=== PATIENT | female | born 1940 | race Caucasian/White ===

== ENCOUNTER → 2016-09-20 | Outpatient (CLI) | payer OTHER, BC ==
[~2016-09-20] MED LIST: ACET-1311 PO; APR/25 PO; ASPI81TA28 PO; ATOR10TA88 PO; B-COCAP21 PO; CALC667C PO; CHOL1CAP57 PO; FLUO20CA37 PO; HYDR-5688 PO; KETO2SHA TOP; LABE100T16 PO; LACTCAP3 PO; LBT/100 PO; LCTX PO; NUTR-7 PO; NUTR-773 PO; NYST1POW7 TOP; QUET1TAB30 PO; RCPAV1 IV; VNCS125 PO
== END | disposition home or self-care (01) ==
LOC: C.LABUPUNI 08:52
PROVIDERS: ATTEND Family Medicine
DX: S91.109A Unspecified open wound of unspecified toe(s) without damage to nail, initial encounter (principal); X58.XXXA Exposure to other specified factors, initial encounter

== ENCOUNTER → 2016-10-04 | Outpatient (CLI) | payer OTHER, BC ==
[~2016-10-04] MED LIST changes: -APR/25 PO; +APR25 PO; +ATOR10TA82 PO; -ATOR10TA88 PO; +CHOLPOW PO; +HYDR-4716 PO; +MISCCAP80 PO
[2016-10-04 09:52] LABS: BASO % 0.5 %; BASO ABS # 0.04 K/uL (0-0.2); COMPLETE YES; EOS % 2.2 %; HEMATOCRIT 31.3 % (37-47); IG% 0.1 %; LYMPH % 31.7 %; LYMPH ABS # 2.46 K/uL (1.2-3.4); MEAN CELL VOLUME 95.1 fL (80-100); MEAN CORPUSCULAR HEMOGLOBIN 31.3 pg (25-34); MEAN CORPUSCULAR HGB CONC 32.9 g/dl (32-36); MEAN PLATELET VOLUME 9.3 fL (7.4-10.4); MONO % 9.8 %; NEUT % 55.7 %; PLATELET COUNT 232 K/uL (130-400); RED BLOOD COUNT 3.29 M/uL (4.2-5.4); WHITE BLOOD COUNT 7.76 K/uL (4.8-10.8)
== END ==
LOC: C.LABUPUNI 09:16
PROVIDERS: ATTEND Family Medicine
DX: I10 Essential (primary) hypertension (principal)

== ENCOUNTER → 2016-10-18 | Outpatient (CLI) | payer OTHER, BC ==
[2016-10-18 09:39] LABS: HEMATOCRIT 27.4 % (37-47); MEAN CELL VOLUME 99.6 fL (80-100); MEAN CORPUSCULAR HEMOGLOBIN 31.6 pg (25-34); MEAN CORPUSCULAR HGB CONC 31.8 g/dl (32-36); PLATELET COUNT 179 K/uL (130-400); RED BLOOD COUNT 2.75 M/uL (4.2-5.4); WHITE BLOOD COUNT 7.11 K/uL (4.8-10.8)
== END ==
LOC: C.LABUPUNI 09:25
PROVIDERS: ATTEND Nurse Practitioner Family
DX: E11.40 Type 2 diabetes mellitus with diabetic neuropathy, unspecified (principal)

== ENCOUNTER → 2016-10-22 | Outpatient (CLI) | payer OTHER, BC ==
[2016-10-22 10:00] LABS: HEMATOCRIT 28.5 % (37-47)
--- NOTE | 2016-10-24 14:29 | CODING QUERY NO DIAGNOSIS ---
TREATMENT RENDERED WITHOUT A DIAGNOSIS To promote full compliance with coding requirements relating to patient care, physician participation is requested in all cases of french instructor uncertainty. Please assist us with providing a diagnosis/symptom for the test(s) below: A diagnosis/symptom was not documented on your Order. A valid diagnosis/symptom is required to bill all insurances. Please remember that we are unable to code a diagnosis of rule out, probable, possible, questionable, or suspected. Tests that require a diagnosis: * HEMOGLOBIN & HEMATOCRIT DIAGNOSIS: Provider Signature: Date: Thank you Teri Keyes [facility] Information Management Once completed, please kindly fax back to [phone] For questions please call [phone]
== END ==
LOC: C.LABUPUNI 09:24
PROVIDERS: ATTEND Nurse Practitioner Family
DX: D64.9 Anemia, unspecified (principal)

== ENCOUNTER → 2016-10-24 | Outpatient (CLI) | payer OTHER, BC ==
[2016-10-24 09:21] LABS: THYROID STIMULATING HORMONE 2.23 uIu/ml (0.300-4.500)
== END ==
LOC: C.LABUPUNI 08:06
PROVIDERS: ATTEND Nurse Practitioner Family
DX: M62.81 Muscle weakness (generalized) (principal)

== ENCOUNTER 2017-01-15 22:13 | Inpatient (IN) | payer OTHER, BC ==
[~2017-01-15] VITALS: Ht 157.5 cm; Wt 55.3 kg
[~2017-01-15 22:13] MED LIST changes: +APR/25 PO; -APR25 PO; -ATOR10TA82 PO; +ATOR10TA88 PO; -CHOLPOW PO; -HYDR-4716 PO; -HYDR-5688 PO; -KETO2SHA TOP; -LBT/100 PO; -LCTX PO; -MISCCAP80 PO; -NUTR-7 PO; -NYST1POW7 TOP; -RCPAV1 IV; -VNCS125 PO
[2017-01-15] MEDS ORDERED: SODIUM CHLORIDE 0.9% 1000ML 1,000 ML IV ONE (22:19)
--- NOTE | 2017-01-15 22:23 | EMERGENCY ROOM VISIT NOTE ---
History Report prepared by Adrianna: Deonna Anaya Under the Supervision of: Dr. Kostas Bowie D.O. First contact with patient: 22:14 Chief Complaint: LETHARGIC Stated Complaint: LETHARGIC, FEVER History of Present Illness The patient is a 76 year old female who presents to the Emergency Room with progressively worsening lethargy that began today. Per EMS, the patient arrives via ALS from [facility] as a full code. EMS reports that the staff at [facility] noticed that the patient was becoming increasingly lethargic throughout the room. EMS states that staff at the [facility] noticed that the patient did not eat dinner and then developed a fever this evening. EMS reports that the patient's fever was 102.9 degrees Fahrenheit and was given Tylenol thirty minutes ago. EMS notes that the patient is not typically altered as she is today. EMS denies any report of a cough or diarrhea. Per records the patient is on dialysis. The history is limited secondary to the patient's altered mental status. Source of History: EMS, other (records) History Limited By: AMS Onset: today Position: other (global) Quality: other (lethargy) Timing: worsening (progressively) Associated Symptoms: + fevers, No cough, No diarrhea Note: Associated Symptoms: altered Review of Systems The history and ROS are limited secondary to the patient's altered mental status. Past Medical & Surgical Medical Problems: (1) Amputated toe (2) Anemia Nos (3) Congestive Heart Failure Nos (4) Dementia (5) Diab Rebecca Wo Compl, Type Ii Or Unspec Type, Not Uncntrld (6) Diabetes (7) Hyperlipidemia Nec/Nos (8) Hypertension Nos (9) Renal disease Family History Cancer Diabetes mellitus Heart disease Hypertension Social History Smoking Status: Never Smoker Alcohol Use: none Drug Use: none Marital Status: Housing Status: detention Occupation Status: retired Current/Historical Medications Scheduled Aspirin (Aspirin Ec), 81 MG PO QAM Atorvastatin (Lipitor), 10 MG PO HS B-Complex W/ C & Folic Acid ([place] Caps), 1 CAP PO QPM Calcium Acetate (Phosphate Bin (Phoslo 667 Mg), 2 CAPSULES PO TIDM Cholecalciferol (Vitamin D3), 1,000 UNITS PO QAM Enteral Nutrition Formula (Nepro Carb Steady), 8 OZ PO TID Hydralazine HCl (Hydralazine HCl), 25 MG PO DAILY @ 1600 Hydrocodone/Acetaminophen 5MG/325MG ([place] 5MG/325MG), 1 TABLET PO BID Ketoconazole (Topical) (Ketoconazole), 1 APPLN TOP 2XWK Labetalol Hcl (Normodyne), 100 MG PO BID Nystatin (Topical) (Nystatin), 1 APPLN TOP BID Quetiapine Fumarate (Seroquel), 12.5 MG PO BID Scheduled PRN Acetaminophen (Tylenol), 650 MG PO Q6 PRN for Pain or Fever Allergies Coded Allergies: Dust (Verified Allergy, Unknown, SNEEZING,WHEEZING, 01/15/17) Physical Exam Vital Signs Date Time Temp Pulse Resp B/P (MAP) Pulse Ox O2 Delivery O2 Flow Rate FiO2 01/16/17 00:31 112/43 01/16/17 00:21 92 17 96 01/16/17 00:16 96/30 01/16/17 00:06 88 25 95 01/16/17 00:01 75/35 01/15/17 23:58 37.3 85 16 94 Room Air 01/15/17 23:51 87 15 94 01/15/17 23:46 79/38 01/15/17 23:43 95 16 94 01/15/17 23:31 101/41 01/15/17 23:28 94 17 96 01/15/17 23:16 99/42 01/15/17 23:14 89 99/42 98 Room Air 01/15/17 22:38 94 15 95 01/15/17 22:33 95 18 94 01/15/17 22:31 102/46 01/15/17 22:28 96 17 94 01/15/17 22:23 93 19 94 01/15/17 22:20 95 Room Air 01/15/17 22:20 39.5 94 16 84/33 95 Room Air 01/15/17 22:18 98 17 95 01/15/17 22:18 97 01/15/17 22:15 84/33 Physical Exam GENERAL: Patient is listless and lethargic. Does not follow commands, does not answer questions. Feels warm to touch. EYES: The conjunctivae are clear. The pupils are round and reactive. EARS, NOSE, MOUTH AND THROAT: The nose is without any evidence of any deformity. Mucous membranes are dry, tongue is midline NECK: The neck is nontender and supple. RESPIRATORY: Shallow respirations noted, diminished breath sounds throughout, tachypnea noted. CARDIOVASCULAR: Regular rate and rhythm noted to auscultation. Systolic murmur noted. GASTROINTESTINAL: The abdomen is mildly distended, but soft. Diffuse tenderness noted, but no guarding or rigidity. PELVIS: The Pelvis is stable. No tenderness to palpation is noted. BACK: No midline tenderness or or step-off noted range of motion in flexion extension as well as rotation no signs of muscle spasm noted MUSCULOSKELETAL/EXTREMITIES: There is no evidence of gross deformity full range of motion is noted in the hips and shoulders SKIN: Pedal edema noted bilaterally, no signs of cellulitis. Dialysis fistula in left arm with palpable thrill and bruit noted to auscultation. There is no obvious evidence of any rash. There are no petechiae, pallor or cyanosis noted. NEUROLOGIC: Patient does not follow commands, but according to daughter at baseline. Medical Decision & Procedures ER Provider Diagnostic Interpretation: Radiology results as stated below per my review and radiologist interpretation: HEAD WITHOUT CONTRAST (CT) CLINICAL HISTORY: 76 years-old Female presenting with fever, altered MS. TECHNIQUE: Multidetector CT imaging of the head was performed without the use of intravenous contrast. IV contrast: None. A dose lowering technique was used consistent with the principles of ALARA (as low as reasonably achievable). COMPARISON: 08/26/2015. CT DOSE (mGy.cm): The estimated cumulative dose is 1033.63 mGy.cm. FINDINGS: Casualty Claims Supervisor topogram: Unremarkable. The ventricles and sulci are proportional with mild parenchymal volume loss, likely age-related. Brain parenchyma normal in appearance with preserved weiss-white differentiation. No mass effect or midline shift. No hemorrhage or acute territorial infarct. No extra-axial fluid collection. Paranasal sinuses and mastoid air cells clear. Calvarium intact. IMPRESSION: 1. No acute intracranial pathology. Electronically signed by: Cali Manzano M.D. 01/15/2017 11:18 PM Dictated Date/Time: 01/15/2017 11:14 PM CHEST ONE VIEW PORTABLE CLINICAL HISTORY: 76 years-old Female presenting with Sepsis. TECHNIQUE: Portable upright AP view of the chest was obtained. COMPARISON: 08/26/2015. FINDINGS: Atherosclerosis of aortic arch. Cardiac silhouette stable. Persistent mild elevation of the left hemidiaphragm. Left basilar opacity. No large effusion or pneumothorax. Chronic right humeral deformity with medial displacement of the distal fracture fragment and foreshortening. Upper abdomen normal. IMPRESSION: 1. Left basilar opacity, possibly atelectasis although aspiration or infection cannot be excluded. 2. Chronic right humeral deformity from prior fracture. Electronically signed by: Cali Manzano M.D. 01/15/2017 10:44 PM Dictated Date/Time: 01/15/2017 10:41 PM ABD/PELVIS NO IV OR ORAL CONT CLINICAL HISTORY: 76 years-old Female presenting with fever, diffuse pain. TECHNIQUE: Multidetector CT of the abdomen and pelvis was performed without the use of intravenous contrast. IV contrast: None. A dose lowering technique was used consistent with the principles of ALARA (as low as reasonably achievable). COMPARISON: 08/31/2015. CT DOSE (mGy.cm): The estimated cumulative dose is 1033.63 inclusive of the head CT. FINDINGS: Casualty Claims Supervisor topogram: Unremarkable. Lung bases: Bandlike and groundglass opacities at the lung bases, possibly atelectasis. Multichamber enlargement of the heart. Coronary artery, mitral annular, and aortic valve calcification. No pericardial or pleural effusion. Liver: Normal morphology. Normal density. 11 mm hypodense lesion again noted in the right hepatic lobe with additional smaller hypodense lesions also unchanged from prior. Biliary: No gross evidence of biliary ductal dilatation allowing for noncontrast technique. Gallbladder contains gallstones. Pancreas: Mild parenchymal atrophy. Spleen: Normal. Adrenal glands: Nodular thickening of the left adrenal gland, nonspecific. Kidneys and ureters: No nephrolithiasis. No hydronephrosis. Gastrointestinal tract: Large stool burden in the rectum. Minimal rectal wall thickening without significant perirectal inflammatory change. Diverticulosis with chronic diverticular disease of the proximal sigmoid colon. No bowel obstruction. Peritoneal cavity: No free fluid or intraperitoneal gas. Bladder: Normal. Pelvic organs: Uterus likely surgically absent. No adnexal masses. Vasculature: Atherosclerosis of the normal caliber abdominal aorta. Lymph nodes: Multiple prominent upper abdominal lymph nodes, poorly characterize due to noncontrast technique. Abdominal wall: Diastases of the abdominis rectus with small wide neck midline ventral hernia containing sigmoid colon. Musculoskeletal: Compression deformity of L1 with a vertebral plana appearance. Mild retropulsion of osseous fragments into the spinal canal. This is new from prior exam. Less severe anterior vertebral body height loss of L3, essentially unchanged from prior. IMPRESSION: 1. Interval development of severe L5 compression deformity with mild retropulsion of osseous fragments into the spinal canal. The acuity of this is not known. Correlate with point tenderness. 2. Evidence of chronic diverticular disease. No diverticulitis. 3. Large stool burden in the rectum without convincing evidence of stercoral colitis. 4. Bibasilar atelectasis. 5. Prominent upper abdominal lymph nodes, poorly characterized on noncontrast technique and possibly reactive. Electronically signed by: Cali Manzano M.D. 01/15/2017 11:33 PM Dictated Date/Time: 01/15/2017 11:19 PM Laboratory Results 01/15/17 22:01 Red Blood Count 3.43, Mean Corpuscular Volume 96.8, Mean Corpuscular Hemoglobin 31.8, Mean Corpuscular Hemoglobin Concent 32.8, Mean Platelet Volume 9.6, Neutrophils (%) (Auto) 88.6, Lymphocytes (%) (Auto) 5.7, Monocytes (%) (Auto) 5.5, Eosinophils (%) (Auto) 0.0, Basophils (%) (Auto) 0.1, Neutrophils # (Auto) 9.83, Lymphocytes # (Auto) 0.63, Monocytes # (Auto) 0.61, Eosinophils # (Auto) 0.00, Basophils # (Auto) 0.01 01/15/17 22:01 Test 01/15/17 22:01 01/15/17 22:41 01/15/17 23:03 01/16/17 00:20 White Blood Count 11.09 K/uL (4.8-10.8) Red Blood Count 3.43 M/uL (4.2-5.4) Hemoglobin 10.9 g/dL (12.0-16.0) Hematocrit 33.2 % (37-47) Mean Corpuscular Volume 96.8 fL (80-100) Mean Corpuscular Hemoglobin 31.8 pg (25-34) Mean Corpuscular Hemoglobin Concent 32.8 g/dl (32-36) Platelet Count 245 K/uL (130-400) Mean Platelet Volume 9.6 fL (7.4-10.4) Neutrophils (%) (Auto) 88.6 % Lymphocytes (%) (Auto) 5.7 % Monocytes (%) (Auto) 5.5 % Eosinophils (%) (Auto) 0.0 % Basophils (%) (Auto) 0.1 % Neutrophils # (Auto) 9.83 K/uL (1.4-6.5) Lymphocytes # (Auto) 0.63 K/uL (1.2-3.4) Monocytes # (Auto) 0.61 K/uL (0.11-0.59) Eosinophils # (Auto) 0.00 K/uL (0-0.5) Basophils # (Auto) 0.01 K/uL (0-0.2) RDW Standard Deviation 45.2 fL (36.4-46.3) RDW Coefficient of Variation 13.0 % (11.5-14.5) Immature Granulocyte % (Auto) 0.1 % Immature Granulocyte # (Auto) 0.01 K/uL (0.00-0.02) Red Blood Cell Morphology Unremarkable Erythrocyte Sedimentation Rate 72 mm/hr (0-21) Prothrombin Time 11.6 SECONDS (9.0-12.0) Prothromb Time International Ratio 1.1 (0.9-1.1) Activated Partial Thromboplast Time 25.4 SECONDS (21.0-31.0) Partial Thromboplastin Ratio 1.0 Anion Gap 13.0 mmol/L (3-11) Est Creatinine Clear Calc Drug Dose 7.2 ml/min Estimated GFR () 7.8 Estimated GFR (Non- 6.7 BUN/Creatinine Ratio 14.0 (10-20) Calcium Level 8.9 mg/dl (8.5-10.1) Phosphorus Level 3.9 mg/dl (2.5-4.9) Magnesium Level 2.3 mg/dl (1.8-2.4) Total Bilirubin 1.5 mg/dl (0.2-1) Aspartate Amino Transf (AST/SGOT) 2684 U/L (15-37) Alanine Aminotransferase (ALT/SGPT) 1634 U/L (12-78) Alkaline Phosphatase 489 U/L (45-117) Total Creatine Kinase 91 U/L (26-192) Creatine Kinase MB 2.3 ng/ml (0.5-3.6) Creatine Kinase MB Ratio 2.5 (0-3.0) Troponin I < 0.015 ng/ml (0-0.045) C-Reactive Protein 4.78 mg/dl (0-0.29) Pro-B-Type Natriuretic Peptide 6495 pg/ml (0-1800) Total Protein 7.8 gm/dl (6.4-8.2) Albumin 3.0 gm/dl (3.4-5.0) Globulin 4.8 gm/dl (2.5-4.0) Albumin/Globulin Ratio 0.6 (0.9-2) Lipase 1296 U/L (73-393) Bedside Lactic Acid Venous 0.81 mmol/L (0.90-1.70) Venous Blood pH 7.47 (7.36-7.41) Venous Blood Partial Pressure CO2 34 mmHg (38.0-50.0) Venous Blood Partial Pressure O2 49 mmHg Venous Blood HCO3 24 mmol/L Venous Blood Oxygen Saturation 84.8 % Venous Blood Base Excess 0.6 mmol/L Urine Color YELLOW Urine Appearance CLEAR (CLEAR) Urine pH 8.0 (4.5-7.5) Urine Specific [place] 1.011 (1.000-1.030) Urine Protein 2+ (NEG) Urine Glucose (UA) NEG (NEG) Urine Ketones NEG (NEG) Urine Occult Blood NEG (NEG) Urine Nitrite NEG (NEG) Urine Bilirubin NEG (NEG) Urine Urobilinogen NEG (NEG) Urine Leukocyte Esterase NEG (NEG) Urine WBC (Auto) 1-5 /hpf (0-5) Urine RBC (Auto) 0-4 /hpf (0-4) Urine Hyaline Casts (Auto) 1-5 /lpf (0-5) Urine Epithelial Cells (Auto) 5-10 /lpf (0-5) Urine Bacteria (Auto) NEG (NEG) Laboratory results per my review. Medications Administered Medications (Trade) Dose Ordered Sig/Neyda Route Start Time Stop Time Status Last Admin Dose Admin Sodium Chloride 1,000 ml @ 999 mls/hr Q1H1M ONCE IV 01/15/17 22:19 01/15/17 23:19 DC 01/15/17 22:37 999 MLS/HR Piperacillin Sod/ Tazobactam Sod (Zosyn Iv) 4.5 gm NOW STAT IV 01/15/17 23:26 01/15/17 23:27 DC 01/15/17 23:34 4.5 GM Sodium Chloride 500 ml @ 999 mls/hr Q31M STAT IV 01/16/17 00:02 01/16/17 00:32 DC 01/16/17 00:36 999 MLS/HR Vancomycin HCl (Vancomycin 1gm/ 270ml Nss) 1 gm STK-MED ONCE .ROUTE 01/16/17 00:37 01/16/17 00:38 DC 01/16/17 00:48 1 GM ECG Indication: altered mental status Rate (beats per minute): 93 Rhythm: normal sinus Findings: no ectopy, other (no acute ST segment abnormalities) Comparison ECG Date: no prior available ED Course 5: The patient was evaluated in room B2. A complete history and physical examination were performed. 9: Ordered Sodium Chloride 1000 ml @ 999 mls/hr IV. 2326: Ordered Zosyn IV 4.5 gm IV. 2329: I reevaluated the patient and she is resting. I discussed the exam findings with the patients daughter and I discussed the treatment plan. She verbalized complete understanding and agreement. She will be evaluated for further treatment. 2358: I discussed the patients case with Nick Vanessa. He is going to evaluate the patient for further treatment. 0002: Ordered Sodium Chloride 500 ml @ 999 mls/hr IV. Medical Decision Differential diagnosis: Etiologies such as viral syndrome, otitis, pharyngitis, pneumonia, influenza, meningitis, urinary tract infection, sepsis, bacteremia, as well as others were entertained. Nursing notes reviewed. Additional history is obtained from the prehospital personnel. Additional history is obtained from the patient's family member. The patient is a 76-year-old female who presented to the emergency Department from a detention for fever and altered mental status. On physical exam the patient appeared to have significant abdominal tenderness. The patient was found have an elevated white blood cell count as well as an elevated liver function studies and lipase. On CT the patient does have gallstones and some edema throughout the abdomen. I'm unsure if this represents a cholecystitis but based on the patient's laboratory studies she was started on fluids and IV antibiotics. I discussed the patient's laboratory and radiographic studies with her as well as her family member. Due to the patient's condition I also discussed his case with the on-call [facility] hospitalist group. They have agreed to evaluate the patient in emergency apartment for further management and disposition. Consults Time Called: [phone] Consulting Physician: Nick Vanessa Returned Call: [phone] I discussed the patients case with Nick Vanessa. He is going to evaluate the patient for further treatment. Impression Primary Impression: Sepsis Additional Impressions: Gallstone pancreatitis Renal failure Scribe Attestation The scribe's documentation has been prepared under my direction and personally reviewed by me in its entirety. I confirm that the note above accurately reflects all work, treatment, procedures, and medical decision making performed by me. Departure Information Dispostion Being Evaluated By Hospitalist Referrals [facility] (PCP) Problem Qualifiers Primary Impression: Sepsis Sepsis type: sepsis due to unspecified organism Qualified Codes: A41.9 - Sepsis, unspecified organism Additional Impressions: Renal failure Renal failure chronicity: acute on chronic Acute renal failure type: unspecified Chronic kidney disease stage: unspecified stage Qualified Codes: N17.9 - Acute kidney failure, unspecified; N18.9 - Chronic kidney disease, unspecified
[2017-01-15 22:29] LABS: HEMATOCRIT 33.2 % (37-47); MEAN CELL VOLUME 96.8 fL (80-100); MEAN CORPUSCULAR HEMOGLOBIN 31.8 pg (25-34); MEAN CORPUSCULAR HGB CONC 32.8 g/dl (32-36); MEAN PLATELET VOLUME 9.6 fL (7.4-10.4); PLATELET COUNT 245 K/uL (130-400); RED BLOOD COUNT 3.43 M/uL (4.2-5.4); WHITE BLOOD COUNT 11.09 K/uL (4.8-10.8)
[2017-01-15 22:39] LABS: INR 1.1 (0.9-1.1); PROTHROMBIN TIME (PATIENT) 11.6 SECONDS (9.0-12.0)
--- NOTE | 2017-01-15 22:45 | DIAGNOSTIC IMAGING REPORT ---
CHEST ONE VIEW PORTABLE CLINICAL HISTORY: 76 years-old Female presenting with Sepsis. TECHNIQUE: Portable upright AP view of the chest was obtained. COMPARISON: 08/26/2015. FINDINGS: Atherosclerosis of aortic arch. Cardiac silhouette stable. Persistent mild elevation of the left hemidiaphragm. Left basilar opacity. No large effusion or pneumothorax. Chronic right humeral deformity with medial displacement of the distal fracture fragment and foreshortening. Upper abdomen normal. IMPRESSION: 1. Left basilar opacity, possibly atelectasis although aspiration or infection cannot be excluded. 2. Chronic right humeral deformity from prior fracture. Electronically signed by: Cali Manzano M.D. 01/15/2017 10:44 PM Dictated Date/Time: 01/15/2017 10:41 PM
[2017-01-15] MEDS ORDERED: NYST1POW7 TOP (22:54)
[2017-01-15] MEDS ORDERED: KETO2SHA TOP (22:54)
[2017-01-15] MEDS ORDERED: LBT/100 PO (22:54)
[2017-01-15] MEDS ORDERED: HYDR-5688 PO (22:54)
[2017-01-15 22:58] LABS: BASO % 0.1 %; BASO ABS # 0.01 K/uL (0-0.2); COMPLETE YES; IG% 0.1 %; LYMPH % 5.7 %; LYMPH ABS # 0.63 K/uL (1.2-3.4); MONO % 5.5 %; NEUT % 88.6 %
[2017-01-15 23:12] LABS: ALB/GLOB RATIO 0.6 (0.9-2); ALKALINE PHOSPHATASE 489 U/L (45-117); ALT/SGPT 1634 U/L (12-78); BLOOD UREA NITROGEN 79 mg/dl (7-18); C-REACTIVE PROTEIN 4.78 mg/dl (0-0.29); CALCIUM 8.9 mg/dl (8.5-10.1); CARBON DIOXIDE 25 mmol/L (21-32); CHLORIDE 97 mmol/L (98-107); CKMB/CK RATIO 2.5 (0-3.0); GLUCOSE 153 mg/dl (70-99); MAGNESIUM 2.3 mg/dl (1.8-2.4); PHOSPHORUS 3.9 mg/dl (2.5-4.9); POTASSIUM 3.5 mmol/L (3.5-5.1); SODIUM 135 mmol/L (136-145)
--- NOTE | 2017-01-15 23:20 | DIAGNOSTIC IMAGING REPORT ---
HEAD WITHOUT CONTRAST (CT) CLINICAL HISTORY: 76 years-old Female presenting with fever, altered MS. TECHNIQUE: Multidetector CT imaging of the head was performed without the use of intravenous contrast. IV contrast: None. A dose lowering technique was used consistent with the principles of ALARA (as low as reasonably achievable). COMPARISON: 08/26/2015. CT DOSE (mGy.cm): The estimated cumulative dose is 1033.63 mGy.cm. FINDINGS: Beveling And Edging Machine Operator topogram: Unremarkable. The ventricles and sulci are proportional with mild parenchymal volume loss, likely age-related. Brain parenchyma normal in appearance with preserved weiss-white differentiation. No mass effect or midline shift. No hemorrhage or acute territorial infarct. No extra-axial fluid collection. Paranasal sinuses and mastoid air cells clear. Calvarium intact. IMPRESSION: 1. No acute intracranial pathology. Electronically signed by: Cali Manzano M.D. 01/15/2017 11:18 PM Dictated Date/Time: 01/15/2017 11:14 PM
[2017-01-15 23:22] LABS: AST/SGOT 2684 U/L (15-37)
[2017-01-15 23:24] LABS: VEN BLD GAS O2 SATURATION 84.8 %; VEN BLOOD GAS BASE EXCESS 0.6 mmol/L
[2017-01-15] MEDS ORDERED: PIPERACILLIN/TAZOBACTAM 4.5 GM/100ML D5W IV STA (23:26)
--- NOTE | 2017-01-15 23:35 | DIAGNOSTIC IMAGING REPORT ---
ABD/PELVIS NO IV OR ORAL CONT CLINICAL HISTORY: 76 years-old Female presenting with fever, diffuse pain. TECHNIQUE: Multidetector CT of the abdomen and pelvis was performed without the use of intravenous contrast. IV contrast: None. A dose lowering technique was used consistent with the principles of ALARA (as low as reasonably achievable). COMPARISON: 08/31/2015. CT DOSE (mGy.cm): The estimated cumulative dose is 1033.63 inclusive of the head CT. FINDINGS: Heel Nail Rasper topogram: Unremarkable. Lung bases: Bandlike and groundglass opacities at the lung bases, possibly atelectasis. Multichamber enlargement of the heart. Coronary artery, mitral annular, and aortic valve calcification. No pericardial or pleural effusion. Liver: Normal morphology. Normal density. 11 mm hypodense lesion again noted in the right hepatic lobe with additional smaller hypodense lesions also unchanged from prior. Biliary: No gross evidence of biliary ductal dilatation allowing for noncontrast technique. Gallbladder contains gallstones. Pancreas: Mild parenchymal atrophy. Spleen: Normal. Adrenal glands: Nodular thickening of the left adrenal gland, nonspecific. Kidneys and ureters: No nephrolithiasis. No hydronephrosis. Gastrointestinal tract: Large stool burden in the rectum. Minimal rectal wall thickening without significant perirectal inflammatory change. Diverticulosis with chronic diverticular disease of the proximal sigmoid colon. No bowel obstruction. Peritoneal cavity: No free fluid or intraperitoneal gas. Bladder: Normal. Pelvic organs: Uterus likely surgically absent. No adnexal masses. Vasculature: Atherosclerosis of the normal caliber abdominal aorta. Lymph nodes: Multiple prominent upper abdominal lymph nodes, poorly characterize due to noncontrast technique. Abdominal wall: Diastases of the abdominis rectus with small wide neck midline ventral hernia containing sigmoid colon. Musculoskeletal: Compression deformity of L1 with a vertebral plana appearance. Mild retropulsion of osseous fragments into the spinal canal. This is new from prior exam. Less severe anterior vertebral body height loss of L3, essentially unchanged from prior. IMPRESSION: 1. Interval development of severe L5 compression deformity with mild retropulsion of osseous fragments into the spinal canal. The acuity of this is not known. Correlate with point tenderness. 2. Evidence of chronic diverticular disease. No diverticulitis. 3. Large stool burden in the rectum without convincing evidence of stercoral colitis. 4. Bibasilar atelectasis. 5. Prominent upper abdominal lymph nodes, poorly characterized on noncontrast technique and possibly reactive. Electronically signed by: Cali Manzano M.D. 01/15/2017 11:33 PM Dictated Date/Time: 01/15/2017 11:19 PM
[2017-01-16] MEDS ORDERED: SODIUM CHLORIDE 0.9% 500ML 500 ML IV STA ×2 (00:02→00:58)
[2017-01-16 00:36] LABS: URINE APPEARANCE CLEAR (CLEAR); URINE BILIRUBIN NEG (NEG); URINE COLOR YELLOW; URINE NITRITE NEG (NEG); URINE SPECIFIC GRAVITY 1.011 (1.000-1.030); UROBILINOGEN NEG (NEG); ZZURINE CULT IF INDIC CATH NO
[2017-01-16] MEDS ORDERED: VANCOMYCIN 1GM/270ML NSS ONE (00:37)
[2017-01-16 00:39] LABS: MANUAL MICROSCOPIC REQUIRED? NO; REVIEW REQ? NO; SULFASALICYLIC ACID POS (NEG)
[2017-01-16] MEDS ORDERED: VANCOMYCIN 1GM/270ML NSS IV STA (00:58)
--- NOTE | 2017-01-16 01:13 | History and Physical ---
History & Physical Date & Time of Service: Jan 16, 2017 at 01:13 . Chief Complaint: lethargy, fever . Primary Care Physician: [facility] [place] . History of Present Illness Source: family, hospital records 76-year-old female who resides at [facility]. History of Lewy body dementia, chronic kidney disease stage V on hemodialysis, hypertension, and other problems as noted below. She is essentially wheelchair bound. Her dementia is advanced and is associated with hallucinations. Tonight at the longterm she was noted to be lethargic, febrile, and hypotensive. EMS summoned and she was brought to the ED. Patient unable to provide any information because of her dementia and lethargy. Daughter was present in the ED and provided background information, but not aware of any new symptoms or problems prior to noted changes this evening. Blood pressure in the ED as low as 75/35. Received fluid resuscitation with improvement. Blood cultures obtained in ED and patient was started on broad-spectrum antibiotic therapy. . Past Medical/Surgical History Chronic and Resolved Medical Problems: (1) Anemia in CKD (chronic kidney disease) Status: Chronic (2) Chronic kidney disease requiring chronic dialysis Status: Chronic (3) Chronic pain Status: Chronic (4) CKD (chronic kidney disease) stage 5, GFR less than 15 ml/min Status: Chronic (5) Diabetes mellitus with stage 5 chronic kidney disease GFR <15 Status: Chronic (6) Diabetic neuropathy Status: Chronic (7) Diabetic retinopathy associated with type 2 diabetes mellitus Status: Chronic (8) Dyslipidemia Status: Chronic (9) Fracture of neck of right humerus Status: Chronic (10) History of MRSA infection Permanent Comment: osteomyelitis left second toe Status: Chronic (11) History of osteomyelitis Permanent Comment: left second toe, MRSA Status: Chronic (12) Hypertension Status: Chronic (13) Lewy body dementia Status: Chronic Surgical Problems: (1) Status post amputation of toe of left foot Permanent Comment: left second toe Status: Chronic (2) Status post hysterectomy Status: Chronic . Family History Cancer Diabetes mellitus Heart disease Hypertension Social History Smoking Status: Former Smoker Alcohol Use: none Drug Use: none Marital Status: Housing status: longterm Occupational Status: retired Immunizations History of Influenza Vaccine: Yes History of Pneumococcal: Yes Multi-Drug Resistant Organisms History of MDRO: Yes Type of MDRO: MRSA Allergies Coded Allergies: Dust (Verified Allergy, Unknown, SNEEZING,WHEEZING, 01/15/17) Home Medications Scheduled Aspirin (Aspirin Ec), 81 MG PO QAM Atorvastatin (Lipitor), 10 MG PO HS B-Complex W/ C & Folic Acid ([place] Caps), 1 CAP PO QPM Calcium Acetate (Phosphate Bin (Phoslo 667 Mg), 2 CAPSULES PO TIDM Cholecalciferol (Vitamin D3), 1,000 UNITS PO QAM Enteral Nutrition Formula (Nepro Carb Steady), 8 OZ PO TID Hydralazine HCl (Hydralazine HCl), 25 MG PO DAILY @ 1600 Hydrocodone/Acetaminophen 5MG/325MG ([place] 5MG/325MG), 1 TABLET PO BID Ketoconazole (Topical) (Ketoconazole), 1 APPLN TOP 2XWK Labetalol Hcl (Normodyne), 100 MG PO BID Nystatin (Topical) (Nystatin), 1 APPLN TOP BID Quetiapine Fumarate (Seroquel), 12.5 MG PO BID Scheduled PRN Acetaminophen (Tylenol), 650 MG PO Q6 PRN for Pain or Fever Review of Systems Unable to obtain due to dementia / lethargy. . Physical Exam Vital Signs Date Time Temp Pulse Resp B/P (MAP) Pulse Ox O2 Delivery O2 Flow Rate FiO2 01/16/17 01:01 103/42 97 Room Air 01/16/17 00:51 88 20 97 01/16/17 00:46 94/42 01/16/17 00:36 85 16 95 01/16/17 00:31 112/43 01/16/17 00:21 92 17 96 01/16/17 00:16 96/30 01/16/17 00:06 88 25 95 01/16/17 00:01 75/35 01/15/17 23:58 37.3 85 16 94 Room Air 01/15/17 23:51 87 15 94 01/15/17 23:46 79/38 01/15/17 23:43 95 16 94 01/15/17 23:31 101/41 01/15/17 23:28 94 17 96 01/15/17 23:16 99/42 01/15/17 23:14 89 99/42 98 Room Air 01/15/17 22:38 94 15 95 01/15/17 22:33 95 18 94 01/15/17 22:31 102/46 01/15/17 22:28 96 17 94 01/15/17 22:23 93 19 94 01/15/17 22:20 95 Room Air 01/15/17 22:20 39.5 94 16 84/33 95 Room Air 01/15/17 22:18 98 17 95 01/15/17 22:18 97 01/15/17 22:15 84/33 General Appearance: + moderate distress, + cachetic Head: normocephalic, atraumatic Eyes: PERRL, EOMI, sclerae normal, + pertinent finding (exam limited due to patient's inability to cooperate) ENT: + pertinent finding (exam limited due to patient's inability to cooperate) Neck: supple, no adenopathy, thyroid normal, trachea midline Respiratory/Chest: no respiratory distress, no accessory muscle use, + pertinent finding (few bibasilar rales) Cardiovascular: regular rate, rhythm, no edema, + systolic murmur (III/ systolic murmur at base), + abnormal peripheral pulses (diminished pedal pulses) , + pertinent finding (+ JVD) Abdomen/GI: + pertinent finding (quiet bowel sounds, diffusely tender (more so in RUQ), slighty distended, soft, no palpable masses or organomegaly) Extremities/Musculoskelatal: no calf tenderness, normal capillary refill, no pedal edema, + pertinent finding (decreased ROM right shoulder, s/p amputation left second toe; AV fistula LUE) Neurologic/Psych: + pertinent finding (lethargic; exam very limited; does not follow commands; plantar reflexes equivocal bilat) Skin: normal color, no rash Lymphatic: no adenopathy (cervical) Diagnostics Laboratory Results Results Past 24 Hours Test 01/15/17 22:01 01/15/17 22:41 01/15/17 23:03 01/16/17 00:20 Range/Units White Blood Count 11.09 4.8-10.8 K/uL Red Blood Count 3.43 4.2-5.4 M/uL Hemoglobin 10.9 12.0-16.0 g/dL Hematocrit 33.2 37-47 % Mean Corpuscular Volume 96.8 80-100 fL Mean Corpuscular Hemoglobin 31.8 25-34 pg Mean Corpuscular Hemoglobin Concent 32.8 32-36 g/dl Platelet Count 245 130-400 K/uL Mean Platelet Volume 9.6 7.4-10.4 fL Neutrophils (%) (Auto) 88.6 % Lymphocytes (%) (Auto) 5.7 % Monocytes (%) (Auto) 5.5 % Eosinophils (%) (Auto) 0.0 % Basophils (%) (Auto) 0.1 % Neutrophils # (Auto) 9.83 1.4-6.5 K/uL Lymphocytes # (Auto) 0.63 1.2-3.4 K/uL Monocytes # (Auto) 0.61 0.11-0.59 K/uL Eosinophils # (Auto) 0.00 0-0.5 K/uL Basophils # (Auto) 0.01 0-0.2 K/uL RDW Standard Deviation 45.2 36.4-46.3 fL RDW Coefficient of Variation 13.0 11.5-14.5 % Immature Granulocyte % (Auto) 0.1 % Immature Granulocyte # (Auto) 0.01 0.00-0.02 K/uL Red Blood Cell Morphology Unremarkable Erythrocyte Sedimentation Rate 72 0-21 mm/hr Prothrombin Time 11.6 9.0-12.0 SECONDS Prothromb Time International Ratio 1.1 0.9-1.1 Activated Partial Thromboplast Time 25.4 21.0-31.0 SECONDS Partial Thromboplastin Ratio 1.0 Sodium Level 135 136-145 mmol/L Potassium Level 3.5 3.5-5.1 mmol/L Chloride Level 97 98-107 mmol/L Carbon Dioxide Level 25 21-32 mmol/L Anion Gap 13.0 3-11 mmol/L Blood Urea Nitrogen 79 7-18 mg/dl Creatinine 5.60 0.60-1.20 mg/dl Est Creatinine Clear Calc Drug Dose 7.2 ml/min Estimated GFR () 7.8 Estimated GFR (Non- 6.7 BUN/Creatinine Ratio 14.0 10-20 Random Glucose 153 70-99 mg/dl Calcium Level 8.9 8.5-10.1 mg/dl Phosphorus Level 3.9 2.5-4.9 mg/dl Magnesium Level 2.3 1.8-2.4 mg/dl Total Bilirubin 1.5 0.2-1 mg/dl Aspartate Amino Transf (AST/SGOT) 2684 15-37 U/L Alanine Aminotransferase (ALT/SGPT) 1634 12-78 U/L Alkaline Phosphatase 489 45-117 U/L Total Creatine Kinase 91 26-192 U/L Creatine Kinase MB 2.3 0.5-3.6 ng/ml Creatine Kinase MB Ratio 2.5 0-3.0 Troponin I < 0.015 0-0.045 ng/ml C-Reactive Protein 4.78 0-0.29 mg/dl Pro-B-Type Natriuretic Peptide 6495 0-1800 pg/ml Total Protein 7.8 6.4-8.2 gm/dl Albumin 3.0 3.4-5.0 gm/dl Globulin 4.8 2.5-4.0 gm/dl Albumin/Globulin Ratio 0.6 0.9-2 Lipase 1296 73-393 U/L Bedside Lactic Acid Venous 0.81 0.90-1.70 mmol/L Venous Blood pH 7.47 7.36-7.41 Venous Blood Partial Pressure CO2 34 38.0-50.0 mmHg Venous Blood Partial Pressure O2 49 mmHg Venous Blood HCO3 24 mmol/L Venous Blood Oxygen Saturation 84.8 % Venous Blood Base Excess 0.6 mmol/L Urine Color YELLOW Urine Appearance CLEAR CLEAR Urine pH 8.0 4.5-7.5 Urine Specific [place] 1.011 1.000-1.030 Urine Protein 2+ NEG Urine Glucose (UA) NEG NEG Urine Ketones NEG NEG Urine Occult Blood NEG NEG Urine Nitrite NEG NEG Urine Bilirubin NEG NEG Urine Urobilinogen NEG NEG Urine Leukocyte Esterase NEG NEG Urine WBC (Auto) 1-5 0-5 /hpf Urine RBC (Auto) 0-4 0-4 /hpf Urine Hyaline Casts (Auto) 1-5 0-5 /lpf Urine Epithelial Cells (Auto) 5-10 0-5 /lpf Urine Bacteria (Auto) NEG NEG Microbiology Results 01/15/17 Blood Culture, Received Pending 01/15/17 Blood Culture, Received Pending Diagnostic Radiology PORT CXR (interpreted by Radiology) 1. Left basilar opacity, possibly atelectasis although aspiration or infection cannot be excluded. 2. Chronic right humeral deformity from prior fracture. Electronically signed by: Cali Manzano M.D. 01/15/2017 10:[address] HEAD (interpreted by Radiology) IMPRESSION: 1. No acute intracranial pathology. Electronically signed by: Cali Manzano M.D. 01/15/2017 11:[address] ABDOMEN + PELVIS (interpreted by Radiology) IMPRESSION: 1. Interval development of severe L5 compression deformity with mild retropulsion of osseous fragments into the spinal canal. The acuity of this is not known. Correlate with point tenderness. 2. Evidence of chronic diverticular disease. No diverticulitis. 3. Large stool burden in the rectum without convincing evidence of stercoral colitis. 4. Bibasilar atelectasis. 5. Prominent upper abdominal lymph nodes, poorly characterized on noncontrast technique and possibly reactive. Electronically signed by: Cali Manzano M.D. 01/15/2017 11:33 PM . Impression Assessment and Plan PROBABLE SEPSIS Patient presented to ED with fever of 39.5 and blood pressures as low as 75 systolic. WBC 11,090. Serum lactate 0.81. C reactive protein 4.78. Received fluid resuscitation for hypotension with improvement. Will not add pressors due to plan for conservative management without invasive procedures (including central lines). Blood cultures obtained. Received broad-spectrum IV antibiotic therapy with piperacillin/tazobactam. Add vancomycin for broader coverage. Source of infection not certain, but suspect biliary tract as discussed below. Chest x-ray suggested possible left lower lobe infiltrate, but appearance of lung bases on CT appeared to be most consistent with atelectasis. History of Clostridium difficile colitis. Stools in ED were reportedly loose. Check stool for C. difficile. History of diverticulitis, but no CT-evidence at this time. ALTERED MENTAL STATUS Head CT negative for acute findings. Most likely has encephalopathy / delirium secondary to sepsis. ELEVATED LFT'S / LIPASE Labs notable for total bilirubin 1.5, AST 2684, ALT 1634, alk phosphatase 489, lipase 1296. Cholelithiasis noted on CT without apparent cholecystitis or choledocholithiasis. Consider cholecystitis, cholangitis, gallstone pancreatitis. Check ultrasound for further information. Antibiotics for possible biliary tract infection as noted above. Given current plan of very conservative management, will not pursue GI or Surgery consultations. HYPERTENSION Hypotensive at time of presentation. Hold labetalol and hydralazine until hemodynamics improved. 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 Currently diet-controlled. Random blood sugar in ED 153. Tight glycemic management not indicated. Will not check hemoglobin A1c since it will not alter therapy. Add insulin coverage if blood sugars > 180. CKD V Consult Nephrology for management of hemodialysis and other related issues. LEWY BODY DEMENTIA Diagnosed several years ago with progressive disease, now advanced. Superimposed delirium secondary to suspected sepsis. Chronically on low-dose quetiapine- resume when able to take oral meds safely. Avoid higher doses of antipsychotics due to Lewy body disease. COMPRESSION FRACTURE L1 Severe compression fracture at L1 of uncertain chronicity noted on CT of abdomen and pelvis. Unable to assess further at this time. CHRONIC PAIN Patient takes hydrocodone for chronic pain, apparently primarily due to right shoulder pain. Unable to take oral analgesics at this time. IV hydromorphone PRN. Resume oral therapy with hydrocodone if / when able. HISTORY MRSA Contact precautions. VTE PROPHYLAXIS Moderately high risk for VTE. SQ heparin. RESUSCITATION STATUS Discussed with patient's daughter who is POA. She has a living will. Daughter feels that patient would not wish to have invasive procedures or cardiopulmonary resuscitation attempted in light of her advanced dementia and previously expressed wishes. Code status, therefore, is "Level 5" (DNR). DISPOSITION Patient is critically ill. Will not admit to ICU due to DNR status and plan not to consider invasive procedures including central lines. Expected return to [facility] if her condition improves. . VTE Prophylaxis Risk Level: Moderate Given or contraindicated: Unfractionated heparin SQ
[2017-01-16 01:55] VITALS: BP 124/60; PULSE 84; TEMP 37.8; O2SAT 96; Ht 157.5 cm; Wt 55.3 kg
[2017-01-16] MEDS ORDERED: VANCOMYCIN INJ 0 MG in SODIUM CHLORIDE 0.9% 500ML 500 ML IV SCH (02:00)
[2017-01-16] MEDS ORDERED: HYDROmorphone INJ 0.5 MG/0.5 ML SYR IV PRN (02:00)
[2017-01-16] MEDS ORDERED: VANCOMYCIN CONSULT ACTIVE PRN (02:30)
[2017-01-16] MEDS ORDERED: PIPERACILL/TAZOBAC CONSULT ACTIVE PRN (02:30)
--- NOTE | 2017-01-16 03:33 | Progress Note ---
Progress Note Post Crystalloid Evaluation Date: Jan 16, 2017 Time: 03:20 Subjective Hemodynamics improved. A bit more alert. No respiratory distress. . Physical Exam Vital Signs: Vital Signs Date Time Temp Pulse Resp B/P (MAP) Pulse Ox O2 Delivery O2 Flow Rate FiO2 01/16/17 01:55 37.8 84 18 124/60 96 Room Air Lungs: lungs clear, no respiratory distress, no accessory muscle use Heart: regular rate, rhythm, no edema, + JVD, + systolic murmur Peripheral Pulse: Weak Capillary Refill: Normal (less than 2 seconds) Skin: Unremarkable (no mottling, no cyanosis,m no flushing) Assessment & Plan Presence of: Severe Sepsis Severe sepsis. Hemodynamically stable after fluid resuscitation. Continue broad-spectrum IV antibiotic therapy. .
[2017-01-16 04:34] VITALS: BP 151/67; PULSE 81; TEMP 37.3; O2SAT 96
--- NOTE | 2017-01-16 06:56 | DIAGNOSTIC IMAGING REPORT ---
BILIARY ABDOMEN LIMITED HISTORY: 76 years-old Female elevated LFT's + lipase COMPARISON: CT abdomen and pelvis 01/15/2017 and 08/26/2015, chest CT 11/09/2014 TECHNIQUE: Multiple real-time sonographic images of the abdominal right upper quadrant were obtained assessing grayscale appearance and color flow. FINDINGS: Exam and limited secondary to reported patient combativeness and lack of cooperation. The patient is medicated for pain and therefore sonographic Doe sign was unable to be obtained. There is severe atrophy of the pancreatic parenchyma without focal mass identified. Distal body and tail are obscured by bowel gas. There is a trace amount of perihepatic ascites noted. Liver measures up to 21 cm. There is nonspecific 0.8 cm lesion of the subserosal posterior right hepatic lobe, 0.8 x 1.2 x 1.2 cm which appears unchanged from 11/09/2014. This is nonspecific, however suggests hepatic cyst. No internal vascularity. There is a prominent amount of layering sludge and shadowing gallstones within the gallbladder lumen with gallstones also seen within the gallbladder neck. There is mild gallbladder distention measuring up to 10.8 cm in length. The gallbladder wall is mildly thickened measuring up to 4 mm. Trace pericholecystic fluid is noted. Common bile duct measures up to 8.8 mm without obstructing stone or mass identified. The right kidney appears echogenic without hydronephrosis or focal mass. IMPRESSION: 1. Cholelithiasis and gallbladder sludge noted in association with mild gallbladder wall thickening. Sonographic Doe sign was unable to be assessed secondary to patient's medicated status. Findings may reflect acute cholecystitis within the appropriate clinical setting. Follow-up exam with hepatobiliary study may be beneficial. 2. Prominence of the common bile duct measuring up to 8.8 mm may be normal considering patient's age. No obstructing stone or mass identified. 3. 1.2 cm hypoechoic lesion of the subserosal posterior right hepatic lobe is nonspecific, however is unchanged dating back to 11/09/2014 suggesting cyst. 4. Mild perihepatic ascites. The above report was generated using voice recognition software. It may contain grammatical, syntax or spelling errors. Electronically signed by: Cash Moeller M.D. 01/16/2017 6:54 AM Dictated Date/Time: 01/16/2017 6:45 AM
[2017-01-16 07:04] LABS: HEMATOCRIT 30.5 % (37-47); MEAN CELL VOLUME 97.1 fL (80-100); MEAN CORPUSCULAR HEMOGLOBIN 32.2 pg (25-34); MEAN CORPUSCULAR HGB CONC 33.1 g/dl (32-36); PLATELET COUNT 181 K/uL (130-400); RED BLOOD COUNT 3.14 M/uL (4.2-5.4); WHITE BLOOD COUNT 15.04 K/uL (4.8-10.8)
[2017-01-16 07:57] LABS: ALB/GLOB RATIO 0.6 (0.9-2); BUN/CREATININE RATIO 14.4 (10-20); CALCIUM 8.5 mg/dl (8.5-10.1); CREATININE 5.8 mg/dl (0.60-1.20); POTASSIUM 3.5 mmol/L (3.5-5.1)
[2017-01-16 08:08] VITALS: BP 148/73; PULSE 76; TEMP 36.9; O2SAT 95
--- NOTE | 2017-01-16 08:59 | Progress Note ---
Medicine Progress Note Date & Time of Visit: Jan 16, 2017 at 08:48. Subjective patient seen resting in bed, appears comfortable but lethargic does not respond to verbal stimuli grimaces with painful stimuli to thumb not in respiratory distress Objective Last 8 Hrs Date Time Temp Pulse Resp B/P (MAP) Pulse Ox O2 Delivery O2 Flow Rate FiO2 01/16/17 08:08 36.9 76 18 148/73 (98) 95 01/16/17 04:34 37.3 81 18 151/67 (95) 96 Room Air 01/16/17 04:00 Room Air 01/16/17 01:55 37.8 84 18 124/60 96 Room Air 01/16/17 01:42 37.3 83 15 105/39 96 01/16/17 01:21 83 15 96 01/16/17 01:16 105/39 01/16/17 01:06 87 18 95 01/16/17 01:01 103/42 97 Room Air 01/16/17 00:51 88 20 97 Physical Exam: General- lethargic, not in respiratory distress Head- atraumatic Eyes- EOMI, anicteric ENT- (+) dry oral mucosa Neck- supple, no JVD, no adenopathy Lungs- clear breath sounds bilaterally Heart- regular rhythm; no murmur, normal rate Abdomen- normal bowel sounds,non distended, soft, mild grimace to RUQ palpation Extremities- no pretibial edema, no calf tenderness Neuro- lethargic , full exam cannot be performed Skin- warm & dry Laboratory Results: Last 24 Hours Test 01/15/17 22:01 01/15/17 22:41 01/15/17 23:03 01/16/17 00:20 White Blood Count 11.09 K/uL Red Blood Count 3.43 M/uL Hemoglobin 10.9 g/dL Hematocrit 33.2 % Mean Corpuscular Volume 96.8 fL Mean Corpuscular Hemoglobin 31.8 pg Mean Corpuscular Hemoglobin Concent 32.8 g/dl Platelet Count 245 K/uL Mean Platelet Volume 9.6 fL Neutrophils (%) (Auto) 88.6 % Lymphocytes (%) (Auto) 5.7 % Monocytes (%) (Auto) 5.5 % Eosinophils (%) (Auto) 0.0 % Basophils (%) (Auto) 0.1 % Neutrophils # (Auto) 9.83 K/uL Lymphocytes # (Auto) 0.63 K/uL Monocytes # (Auto) 0.61 K/uL Eosinophils # (Auto) 0.00 K/uL Basophils # (Auto) 0.01 K/uL RDW Standard Deviation 45.2 fL RDW Coefficient of Variation 13.0 % Immature Granulocyte % (Auto) 0.1 % Immature Granulocyte # (Auto) 0.01 K/uL Red Blood Cell Morphology Unremarkable Erythrocyte Sedimentation Rate 72 mm/hr Prothrombin Time 11.6 SECONDS Prothromb Time International Ratio 1.1 Activated Partial Thromboplast Time 25.4 SECONDS Partial Thromboplastin Ratio 1.0 Sodium Level 135 mmol/L Potassium Level 3.5 mmol/L Chloride Level 97 mmol/L Carbon Dioxide Level 25 mmol/L Anion Gap 13.0 mmol/L Blood Urea Nitrogen 79 mg/dl Creatinine 5.60 mg/dl Est Creatinine Clear Calc Drug Dose 7.2 ml/min Estimated GFR () 7.8 Estimated GFR (Non- 6.7 BUN/Creatinine Ratio 14.0 Random Glucose 153 mg/dl Calcium Level 8.9 mg/dl Phosphorus Level 3.9 mg/dl Magnesium Level 2.3 mg/dl Total Bilirubin 1.5 mg/dl Aspartate Amino Transf (AST/SGOT) 2684 U/L Alanine Aminotransferase (ALT/SGPT) 1634 U/L Alkaline Phosphatase 489 U/L Total Creatine Kinase 91 U/L Creatine Kinase MB 2.3 ng/ml Creatine Kinase MB Ratio 2.5 Troponin I < 0.015 ng/ml C-Reactive Protein 4.78 mg/dl Pro-B-Type Natriuretic Peptide 6495 pg/ml Total Protein 7.8 gm/dl Albumin 3.0 gm/dl Globulin 4.8 gm/dl Albumin/Globulin Ratio 0.6 Lipase 1296 U/L Bedside Lactic Acid Venous 0.81 mmol/L Venous Blood pH 7.47 Venous Blood Partial Pressure CO2 34 mmHg Venous Blood Partial Pressure O2 49 mmHg Venous Blood HCO3 24 mmol/L Venous Blood Oxygen Saturation 84.8 % Venous Blood Base Excess 0.6 mmol/L Urine Color YELLOW Urine Appearance CLEAR Urine pH 8.0 Urine Specific [place] 1.011 Urine Protein 2+ Urine Glucose (UA) NEG Urine Ketones NEG Urine Occult Blood NEG Urine Nitrite NEG Urine Bilirubin NEG Urine Urobilinogen NEG Urine Leukocyte Esterase NEG Urine WBC (Auto) 1-5 /hpf Urine RBC (Auto) 0-4 /hpf Urine Hyaline Casts (Auto) 1-5 /lpf Urine Epithelial Cells (Auto) 5-10 /lpf Urine Bacteria (Auto) NEG Test 01/16/17 06:52 White Blood Count 15.04 K/uL Red Blood Count 3.14 M/uL Hemoglobin 10.1 g/dL Hematocrit 30.5 % Mean Corpuscular Volume 97.1 fL Mean Corpuscular Hemoglobin 32.2 pg Mean Corpuscular Hemoglobin Concent 33.1 g/dl RDW Standard Deviation 46.0 fL RDW Coefficient of Variation 13.1 % Platelet Count 181 K/uL Mean Platelet Volume 9.0 fL Sodium Level 140 mmol/L Potassium Level 3.5 mmol/L Chloride Level 102 mmol/L Carbon Dioxide Level 25 mmol/L Anion Gap 13.0 mmol/L Blood Urea Nitrogen 82 mg/dl Creatinine 5.80 mg/dl Est Creatinine Clear Calc Drug Dose 6.3 ml/min Estimated GFR () 7.5 Estimated GFR (Non- 6.4 BUN/Creatinine Ratio 14.4 Random Glucose 90 mg/dl Calcium Level 8.5 mg/dl Total Bilirubin 1.2 mg/dl Aspartate Amino Transf (AST/SGOT) 1300 U/L Alanine Aminotransferase (ALT/SGPT) 1156 U/L Alkaline Phosphatase 387 U/L Total Protein 6.8 gm/dl Albumin 2.6 gm/dl Globulin 4.2 gm/dl Albumin/Globulin Ratio 0.6 Lipase 2063 U/L Date/Time Source Procedure Growth Status 01/15/17 23:03 Blood Blood Culture Pending Received 01/15/17 22:35 Blood Blood Culture Pending Received 01/16/17 04:55 Stool C.difficile Toxin B Gene (PCR) - Final No C. difficile toxin B gene detected Complete Assessment & Plan PROBABLE SEPSIS, SECONDARY TO ACUTE CHOLECYSTITIS WITH POSSIBLE PANCREATITIS - BP improved after 2 liters of IV NSS overnight fever curve seems to be improving WBC increased AST/ALT improved, Lipase increased - Liver US: possible cholecystitis Blood cultures: pending - as per Dr. Scott' discussion with daughter Maxine, no invasive measures at this time thus, no ERCP/Surgical Intervention - will continue medical management: Vanco and Zosyn Day 2 gentle IV fluids - monitor closely POSSIBLE ACUTE PANCREATITIS LIKELY GALLSTONE RELATED - discussed fluid management with Nephro- Dr. Flores - will start IV NSS at 80cc/hr and monitor volume status closely ALTERED MENTAL STATUS Head CT negative for acute findings. Most likely has encephalopathy / delirium secondary to sepsis. -- monitor HYPERTENSION Hypotensive at time of presentation. 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 - ISS for now CKD V - Nephrology consulted - plan for HD tomorrow LEWY BODY DEMENTIA - Quetiapine on hold until mental status improves to safely take po meds COMPRESSION FRACTURE L1 Severe compression fracture at L1 of uncertain chronicity noted on CT of abdomen and pelvis. -- will assess further when patient is more alert CHRONIC PAIN Patient takes hydrocodone for chronic pain, apparently primarily due to right shoulder pain. Unable to take oral analgesics at this time. IV hydromorphone PRN. HISTORY MRSA Contact precautions. VTE PROPHYLAXIS Moderately high risk for VTE. SQ heparin. RESUSCITATION STATUS Discussed with patient's daughter who is POA. She has a living will. Daughter feels that patient would not wish to have invasive procedures or cardiopulmonary resuscitation attempted in light of her advanced dementia and previously expressed wishes. Code status, therefore, is "Level 5" (DNR). DISPOSITION Patient is critically ill. Will not admit to ICU due to DNR status and plan not to consider invasive procedures including central lines. Expected return to [facility] if her condition improves. . Current Inpatient Medications: Current Inpatient Medications Medications (Trade) Dose Ordered Sig/Neyda Route Start Time Stop Time Status Last Admin Dose Admin Piperacillin Sod/ Tazobactam Sod 3.375 gm/Dextrose 115 ml @ 28.75 mls/ hr Q12@0800,1999 IV 01/16/17 08:00 01/26/17 07:59 Hydromorphone HCl (Dilaudid Inj) 0.25 mg Q1H PRN IV 01/16/17 02:00 01/30/17 01:59 Vancomycin HCl (Consult) 1 ea UD PRN N/A 01/16/17 02:30 02/15/17 02:29 Piperacillin Sod/ Tazobactam Sod (Consult) 1 ea UD PRN N/A 01/16/17 02:30 02/15/17 02:29 Heparin Sodium (Porcine) (Heparin Sq 5000 Unit/0.5ml) 5,000 unit Q12 SQ 01/16/17 09:00 02/15/17 08:59
[2017-01-16] MEDS: SODIUM CHLORIDE 0.9% 1000ML 1,000 ML IV SCH (09:57)
[2017-01-16] MEDS: PIPERACILL/TAZOBAC IV 3.375 GM in DEXTROSE 5% 100ML 100 ML IV SCH ×2 (09:59→22:07)
[2017-01-16] MEDS: HEPARIN SOD 5000 UNIT/0.5 ML CARP SQ SCH ×2 (10:05→22:08)
--- NOTE | 2017-01-16 10:37 | Pharmacy Progress Note ---
Pharmacy Antibiotic Consult Date of Service: Jan 16, 2017. Pharmacy Dosing Scope Pharmacy is consulted to initiate vancomycin/zosyn IV dosing therapy, order appropriate labs and adjust drug dose/frequency. Subjective The patient is a 76 year old female admitted on Jan 16, 2017 at 01:17. Objective Height (Feet): 5 Height (Inches): 2.00 Weight (Kilograms): 57.000 Lab Results (24hrs): Test 01/15/17 22:01 01/15/17 22:41 01/15/17 23:03 01/16/17 00:20 White Blood Count 11.09 K/uL (4.8-10.8) Red Blood Count 3.43 M/uL (4.2-5.4) Hemoglobin 10.9 g/dL (12.0-16.0) Hematocrit 33.2 % (37-47) Mean Corpuscular Volume 96.8 fL (80-100) Mean Corpuscular Hemoglobin 31.8 pg (25-34) Mean Corpuscular Hemoglobin Concent 32.8 g/dl (32-36) Platelet Count 245 K/uL (130-400) Mean Platelet Volume 9.6 fL (7.4-10.4) Neutrophils (%) (Auto) 88.6 % Lymphocytes (%) (Auto) 5.7 % Monocytes (%) (Auto) 5.5 % Eosinophils (%) (Auto) 0.0 % Basophils (%) (Auto) 0.1 % Neutrophils # (Auto) 9.83 K/uL (1.4-6.5) Lymphocytes # (Auto) 0.63 K/uL (1.2-3.4) Monocytes # (Auto) 0.61 K/uL (0.11-0.59) Eosinophils # (Auto) 0.00 K/uL (0-0.5) Basophils # (Auto) 0.01 K/uL (0-0.2) RDW Standard Deviation 45.2 fL (36.4-46.3) RDW Coefficient of Variation 13.0 % (11.5-14.5) Immature Granulocyte % (Auto) 0.1 % Immature Granulocyte # (Auto) 0.01 K/uL (0.00-0.02) Red Blood Cell Morphology Unremarkable Erythrocyte Sedimentation Rate 72 mm/hr (0-21) Prothrombin Time 11.6 SECONDS (9.0-12.0) Prothromb Time International Ratio 1.1 (0.9-1.1) Activated Partial Thromboplast Time 25.4 SECONDS (21.0-31.0) Partial Thromboplastin Ratio 1.0 Sodium Level 135 mmol/L (136-145) Potassium Level 3.5 mmol/L (3.5-5.1) Chloride Level 97 mmol/L (98-107) Carbon Dioxide Level 25 mmol/L (21-32) Anion Gap 13.0 mmol/L (3-11) Blood Urea Nitrogen 79 mg/dl (7-18) Creatinine 5.60 mg/dl (0.60-1.20) Est Creatinine Clear Calc Drug Dose 7.2 ml/min Estimated GFR () 7.8 Estimated GFR (Non- 6.7 BUN/Creatinine Ratio 14.0 (10-20) Random Glucose 153 mg/dl (70-99) Calcium Level 8.9 mg/dl (8.5-10.1) Phosphorus Level 3.9 mg/dl (2.5-4.9) Magnesium Level 2.3 mg/dl (1.8-2.4) Total Bilirubin 1.5 mg/dl (0.2-1) Aspartate Amino Transf (AST/SGOT) 2684 U/L (15-37) Alanine Aminotransferase (ALT/SGPT) 1634 U/L (12-78) Alkaline Phosphatase 489 U/L (45-117) Total Creatine Kinase 91 U/L (26-192) Creatine Kinase MB 2.3 ng/ml (0.5-3.6) Creatine Kinase MB Ratio 2.5 (0-3.0) Troponin I < 0.015 ng/ml (0-0.045) C-Reactive Protein 4.78 mg/dl (0-0.29) Pro-B-Type Natriuretic Peptide 6495 pg/ml (0-1800) Total Protein 7.8 gm/dl (6.4-8.2) Albumin 3.0 gm/dl (3.4-5.0) Globulin 4.8 gm/dl (2.5-4.0) Albumin/Globulin Ratio 0.6 (0.9-2) Lipase 1296 U/L (73-393) Bedside Lactic Acid Venous 0.81 mmol/L (0.90-1.70) Venous Blood pH 7.47 (7.36-7.41) Venous Blood Partial Pressure CO2 34 mmHg (38.0-50.0) Venous Blood Partial Pressure O2 49 mmHg Venous Blood HCO3 24 mmol/L Venous Blood Oxygen Saturation 84.8 % Venous Blood Base Excess 0.6 mmol/L Urine Color YELLOW Urine Appearance CLEAR (CLEAR) Urine pH 8.0 (4.5-7.5) Urine Specific [place] 1.011 (1.000-1.030) Urine Protein 2+ (NEG) Urine Glucose (UA) NEG (NEG) Urine Ketones NEG (NEG) Urine Occult Blood NEG (NEG) Urine Nitrite NEG (NEG) Urine Bilirubin NEG (NEG) Urine Urobilinogen NEG (NEG) Urine Leukocyte Esterase NEG (NEG) Urine WBC (Auto) 1-5 /hpf (0-5) Urine RBC (Auto) 0-4 /hpf (0-4) Urine Hyaline Casts (Auto) 1-5 /lpf (0-5) Urine Epithelial Cells (Auto) 5-10 /lpf (0-5) Urine Bacteria (Auto) NEG (NEG) Test 01/16/17 06:52 White Blood Count 15.04 K/uL (4.8-10.8) Red Blood Count 3.14 M/uL (4.2-5.4) Hemoglobin 10.1 g/dL (12.0-16.0) Hematocrit 30.5 % (37-47) Mean Corpuscular Volume 97.1 fL (80-100) Mean Corpuscular Hemoglobin 32.2 pg (25-34) Mean Corpuscular Hemoglobin Concent 33.1 g/dl (32-36) RDW Standard Deviation 46.0 fL (36.4-46.3) RDW Coefficient of Variation 13.1 % (11.5-14.5) Platelet Count 181 K/uL (130-400) Mean Platelet Volume 9.0 fL (7.4-10.4) Sodium Level 140 mmol/L (136-145) Potassium Level 3.5 mmol/L (3.5-5.1) Chloride Level 102 mmol/L (98-107) Carbon Dioxide Level 25 mmol/L (21-32) Anion Gap 13.0 mmol/L (3-11) Blood Urea Nitrogen 82 mg/dl (7-18) Creatinine 5.80 mg/dl (0.60-1.20) Est Creatinine Clear Calc Drug Dose 6.3 ml/min Estimated GFR () 7.5 Estimated GFR (Non- 6.4 BUN/Creatinine Ratio 14.4 (10-20) Random Glucose 90 mg/dl (70-99) Calcium Level 8.5 mg/dl (8.5-10.1) Total Bilirubin 1.2 mg/dl (0.2-1) Aspartate Amino Transf (AST/SGOT) 1300 U/L (15-37) Alanine Aminotransferase (ALT/SGPT) 1156 U/L (12-78) Alkaline Phosphatase 387 U/L (45-117) Total Protein 6.8 gm/dl (6.4-8.2) Albumin 2.6 gm/dl (3.4-5.0) Globulin 4.2 gm/dl (2.5-4.0) Albumin/Globulin Ratio 0.6 (0.9-2) Lipase 2063 U/L (73-393) Micro Results: Item Value Date Time C.difficile Toxin B Gene (PCR) - Final Complete 01/16/17 0455 Stool No C. difficile toxin B gene detected Blood Culture Received 01/15/17 2303 Blood Pending Blood Culture - Preliminary Resulted 01/15/17 2235 Blood Gram Negative Bacilli Assessment & Plan Patient started on vancomycin and zosyn for possible sepsis secondary to cholecystitis/pancreatitis. Stool negative for C. diff. 1 out of 2 blood cultures came back positive for Gm negative bacilli. Pt with hx of CKD stage 5 on HD. Vancomycin: * Pt received a LD of vancomycin 1000 mg (~18 mg/kg) x 1 this am * Per MD note, patient to receive dialysis tomorrow 01/17; will order a random level prior to dialysis to assist with further dosing. * Random level tomorrow am still >15 mcg/ml (goal 15-20 mcg/ml for sepsis/ bacteremia) Zosyn: * 3.375 gm iv q 12 hr; appropriate for pt on HD, no change Pharmacy will continue to follow and will adjust dose/frequency as necessary. Thank you
[2017-01-16 11:55] VITALS: BP 138/64; PULSE 72; TEMP 36.8; O2SAT 99
[2017-01-16] MEDS: METOPROLOL TARTRATE 1 MG/ML VIAL IV. SCH ×2 (12:41→19:13)
--- NOTE | 2017-01-16 13:24 | Nephrology Consultation ---
Nephrology Consultation Date of Consultation: Jan 16, 2017. Attending Physician: Dr Bocanegra Requesting Physician: Dr Scott Reason for Consultation: ESRD on HD a/w sepsis History of Present Illness 76 year old female w/ PMH dementia, ESRD on HD, HTN, ambulatory dysfunction a/w sepsis after presenting w/ fever, hypotension, lethargy, transaminitis, lipase 1296; her presenting BP in ED high 70s systolic w/ oral temp 39.5. Cultures and imaging were obtained; lactate noted to be normal -- biliary tract sepsis source suspected at admission. Pt is DNR, so pressors deferred; her BP have rebounded w/ abtx, NS. Her blood cultures are + for GNR w/in 12 hrs of being drawn. Her fever has for now resolved; she is on zosyn and NS at 80 ml/hr. Remains quite lethargic and obtunded on RA. Past Medical/Surgical History Medical Problems: (1) Altered mental status Status: Acute (2) Altered mental status Status: Acute (3) C. difficile diarrhea Status: Acute (4) C. difficile diarrhea Status: Acute (5) Dehydration Status: Acute (6) Diabetic foot ulcers Status: Acute (7) Diabetic foot ulcers Status: Acute (8) Gallstone pancreatitis Status: Acute (9) Hypotension Status: Acute (10) Hypotension Status: Acute (11) Sepsis Status: Acute -esrd on HD MWF via AVF at [facility] under care of Dr Davis -DM currently diet controlled -HTN -chronic pain -Lewey body dementia -ambulatory dysfunction/ w-c bound -hx of R humeral fracture -hx of L 2nd toe osteomyelitis s/p amputation Family History Cancer Diabetes mellitus Heart disease Hypertension Social History Smoking Status: Former Smoker Alcohol Use: none Drug Use: none Marital Status: Housing Status: correction Occupation Status: retired Allergies Coded Allergies: Dust (Verified Allergy, Unknown, SNEEZING,WHEEZING, 01/15/17) Medications Current Inpatient Medications Medications (Trade) Dose Ordered Sig/Neyda Route Start Time Stop Time Status Last Admin Dose Admin Piperacillin Sod/ Tazobactam Sod 3.375 gm/Dextrose 115 ml @ 28.75 mls/ hr Q12@0800,1999 IV 01/16/17 08:00 01/26/17 07:59 Hydromorphone HCl (Dilaudid Inj) 0.25 mg Q1H PRN IV 01/16/17 02:00 01/30/17 01:59 Vancomycin HCl (Consult) 1 ea UD PRN N/A 01/16/17 02:30 02/15/17 02:29 Piperacillin Sod/ Tazobactam Sod (Consult) 1 ea UD PRN N/A 01/16/17 02:30 02/15/17 02:29 Heparin Sodium (Porcine) (Heparin Sq 5000 Unit/0.5ml) 5,000 unit Q12 SQ 01/16/17 09:00 02/15/17 08:59 Home Meds and Scripts Medications Dose Route/Sig Max Daily Dose Days Date Category Dose Instructions Nystatin (Nystatin (Topical)) 1 Pow Pow 1 Appln TOP BID 01/15/17 Reported APPLY TO ABD FOLDS, BUTTOCKS AND UNDER BREASTS. Ketoconazole (Ketoconazole (Topical)) 2 % Sha 1 Appln TOP 2XWK 30 01/15/17 Reported USES ON MON & TH. Cement 5MG/325MG (Acetaminophen/Hydrocodone Bitart) Tab 1 Tablet PO BID 01/15/17 Reported Normodyne (Labetalol Hcl) 100 Mg Tab 100 Mg PO BID 01/15/17 Reported HOLD IF SYSTOLIC B/P < 120, OR APICAL HEART RATE < 50. Nepro Carb Steady (Enteral Nutritional Formula) 1 Can Liqd 8 Oz PO TID 03/10/16 Reported Seroquel (Quetiapine Fumarate) 25 Mg Tab 12.5 Mg PO BID 08/02/15 Reported Hydralazine HCl 25 Mg Tab 25 Mg PO DAILY @ 1600 03/03/15 Reported Phoslo 667 Mg (Calcium Acetate (Phosphate Bin) 667 Mg Cap 2 Capsules PO TIDM 03/03/15 Reported Zeke Caps (B-Complex W/ C & Folic Acid) 1 Cap Cap 1 Cap PO QPM 03/03/15 Reported Vitamin D3 (Cholecalciferol) 1,000 Unit Cap 1,000 Units PO QAM 11/03/14 Reported Lipitor (Atorvastatin Calcium) 10 Mg Tab 10 Mg PO HS 11/03/14 Reported Aspirin Ec (Aspirin) 81 Mg Tab 81 Mg PO QAM 11/03/14 Reported Tylenol (Acetaminophen) 325 Mg Tab 650 Mg PO Q6 PRN 11/03/14 Reported MILD PAIN OR FEVER > 101 F. NOT TO EXCEED 3 GRAMS PER 24 HOURS. Review of Systems unable to obtain ROS d/t MS Physical Exam Date Time Temp Pulse Resp B/P (MAP) Pulse Ox O2 Delivery O2 Flow Rate FiO2 01/16/17 04:34 37.3 81 18 151/67 (95) 96 Room Air 01/16/17 04:00 Room Air 01/16/17 01:55 37.8 84 18 124/60 96 Room Air 01/16/17 01:42 37.3 83 15 105/39 96 01/16/17 01:21 83 15 96 01/16/17 01:16 105/39 01/16/17 01:06 87 18 95 01/16/17 01:01 103/42 97 Room Air 01/16/17 00:51 88 20 97 01/16/17 00:46 94/42 01/16/17 00:36 85 16 95 01/16/17 00:31 112/43 01/16/17 00:21 92 17 96 01/16/17 00:16 96/30 01/16/17 00:06 88 25 95 01/16/17 00:01 75/35 01/15/17 23:58 37.3 85 16 94 Room Air 01/15/17 23:51 87 15 94 01/15/17 23:46 79/38 01/15/17 23:43 95 16 94 01/15/17 23:31 101/41 01/15/17 23:28 94 17 96 01/15/17 23:16 99/42 01/15/17 23:14 89 99/42 98 Room Air 01/15/17 22:38 94 15 95 01/15/17 22:33 95 18 94 01/15/17 22:31 102/46 01/15/17 22:28 96 17 94 01/15/17 22:23 93 19 94 01/15/17 22:20 95 Room Air 01/15/17 22:20 39.5 94 16 84/33 95 Room Air 01/15/17 22:18 98 17 95 01/15/17 22:18 97 01/15/17 22:15 84/33 General Appearance: no apparent distress (lethargic > opens eyes briefly but does not interact), + cachetic Eyes: EOMI ENT: hearing grossly normal Neck: supple Respiratory/Chest: no respiratory distress (lying flat on RA), + decreased breath sounds Cardiovascular: regular rate, rhythm, no edema Abdomen: normal bowel sounds, soft, + guarding, + tenderness Extremities: no pedal edema, + pertinent finding (withdraws to pain; LUE avf + t/b) Neurologic/Psych: + pertinent finding (lethargic/obtunded) Skin: no jaundice, warm/dry, no rash Diagnostics Last 24 Hours Test 01/15/17 22:01 01/15/17 22:41 01/15/17 23:03 01/16/17 00:20 White Blood Count 11.09 K/uL Red Blood Count 3.43 M/uL Hemoglobin 10.9 g/dL Hematocrit 33.2 % Mean Corpuscular Volume 96.8 fL Mean Corpuscular Hemoglobin 31.8 pg Mean Corpuscular Hemoglobin Concent 32.8 g/dl Platelet Count 245 K/uL Mean Platelet Volume 9.6 fL Neutrophils (%) (Auto) 88.6 % Lymphocytes (%) (Auto) 5.7 % Monocytes (%) (Auto) 5.5 % Eosinophils (%) (Auto) 0.0 % Basophils (%) (Auto) 0.1 % Neutrophils # (Auto) 9.83 K/uL Lymphocytes # (Auto) 0.63 K/uL Monocytes # (Auto) 0.61 K/uL Eosinophils # (Auto) 0.00 K/uL Basophils # (Auto) 0.01 K/uL RDW Standard Deviation 45.2 fL RDW Coefficient of Variation 13.0 % Immature Granulocyte % (Auto) 0.1 % Immature Granulocyte # (Auto) 0.01 K/uL Red Blood Cell Morphology Unremarkable Erythrocyte Sedimentation Rate 72 mm/hr Prothrombin Time 11.6 SECONDS Prothromb Time International Ratio 1.1 Activated Partial Thromboplast Time 25.4 SECONDS Partial Thromboplastin Ratio 1.0 Sodium Level 135 mmol/L Potassium Level 3.5 mmol/L Chloride Level 97 mmol/L Carbon Dioxide Level 25 mmol/L Anion Gap 13.0 mmol/L Blood Urea Nitrogen 79 mg/dl Creatinine 5.60 mg/dl Est Creatinine Clear Calc Drug Dose 7.2 ml/min Estimated GFR () 7.8 Estimated GFR (Non- 6.7 BUN/Creatinine Ratio 14.0 Random Glucose 153 mg/dl Calcium Level 8.9 mg/dl Phosphorus Level 3.9 mg/dl Magnesium Level 2.3 mg/dl Total Bilirubin 1.5 mg/dl Aspartate Amino Transf (AST/SGOT) 2684 U/L Alanine Aminotransferase (ALT/SGPT) 1634 U/L Alkaline Phosphatase 489 U/L Total Creatine Kinase 91 U/L Creatine Kinase MB 2.3 ng/ml Creatine Kinase MB Ratio 2.5 Troponin I < 0.015 ng/ml C-Reactive Protein 4.78 mg/dl Pro-B-Type Natriuretic Peptide 6495 pg/ml Total Protein 7.8 gm/dl Albumin 3.0 gm/dl Globulin 4.8 gm/dl Albumin/Globulin Ratio 0.6 Lipase 1296 U/L Bedside Lactic Acid Venous 0.81 mmol/L Venous Blood pH 7.47 Venous Blood Partial Pressure CO2 34 mmHg Venous Blood Partial Pressure O2 49 mmHg Venous Blood HCO3 24 mmol/L Venous Blood Oxygen Saturation 84.8 % Venous Blood Base Excess 0.6 mmol/L Urine Color YELLOW Urine Appearance CLEAR Urine pH 8.0 Urine Specific [place] 1.011 Urine Protein 2+ Urine Glucose (UA) NEG Urine Ketones NEG Urine Occult Blood NEG Urine Nitrite NEG Urine Bilirubin NEG Urine Urobilinogen NEG Urine Leukocyte Esterase NEG Urine WBC (Auto) 1-5 /hpf Urine RBC (Auto) 0-4 /hpf Urine Hyaline Casts (Auto) 1-5 /lpf Urine Epithelial Cells (Auto) 5-10 /lpf Urine Bacteria (Auto) NEG Test 01/16/17 06:52 White Blood Count 15.04 K/uL Red Blood Count 3.14 M/uL Hemoglobin 10.1 g/dL Hematocrit 30.5 % Mean Corpuscular Volume 97.1 fL Mean Corpuscular Hemoglobin 32.2 pg Mean Corpuscular Hemoglobin Concent 33.1 g/dl RDW Standard Deviation 46.0 fL RDW Coefficient of Variation 13.1 % Platelet Count 181 K/uL Mean Platelet Volume 9.0 fL Sodium Level 140 mmol/L Potassium Level 3.5 mmol/L Chloride Level 102 mmol/L Carbon Dioxide Level 25 mmol/L Anion Gap 13.0 mmol/L Blood Urea Nitrogen 82 mg/dl Creatinine 5.80 mg/dl Est Creatinine Clear Calc Drug Dose 6.3 ml/min Estimated GFR () 7.5 Estimated GFR (Non- 6.4 BUN/Creatinine Ratio 14.4 Random Glucose 90 mg/dl Calcium Level 8.5 mg/dl Total Bilirubin 1.2 mg/dl Aspartate Amino Transf (AST/SGOT) 1300 U/L Alanine Aminotransferase (ALT/SGPT) 1156 U/L Alkaline Phosphatase 387 U/L Total Protein 6.8 gm/dl Albumin 2.6 gm/dl Globulin 4.2 gm/dl Albumin/Globulin Ratio 0.6 Lipase 2063 U/L Diagnostic Radiology: CT abd/pelvis non cont severe L5 compression deformity ?acuity; large stool burden CXR L basilar opacity abd u/s >> possible acute cholecystitis depending on clinical correlation head CT > no acute i-c process Assessment & Plan 76 y/o F w/ dementia, HTN, ESRD on HD admitted 01/16 w/ sepsis suspected from biliary source/pancreatitis to be managed w/o invasive interventions/ intensification of care level. ESRD -appears hypovolemic in setting of sepsis; electrolytes acceptable; no HD today ; reassess for need in AM and likely to do her then at least for clearance of toxins/ optimization of chemistries Sepsis unclear source, biliary tract/pancreas suspected >> 2/2 blood cxs + GNR -on zosyn and has had 2L of NS boluses to improve bp; had dose of vanco in ER -per primary service -f/u pending cxs -lactated Ringer's solution often recommended in resuscitation for pancreatitis ; would however in this dialysis patient avoid potassium load that comes with this solution >LR is also calcium rich >> need to take care w/ repleting calcium in ESRD patient but recommend following ionized calcium and giving calcium gluconate prn if calcium to be repleted at all >> for resuscitation in this patient recommend NS at 75-100 mL hourly or bolus if hypotensive in 250-500 mL boluses and reassess this evening Anemia -procrit w/ HD as indicated w/ aggressive dosing given epo resistance d/t sepsis Appreciate consult; will follow with you. Care coordinated w/ Dr. Bocanegra.
[2017-01-16 15:28] VITALS: BP 137/60; PULSE 67; TEMP 36.7; O2SAT 97
[2017-01-16 19:27] VITALS: BP 153/61; PULSE 65; TEMP 36.5; O2SAT 98
[2017-01-17] VITALS (22 sets, daily range): BP systolic 115–188; BP diastolic 53–80; PULSE 60–76; TEMP 36.4–37.3; O2SAT 94–99
[2017-01-17] MEDS: METOPROLOL TARTRATE 1 MG/ML VIAL IV. SCH ×4 (00:42→18:23)
[2017-01-17] MEDS: SODIUM CHLORIDE 0.9% 1000ML 1,000 ML IV SCH ×3 (00:42→22:15)
[2017-01-17 07:32] LABS: CREATININE 6.8 mg/dl (0.60-1.20)
[2017-01-17] MEDS ORDERED: EPOETIN ALFA 10,000 UNITS/ML VIAL IV. ONE (08:15)
[2017-01-17] MEDS ORDERED: HEPARIN SOD (PORCINE) 1000 UNIT/ML 10 ML VIAL IV SCH (08:30)
[2017-01-17] MEDS: PIPERACILL/TAZOBAC IV 3.375 GM in DEXTROSE 5% 100ML 100 ML IV SCH ×2 (08:43→20:32)
[2017-01-17] MEDS ORDERED: EPOETIN ALFA INJ 12,000 UNITS in SYRINGE 0 ML IV. SCH (09:00)
[2017-01-17] MEDS: HEPARIN SOD 5000 UNIT/0.5 ML CARP SQ SCH ×2 (09:00→21:04)
[2017-01-17] MEDS: HEPARIN SOD (PORCINE) 1000 UNIT/ML 10 ML VIAL IV SCH ×3 (09:15→10:15)
--- NOTE | 2017-01-17 09:23 | Progress Note ---
Medicine Progress Note Date & Time of Visit: Jan 17, 2017 at 09:17. Subjective seen resting in bed alert, pleasantly confused, conversant denies abdominal pain, "just bothersome" on the RUQ when palpated denies nausea, says she is hungry no chest pain, dyspnea, palpitations, dizziness no other symptoms Objective Last 8 Hrs Date Time Temp Pulse Resp B/P (MAP) Pulse Ox O2 Delivery O2 Flow Rate FiO2 01/17/17 08:04 37.3 70 20 151/68 (95) 94 Room Air 01/17/17 05:23 78 144/53 01/17/17 04:22 36.6 71 18 144/53 (83) 96 Room Air 01/17/17 04:00 Room Air Physical Exam: General- alert, pleasantly confused, not in respiratory distress Eyes- anicteric ENT- (+) dry oral mucosa Neck- no JVD Lungs- clear breath sounds bilaterally, no rales/wheezes Heart- regular rhythm; no murmur, normal rate Abdomen- normal bowel sounds,non distended, soft,no RUQ tenderness Extremities- no pretibial edema, no calf tenderness Neuro-alert, confused, but no other gross focal neuro deficits Skin- warm & dry Laboratory Results: Last 24 Hours Test 01/17/17 06:20 01/17/17 08:38 Potassium Level 3.6 mmol/L Creatinine 6.80 mg/dl Est Creatinine Clear Calc Drug Dose 5.4 ml/min Estimated GFR () 6.2 Estimated GFR (Non- 5.3 Random Vancomycin Level 11.2 mcg/ml Date/Time Source Procedure Growth Status 01/17/17 08:50 Nasal MRSA DNA Surveillance Screen Pending Received Assessment & Plan PROBABLE SEPSIS, SECONDARY TO ACUTE CHOLECYSTITIS WITH POSSIBLE PANCREATITIS - BP remained stable since admission afebrile since last night - labs: pending - Liver US: possible cholecystitis Blood cultures: gram negative bacilli x 2 - as per Dr. Scott' discussion with daughter Maxine, no invasive measures at this time thus, no ERCP/Surgical Intervention -- improving overall - will continue medical management: Vanco and Zosyn Day 3 gentle IV fluids ff up labs - monitor closely POSSIBLE ACUTE PANCREATITIS LIKELY GALLSTONE RELATED - discussed fluid management with Nephro- Dr. Flores - on NSS at 80cc/hr and monitor volume status closely - will d/c fluids if lipase is improving ALTERED MENTAL STATUS Head CT negative for acute findings. Most likely has encephalopathy / delirium secondary to sepsis. -- improving HYPERTENSION Hypotensive at time of presentation. 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 - ISS for now CKD V - Nephrology consulted - plan for HD today LEWY BODY DEMENTIA - resume Quetiapine COMPRESSION FRACTURE L1 Severe compression fracture at L1 of uncertain chronicity noted on CT of abdomen and pelvis. -- will assess further when patient is more alert CHRONIC PAIN Patient takes hydrocodone for chronic pain, apparently primarily due to right shoulder pain. -- PO analgesics PRN HISTORY MRSA Contact precautions. VTE PROPHYLAXIS Moderately high risk for VTE. SQ heparin. RESUSCITATION STATUS Discussed with patient's daughter who is POA. She has a living will. Daughter feels that patient would not wish to have invasive procedures or cardiopulmonary resuscitation attempted in light of her advanced dementia and previously expressed wishes. Code status, therefore, is "Level 5" (DNR). DISPOSITION Patient is critically ill. Will not admit to ICU due to DNR status and plan not to consider invasive procedures including central lines. Expected return to [facility] if her condition improves. . Current Inpatient Medications: Current Inpatient Medications Medications (Trade) Dose Ordered Sig/Neyda Route Start Time Stop Time Status Last Admin Dose Admin Piperacillin Sod/ Tazobactam Sod 3.375 gm/Dextrose 115 ml @ 28.75 mls/ hr Q12@0800,2000 IV 01/16/17 08:00 01/26/17 07:59 01/17/17 08:43 28.75 MLS/HR Hydromorphone HCl (Dilaudid Inj) 0.25 mg Q1H PRN IV 01/16/17 02:00 01/30/17 01:59 Vancomycin HCl (Consult) 1 ea UD PRN N/A 01/16/17 02:30 02/15/17 02:29 Piperacillin Sod/ Tazobactam Sod (Consult) 1 ea UD PRN N/A 01/16/17 02:30 02/15/17 02:29 Heparin Sodium (Porcine) (Heparin Sq 5000 Unit/0.5ml) 5,000 unit Q12 SQ 01/16/17 09:00 02/15/17 08:59 01/16/17 22:08 5,000 UNIT Sodium Chloride 1,000 ml @ 80 mls/hr [id number] IV 01/16/17 08:45 02/15/17 08:44 01/17/17 00:42 80 MLS/HR Metoprolol Tartrate (Lopressor Iv) 2.5 mg Q6 IV. 01/16/17 12:00 02/15/17 11:59 01/17/17 05:23 2.5 MG Heparin Sodium (Porcine) (Heparin Iv Bolus) 1,000 unit TODAY@0830 IV 01/17/17 08:30 01/17/17 16:00 Heparin Sodium (Porcine) (Heparin Iv Bolus) 400 unit Q1H IV 01/17/17 08:15 01/17/17 10:16 Epoetin Odin 70472 units/ Syringe 0.6 ml @ 1 mls/min TODAY@0900 IV. 01/17/17 09:00 01/17/17 18:00
[2017-01-17] MEDS ORDERED: HYDROCODONE/ACETAMOPHEN 5/325MG TAB PO PRN (09:30)
[2017-01-17 09:54] LABS: BASO % 0.5 %; BASO ABS # 0.05 K/uL (0-0.2); COMPLETE YES; EOS % 2.4 %; HEMATOCRIT 30.5 % (37-47); IG% 0.2 %; LYMPH % 7.9 %; LYMPH ABS # 0.87 K/uL (1.2-3.4); MEAN CELL VOLUME 95.9 fL (80-100); MEAN CORPUSCULAR HEMOGLOBIN 31.4 pg (25-34); MEAN CORPUSCULAR HGB CONC 32.8 g/dl (32-36); MEAN PLATELET VOLUME 9.6 fL (7.4-10.4); MONO % 8.1 %; NEUT % 80.9 %; PLATELET COUNT 197 K/uL (130-400); RED BLOOD COUNT 3.18 M/uL (4.2-5.4); WHITE BLOOD COUNT 11.03 K/uL (4.8-10.8)
--- NOTE | 2017-01-17 10:11 | Dialysis Progress Note ---
Nephrology Dialysis Note Date of Service: Jan 17, 2017. Subjective more alert today; c/o mild L temporal ALVARADO; no dyspnea or epigastric pain or N; remains on NS at 80 Objective Date Time Temp Pulse Resp B/P (MAP) Pulse Ox O2 Delivery O2 Flow Rate FiO2 01/17/17 08:04 37.3 70 20 151/68 (95) 94 Room Air 01/17/17 08:00 Room Air 01/17/17 05:23 78 144/53 01/17/17 04:22 36.6 71 18 144/53 (83) 96 Room Air 01/17/17 04:00 Room Air 01/17/17 00:42 68 134/59 01/17/17 00:00 Room Air 01/17/17 00:00 36.7 66 18 134/59 (84) 97 Nasal Cannula 01/16/17 20:00 Room Air 01/16/17 19:27 36.5 65 22 153/61 (91) 98 Room Air 01/16/17 19:13 78 137/60 01/16/17 16:00 Room Air 01/16/17 15:28 36.7 67 18 137/60 (85) 97 Room Air 01/16/17 12:41 72 138/64 01/16/17 12:07 Room Air 01/16/17 11:55 36.8 72 18 138/64 (88) 99 Physical Exam: General Appearance: no apparent distress, alert/interactive but perseverant speech, + cachetic Eyes: EOMI ENT: hearing grossly normal Neck: supple Respiratory/Chest: no respiratory distress (sitting up on RA), + decreased breath sounds Cardiovascular: regular rate, rhythm, no edema Abdomen: normal bowel sounds, soft, + guarding, + tenderness Extremities: no pedal edema, + pertinent finding (LUE avf + t/b) Neurologic/Psych: fluent but inappropriate/irrelevant speech, chairez Skin: no jaundice, warm/dry, no rash Current Inpatient Medications Medications (Trade) Dose Ordered Sig/Neyda Route Start Time Stop Time Status Last Admin Dose Admin Piperacillin Sod/ Tazobactam Sod 3.375 gm/Dextrose 115 ml @ 28.75 mls/ hr Q12@0800,1999 IV 01/16/17 08:00 01/26/17 07:59 01/17/17 08:43 28.75 MLS/HR Hydromorphone HCl (Dilaudid Inj) 0.25 mg Q1H PRN IV 01/16/17 02:00 01/30/17 01:59 Vancomycin HCl (Consult) 1 ea UD PRN N/A 01/16/17 02:30 02/15/17 02:29 Piperacillin Sod/ Tazobactam Sod (Consult) 1 ea UD PRN N/A 01/16/17 02:30 02/15/17 02:29 Heparin Sodium (Porcine) (Heparin Sq 5000 Unit/0.5ml) 5,000 unit Q12 SQ 01/16/17 09:00 02/15/17 08:59 01/16/17 22:08 5,000 UNIT Sodium Chloride 1,000 ml @ 80 mls/hr [id number] IV 01/16/17 08:45 02/15/17 08:44 01/17/17 00:42 80 MLS/HR Metoprolol Tartrate (Lopressor Iv) 2.5 mg Q6 IV. 01/16/17 12:00 02/15/17 11:59 01/17/17 05:23 2.5 MG Heparin Sodium (Porcine) (Heparin Iv Bolus) 1,000 unit TODAY@0830 IV 01/17/17 08:30 01/17/17 16:00 Heparin Sodium (Porcine) (Heparin Iv Bolus) 400 unit Q1H IV 01/17/17 08:15 01/17/17 10:16 Epoetin Odin 53008 units/ Syringe 0.6 ml @ 1 mls/min TODAY@0900 IV. 01/17/17 09:00 01/17/17 18:00 Vitamin B Complex/ Vit C/Folic Acid (Nephrocaps) 1 cap QPM PO 01/17/17 21:00 02/16/17 20:59 UNV Calcium Acetate (Phoslo Cap) 1,334 mg TIDM PO 01/17/17 11:30 02/16/17 11:29 UNV Enteral Nutritional Formula (Novasource Renal) 0.2667 ml TID PO 01/17/17 14:00 02/16/17 13:59 UNV Acetaminophen/ Hydrocodone Bitart ([place] 5/325 Tab) 1 tab BID PRN PO 01/17/17 09:30 01/31/17 09:29 UNV Quetiapine Fumarate (seroQUEL TAB) 12.5 mg BID PO 01/17/17 21:00 02/16/17 20:59 UNV Non-Formulary Medication (Nystatin (Topical) (Nystatin)) 1 appln BID TOP 01/17/17 21:00 02/16/17 20:59 UNV Last 24 Hours Test 01/17/17 06:20 White Blood Count 11.03 K/uL Red Blood Count 3.18 M/uL Hemoglobin 10.0 g/dL Hematocrit 30.5 % Mean Corpuscular Volume 95.9 fL Mean Corpuscular Hemoglobin 31.4 pg Mean Corpuscular Hemoglobin Concent 32.8 g/dl Platelet Count 197 K/uL Mean Platelet Volume 9.6 fL Neutrophils (%) (Auto) 80.9 % Lymphocytes (%) (Auto) 7.9 % Monocytes (%) (Auto) 8.1 % Eosinophils (%) (Auto) 2.4 % Basophils (%) (Auto) 0.5 % Neutrophils # (Auto) 8.93 K/uL Lymphocytes # (Auto) 0.87 K/uL Monocytes # (Auto) 0.89 K/uL Eosinophils # (Auto) 0.27 K/uL Basophils # (Auto) 0.05 K/uL RDW Standard Deviation 45.1 fL RDW Coefficient of Variation 12.9 % Immature Granulocyte % (Auto) 0.2 % Immature Granulocyte # (Auto) 0.02 K/uL Potassium Level 3.6 mmol/L Creatinine 6.80 mg/dl Est Creatinine Clear Calc Drug Dose 5.4 ml/min Estimated GFR () 6.2 Estimated GFR (Non- 5.3 Random Vancomycin Level 11.2 mcg/ml Date/Time Source Procedure Growth Status 01/17/17 08:50 Nasal MRSA DNA Surveillance Screen Pending Received Assessment & Plan 76 y/o F w/ dementia, HTN, ESRD on HD admitted 01/16 w/ sepsis from gram negative bacteremia and biliary source/pancreatitis to be managed w/o invasive interventions/intensification of care level. ESRD -improved but still likely hypovolemic in setting of sepsis/pancreatitis; electrolytes acceptable; for gentle HD today w/ no fluid removal for clearance of toxins/ optimization of chemistries Sepsis unclear source, biliary tract/pancreas suspected >> 2/2 blood cxs + GNR -on zosyn and has had 2L of NS boluses to improve bp; had dose of vanco in ER -per primary service -f/u pending cxs -lactated Ringer's solution often recommended in resuscitation for pancreatitis ; would however in this dialysis patient avoid potassium load that comes with this solution >LR is also calcium rich >> need to take care w/ repleting calcium in ESRD patient but recommend following ionized calcium and giving calcium gluconate prn if calcium to be repleted at all >> for resuscitation in this patient continue NS at 80 mL hourly; remaisn on RA / vol status acceptable; bolus IVF if sbp dropping Anemia -procrit w/ HD as indicated w/ aggressive dosing given epo resistance d/t sepsis Appreciate consult; will follow with you.
[2017-01-17 10:37] LABS: BUN/CREATININE RATIO 14.1 (10-20); CALCIUM 8.3 mg/dl (8.5-10.1); CREATININE 6.7 mg/dl (0.60-1.20); POTASSIUM 3.6 mmol/L (3.5-5.1)
[2017-01-17] MEDS: CALCIUM ACETATE 667MG GELCAP PO SCH ×2 (12:00→17:00)
[2017-01-17] MEDS ORDERED: BOOST BREEZE NUTRITION DRINK 1 BOX PO SCH (14:00)
[2017-01-17 16:51] LABS: HEPATITIS B AB POS
[2017-01-17] MEDS ORDERED: CLONIDINE HCL 0.1 MG TAB PO PRN (19:30)
[2017-01-17] MEDS ORDERED: NURSING VERBAL MED ORDER ONE (20:15)
[2017-01-17] MEDS: NEPHROCAPS PO SCH (21:00)
[2017-01-17] MEDS: QUETIAPINE FUMARATE 25 MG TAB PO SCH (21:00)
[2017-01-17] MEDS: BOOST BREEZE NUTRITION DRINK 1 BOX PO SCH (21:00)
[2017-01-17] MEDS: NYSTATIN POWDER 15GM BTL EXT SCH (21:10)
[2017-01-17] MEDS: LABETALOL HCL 100 MG TAB PO SCH (21:54)
[2017-01-18] VITALS (7 sets, daily range): BP systolic 101–157; BP diastolic 57–73; PULSE 63–72; TEMP 36.3–37.1; O2SAT 97–98
[2017-01-18 05:57] LABS: HEMATOCRIT 32.8 % (37-47); MEAN CELL VOLUME 97.3 fL (80-100); MEAN CORPUSCULAR HEMOGLOBIN 31.5 pg (25-34); MEAN CORPUSCULAR HGB CONC 32.3 g/dl (32-36); MEAN PLATELET VOLUME 9.1 fL (7.4-10.4); PLATELET COUNT 182 K/uL (130-400); RED BLOOD COUNT 3.37 M/uL (4.2-5.4); WHITE BLOOD COUNT 8.73 K/uL (4.8-10.8)
[2017-01-18 06:25] LABS: BASO % 0.2 %; BASO ABS # 0.02 K/uL (0-0.2); COMPLETE YES; EOS % 2.2 %; IG% 0.1 %; LYMPH ABS # 1.05 K/uL (1.2-3.4); MONO % 10.5 %
[2017-01-18 06:28] LABS: BUN/CREATININE RATIO 9.8 (10-20); CALCIUM 8.3 mg/dl (8.5-10.1); CREATININE 4.4 mg/dl (0.60-1.20); POTASSIUM 3.3 mmol/L (3.5-5.1)
[2017-01-18] MEDS: NYSTATIN POWDER 15GM BTL EXT SCH ×2 (08:31→20:27)
[2017-01-18] MEDS: CALCIUM ACETATE 667MG GELCAP PO SCH ×3 (08:31→16:45)
[2017-01-18] MEDS: LABETALOL HCL 100 MG TAB PO SCH ×2 (08:31→20:28)
[2017-01-18] MEDS: QUETIAPINE FUMARATE 25 MG TAB PO SCH ×2 (08:32→20:27)
[2017-01-18] MEDS: HEPARIN SOD 5000 UNIT/0.5 ML CARP SQ SCH ×2 (08:42→20:29)
[2017-01-18] MEDS: PIPERACILL/TAZOBAC IV 3.375 GM in DEXTROSE 5% 100ML 100 ML IV SCH (09:01)
[2017-01-18] MEDS: BOOST BREEZE NUTRITION DRINK 1 BOX PO SCH ×2 (09:02→20:27)
[2017-01-18] MEDS ORDERED: ROCEPHIN-CONSULT PHARMACY PRN (09:42)
--- NOTE | 2017-01-18 09:55 | Nephrology Progress Note ---
Nephrology Progress Note Date of Service: Jan 18, 2017. Subjective again alert today; no c/o; struggling to feed self and stops trying; no dyspnea or epigastric pain or N; remains on NS at 80 Objective Date Time Temp Pulse Resp B/P (MAP) Pulse Ox O2 Delivery O2 Flow Rate FiO2 01/18/17 04:00 Room Air 01/18/17 03:56 37.1 71 18 117/57 (77) 97 Room Air 01/18/17 00:01 97 Room Air 01/17/17 23:41 36.5 76 18 125/58 (80) 97 Room Air 01/17/17 20:00 36.9 74 18 151/58 (89) 97 Room Air 01/17/17 20:00 Room Air 01/17/17 18:23 188/72 (110) 01/17/17 18:23 73 01/17/17 16:00 Room Air 01/17/17 15:00 36.9 69 18 188/72 (110) 97 Room Air 01/17/17 12:59 36.7 65 150/55 (86) 01/17/17 12:45 64 128/75 01/17/17 12:30 71 126/80 01/17/17 12:15 63 165/57 01/17/17 12:02 Room Air 01/17/17 12:00 63 165/57 01/17/17 11:45 62 155/72 01/17/17 11:30 62 166/70 01/17/17 11:15 62 156/61 01/17/17 11:00 60 159/60 01/17/17 11:00 36.4 60 20 159/63 (95) 99 Room Air 01/17/17 10:45 61 144/67 01/17/17 10:30 60 151/64 01/17/17 10:15 61 115/62 01/17/17 10:10 37.1 65 136/56 (82) 01/17/17 10:00 63 136/53 01/17/17 09:54 62 128/62 01/17/17 08:04 37.3 70 20 151/68 (95) 94 Room Air 01/17/17 08:00 Room Air Physical Exam: General Appearance: no apparent distress, alert/interactive but minimally today , + cachetic Eyes: EOMI ENT: hearing grossly normal Neck: supple Respiratory/Chest: no respiratory distress (sitting up on RA), + decreased breath sounds Cardiovascular: regular rate, rhythm, no edema Abdomen: normal bowel sounds, soft, + guarding, + tenderness Extremities: no pedal edema, + pertinent finding (LUE avf + t/b) Neurologic/Psych: fluent but inappropriate/irrelevant speech, chairez Skin: no jaundice, warm/dry, no rash Current Inpatient Medications Medications (Trade) Dose Ordered Sig/Neyda Route Start Time Stop Time Status Last Admin Dose Admin Piperacillin Sod/ Tazobactam Sod 3.375 gm/Dextrose 115 ml @ 28.75 mls/ hr Q12@0800,2000 IV 01/16/17 08:00 01/26/17 07:59 01/17/17 20:32 28.75 MLS/HR Hydromorphone HCl (Dilaudid Inj) 0.25 mg Q1H PRN IV 01/16/17 02:00 01/30/17 01:59 Piperacillin Sod/ Tazobactam Sod (Consult) 1 ea UD PRN N/A 01/16/17 02:30 02/15/17 02:29 Heparin Sodium (Porcine) (Heparin Sq 5000 Unit/0.5ml) 5,000 unit Q12 SQ 01/16/17 09:00 02/15/17 08:59 01/17/17 21:04 5,000 UNIT Sodium Chloride 1,000 ml @ 80 mls/hr [id number] IV 01/16/17 08:45 02/15/17 08:44 01/17/17 00:42 80 MLS/HR Vitamin B Complex/ Vit C/Folic Acid (Nephrocaps) 1 cap QPM PO 01/17/17 21:00 02/16/17 20:59 Calcium Acetate (Phoslo Cap) 1,334 mg TIDM PO 01/17/17 12:00 02/16/17 11:59 01/17/17 17:00 1,334 MG Acetaminophen/ Hydrocodone Bitart ([place] 5/325 Tab) 1 tab BID PRN PO 01/17/17 09:30 01/31/17 09:29 Quetiapine Fumarate (seroQUEL TAB) 12.5 mg BID PO 01/17/17 21:00 02/16/17 20:59 01/17/17 21:00 12.5 MG Nystatin (Mycostatin Powder) 1 appln BID EXT 01/17/17 21:00 02/16/17 20:59 01/17/17 21:10 1 APPLN Enteral Nutritional Formula (Boost Breeze Nutritional Drink) 1 box BID PO 01/17/17 21:00 02/16/17 20:59 Labetalol HCl (Normodyne Tab) 100 mg BID PO 01/17/17 21:00 02/16/17 20:59 01/17/17 21:54 100 MG Clonidine HCl (Catapres Tab) 0.1 mg Q6H PRN PO 01/17/17 19:30 02/16/17 19:29 Last 24 Hours Test 01/17/17 15:45 01/18/17 05:41 Hepatitis B Surface Antigen NEG Hepatitis B Surface Antibody POS White Blood Count 8.73 K/uL Red Blood Count 3.37 M/uL Hemoglobin 10.6 g/dL Hematocrit 32.8 % Mean Corpuscular Volume 97.3 fL Mean Corpuscular Hemoglobin 31.5 pg Mean Corpuscular Hemoglobin Concent 32.3 g/dl Platelet Count 182 K/uL Mean Platelet Volume 9.1 fL Neutrophils (%) (Auto) 75.0 % Lymphocytes (%) (Auto) 12.0 % Monocytes (%) (Auto) 10.5 % Eosinophils (%) (Auto) 2.2 % Basophils (%) (Auto) 0.2 % Neutrophils # (Auto) 6.54 K/uL Lymphocytes # (Auto) 1.05 K/uL Monocytes # (Auto) 0.92 K/uL Eosinophils # (Auto) 0.19 K/uL Basophils # (Auto) 0.02 K/uL RDW Standard Deviation 45.9 fL RDW Coefficient of Variation 12.9 % Immature Granulocyte % (Auto) 0.1 % Immature Granulocyte # (Auto) 0.01 K/uL Sodium Level 140 mmol/L Potassium Level 3.3 mmol/L Chloride Level 103 mmol/L Carbon Dioxide Level 26 mmol/L Anion Gap 11.0 mmol/L Blood Urea Nitrogen 43 mg/dl Creatinine 4.40 mg/dl Est Creatinine Clear Calc Drug Dose 8.3 ml/min Estimated GFR () 10.4 Estimated GFR (Non- 9.0 BUN/Creatinine Ratio 9.8 Random Glucose 81 mg/dl Calcium Level 8.3 mg/dl Total Bilirubin 0.9 mg/dl Direct Bilirubin 0.3 mg/dl Aspartate Amino Transf (AST/SGOT) 156 U/L Alanine Aminotransferase (ALT/SGPT) 408 U/L Alkaline Phosphatase 226 U/L Total Protein 6.6 gm/dl Albumin 2.3 gm/dl Lipase 608 U/L Date/Time Source Procedure Growth Status 01/17/17 08:50 Nasal MRSA DNA Surveillance Screen - Final Specimen Negative for MRSA by DNA Probe Complete Assessment & Plan 76 y/o F w/ dementia, HTN, ESRD on HD admitted 01/16 w/ sepsis from gram negative bacteremia and biliary source/pancreatitis to be managed w/o invasive interventions/intensification of care level. ESRD -improved but still likely hypovolemic in setting of sepsis/pancreatitis; electrolytes acceptable; had HD yesterday for clearance/ no ultrafiltration -next HD for tomorrow Sepsis unclear source, biliary tract/pancreas suspected >> 2/2 blood cxs + GNR -on zosyn and has had 2L of NS boluses to improve bp; had dose of vanco in ER -per primary service -f/u pending cxs -will recheck blood cxs tomorrow on hd if not already done since admission ?need for TTE >>agree w/ stopping NS >> no fluids at this point Anemia -procrit w/ HD as indicated w/ aggressive dosing given epo resistance d/t sepsis Appreciate consult; will follow with you.
--- NOTE | 2017-01-18 10:36 | Progress Note ---
Medicine Progress Note Date & Time of Visit: Jan 18, 2017 at 10:29. Subjective patient seen sleeping, lethargic grimaces to painful stimuli not in distress Objective Last 8 Hrs Date Time Temp Pulse Resp B/P (MAP) Pulse Ox O2 Delivery O2 Flow Rate FiO2 01/18/17 08:00 Room Air 01/18/17 07:37 36.8 72 20 131/64 (86) 98 Room Air 01/18/17 04:00 Room Air 01/18/17 03:56 37.1 71 18 117/57 (77) 97 Room Air Physical Exam: General- lethargic Eyes- anicteric Neck- no JVD Lungs- clear breath sounds bilaterally, no rales/wheezes Heart- regular rhythm; no murmur, normal rate Abdomen- normal bowel sounds,non distended, soft,no RUQ tenderness Extremities- no pretibial edema, no calf tenderness Neuro-alert, confused, but no other gross focal neuro deficits Skin- warm & dry Laboratory Results: Last 24 Hours Test 01/17/17 15:45 01/18/17 05:41 Hepatitis B Surface Antigen NEG Hepatitis B Surface Antibody POS White Blood Count 8.73 K/uL Red Blood Count 3.37 M/uL Hemoglobin 10.6 g/dL Hematocrit 32.8 % Mean Corpuscular Volume 97.3 fL Mean Corpuscular Hemoglobin 31.5 pg Mean Corpuscular Hemoglobin Concent 32.3 g/dl Platelet Count 182 K/uL Mean Platelet Volume 9.1 fL Neutrophils (%) (Auto) 75.0 % Lymphocytes (%) (Auto) 12.0 % Monocytes (%) (Auto) 10.5 % Eosinophils (%) (Auto) 2.2 % Basophils (%) (Auto) 0.2 % Neutrophils # (Auto) 6.54 K/uL Lymphocytes # (Auto) 1.05 K/uL Monocytes # (Auto) 0.92 K/uL Eosinophils # (Auto) 0.19 K/uL Basophils # (Auto) 0.02 K/uL RDW Standard Deviation 45.9 fL RDW Coefficient of Variation 12.9 % Immature Granulocyte % (Auto) 0.1 % Immature Granulocyte # (Auto) 0.01 K/uL Sodium Level 140 mmol/L Potassium Level 3.3 mmol/L Chloride Level 103 mmol/L Carbon Dioxide Level 26 mmol/L Anion Gap 11.0 mmol/L Blood Urea Nitrogen 43 mg/dl Creatinine 4.40 mg/dl Est Creatinine Clear Calc Drug Dose 8.3 ml/min Estimated GFR () 10.4 Estimated GFR (Non- 9.0 BUN/Creatinine Ratio 9.8 Random Glucose 81 mg/dl Calcium Level 8.3 mg/dl Total Bilirubin 0.9 mg/dl Direct Bilirubin 0.3 mg/dl Aspartate Amino Transf (AST/SGOT) 156 U/L Alanine Aminotransferase (ALT/SGPT) 408 U/L Alkaline Phosphatase 226 U/L Total Protein 6.6 gm/dl Albumin 2.3 gm/dl Lipase 608 U/L Assessment & Plan PROBABLE SEPSIS, SECONDARY TO ACUTE CHOLECYSTITIS WITH POSSIBLE PANCREATITIS - BP remained stable since admission afebrile since admission - labs: improving LFTs Lipase down to 600s - Liver US: possible cholecystitis Blood cultures: E coli x 2 - as per Dr. Scott' discussion with daughter Maxine, no invasive measures at this time thus, no ERCP/Surgical Intervention -- lethargic this morning will confirm with daughter if patient has this episodes at baseline otherwise, sepsis resolving - will continue medical management: was on vanco and zosyn change to ceftriaxone IV will consult ID D/C fluids for now, monitor lipase - monitor closely POSSIBLE ACUTE PANCREATITIS LIKELY GALLSTONE RELATED - discussed fluid management with Nephro- Dr. Flores - lipase down to 600 - given NSS at 80cc/hr, d/c for now ff up lipase ALTERED MENTAL STATUS Head CT negative for acute findings. Most likely has encephalopathy / delirium secondary to sepsis. -- improving HYPERTENSION Hypotensive at time of presentation. 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 - ISS for now CKD V - Nephrology consulted LEWY BODY DEMENTIA - resumed Quetiapine COMPRESSION FRACTURE L1 Severe compression fracture at L1 of uncertain chronicity noted on CT of abdomen and pelvis. -- will assess further when patient is more alert CHRONIC PAIN Patient takes hydrocodone for chronic pain, apparently primarily due to right shoulder pain. -- PO analgesics PRN HISTORY MRSA Contact precautions. VTE PROPHYLAXIS Moderately high risk for VTE. SQ heparin. RESUSCITATION STATUS Discussed with patient's daughter who is POA. She has a living will. Daughter feels that patient would not wish to have invasive procedures or cardiopulmonary resuscitation attempted in light of her advanced dementia and previously expressed wishes. Code status, therefore, is "Level 5" (DNR). DISPOSITION Patient is critically ill. Will not admit to ICU due to DNR status and plan not to consider invasive procedures including central lines. Expected return to [facility] if her condition improves. . Current Inpatient Medications: Current Inpatient Medications Medications (Trade) Dose Ordered Sig/Neyda Route Start Time Stop Time Status Last Admin Dose Admin Hydromorphone HCl (Dilaudid Inj) 0.25 mg Q1H PRN IV 01/16/17 02:00 01/30/17 01:59 Heparin Sodium (Porcine) (Heparin Sq 5000 Unit/0.5ml) 5,000 unit Q12 SQ 01/16/17 09:00 02/15/17 08:59 01/18/17 08:42 5,000 UNIT Sodium Chloride 1,000 ml @ 80 mls/hr [id number] IV 01/16/17 08:45 02/15/17 08:44 01/17/17 00:42 80 MLS/HR Vitamin B Complex/ Vit C/Folic Acid (Nephrocaps) 1 cap QPM PO 01/17/17 21:00 02/16/17 20:59 Calcium Acetate (Phoslo Cap) 1,334 mg TIDM PO 01/17/17 12:00 02/16/17 11:59 01/18/17 08:31 1,334 MG Acetaminophen/ Hydrocodone Bitart ([place] 5/325 Tab) 1 tab BID PRN PO 01/17/17 09:30 01/31/17 09:29 Quetiapine Fumarate (seroQUEL TAB) 12.5 mg BID PO 01/17/17 21:00 02/16/17 20:59 01/18/17 08:32 12.5 MG Nystatin (Mycostatin Powder) 1 appln BID EXT 01/17/17 21:00 02/16/17 20:59 01/18/17 08:31 1 APPLN Enteral Nutritional Formula (Boost Breeze Nutritional Drink) 1 box BID PO 01/17/17 21:00 02/16/17 20:59 01/18/17 09:02 1 BOX Labetalol HCl (Normodyne Tab) 100 mg BID PO 01/17/17 21:00 02/16/17 20:59 01/18/17 08:31 100 MG Clonidine HCl (Catapres Tab) 0.1 mg Q6H PRN PO 01/17/17 19:30 02/16/17 19:29 Miscellaneous Information (Pharmacy Consult) 1 ea UD PRN N/A 01/18/17 09:42 02/17/17 09:41 Ceftriaxone Sodium 2000 mg/ Dextrose 70 ml @ 140 mls/hr Q24H IV 01/18/17 10:00 02/01/17 09:59
--- NOTE | 2017-01-18 11:02 | Medical Consult ---
Consultation Date of Consultation: Jan 18, 2017. Attending Physician: Jose L Bocanegra MD Reason for Consultation: E. Coli Bacteremia History of Present Illness Patient is completely obtunded during exam, so history was strictly taken from previous records. The patient is a 76-year-old female who presented to the emergency department with worsening lethargy starting the day of admission. She was residing at [facility], and she developed fever of 102.9 F. on admission, the patient had blood cultures drawn which are growing E coli resistant to quinolones only. C diff toxin is negative. MRSA swab was negative. Prep with cell count was 11.09. ESR was 72. LFTs were notably elevated. AST [id number], ALT of 1634, and Alk phos of 489 along with total bili elevated to 1.5. The patient did also have a lipase level completed which was 1296 upon admission, but did increase to 2063 at its peak. The patient did also have an abdominal/pelvic CT scan completed which showed large stool burden, upper abdominal lymph nodes, and severe L5 compression deformity. Abdominal ultrasound was also completed which showed cholelithiasis and gallbladder sludge, with the possibility of acute cholecystitis. The patient was placed on IV ceftriaxone 2 grams daily. She continues to be lethargic and obtunded. No review of systems was able to be obtained. Past Medical/Surgical History Medical Problems: (1) Altered mental status Status: Acute (2) Altered mental status Status: Acute (3) C. difficile diarrhea Status: Acute (4) C. difficile diarrhea Status: Acute (5) Dehydration Status: Acute (6) Diabetic foot ulcers Status: Acute (7) Diabetic foot ulcers Status: Acute (8) Gallstone pancreatitis Status: Acute (9) Hypotension Status: Acute (10) Hypotension Status: Acute (11) Sepsis Status: Acute Medical Problems: (1) Anemia in CKD (chronic kidney disease) (2) Chronic kidney disease requiring chronic dialysis (3) Chronic pain (4) CKD (chronic kidney disease) stage 5, GFR less than 15 ml/min (5) Diabetes mellitus with stage 5 chronic kidney disease GFR <15 (6) Diabetic neuropathy (7) Diabetic retinopathy associated with type 2 diabetes mellitus (8) Dyslipidemia (9) Fracture of neck of right humerus (10) History of MRSA infection (11) History of osteomyelitis (12) Hypertension (13) Lewy body dementia Surgical Problems: (1) Status post amputation of toe of left foot (2) Status post hysterectomy Family History Cancer Diabetes mellitus Heart disease Hypertension Noncontributory Social History Smoking Status: Former Smoker Alcohol Use: none Drug Use: none Marital Status: Housing Status: longterm Occupation Status: retired Allergies Coded Allergies: Dust (Verified Allergy, Unknown, SNEEZING,WHEEZING, 01/15/17) Home Medications Reported Home Medications Medications Dose Route/Sig Max Daily Dose Days Date Category Dose Instructions Nystatin (Nystatin (Topical)) 1 Pow Pow 1 Appln TOP BID 01/15/17 Reported APPLY TO ABD FOLDS, BUTTOCKS AND UNDER BREASTS. Ketoconazole (Ketoconazole (Topical)) 2 % Sha 1 Appln TOP 2XWK 30 01/15/17 Reported USES ON MON & THURS. [place] 5MG/325MG (Acetaminophen/Hydrocodone Bitart) Tab 1 Tablet PO BID 01/15/17 Reported Normodyne (Labetalol Hcl) 100 Mg Tab 100 Mg PO BID 01/15/17 Reported HOLD IF SYSTOLIC B/P < 120, OR APICAL HEART RATE < 50. Nepro Carb Steady (Enteral Nutritional Formula) 1 Can Liqd 8 Oz PO TID 03/10/16 Reported Seroquel (Quetiapine Fumarate) 25 Mg Tab 12.5 Mg PO BID 08/02/15 Reported Hydralazine HCl 25 Mg Tab 25 Mg PO DAILY @ 1600 03/03/15 Reported Phoslo 667 Mg (Calcium Acetate (Phosphate Bin) 667 Mg Cap 2 Capsules PO TIDM 03/03/15 [address] [place] Caps (B-Complex W/ C & Folic Acid) 1 Cap Cap 1 Cap PO QPM 03/03/15 Reported Vitamin D3 (Cholecalciferol) 1,000 Unit Cap 1,000 Units PO QAM 11/03/14 Reported Lipitor (Atorvastatin Calcium) 10 Mg Tab 10 Mg PO HS 11/03/14 Reported Aspirin Ec (Aspirin) 81 Mg Tab 81 Mg PO QAM 11/03/14 Reported Tylenol (Acetaminophen) 325 Mg Tab 650 Mg PO Q6 PRN 11/03/14 Reported MILD PAIN OR FEVER > 101 F. NOT TO EXCEED 3 GRAMS PER 24 HOURS. Current Inpatient Medications Current Inpatient Medications Medications (Trade) Dose Ordered Sig/Neyda Route Start Time Stop Time Status Last Admin Dose Admin Hydromorphone HCl (Dilaudid Inj) 0.25 mg Q1H PRN IV 01/16/17 02:00 01/30/17 01:59 Heparin Sodium (Porcine) (Heparin Sq 5000 Unit/0.5ml) 5,000 unit Q12 SQ 01/16/17 09:00 02/15/17 08:59 01/18/17 08:42 5,000 UNIT Vitamin B Complex/ Vit C/Folic Acid (Nephrocaps) 1 cap QPM PO 01/17/17 21:00 02/16/17 20:59 Calcium Acetate (Phoslo Cap) 1,334 mg TIDM PO 01/17/17 12:00 02/16/17 11:59 01/18/17 08:31 1,334 MG Acetaminophen/ Hydrocodone Bitart ([place] 5/325 Tab) 1 tab BID PRN PO 01/17/17 09:30 01/31/17 09:29 Quetiapine Fumarate (seroQUEL TAB) 12.5 mg BID PO 01/17/17 21:00 02/16/17 20:59 01/18/17 08:32 12.5 MG Nystatin (Mycostatin Powder) 1 appln BID EXT 01/17/17 21:00 02/16/17 20:59 01/18/17 08:31 1 APPLN Enteral Nutritional Formula (Boost Breeze Nutritional Drink) 1 box BID PO 01/17/17 21:00 02/16/17 20:59 01/18/17 09:02 1 BOX Labetalol HCl (Normodyne Tab) 100 mg BID PO 01/17/17 21:00 02/16/17 20:59 01/18/17 08:31 100 MG Clonidine HCl (Catapres Tab) 0.1 mg Q6H PRN PO 01/17/17 19:30 02/16/17 19:29 Miscellaneous Information (Pharmacy Consult) 1 ea UD PRN N/A 01/18/17 09:42 02/17/17 09:41 Ceftriaxone Sodium 2000 mg/ Dextrose 70 ml @ 140 mls/hr Q24H IV 01/18/17 10:00 02/01/17 09:59 Review of Systems Unable to assess due to patient state Physical Exam Date Time Temp Pulse Resp B/P (MAP) Pulse Ox O2 Delivery O2 Flow Rate FiO2 01/18/17 08:00 Room Air 01/18/17 07:37 36.8 72 20 131/64 (86) 98 Room Air 01/18/17 04:00 Room Air 01/18/17 03:56 37.1 71 18 117/57 (77) 97 Room Air 01/18/17 00:01 97 Room Air 01/17/17 23:41 36.5 76 18 125/58 (80) 97 Room Air 01/17/17 20:00 36.9 74 18 151/58 (89) 97 Room Air 01/17/17 20:00 Room Air 01/17/17 18:23 188/72 (110) 01/17/17 18:23 73 01/17/17 16:00 Room Air 01/17/17 15:00 36.9 69 18 188/72 (110) 97 Room Air 01/17/17 12:59 36.7 65 150/55 (86) 01/17/17 12:45 64 128/75 01/17/17 12:30 71 126/80 01/17/17 12:15 63 165/57 01/17/17 12:02 Room Air 01/17/17 12:00 63 165/57 01/17/17 11:45 62 155/72 01/17/17 11:30 62 166/70 01/17/17 11:15 62 156/61 01/17/17 11:00 60 159/60 01/17/17 11:00 36.4 60 20 159/63 (95) 99 Room Air General Appearance: + pertinent finding (sleeping, unable to wake for examination, no acute distress) Head: normocephalic, atraumatic Eyes: + pertinent finding (closed, does not open during exam) Neck: supple Respiratory/Chest: normal breath sounds, no respiratory distress, no accessory muscle use Cardiovascular: regular rate, rhythm, + systolic murmur Abdomen/GI: normal bowel sounds, soft, no organomegaly Extremities/Musculoskelatal: normal inspection, no pedal edema Neurologic/Psych: alert, normal mood/affect Skin: normal color, warm/dry, no rash Laboratory Results BILIARY ABDOMEN LIMITED HISTORY: 76 years-old Female elevated LFT's + lipase COMPARISON: CT abdomen and pelvis 01/15/2017 and 08/26/2015, chest CT 11/09/2014 TECHNIQUE: Multiple real-time sonographic images of the abdominal right upper quadrant were obtained assessing grayscale appearance and color flow. FINDINGS: Exam and limited secondary to reported patient combativeness and lack of cooperation. The patient is medicated for pain and therefore sonographic Doe sign was unable to be obtained. There is severe atrophy of the pancreatic parenchyma without focal mass identified. Distal body and tail are obscured by bowel gas. There is a trace amount of perihepatic ascites noted. Liver measures up to 21 cm. There is nonspecific 0.8 cm lesion of the subserosal posterior right hepatic lobe, 0.8 x 1.2 x 1.2 cm which appears unchanged from 11/09/2014. This is nonspecific, however suggests hepatic cyst. No internal vascularity. There is a prominent amount of layering sludge and shadowing gallstones within the gallbladder lumen with gallstones also seen within the gallbladder neck. There is mild gallbladder distention measuring up to 10.8 cm in length. The gallbladder wall is mildly thickened measuring up to 4 mm. Trace pericholecystic fluid is noted. Common bile duct measures up to 8.8 mm without obstructing stone or mass identified. The right kidney appears echogenic without hydronephrosis or focal mass. IMPRESSION: 1. Cholelithiasis and gallbladder sludge noted in association with mild gallbladder wall thickening. Sonographic Doe sign was unable to be assessed secondary to patient's medicated status. Findings may reflect acute cholecystitis within the appropriate clinical setting. Follow-up exam with hepatobiliary study may be beneficial. 2. Prominence of the common bile duct measuring up to 8.8 mm may be normal considering patient's age. No obstructing stone or mass identified. 3. 1.2 cm hypoechoic lesion of the subserosal posterior right hepatic lobe is nonspecific, however is unchanged dating back to 11/09/2014 suggesting cyst. 4. Mild perihepatic ascites. RUN DATE: 01/18/17 [facility] PAGE 1 RUN TIME: 800 Specimen Inquiry PATIENT: LEV ORTEGA LOC: Sylvia U # : [id number] AGE/SX: 76/F ROOM: [facility] REG : 01/16/[address]: Jose L Bocanegra MD : 1940 BED: 1 DIS : STATUS: ADM IN TLOC: SPEC #: [id number] BELEM: 01/15/17 STATUS: COMP REQ #: [id number] RECD: 01/15/[address]: Kostas Bowie DO SOURCE: BLOOD ENTR: 01/15/[address] SPDESC: ORDERED: BLOOD CULTURE Procedure Result Verified Site BLD CULT Final 01/18/17-0801 Organism 1 ESCHERICHIA COLI SENS SENSITIVITY TO FOLLOW Phoned Positive Blood Culture Gram Stain Report to LUPIS IBARRA on 01/16/17 At 0929 By ABDOUL. Results were verbalized back to ABDOUL. Phoned results to LUPIS IBARRA on 01/16/17 at 0927 by Aubrey Rose. Results were verbalized back to ABDOUL. 1. ESCHERICHIA COLI Target Route Dose RX AB Cost M.I.C. IQ ------ ----- ------ -- ------ -------- - ------ TRIMET/SULFA S <=2/38 AMPICILLIN S <=8 AMPICILLIN/SUL S <=8/4 CEFAZOLIN S <=8 CEFOTAXIME S <=2 CEFTRIAXONE S <=1 CEFEPIME S <=4 CEFUROXIME S <=4 IMIPENEM S <=1 GENTAMICIN S <=4 TOBRAMYCIN S <=4 AMIKACIN S <=16 CIPROFLOXACIN R >2 LEVOFLOXACIN R >4 ERTAPENEM S <=1 PIP/TAZO S <=16 S = SENSITIVE I = INTERMEDIATE R = RESISTANT Item Value Date Time MRSA DNA Surveillance Screen - Final Complete 01/17/17 0850 Nasal Specimen Negative for MRSA by DNA Probe C.difficile Toxin B Gene (PCR) - Final Complete 01/16/17 0455 Stool No C. difficile toxin B gene detected Blood Culture - Final Complete 01/15/17 2303 Blood Escherichia Coli Blood Culture - Final Complete 01/15/17 2235 Blood Escherichia Coli Last 24 Hours Test 01/17/17 15:45 01/18/17 05:41 Hepatitis B Surface Antigen NEG Hepatitis B Surface Antibody POS White Blood Count 8.73 K/uL Red Blood Count 3.37 M/uL Hemoglobin 10.6 g/dL Hematocrit 32.8 % Mean Corpuscular Volume 97.3 fL Mean Corpuscular Hemoglobin 31.5 pg Mean Corpuscular Hemoglobin Concent 32.3 g/dl Platelet Count 182 K/uL Mean Platelet Volume 9.1 fL Neutrophils (%) (Auto) 75.0 % Lymphocytes (%) (Auto) 12.0 % Monocytes (%) (Auto) 10.5 % Eosinophils (%) (Auto) 2.2 % Basophils (%) (Auto) 0.2 % Neutrophils # (Auto) 6.54 K/uL Lymphocytes # (Auto) 1.05 K/uL Monocytes # (Auto) 0.92 K/uL Eosinophils # (Auto) 0.19 K/uL Basophils # (Auto) 0.02 K/uL RDW Standard Deviation 45.9 fL RDW Coefficient of Variation 12.9 % Immature Granulocyte % (Auto) 0.1 % Immature Granulocyte # (Auto) 0.01 K/uL Sodium Level 140 mmol/L Potassium Level 3.3 mmol/L Chloride Level 103 mmol/L Carbon Dioxide Level 26 mmol/L Anion Gap 11.0 mmol/L Blood Urea Nitrogen 43 mg/dl Creatinine 4.40 mg/dl Est Creatinine Clear Calc Drug Dose 8.3 ml/min Estimated GFR () 10.4 Estimated GFR (Non- 9.0 BUN/Creatinine Ratio 9.8 Random Glucose 81 mg/dl Calcium Level 8.3 mg/dl Total Bilirubin 0.9 mg/dl Direct Bilirubin 0.3 mg/dl Aspartate Amino Transf (AST/SGOT) 156 U/L Alanine Aminotransferase (ALT/SGPT) 408 U/L Alkaline Phosphatase 226 U/L Total Protein 6.6 gm/dl Albumin 2.3 gm/dl Lipase 608 U/L Assessment & Plan Patient with E. Coli bacteremia likely of biliary source. Currently the patient is not planned to have any surgical interventions, and will be treated medically. She is on IV Ceftriaxone and her labs overall are improving. She may benefit from addition of Flagyl with gallbladder as source, but with labs improving, will hold for now. Will repeat blood cultures. We will follow. PROVIDER ADDENDUM: Patient examined and reviewed with PA, agree with above assessment.
[2017-01-18] MEDS: CEFTRIAXONE SOD INJ 2000 MG in DEXTROSE 5% 50ML IV SCH (12:13)
[2017-01-18] MEDS: NEPHROCAPS PO SCH (20:27)
[2017-01-19] VITALS (19 sets, daily range): BP systolic 128–179; BP diastolic 61–80; PULSE 59–73; TEMP 36.4–37.4; O2SAT 96–100
[2017-01-19 06:28] LABS: BASO % 0.3 %; BASO ABS # 0.02 K/uL (0-0.2); COMPLETE YES; EOS % 4.4 %; HEMATOCRIT 30.9 % (37-47); IG% 0.3 %; LYMPH ABS # 1.64 K/uL (1.2-3.4); MEAN CELL VOLUME 97.5 fL (80-100); MEAN CORPUSCULAR HEMOGLOBIN 30.9 pg (25-34); MEAN CORPUSCULAR HGB CONC 31.7 g/dl (32-36); MEAN PLATELET VOLUME 9.6 fL (7.4-10.4); MONO % 11.3 %; NEUT % 61.7 %; PLATELET COUNT 176 K/uL (130-400); RED BLOOD COUNT 3.17 M/uL (4.2-5.4); WHITE BLOOD COUNT 7.44 K/uL (4.8-10.8)
[2017-01-19 07:25] LABS: BUN/CREATININE RATIO 9.7 (10-20); CALCIUM 8.2 mg/dl (8.5-10.1); CREATININE 5.6 mg/dl (0.60-1.20); POTASSIUM 3.3 mmol/L (3.5-5.1)
[2017-01-19] MEDS: CALCIUM ACETATE 667MG GELCAP PO SCH ×3 (08:39→17:20)
[2017-01-19] MEDS: NYSTATIN POWDER 15GM BTL EXT SCH ×2 (08:39→20:31)
[2017-01-19] MEDS: BOOST BREEZE NUTRITION DRINK 1 BOX PO SCH ×2 (08:40→20:36)
[2017-01-19] MEDS: QUETIAPINE FUMARATE 25 MG TAB PO SCH ×2 (08:40→20:38)
[2017-01-19] MEDS: CEFTRIAXONE SOD INJ 2000 MG in DEXTROSE 5% 50ML IV SCH (08:41)
[2017-01-19] MEDS: HEPARIN SOD 5000 UNIT/0.5 ML CARP SQ SCH ×2 (08:41→20:32)
[2017-01-19] MEDS: LABETALOL HCL 100 MG TAB PO SCH ×2 (15:21→20:36)
--- NOTE | 2017-01-19 16:59 | Progress Note ---
Medicine Progress Note Date & Time of Visit: Jan 19, 2017 at 16:55. Subjective seen sitting up in bed, awake, alert, pleasantly confused, comfortable denies abdominal pain nausea tolerating diet denies dyspnea , chest no other symptoms Objective Last 8 Hrs Date Time Temp Pulse Resp B/P (MAP) Pulse Ox O2 Delivery O2 Flow Rate FiO2 01/19/17 14:59 36.7 66 20 155/80 (105) 100 Room Air 01/19/17 13:55 36.4 65 176/77 (110) 01/19/17 13:45 65 157/69 01/19/17 13:30 62 141/65 01/19/17 13:15 61 155/71 01/19/17 13:00 61 171/74 01/19/17 12:45 61 169/75 01/19/17 12:30 65 168/74 01/19/17 12:15 61 175/76 01/19/17 12:00 59 144/67 01/19/17 12:00 Room Air 01/19/17 11:45 63 168/72 01/19/17 11:30 64 148/79 01/19/17 11:15 60 128/65 01/19/17 11:00 37.4 62 16 164/77 (106) 99 Room Air 01/19/17 11:00 62 164/70 01/19/17 10:55 62 161/70 01/19/17 10:38 37.4 65 146/65 (92) Physical Exam: General- alert, confused, not in distress Eyes- anicteric Neck- no JVD Lungs- clear breath soundsno rales/wheezes bilaterally Heart- regular rhythm; no murmur, normal rate Abdomen- normal bowel sounds,non distended, soft,no tenderness Extremities- no pretibial edema, no calf tenderness Neuro-alert, confused, but no other gross focal neuro deficits Skin- warm & dry Laboratory Results: Last 24 Hours Test 01/19/17 05:40 White Blood Count 7.44 K/uL Red Blood Count 3.17 M/uL Hemoglobin 9.8 g/dL Hematocrit 30.9 % Mean Corpuscular Volume 97.5 fL Mean Corpuscular Hemoglobin 30.9 pg Mean Corpuscular Hemoglobin Concent 31.7 g/dl Platelet Count 176 K/uL Mean Platelet Volume 9.6 fL Neutrophils (%) (Auto) 61.7 % Lymphocytes (%) (Auto) 22.0 % Monocytes (%) (Auto) 11.3 % Eosinophils (%) (Auto) 4.4 % Basophils (%) (Auto) 0.3 % Neutrophils # (Auto) 4.59 K/uL Lymphocytes # (Auto) 1.64 K/uL Monocytes # (Auto) 0.84 K/uL Eosinophils # (Auto) 0.33 K/uL Basophils # (Auto) 0.02 K/uL RDW Standard Deviation 45.8 fL RDW Coefficient of Variation 12.9 % Immature Granulocyte % (Auto) 0.3 % Immature Granulocyte # (Auto) 0.02 K/uL Sodium Level 142 mmol/L Potassium Level 3.3 mmol/L Chloride Level 105 mmol/L Carbon Dioxide Level 25 mmol/L Anion Gap 12.0 mmol/L Blood Urea Nitrogen 54 mg/dl Creatinine 5.60 mg/dl Est Creatinine Clear Calc Drug Dose 6.5 ml/min Estimated GFR () 7.8 Estimated GFR (Non- 6.7 BUN/Creatinine Ratio 9.7 Random Glucose 74 mg/dl Calcium Level 8.2 mg/dl Total Bilirubin 0.6 mg/dl Direct Bilirubin 0.2 mg/dl Aspartate Amino Transf (AST/SGOT) 74 U/L Alanine Aminotransferase (ALT/SGPT) 285 U/L Alkaline Phosphatase 211 U/L Total Protein 6.1 gm/dl Albumin 2.2 gm/dl Lipase 439 U/L Assessment & Plan SEPSIS, SECONDARY TO E COLI BACTEREMIA, ACUTE CHOLECYSTITIS WITH POSSIBLE PANCREATITIS - BP remained stable since admission afebrile since admission - labs: improving LFTs DAILY Lipase down to 400s - Liver US: possible cholecystitis Blood cultures: E coli x 2 - as per Dr. Scott' discussion with daughter Maxine, no invasive measures at this time thus, no ERCP/Surgical Intervention -- improving overall - will continue medical management: was on vanco and zosyn changed to ceftriaxone IV ID consulted, appreciate the input D/C'd fluids - monitor closely POSSIBLE ACUTE PANCREATITIS LIKELY GALLSTONE RELATED - discussed fluid management with Nephro- Dr. Flores - lipase down to 400 - given NSS at 80cc/hr, d/c for now ALTERED MENTAL STATUS Head CT negative for acute findings. Most likely has encephalopathy / delirium secondary to sepsis. -- improving HYPERTENSION Hypotensive at time of presentation. 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 - ISS for now CKD V - Nephrology consulted LEWY BODY DEMENTIA - Quetiapine COMPRESSION FRACTURE L1 Severe compression fracture at L1 of uncertain chronicity noted on CT of abdomen and pelvis. -- denies back pain CHRONIC PAIN Patient takes hydrocodone for chronic pain, apparently primarily due to right shoulder pain. -- PO analgesics PRN HISTORY MRSA Contact precautions. VTE PROPHYLAXIS Moderately high risk for VTE. SQ heparin. RESUSCITATION STATUS Code status, therefore, is "Level 5" (DNR). DISPOSITION pending PT/OT evals Current Inpatient Medications: Current Inpatient Medications Medications (Trade) Dose Ordered Sig/Neyda Route Start Time Stop Time Status Last Admin Dose Admin Hydromorphone HCl (Dilaudid Inj) 0.25 mg Q1H PRN IV 01/16/17 02:00 01/30/17 01:59 Heparin Sodium (Porcine) (Heparin Sq 5000 Unit/0.5ml) 5,000 unit Q12 SQ 01/16/17 09:00 02/15/17 08:59 01/19/17 08:41 5,000 UNIT Vitamin B Complex/ Vit C/Folic Acid (Nephrocaps) 1 cap QPM PO 01/17/17 21:00 02/16/17 20:59 01/18/17 20:27 1 CAP Calcium Acetate (Phoslo Cap) 1,334 mg TIDM PO 01/17/17 12:00 02/16/17 11:59 01/19/17 08:39 1,334 MG Acetaminophen/ Hydrocodone Bitart ([place] 5/325 Tab) 1 tab BID PRN PO 01/17/17 09:30 01/31/17 09:29 Quetiapine Fumarate (seroQUEL TAB) 12.5 mg BID PO 01/17/17 21:00 02/16/17 20:59 01/19/17 08:40 12.5 MG Nystatin (Mycostatin Powder) 1 appln BID EXT 01/17/17 21:00 02/16/17 20:59 01/19/17 08:39 1 APPLN Enteral Nutritional Formula (Boost Breeze Nutritional Drink) 1 box BID PO 01/17/17 21:00 02/16/17 20:59 01/19/17 08:40 1 BOX Labetalol HCl (Normodyne Tab) 100 mg BID PO 01/17/17 21:00 02/16/17 20:59 01/19/17 15:21 100 MG Clonidine HCl (Catapres Tab) 0.1 mg Q6H PRN PO 01/17/17 19:30 02/16/17 19:29 Miscellaneous Information (Pharmacy Consult) 1 ea UD PRN N/A 01/18/17 09:42 02/17/17 09:41 Ceftriaxone Sodium 2000 mg/ Dextrose 70 ml @ 140 mls/hr Q24H IV 01/18/17 10:00 02/01/17 09:59 01/19/17 08:41 140 MLS/HR Aspirin (Ecotrin Tab) 81 mg QAM PO 01/20/17 09:00 02/19/17 08:59 Atorvastatin Calcium (Lipitor Tab) 10 mg HS PO 01/19/17 21:00 02/18/17 20:59 Hydralazine HCl (Apresoline Tab) 25 mg DAILY PO 01/20/17 09:00 02/19/17 08:59
[2017-01-19] MEDS: NEPHROCAPS PO SCH (20:32)
[2017-01-19] MEDS ORDERED: BOOST PLUS VANILLA ONE ×2 (20:35)
[2017-01-19] MEDS: ATORVASTATIN 10 MG TAB PO SCH (21:21)
[2017-01-20] VITALS (8 sets, daily range): BP systolic 102–168; BP diastolic 38–74; PULSE 67–71; TEMP 36.5–36.9; O2SAT 97–100
[2017-01-20 06:53] LABS: BASO % 0.3 %; BASO ABS # 0.02 K/uL (0-0.2); COMPLETE YES; EOS % 4.4 %; HEMATOCRIT 30.3 % (37-47); IG% 0.1 %; LYMPH % 21.2 %; LYMPH ABS # 1.69 K/uL (1.2-3.4); MEAN CELL VOLUME 96.8 fL (80-100); MEAN CORPUSCULAR HEMOGLOBIN 31.3 pg (25-34); MEAN CORPUSCULAR HGB CONC 32.3 g/dl (32-36); MEAN PLATELET VOLUME 9.3 fL (7.4-10.4); MONO % 9.9 %; NEUT % 64.1 %; PLATELET COUNT 169 K/uL (130-400); RED BLOOD COUNT 3.13 M/uL (4.2-5.4); WHITE BLOOD COUNT 7.97 K/uL (4.8-10.8)
[2017-01-20 07:34] LABS: BUN/CREATININE RATIO 6.9 (10-20); CALCIUM 8.8 mg/dl (8.5-10.1); CREATININE 4.1 mg/dl (0.60-1.20); POTASSIUM 3.4 mmol/L (3.5-5.1)
[2017-01-20] MEDS: QUETIAPINE FUMARATE 25 MG TAB PO SCH ×2 (08:04→21:50)
[2017-01-20] MEDS: LABETALOL HCL 100 MG TAB PO SCH ×2 (08:05→21:50)
[2017-01-20] MEDS: NYSTATIN POWDER 15GM BTL EXT SCH ×2 (08:05→21:05)
[2017-01-20] MEDS: CALCIUM ACETATE 667MG GELCAP PO SCH ×4 (08:05→17:21)
[2017-01-20] MEDS: ASPIRIN 81 MG ECTAB PO SCH (08:07)
[2017-01-20] MEDS: BOOST BREEZE NUTRITION DRINK 1 BOX PO SCH ×2 (08:08→21:05)
[2017-01-20] MEDS: CEFTRIAXONE SOD INJ 2000 MG in DEXTROSE 5% 50ML IV SCH (08:12)
[2017-01-20] MEDS: HEPARIN SOD 5000 UNIT/0.5 ML CARP SQ SCH ×2 (08:12→21:08)
--- NOTE | 2017-01-20 10:08 | Progress Note ---
Medicine Progress Note Date & Time of Visit: Jan 20, 2017 at 10:07. Subjective seen sitting up in bed, alert, comfortable, pleasantly confused denies abdominal pain , nausea tolerating diet well no chest pain,dyspnea denies other symptoms Objective Last 8 Hrs Date Time Temp Pulse Resp B/P (MAP) Pulse Ox O2 Delivery O2 Flow Rate FiO2 01/20/17 08:13 36.8 69 20 144/74 (97) 100 Room Air 01/20/17 08:00 Room Air 01/20/17 04:47 36.9 70 18 161/72 (101) 99 01/20/17 04:00 Room Air Physical Exam: General- alert, confused, not in distress Eyes- anicteric Neck- no JVD Lungs- clear breath sounds bilaterally Heart- regular rhythm; no murmur, normal rate Abdomen- normal bowel sounds,non distended, soft,no tenderness Extremities- no pretibial edema, no calf tenderness Neuro-alert, confused, but no other gross focal neuro deficits Skin- warm & dry Laboratory Results: Last 24 Hours Test 01/20/17 06:23 White Blood Count 7.97 K/uL Red Blood Count 3.13 M/uL Hemoglobin 9.8 g/dL Hematocrit 30.3 % Mean Corpuscular Volume 96.8 fL Mean Corpuscular Hemoglobin 31.3 pg Mean Corpuscular Hemoglobin Concent 32.3 g/dl Platelet Count 169 K/uL Mean Platelet Volume 9.3 fL Neutrophils (%) (Auto) 64.1 % Lymphocytes (%) (Auto) 21.2 % Monocytes (%) (Auto) 9.9 % Eosinophils (%) (Auto) 4.4 % Basophils (%) (Auto) 0.3 % Neutrophils # (Auto) 5.11 K/uL Lymphocytes # (Auto) 1.69 K/uL Monocytes # (Auto) 0.79 K/uL Eosinophils # (Auto) 0.35 K/uL Basophils # (Auto) 0.02 K/uL RDW Standard Deviation 44.7 fL RDW Coefficient of Variation 12.8 % Immature Granulocyte % (Auto) 0.1 % Immature Granulocyte # (Auto) 0.01 K/uL Sodium Level 140 mmol/L Potassium Level 3.4 mmol/L Chloride Level 103 mmol/L Carbon Dioxide Level 26 mmol/L Anion Gap 11.0 mmol/L Blood Urea Nitrogen 28 mg/dl Creatinine 4.10 mg/dl Est Creatinine Clear Calc Drug Dose 8.9 ml/min Estimated GFR () 11.3 Estimated GFR (Non- 9.8 BUN/Creatinine Ratio 6.9 Random Glucose 84 mg/dl Calcium Level 8.8 mg/dl Total Bilirubin 0.6 mg/dl Direct Bilirubin 0.1 mg/dl Aspartate Amino Transf (AST/SGOT) 50 U/L Alanine Aminotransferase (ALT/SGPT) 236 U/L Alkaline Phosphatase 209 U/L Total Protein 6.6 gm/dl Albumin 2.3 gm/dl Lipase 522 U/L Assessment & Plan SEPSIS, SECONDARY TO E COLI BACTEREMIA, ACUTE CHOLECYSTITIS WITH POSSIBLE PANCREATITIS - BP remained stable since admission afebrile since admission - labs: improving LFTs DAILY Lipase down to 400s--> 500s - Liver US: possible cholecystitis Blood cultures: E coli x 2 - as per Dr. Scott' discussion with daughter Maxine, no invasive measures at this time thus, no ERCP/Surgical Intervention -- improving overall daily - will continue medical management: was on vanco and zosyn changed to ceftriaxone IV ID consulted, appreciate the input, awaiting further recommendations for possible PO antibiotics D/C'd fluids - monitor closely POSSIBLE ACUTE PANCREATITIS LIKELY GALLSTONE RELATED - discussed fluid management with Nephro- Dr. Flores - lipase down to 500 - given NSS at 80cc/hr, d/c for now ALTERED MENTAL STATUS Head CT negative for acute findings. Most likely has encephalopathy / delirium secondary to sepsis. -- improving HYPERTENSION Hypotensive at time of presentation. 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 - ISS for now CKD V - Nephrology consulted LEWY BODY DEMENTIA - Quetiapine COMPRESSION FRACTURE L1 Severe compression fracture at L1 of uncertain chronicity noted on CT of abdomen and pelvis. -- denies back pain CHRONIC PAIN Patient takes hydrocodone for chronic pain, apparently primarily due to right shoulder pain. -- PO analgesics PRN HISTORY MRSA Contact precautions. VTE PROPHYLAXIS Moderately high risk for VTE. SQ heparin. RESUSCITATION STATUS Code status, therefore, is "Level 5" (DNR). DISPOSITION pending PT/OT evals Current Inpatient Medications: Current Inpatient Medications Medications (Trade) Dose Ordered Sig/Neyda Route Start Time Stop Time Status Last Admin Dose Admin Hydromorphone HCl (Dilaudid Inj) 0.25 mg Q1H PRN IV 01/16/17 02:00 01/30/17 01:59 Heparin Sodium (Porcine) (Heparin Sq 5000 Unit/0.5ml) 5,000 unit Q12 SQ 01/16/17 09:00 02/15/17 08:59 01/20/17 08:12 5,000 UNIT Vitamin B Complex/ Vit C/Folic Acid (Nephrocaps) 1 cap QPM PO 01/17/17 21:00 02/16/17 20:59 01/19/17 20:32 1 CAP Calcium Acetate (Phoslo Cap) 1,334 mg TIDM PO 01/17/17 12:00 02/16/17 11:59 01/20/17 08:05 1,334 MG Acetaminophen/ Hydrocodone Bitart ([place] 5/325 Tab) 1 tab BID PRN PO 01/17/17 09:30 01/31/17 09:29 Quetiapine Fumarate (seroQUEL TAB) 12.5 mg BID PO 01/17/17 21:00 02/16/17 20:59 01/20/17 08:04 12.5 MG Nystatin (Mycostatin Powder) 1 appln BID EXT 01/17/17 21:00 02/16/17 20:59 01/20/17 08:05 1 APPLN Enteral Nutritional Formula (Boost Breeze Nutritional Drink) 1 box BID PO 01/17/17 21:00 02/16/17 20:59 01/20/17 08:08 1 BOX Labetalol HCl (Normodyne Tab) 100 mg BID PO 01/17/17 21:00 02/16/17 20:59 01/20/17 08:05 100 MG Clonidine HCl (Catapres Tab) 0.1 mg Q6H PRN PO 01/17/17 19:30 02/16/17 19:29 Miscellaneous Information (Pharmacy Consult) 1 ea UD PRN N/A 01/18/17 09:42 02/17/17 09:41 Ceftriaxone Sodium 2000 mg/ Dextrose 70 ml @ 140 mls/hr Q24H IV 01/18/17 10:00 02/01/17 09:59 01/20/17 08:12 140 MLS/HR Aspirin (Ecotrin Tab) 81 mg QAM PO 01/20/17 09:00 8/29/17 08:59 01/20/17 08:07 81 MG Atorvastatin Calcium (Lipitor Tab) 10 mg HS PO 01/19/17 21:00 02/18/17 20:59 01/19/17 21:21 10 MG Hydralazine HCl (Apresoline Tab) 25 mg DAILY PO 01/20/17 09:00 02/19/17 08:59 01/20/17 08:07 25 MG
[2017-01-20] MEDS: ATORVASTATIN 10 MG TAB PO SCH (21:04)
[2017-01-20] MEDS: NEPHROCAPS PO SCH (21:04)
[2017-01-21] VITALS (18 sets, daily range): BP systolic 106–158; BP diastolic 50–82; PULSE 66–74; TEMP 36.7–37; O2SAT 96–98
[2017-01-21 07:55] LABS: BASO % 0.4 %; BASO ABS # 0.03 K/uL (0-0.2); COMPLETE YES; EOS % 4.2 %; HEMATOCRIT 30.9 % (37-47); IG% 0.2 %; LYMPH % 23.8 %; LYMPH ABS # 2.01 K/uL (1.2-3.4); MEAN CELL VOLUME 97.2 fL (80-100); MEAN CORPUSCULAR HEMOGLOBIN 31.8 pg (25-34); MEAN CORPUSCULAR HGB CONC 32.7 g/dl (32-36); MEAN PLATELET VOLUME 9.3 fL (7.4-10.4); MONO % 7.9 %; NEUT % 63.5 %; PLATELET COUNT 162 K/uL (130-400); RED BLOOD COUNT 3.18 M/uL (4.2-5.4); WHITE BLOOD COUNT 8.43 K/uL (4.8-10.8)
[2017-01-21] MEDS: CALCIUM ACETATE 667MG GELCAP PO SCH ×3 (08:00→16:49)
[2017-01-21 08:44] LABS: BUN/CREATININE RATIO 6.5 (10-20); CALCIUM 8.9 mg/dl (8.5-10.1); CREATININE 6.1 mg/dl (0.60-1.20); POTASSIUM 3.7 mmol/L (3.5-5.1)
[2017-01-21] MEDS: HEPARIN SOD 5000 UNIT/0.5 ML CARP SQ SCH ×2 (09:00→21:14)
[2017-01-21] MEDS: NYSTATIN POWDER 15GM BTL EXT SCH ×2 (09:55→21:18)
[2017-01-21] MEDS: QUETIAPINE FUMARATE 25 MG TAB PO SCH ×2 (09:56→21:00)
[2017-01-21] MEDS: LABETALOL HCL 100 MG TAB PO SCH ×2 (09:56→21:00)
[2017-01-21] MEDS: ASPIRIN 81 MG ECTAB PO SCH (09:57)
[2017-01-21] MEDS: CEFTRIAXONE SOD INJ 2000 MG in DEXTROSE 5% 50ML IV SCH (09:59)
[2017-01-21] MEDS: BOOST BREEZE NUTRITION DRINK 1 BOX PO SCH ×2 (10:45→21:00)
--- NOTE | 2017-01-21 10:50 | Infectious Disease Progress Nt ---
Progress Note Date of Service Jan 21, 2017. Subjective Pt evaluation today including: conversation w/ patient, physical exam, chart review, lab review, review of studies, review of inpatient medication list Patient appears much improved today, but she is speaking nonsense. Upon discussion, the patient answers questions quickly but her responses do not make sense. When asked how her breathing is this morning, she answered "6, only 6". He WBC count has returned to normal and was 8.43 this morning. LFTs have trended down, but ALT and Alk Phos continue to be mildly elevated. Repeat blood cultures showing NGTD. All Other Systems: Reviewed and Negative Medications Current Inpatient Medications Medications (Trade) Dose Ordered Sig/Neyda Route Start Time Stop Time Status Last Admin Dose Admin Hydromorphone HCl (Dilaudid Inj) 0.25 mg Q1H PRN IV 01/16/17 02:00 01/30/17 01:59 Heparin Sodium (Porcine) (Heparin Sq 5000 Unit/0.5ml) 5,000 unit Q12 SQ 01/16/17 09:00 02/15/17 08:59 01/20/17 21:08 5,000 UNIT Vitamin B Complex/ Vit C/Folic Acid (Nephrocaps) 1 cap QPM PO 01/17/17 21:00 02/16/17 20:59 01/20/17 21:04 1 CAP Calcium Acetate (Phoslo Cap) 1,334 mg TIDM PO 01/17/17 12:00 02/16/17 11:59 01/20/17 17:21 1,334 MG Acetaminophen/ Hydrocodone Bitart ([place] 5/325 Tab) 1 tab BID PRN PO 01/17/17 09:30 01/31/17 09:29 Quetiapine Fumarate (seroQUEL TAB) 12.5 mg BID PO 01/17/17 21:00 02/16/17 20:59 01/21/17 09:56 12.5 MG Nystatin (Mycostatin Powder) 1 appln BID EXT 01/17/17 21:00 02/16/17 20:59 01/21/17 09:55 1 APPLN Enteral Nutritional Formula (Boost Breeze Nutritional Drink) 1 box BID PO 01/17/17 21:00 02/16/17 20:59 01/20/17 21:05 1 BOX Labetalol HCl (Normodyne Tab) 100 mg BID PO 01/17/17 21:00 02/16/17 20:59 01/21/17 09:56 100 MG Clonidine HCl (Catapres Tab) 0.1 mg Q6H PRN PO 01/17/17 19:30 02/16/17 19:29 Miscellaneous Information (Pharmacy Consult) 1 ea UD PRN N/A 01/18/17 09:42 02/17/17 09:41 Ceftriaxone Sodium 2000 mg/ Dextrose 70 ml @ 140 mls/hr Q24H IV 01/18/17 10:00 02/01/17 09:59 01/21/17 09:59 140 MLS/HR Aspirin (Ecotrin Tab) 81 mg QAM PO 01/20/17 09:00 02/19/17 08:59 01/21/17 09:57 81 MG Atorvastatin Calcium (Lipitor Tab) 10 mg HS PO 01/19/17 21:00 02/18/17 20:59 01/20/17 21:04 10 MG Hydralazine HCl (Apresoline Tab) 25 mg DAILY PO 01/20/17 09:00 02/19/17 08:59 01/21/17 09:58 25 MG Objective Vital Signs Date Time Temp Pulse Resp B/P (MAP) Pulse Ox O2 Delivery O2 Flow Rate FiO2 01/21/17 07:28 36.9 71 18 152/76 (101) 96 01/21/17 00:06 37.0 74 16 158/71 (100) 98 Room Air 01/20/17 23:51 97 Room Air 01/20/17 19:45 97 Room Air 01/20/17 15:21 36.8 67 20 108/68 (81) 97 Room Air 01/20/17 11:25 36.5 68 18 102/38 (59) 98 Room Air 01/20/17 11:25 98 Room Air 01/20/17 11:17 36.8 69 20 100 Physical Exam General Appearance: WD/WN, no apparent distress Eyes: normal inspection, sclerae normal ENT: hearing grossly normal Neck: supple, trachea midline Respiratory/Chest: chest non-tender, normal breath sounds, no respiratory distress, no accessory muscle use Cardiovascular: regular rate, rhythm, + systolic murmur Abdomen: normal bowel sounds, non tender, soft Extremities: normal range of motion Neurologic/Psychiatric: alert, + disoriented Skin: normal color, warm/dry, no rash Laboratory Results Item Value Date Time Blood Culture - Preliminary Resulted 01/18/17 1115 Blood NO GROWTH TO DATE. Blood Culture Received 01/18/17 1110 Blood Pending MRSA DNA Surveillance Screen - Final Complete 01/17/17 0850 Nasal Specimen Negative for MRSA by DNA Probe C.difficile Toxin B Gene (PCR) - Final Complete 01/16/17 0455 Stool No C. difficile toxin B gene detected Blood Culture - Final Complete 01/15/17 2303 Blood Escherichia Coli Blood Culture - Final Complete 01/15/17 2235 Blood Escherichia Coli Last 24 Hours Test 01/21/17 07:40 White Blood Count 8.43 K/uL Red Blood Count 3.18 M/uL Hemoglobin 10.1 g/dL Hematocrit 30.9 % Mean Corpuscular Volume 97.2 fL Mean Corpuscular Hemoglobin 31.8 pg Mean Corpuscular Hemoglobin Concent 32.7 g/dl Platelet Count 162 K/uL Mean Platelet Volume 9.3 fL Neutrophils (%) (Auto) 63.5 % Lymphocytes (%) (Auto) 23.8 % Monocytes (%) (Auto) 7.9 % Eosinophils (%) (Auto) 4.2 % Basophils (%) (Auto) 0.4 % Neutrophils # (Auto) 5.35 K/uL Lymphocytes # (Auto) 2.01 K/uL Monocytes # (Auto) 0.67 K/uL Eosinophils # (Auto) 0.35 K/uL Basophils # (Auto) 0.03 K/uL RDW Standard Deviation 45.3 fL RDW Coefficient of Variation 12.7 % Immature Granulocyte % (Auto) 0.2 % Immature Granulocyte # (Auto) 0.02 K/uL Sodium Level 139 mmol/L Potassium Level 3.7 mmol/L Chloride Level 104 mmol/L Carbon Dioxide Level 25 mmol/L Anion Gap 10.0 mmol/L Blood Urea Nitrogen 40 mg/dl Creatinine 6.10 mg/dl Est Creatinine Clear Calc Drug Dose 6.0 ml/min Estimated GFR () 7.0 Estimated GFR (Non- 6.1 BUN/Creatinine Ratio 6.5 Random Glucose 85 mg/dl Calcium Level 8.9 mg/dl Total Bilirubin 0.5 mg/dl Direct Bilirubin 0.2 mg/dl Aspartate Amino Transf (AST/SGOT) 34 U/L Alanine Aminotransferase (ALT/SGPT) 185 U/L Alkaline Phosphatase 188 U/L Total Protein 6.8 gm/dl Albumin 2.5 gm/dl Lipase 481 U/L Assessment and Plan Patient with E. Coli bacteremia likely of biliary source. Currently the patient is not planned to have any surgical interventions, and will be treated medically. She is on IV Ceftriaxone and her labs overall are improving. Recommend completing at least 10 days of current IV therapy, but may need extension pending further improvement. PROVIDER ADDENDUM: Pt. reviewed with [facility]. Agree with above assessment.
--- NOTE | 2017-01-21 14:41 | Nephrology Progress Note ---
Nephrology Progress Note Date of Service: Jan 21, 2017. Subjective Looks weak. Advanced dementia. Objective Date Time Temp Pulse Resp B/P (MAP) Pulse Ox O2 Delivery O2 Flow Rate FiO2 01/21/17 08:00 Room Air 01/21/17 07:28 36.9 71 18 152/76 (101) 96 01/21/17 00:06 37.0 74 16 158/71 (100) 98 Room Air 01/20/17 23:51 97 Room Air 01/20/17 19:45 97 Room Air 01/20/17 15:21 36.8 67 20 108/68 (81) 97 Room Air Physical Exam: General-[Dementia ++] Neck-[Supple. NO JVD] Lungs-[Poor quality exam.] Heart-[RRR] Abdomen-[Soft Non tender] Extremities-[trace edema] Current Inpatient Medications Medications (Trade) Dose Ordered Sig/Neyda Route Start Time Stop Time Status Last Admin Dose Admin Hydromorphone HCl (Dilaudid Inj) 0.25 mg Q1H PRN IV 01/16/17 02:00 01/30/17 01:59 Heparin Sodium (Porcine) (Heparin Sq 5000 Unit/0.5ml) 5,000 unit Q12 SQ 01/16/17 09:00 02/15/17 08:59 01/20/17 21:08 5,000 UNIT Vitamin B Complex/ Vit C/Folic Acid (Nephrocaps) 1 cap QPM PO 01/17/17 21:00 02/16/17 20:59 01/20/17 21:04 1 CAP Calcium Acetate (Phoslo Cap) 1,334 mg TIDM PO 01/17/17 12:00 02/16/17 11:59 01/21/17 12:13 1,334 MG Acetaminophen/ Hydrocodone Bitart ([employer] [place] 5/325 Tab) 1 tab BID PRN PO 01/17/17 09:30 01/31/17 09:29 Quetiapine Fumarate (seroQUEL TAB) 12.5 mg BID PO 01/17/17 21:00 02/16/17 20:59 01/21/17 09:56 12.5 MG Nystatin (Mycostatin Powder) 1 appln BID EXT 01/17/17 21:00 02/16/17 20:59 01/21/17 09:55 1 APPLN Enteral Nutritional Formula (Boost Breeze Nutritional Drink) 1 box BID PO 01/17/17 21:00 02/16/17 20:59 01/21/17 10:45 1 BOX Labetalol HCl (Normodyne Tab) 100 mg BID PO 01/17/17 21:00 02/16/17 20:59 01/21/17 09:56 100 MG Clonidine HCl (Catapres Tab) 0.1 mg Q6H PRN PO 01/17/17 19:30 02/16/17 19:29 Miscellaneous Information (Pharmacy Consult) 1 ea UD PRN N/A 01/18/17 09:42 02/17/17 09:41 Ceftriaxone Sodium 2000 mg/ Dextrose 70 ml @ 140 mls/hr Q24H IV 01/18/17 10:00 02/01/17 09:59 01/21/17 09:59 140 MLS/HR Aspirin (Ecotrin Tab) 81 mg QAM PO 01/20/17 09:00 02/19/17 08:59 01/21/17 09:57 81 MG Atorvastatin Calcium (Lipitor Tab) 10 mg HS PO 01/19/17 21:00 02/18/17 20:59 01/20/17 21:04 10 MG Hydralazine HCl (Apresoline Tab) 25 mg DAILY PO 01/20/17 09:00 02/19/17 08:59 01/21/17 09:58 25 MG Last 24 Hours Test 01/21/17 07:40 White Blood Count 8.43 K/uL Red Blood Count 3.18 M/uL Hemoglobin 10.1 g/dL Hematocrit 30.9 % Mean Corpuscular Volume 97.2 fL Mean Corpuscular Hemoglobin 31.8 pg Mean Corpuscular Hemoglobin Concent 32.7 g/dl Platelet Count 162 K/uL Mean Platelet Volume 9.3 fL Neutrophils (%) (Auto) 63.5 % Lymphocytes (%) (Auto) 23.8 % Monocytes (%) (Auto) 7.9 % Eosinophils (%) (Auto) 4.2 % Basophils (%) (Auto) 0.4 % Neutrophils # (Auto) 5.35 K/uL Lymphocytes # (Auto) 2.01 K/uL Monocytes # (Auto) 0.67 K/uL Eosinophils # (Auto) 0.35 K/uL Basophils # (Auto) 0.03 K/uL RDW Standard Deviation 45.3 fL RDW Coefficient of Variation 12.7 % Immature Granulocyte % (Auto) 0.2 % Immature Granulocyte # (Auto) 0.02 K/uL Sodium Level 139 mmol/L Potassium Level 3.7 mmol/L Chloride Level 104 mmol/L Carbon Dioxide Level 25 mmol/L Anion Gap 10.0 mmol/L Blood Urea Nitrogen 40 mg/dl Creatinine 6.10 mg/dl Est Creatinine Clear Calc Drug Dose 6.0 ml/min Estimated GFR () 7.0 Estimated GFR (Non- 6.1 BUN/Creatinine Ratio 6.5 Random Glucose 85 mg/dl Calcium Level 8.9 mg/dl Total Bilirubin 0.5 mg/dl Direct Bilirubin 0.2 mg/dl Aspartate Amino Transf (AST/SGOT) 34 U/L Alanine Aminotransferase (ALT/SGPT) 185 U/L Alkaline Phosphatase 188 U/L Total Protein 6.8 gm/dl Albumin 2.5 gm/dl Lipase 481 U/L Assessment & Plan 76 y/o F w/ dementia, HTN, ESRD on HD admitted 01/16 w/ sepsis from gram negative bacteremia and biliary source/pancreatitis to be managed w/o invasive interventions/intensification of care level. ESRD -improved. to is her nomal day. will start soon. 3hrs 1-1.5 kilo on 3 k bath. Sepsis unclear source, biliary tract/pancreas suspected >> 2/2 blood cxs + GNR Anemia -procrit w/ HD as indicated w/ aggressive dosing given epo resistance d/t sepsis
--- NOTE | 2017-01-21 17:35 | Progress Note ---
Medicine Progress Note Date & Time of Visit: Jan 21, 2017 at 17:30. Subjective patient seen about to start HD comfortable, smiling denies abdominal pain, chest pain, dyspnea, palpitations no other symptoms Objective Last 8 Hrs Date Time Temp Pulse Resp B/P (MAP) Pulse Ox O2 Delivery O2 Flow Rate FiO2 01/21/17 17:00 70 106/62 01/21/17 16:53 36.7 71 123/58 (79) 01/21/17 16:45 70 133/65 01/21/17 16:30 70 134/53 01/21/17 16:15 68 125/57 01/21/17 16:00 66 135/58 01/21/17 16:00 Room Air 01/21/17 15:45 68 135/55 01/21/17 15:31 66 150/59 Physical Exam: General- alert, confused, not in distress Neck- no JVD Lungs- clear breath sounds bilaterally, no rales/wheezing Heart- regular rhythm; no murmur, normal rate Abdomen- normal bowel sounds,non distended, soft,no tenderness Extremities- no pretibial edema, no calf tenderness Neuro-alert, confused, but no other gross focal neuro deficits Skin- warm & dry Laboratory Results: Last 24 Hours Test 01/21/17 07:40 White Blood Count 8.43 K/uL Red Blood Count 3.18 M/uL Hemoglobin 10.1 g/dL Hematocrit 30.9 % Mean Corpuscular Volume 97.2 fL Mean Corpuscular Hemoglobin 31.8 pg Mean Corpuscular Hemoglobin Concent 32.7 g/dl Platelet Count 162 K/uL Mean Platelet Volume 9.3 fL Neutrophils (%) (Auto) 63.5 % Lymphocytes (%) (Auto) 23.8 % Monocytes (%) (Auto) 7.9 % Eosinophils (%) (Auto) 4.2 % Basophils (%) (Auto) 0.4 % Neutrophils # (Auto) 5.35 K/uL Lymphocytes # (Auto) 2.01 K/uL Monocytes # (Auto) 0.67 K/uL Eosinophils # (Auto) 0.35 K/uL Basophils # (Auto) 0.03 K/uL RDW Standard Deviation 45.3 fL RDW Coefficient of Variation 12.7 % Immature Granulocyte % (Auto) 0.2 % Immature Granulocyte # (Auto) 0.02 K/uL Sodium Level 139 mmol/L Potassium Level 3.7 mmol/L Chloride Level 104 mmol/L Carbon Dioxide Level 25 mmol/L Anion Gap 10.0 mmol/L Blood Urea Nitrogen 40 mg/dl Creatinine 6.10 mg/dl Est Creatinine Clear Calc Drug Dose 6.0 ml/min Estimated GFR () 7.0 Estimated GFR (Non- 6.1 BUN/Creatinine Ratio 6.5 Random Glucose 85 mg/dl Calcium Level 8.9 mg/dl Total Bilirubin 0.5 mg/dl Direct Bilirubin 0.2 mg/dl Aspartate Amino Transf (AST/SGOT) 34 U/L Alanine Aminotransferase (ALT/SGPT) 185 U/L Alkaline Phosphatase 188 U/L Total Protein 6.8 gm/dl Albumin 2.5 gm/dl Lipase 481 U/L Assessment & Plan SEPSIS, SECONDARY TO E COLI BACTEREMIA, ACUTE CHOLECYSTITIS WITH POSSIBLE PANCREATITIS - BP remained stable since admission afebrile since admission - labs: improving LFTs DAILY Lipase down to 400s - Liver US: possible cholecystitis Blood cultures: E coli x 2 repeat Blood culture: negative - as per Dr. Scott' discussion with daughter Maxine, no invasive measures at this time thus, no ERCP/Surgical Intervention -- improving overall daily - will continue medical management: was on vanco and zosyn changed to ceftriaxone IV- antibiotic day #6 ID consulted, will need 10 days total antibiotics discussed with Case management, patient can finish IV Ceftriaxone x [address] [facility] D/C'd fluids - monitor closely POSSIBLE ACUTE PANCREATITIS LIKELY GALLSTONE RELATED - discussed fluid management with Nephro- Dr. Flores - lipase down to 400 - given NSS at 80cc/hr, d/c for now ALTERED MENTAL STATUS Head CT negative for acute findings. Most likely has encephalopathy / delirium secondary to sepsis. -- improving HYPERTENSION Hypotensive at time of presentation. 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 - ISS for now CKD V - Nephrology consulted LEWY BODY DEMENTIA - Quetiapine COMPRESSION FRACTURE L1 Severe compression fracture at L1 of uncertain chronicity noted on CT of abdomen and pelvis. -- denies back pain CHRONIC PAIN Patient takes hydrocodone for chronic pain, apparently primarily due to right shoulder pain. -- PO analgesics PRN HISTORY MRSA Contact precautions. VTE PROPHYLAXIS Moderately high risk for VTE. SQ heparin. RESUSCITATION STATUS Code status, therefore, is "Level 5" (DNR). [facility] will need 3 more days of Ceftri IV if discharged tomorrow to [facility] Current Inpatient Medications: Current Inpatient Medications Medications (Trade) Dose Ordered Sig/Neyda Route Start Time Stop Time Status Last Admin Dose Admin Hydromorphone HCl (Dilaudid Inj) 0.25 mg Q1H PRN IV 01/16/17 02:00 01/30/17 01:59 Heparin Sodium (Porcine) (Heparin Sq 5000 Unit/0.5ml) 5,000 unit Q12 SQ 01/16/17 09:00 02/15/17 08:59 01/20/17 21:08 5,000 UNIT Vitamin B Complex/ Vit C/Folic Acid (Nephrocaps) 1 cap QPM PO 01/17/17 21:00 02/16/17 20:59 01/20/17 21:04 1 CAP Calcium Acetate (Phoslo Cap) 1,334 mg TIDM PO 01/17/17 12:00 02/16/17 11:59 01/21/17 12:13 1,334 MG Acetaminophen/ Hydrocodone Bitart ([place] 5/325 Tab) 1 tab BID PRN PO 01/17/17 09:30 01/31/17 09:29 Quetiapine Fumarate (seroQUEL TAB) 12.5 mg BID PO 01/17/17 21:00 02/16/17 20:59 01/21/17 09:56 12.5 MG Nystatin (Mycostatin Powder) 1 appln BID EXT 01/17/17 21:00 02/16/17 20:59 01/21/17 09:55 1 APPLN Enteral Nutritional Formula (Boost Breeze Nutritional Drink) 1 box BID PO 01/17/17 21:00 02/16/17 20:59 01/21/17 10:45 1 BOX Labetalol HCl (Normodyne Tab) 100 mg BID PO 01/17/17 21:00 02/16/17 20:59 01/21/17 09:56 100 MG Clonidine HCl (Catapres Tab) 0.1 mg Q6H PRN PO 01/17/17 19:30 02/16/17 19:29 Miscellaneous Information (Pharmacy Consult) 1 ea UD PRN N/A 01/18/17 09:42 02/17/17 09:41 Ceftriaxone Sodium 2000 mg/ Dextrose 70 ml @ 140 mls/hr Q24H IV 01/18/17 10:00 02/01/17 09:59 01/21/17 09:59 140 MLS/HR Aspirin (Ecotrin Tab) 81 mg QAM PO 01/20/17 09:00 02/19/17 08:59 01/21/17 09:57 81 MG Atorvastatin Calcium (Lipitor Tab) 10 mg HS PO 01/19/17 21:00 02/18/17 20:59 01/20/17 21:04 10 MG Hydralazine HCl (Apresoline Tab) 25 mg DAILY PO 01/20/17 09:00 02/19/17 08:59 01/21/17 09:58 25 MG
[2017-01-21] MEDS: NEPHROCAPS PO SCH (21:00)
[2017-01-21] MEDS: ATORVASTATIN 10 MG TAB PO SCH (21:00)
[2017-01-22 00:46] VITALS: O2SAT 97
[2017-01-22 07:25] VITALS: BP 155/68; PULSE 73; TEMP 36.8; O2SAT 96
[2017-01-22] MEDS: QUETIAPINE FUMARATE 25 MG TAB PO SCH ×2 (08:03→20:47)
[2017-01-22] MEDS: LABETALOL HCL 100 MG TAB PO SCH ×2 (08:04→20:46)
[2017-01-22] MEDS: CALCIUM ACETATE 667MG GELCAP PO SCH ×3 (08:04→17:38)
[2017-01-22] MEDS: BOOST BREEZE NUTRITION DRINK 1 BOX PO SCH ×2 (08:05→20:44)
[2017-01-22] MEDS: ASPIRIN 81 MG ECTAB PO SCH (08:05)
[2017-01-22] MEDS: NYSTATIN POWDER 15GM BTL EXT SCH ×2 (08:05→20:45)
[2017-01-22] MEDS: HEPARIN SOD 5000 UNIT/0.5 ML CARP SQ SCH ×2 (08:07→20:44)
[2017-01-22 08:17] LABS: BUN/CREATININE RATIO 5.2 (10-20); CALCIUM 8.8 mg/dl (8.5-10.1); CREATININE 4.2 mg/dl (0.60-1.20); POTASSIUM 3.4 mmol/L (3.5-5.1)
--- NOTE | 2017-01-22 10:23 | Infectious Disease Progress Nt ---
Progress Note Date of Service Jan 22, 2017. Subjective Pt evaluation today including: conversation w/ patient, physical exam, chart review, lab review, review of studies, conversation w/ recruiting and selection consultant, review of inpatient medication list Patient appears comfortable, offers no new specific complaints. Remains afebrile. Anticipating transfer to senior living facility later today. Appears to be tolerating ceftriaxone well. All Other Systems: Reviewed and Negative Medications Current Inpatient Medications Medications (Trade) Dose Ordered Sig/Neyda Route Start Time Stop Time Status Last Admin Dose Admin Hydromorphone HCl (Dilaudid Inj) 0.25 mg Q1H PRN IV 01/16/17 02:00 01/30/17 01:59 Heparin Sodium (Porcine) (Heparin Sq 5000 Unit/0.5ml) 5,000 unit Q12 SQ 01/16/17 09:00 02/15/17 08:59 01/22/17 08:07 5,000 UNIT Vitamin B Complex/ Vit C/Folic Acid (Nephrocaps) 1 cap QPM PO 01/17/17 21:00 02/16/17 20:59 01/20/17 21:04 1 CAP Calcium Acetate (Phoslo Cap) 1,334 mg TIDM PO 01/17/17 12:00 02/16/17 11:59 01/22/17 08:04 1,334 MG Acetaminophen/ Hydrocodone Bitart ([place] 5/325 Tab) 1 tab BID PRN PO 01/17/17 09:30 01/31/17 09:29 Quetiapine Fumarate (seroQUEL TAB) 12.5 mg BID PO 01/17/17 21:00 02/16/17 20:59 01/22/17 08:03 12.5 MG Nystatin (Mycostatin Powder) 1 appln BID EXT 01/17/17 21:00 02/16/17 20:59 01/22/17 08:05 1 APPLN Enteral Nutritional Formula (Boost Breeze Nutritional Drink) 1 box BID PO 01/17/17 21:00 02/16/17 20:59 01/22/17 08:05 1 BOX Labetalol HCl (Normodyne Tab) 100 mg BID PO 01/17/17 21:00 02/16/17 20:59 01/22/17 08:04 100 MG Clonidine HCl (Catapres Tab) 0.1 mg Q6H PRN PO 01/17/17 19:30 02/16/17 19:29 Miscellaneous Information (Pharmacy Consult) 1 ea UD PRN N/A 01/18/17 09:42 02/17/17 09:41 Ceftriaxone Sodium 2000 mg/ Dextrose 70 ml @ 140 mls/hr Q24H IV 01/18/17 10:00 02/01/17 09:59 01/21/17 09:59 140 MLS/HR Aspirin (Ecotrin Tab) 81 mg QAM PO 01/20/17 09:00 02/19/17 08:59 01/21/17 09:57 81 MG Atorvastatin Calcium (Lipitor Tab) 10 mg HS PO 01/19/17 21:00 02/18/17 20:59 01/20/17 21:04 10 MG Hydralazine HCl (Apresoline Tab) 25 mg DAILY PO 01/20/17 09:00 02/19/17 08:59 01/22/17 08:05 25 MG Objective Vital Signs Date Time Temp Pulse Resp B/P (MAP) Pulse Ox O2 Delivery O2 Flow Rate FiO2 01/22/17 08:00 Room Air 01/22/17 07:25 36.8 73 16 155/68 (97) 96 Room Air 01/22/17 00:46 97 Room Air 01/21/17 23:15 36.8 73 20 158/72 (100) 97 Room Air 01/21/17 22:22 97 Room Air 01/21/17 19:34 36.7 73 157/82 (107) 01/21/17 18:15 69 127/50 01/21/17 18:00 70 122/54 01/21/17 17:45 69 120/54 01/21/17 17:30 69 124/53 01/21/17 17:15 68 123/52 01/21/17 17:00 70 106/62 01/21/17 16:53 36.7 71 123/58 (79) 01/21/17 16:45 70 133/65 01/21/17 16:30 70 134/53 01/21/17 16:15 68 125/57 01/21/17 16:00 66 135/58 01/21/17 16:00 Room Air 01/21/17 15:45 68 135/55 01/21/17 15:31 66 150/59 Physical Exam General Appearance: WD/WN, no apparent distress Eyes: normal inspection, sclerae normal ENT: normal ENT inspection, pharynx normal Neck: supple, trachea midline Respiratory/Chest: lungs clear, normal breath sounds, no respiratory distress Cardiovascular: regular rate, rhythm, no gallop, no murmur Abdomen: normal bowel sounds, non tender, soft, no organomegaly Extremities: non-tender, no calf tenderness Neurologic/Psychiatric: alert, + disoriented Skin: normal color, warm/dry, no rash Lymphatic: no adenopathy Laboratory Results Last 24 Hours Test 01/22/17 07:24 Sodium Level 138 mmol/L Potassium Level 3.4 mmol/L Chloride Level 101 mmol/L Carbon Dioxide Level 29 mmol/L Anion Gap 8.0 mmol/L Blood Urea Nitrogen 22 mg/dl Creatinine 4.20 mg/dl Est Creatinine Clear Calc Drug Dose 8.7 ml/min Estimated GFR () 11.0 Estimated GFR (Non- 9.5 BUN/Creatinine Ratio 5.2 Random Glucose 82 mg/dl Calcium Level 8.8 mg/dl Total Bilirubin 0.6 mg/dl Direct Bilirubin 0.2 mg/dl Aspartate Amino Transf (AST/SGOT) 29 U/L Alanine Aminotransferase (ALT/SGPT) 148 U/L Alkaline Phosphatase 175 U/L Total Protein 6.8 gm/dl Albumin 2.5 gm/dl Lipase 349 U/L Assessment and Plan Patient with E. Coli bacteremia likely of biliary source. Currently the patient is not planned to have any surgical interventions, and will be treated medically. She is on IV Ceftriaxone and her labs overall are improving. Recommend completing 10 days of current IV therapy.
[2017-01-22] MEDS: CEFTRIAXONE SOD INJ 2000 MG in DEXTROSE 5% 50ML IV SCH (10:28)
[2017-01-22 14:51] VITALS: BP 139/68; PULSE 73; TEMP 36.4; O2SAT 99
--- NOTE | 2017-01-22 17:21 | Progress Note ---
Medicine Progress Note Date & Time of Visit: Jan 22, 2017 at 17:15. Subjective patient seen resting in bed, comfortable pleasantly confused no abdominal pain ,nausea no other complaints no other symptoms per medical staff specialist Objective Last 8 Hrs Date Time Temp Pulse Resp B/P (MAP) Pulse Ox O2 Delivery O2 Flow Rate FiO2 01/22/17 14:51 36.4 73 18 139/68 (91) 99 Room Air Physical Exam: General- alert, confused, not in distress Neck- no JVD Lungs- clear BS b/l , no rales/wheezing Heart- regular rhythm; no murmur, normal rate Abdomen- normal bowel sounds,non distended, soft,no tenderness Extremities- no pretibial edema, no calf tenderness Neuro-alert, confused, but no other gross focal neuro deficits Skin- warm & dry Laboratory Results: Last 24 Hours Test 01/22/17 07:24 01/22/17 16:24 Sodium Level 138 mmol/L Potassium Level 3.4 mmol/L Chloride Level 101 mmol/L Carbon Dioxide Level 29 mmol/L Anion Gap 8.0 mmol/L Blood Urea Nitrogen 22 mg/dl Creatinine 4.20 mg/dl Est Creatinine Clear Calc Drug Dose 8.7 ml/min Estimated GFR () 11.0 Estimated GFR (Non- 9.5 BUN/Creatinine Ratio 5.2 Random Glucose 82 mg/dl Calcium Level 8.8 mg/dl Total Bilirubin 0.6 mg/dl Direct Bilirubin 0.2 mg/dl Aspartate Amino Transf (AST/SGOT) 29 U/L Alanine Aminotransferase (ALT/SGPT) 148 U/L Alkaline Phosphatase 175 U/L Total Protein 6.8 gm/dl Albumin 2.5 gm/dl Lipase 349 U/L Bedside Glucose 85 mg/dl Assessment & Plan SEPSIS, SECONDARY TO E COLI BACTEREMIA, ACUTE CHOLECYSTITIS WITH POSSIBLE PANCREATITIS - BP remained stable since admission afebrile since admission - labs: improving LFTs DAILY Lipase improved from to normal - Liver US: possible cholecystitis Blood cultures: E coli x 2 repeat Blood culture: negative - as per Dr. Scott' discussion with daughter Maxine, no invasive measures at this time thus, no ERCP/Surgical Intervention -- markedly improved -- continue medical management: was on vanco and zosyn, IV fluids changed to ceftriaxone IV- antibiotic day # 12/31 ID consulted, will need 10 days total antibiotics discussed with Case management, patient can finish IV Ceftriaxone at [facility] with peripheral line - monitor closely POSSIBLE ACUTE PANCREATITIS LIKELY GALLSTONE RELATED - discussed fluid management with Nephro- Dr. Flores - lipase down to 400 - given NSS at 80cc/hr, IV fluids discontinued ALTERED MENTAL STATUS Head CT negative for acute findings. Most likely has encephalopathy / delirium secondary to sepsis. -- improved HYPERTENSION Hypotensive at time of presentation. 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 - ISS for now CKD V - Nephrology consulted - HD performed while admitted LEWY BODY DEMENTIA - Quetiapine COMPRESSION FRACTURE L1 Severe compression fracture at L1 of uncertain chronicity noted on CT of abdomen and pelvis. -- denies back pain CHRONIC PAIN Patient takes hydrocodone for chronic pain, apparently primarily due to right shoulder pain. -- PO analgesics PRN HISTORY MRSA Contact precautions. VTE PROPHYLAXIS Moderately high risk for VTE. SQ heparin. RESUSCITATION STATUS Code status, therefore, is "Level 5" (DNR). DISPOSITION d/c tomorrow to [facility] if discharged 01/23/17, will need 2 more days of Ceftri IV at the [facility] ff up with PCP at the [facility] HD per nephrology Current Inpatient Medications: Current Inpatient Medications Medications (Trade) Dose Ordered Sig/Neyda Route Start Time Stop Time Status Last Admin Dose Admin Hydromorphone HCl (Dilaudid Inj) 0.25 mg Q1H PRN IV 01/16/17 02:00 01/30/17 01:59 Heparin Sodium (Porcine) (Heparin Sq 5000 Unit/0.5ml) 5,000 unit Q12 SQ 01/16/17 09:00 02/15/17 08:59 01/22/17 08:07 5,000 UNIT Vitamin B Complex/ Vit C/Folic Acid (Nephrocaps) 1 cap QPM PO 01/17/17 21:00 02/16/17 20:59 01/20/17 21:04 1 CAP Calcium Acetate (Phoslo Cap) 1,334 mg TIDM PO 01/17/17 12:00 02/16/17 11:59 01/22/17 12:44 1,334 MG Acetaminophen/ Hydrocodone Bitart (Angie 5/325 Tab) 1 tab BID PRN PO 01/17/17 09:30 8/10/17 09:29 Quetiapine Fumarate (seroQUEL TAB) 12.5 mg BID PO 01/17/17 21:00 02/16/17 20:59 01/22/17 08:03 12.5 MG Nystatin (Mycostatin Powder) 1 appln BID EXT 01/17/17 21:00 02/16/17 20:59 01/22/17 08:05 1 APPLN Enteral Nutritional Formula (Boost Breeze Nutritional Drink) 1 box BID PO 01/17/17 21:00 02/16/17 20:59 01/22/17 08:05 1 BOX Labetalol HCl (Normodyne Tab) 100 mg BID PO 01/17/17 21:00 02/16/17 20:59 01/22/17 08:04 100 MG Clonidine HCl (Catapres Tab) 0.1 mg Q6H PRN PO 01/17/17 19:30 02/16/17 19:29 Miscellaneous Information (Pharmacy Consult) 1 ea UD PRN N/A 01/18/17 09:42 02/17/17 09:41 Ceftriaxone Sodium 2000 mg/ Dextrose 70 ml @ 140 mls/hr Q24H IV 01/18/17 10:00 02/01/17 09:59 01/22/17 10:28 140 MLS/HR Aspirin (Ecotrin Tab) 81 mg QAM PO 01/20/17 09:00 02/19/17 08:59 01/21/17 09:57 81 MG Atorvastatin Calcium (Lipitor Tab) 10 mg HS PO 01/19/17 21:00 02/18/17 20:59 01/20/17 21:04 10 MG Hydralazine HCl (Apresoline Tab) 25 mg DAILY PO 01/20/17 09:00 02/19/17 08:59 01/22/17 08:05 25 MG
[2017-01-22] MEDS: ATORVASTATIN 10 MG TAB PO SCH (20:45)
[2017-01-22] MEDS: NEPHROCAPS PO SCH (20:47)
[2017-01-22 23:39] VITALS: BP 91/49; PULSE 75; TEMP 37.1; O2SAT 98
[2017-01-23] VITALS (18 sets, daily range): BP systolic 79–148; BP diastolic 38–74; PULSE 64–73; TEMP 36.8–36.9; O2SAT 98
[2017-01-23] MEDS: CALCIUM ACETATE 667MG GELCAP PO SCH ×2 (08:00→13:18)
[2017-01-23] MEDS: QUETIAPINE FUMARATE 25 MG TAB PO SCH (08:30)
[2017-01-23] MEDS: ASPIRIN 81 MG ECTAB PO SCH (08:30)
[2017-01-23] MEDS ORDERED: EPOETIN ALFA 10,000 UNITS/ML VIAL IV. SCH (08:30)
[2017-01-23] MEDS: LABETALOL HCL 100 MG TAB PO SCH (08:30)
[2017-01-23] MEDS: BOOST BREEZE NUTRITION DRINK 1 BOX PO SCH (08:31)
[2017-01-23] MEDS: NYSTATIN POWDER 15GM BTL EXT SCH (08:31)
[2017-01-23] MEDS: HEPARIN SOD 5000 UNIT/0.5 ML CARP SQ SCH (08:37)
--- NOTE | 2017-01-23 09:45 | Dialysis Progress Note ---
Nephrology Dialysis Note Date of Service: Jan 23, 2017. Subjective 76 yo female with esrd who is tentatively planned for discharge today after dialysis. pt seen on dialysis. comfortably demented Objective Date Time Temp Pulse Resp B/P (MAP) Pulse Ox O2 Delivery O2 Flow Rate FiO2 01/23/17 07:49 Room Air 01/23/17 07:36 36.9 65 18 148/61 (90) 98 Room Air 01/23/17 00:30 Room Air 01/22/17 23:39 37.1 75 20 91/49 (63) 98 Room Air 01/22/17 16:00 Room Air 01/22/17 14:51 36.4 73 18 139/68 (91) 99 Room Air Physical Exam: General-aaox1 Eyes-no scleral icterus ENT-mmm Neck-supple Lungs-cta Heart-rrr Abdomen-bs+ s/nt/nd Extremities-no c/c/e Neuro-pleasantly demented Current Inpatient Medications Medications (Trade) Dose Ordered Sig/Neyda Route Start Time Stop Time Status Last Admin Dose Admin Hydromorphone HCl (Dilaudid Inj) 0.25 mg Q1H PRN IV 01/16/17 02:00 01/30/17 01:59 Heparin Sodium (Porcine) (Heparin Sq 5000 Unit/0.5ml) 5,000 unit Q12 SQ 01/16/17 09:00 02/15/17 08:59 01/23/17 08:37 5,000 UNIT Vitamin B Complex/ Vit C/Folic Acid (Nephrocaps) 1 cap QPM PO 01/17/17 21:00 02/16/17 20:59 01/22/17 20:47 1 CAP Calcium Acetate (Phoslo Cap) 1,334 mg TIDM PO 01/17/17 12:00 02/16/17 11:59 01/22/17 17:38 1,334 MG Acetaminophen/ Hydrocodone Bitart (Ray 5/325 Tab) 1 tab BID PRN PO 01/17/17 09:30 01/31/17 09:29 Quetiapine Fumarate (seroQUEL TAB) 12.5 mg BID PO 01/17/17 21:00 02/16/17 20:59 01/22/17 20:47 12.5 MG Nystatin (Mycostatin Powder) 1 appln BID EXT 01/17/17 21:00 02/16/17 20:59 01/23/17 08:31 1 APPLN Enteral Nutritional Formula (Boost Breeze Nutritional Drink) 1 box BID PO 01/17/17 21:00 02/16/17 20:59 01/23/17 08:31 1 BOX Labetalol HCl (Normodyne Tab) 100 mg BID PO 01/17/17 21:00 02/16/17 20:59 01/22/17 20:46 100 MG Clonidine HCl (Catapres Tab) 0.1 mg Q6H PRN PO 01/17/17 19:30 02/16/17 19:29 Miscellaneous Information (Pharmacy Consult) 1 ea UD PRN N/A 01/18/17 09:42 02/17/17 09:41 Ceftriaxone Sodium 2000 mg/ Dextrose 70 ml @ 140 mls/hr Q24H IV 01/18/17 10:00 02/01/17 09:59 01/22/17 10:28 140 MLS/HR Aspirin (Ecotrin Tab) 81 mg QAM PO 01/20/17 09:00 02/19/17 08:59 01/21/17 09:57 81 MG Atorvastatin Calcium (Lipitor Tab) 10 mg HS PO 01/19/17 21:00 02/18/17 20:59 01/22/17 20:45 10 MG Hydralazine HCl (Apresoline Tab) 25 mg DAILY PO 01/20/17 09:00 02/19/17 08:59 01/22/17 08:05 25 MG Epoetin Odin (Procrit Inj) 10,000 units TODAY@0830 IV. 01/23/17 08:30 01/23/17 18:00 Last 24 Hours Test 01/22/17 16:24 Bedside Glucose 85 mg/dl Assessment & Plan ESRD-seen on dialysis. 3k bath. f-180. uf 1 liter as bp tolerates. volume status appears appropriate. access working well. no complaints. Anemia of renal failure-hg levels are stable. on procrit with goal hg of 10 to 11.
--- NOTE | 2017-01-23 10:34 | Progress Note ---
Medicine Progress Note Date & Time of Visit: Jan 23, 2017 at 10:29. Subjective patient seen resting in bed, comfortable having HD not in distress denies abdominal pain no chest pain, dyspnea no other symptoms Objective Last 8 Hrs Date Time Temp Pulse Resp B/P (MAP) Pulse Ox O2 Delivery O2 Flow Rate FiO2 01/23/17 10:15 71 79/44 01/23/17 10:00 71 97/44 01/23/17 09:45 70 104/45 01/23/17 09:38 64 115/48 01/23/17 09:30 36.8 66 115/47 (69) 01/23/17 07:49 Room Air 01/23/17 07:36 36.9 65 18 148/61 (90) 98 Room Air Physical Exam: General- alert, confused, not in distress Neck- no JVD Lungs- clear breath sounds bilaterally, no rales/wheezes Heart- regular rhythm; no murmur, normal rate Abdomen- normal bowel sounds,non distended, soft,no tenderness Extremities- no pretibial edema, no calf tenderness Neuro-alert, confused, but no other gross focal neuro deficits Skin- warm & dry Laboratory Results: Last 24 Hours Test 01/22/17 16:24 Bedside Glucose 85 mg/dl Assessment & Plan SEPSIS, SECONDARY TO E COLI BACTEREMIA, ACUTE CHOLECYSTITIS WITH POSSIBLE PANCREATITIS - BP remained stable since admission afebrile since admission - labs: improved LFTs Lipase normalized - Liver US: possible cholecystitis Blood cultures: E coli x 2 repeat Blood culture: negative - as per Dr. Scott' discussion with daughter Maxine, no invasive measures at this time thus, no ERCP/Surgical Intervention -- markedly improved -- continue medical management: was on vanco and zosyn, IV fluids changed to ceftriaxone IV- antibiotic day # 01/31 ID consulted- Dr. Cardoso, will need 10 days total antibiotics discussed with Case management, patient can finish IV Ceftriaxone 2 g daily on January 24 and January 25, 2017 ACUTE PANCREATITIS LIKELY GALLSTONE RELATED - discussed fluid management with Nephro- Dr. Flores - lipase down to 400 - given NSS at 80cc/hr, IV fluids discontinued ALTERED MENTAL STATUS Head CT negative for acute findings. Most likely has encephalopathy / delirium secondary to sepsis. -- improved HYPERTENSION Hypotensive at time of presentation. 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 - ISS given CKD V - Nephrology consulted - HD performed while admitted - continue HD as outpatient per Forms Analyst Dr. Davis LEWY BODY DEMENTIA - continue Quetiapine COMPRESSION FRACTURE L1 -- Severe compression fracture at L1 of uncertain chronicity noted on CT of abdomen and pelvis. -- denies back pain -- monitor CHRONIC PAIN Patient takes hydrocodone for chronic pain, apparently primarily due to right shoulder pain. -- PO analgesics PRN HISTORY MRSA Contact precautions ordered VTE PROPHYLAXIS Moderately high risk for VTE. SQ heparin. RESUSCITATION STATUS Code status, therefore, is "Level 5" (DNR). DISPOSITION d/c to [facility] up with PCP at the [facility] HD per nephrology Current Inpatient Medications: Current Inpatient Medications Medications (Trade) Dose Ordered Sig/Neyda Route Start Time Stop Time Status Last Admin Dose Admin Hydromorphone HCl (Dilaudid Inj) 0.25 mg Q1H PRN IV 01/16/17 02:00 01/30/17 01:59 Heparin Sodium (Porcine) (Heparin Sq 5000 Unit/0.5ml) 5,000 unit Q12 SQ 01/16/17 09:00 02/15/17 08:59 01/23/17 08:37 5,000 UNIT Vitamin B Complex/ Vit C/Folic Acid (Nephrocaps) 1 cap QPM PO 01/17/17 21:00 02/16/17 20:59 01/22/17 20:47 1 CAP Calcium Acetate (Phoslo Cap) 1,334 mg TIDM PO 01/17/17 12:00 02/16/17 11:59 01/22/17 17:38 1,334 MG Acetaminophen/ Hydrocodone Bitart ([place] 5/325 Tab) 1 tab BID PRN PO 01/17/17 09:30 01/31/17 09:29 Quetiapine Fumarate (seroQUEL TAB) 12.5 mg BID PO 01/17/17 21:00 02/16/17 20:59 01/22/17 20:47 12.5 MG Nystatin (Mycostatin Powder) 1 appln BID EXT 01/17/17 21:00 02/16/17 20:59 01/23/17 08:31 1 APPLN Enteral Nutritional Formula (Boost Breeze Nutritional Drink) 1 box BID PO 01/17/17 21:00 02/16/17 20:59 01/23/17 08:31 1 BOX Labetalol HCl (Normodyne Tab) 100 mg BID PO 01/17/17 21:00 02/16/17 20:59 01/22/17 20:46 100 MG Clonidine HCl (Catapres Tab) 0.1 mg Q6H PRN PO 01/17/17 19:30 02/16/17 19:29 Miscellaneous Information (Pharmacy Consult) 1 ea UD PRN N/A 01/18/17 09:42 02/17/17 09:41 Ceftriaxone Sodium 2000 mg/ Dextrose 70 ml @ 140 mls/hr Q24H IV 01/18/17 10:00 02/01/17 09:59 01/22/17 10:28 140 MLS/HR Aspirin (Ecotrin Tab) 81 mg QAM PO 01/20/17 09:00 02/19/17 08:59 01/21/17 09:57 81 MG Atorvastatin Calcium (Lipitor Tab) 10 mg HS PO 01/19/17 21:00 02/18/17 20:59 01/22/17 20:45 10 MG Hydralazine HCl (Apresoline Tab) 25 mg DAILY PO 01/20/17 09:00 02/19/17 08:59 01/22/17 08:05 25 MG Epoetin Odin (Procrit Inj) 10,000 units TODAY@0830 IV. 01/23/17 08:30 01/23/17 18:00
[2017-01-23] MEDS ORDERED: HYDR-5688 PO (10:38)
[2017-01-23] MEDS ORDERED: RCPAV1 IV (10:38)
--- NOTE | 2017-01-23 10:43 | Discharge Instructions ---
Discharge Instructions Date of Service Jan 23, 2017. Admission Reason for Admission: Sepsis Discharge Discharge Diagnosis / Problem: SEPSIS SECONDARY TO E COLI BACTEREMIA, ACUTE CHOLECYSTITIS; PANCREATITIS Discharge Goals Goal(s): Diagnostic testing, Therapeutic intervention Activity Recommendations Activity Level: Assistance Required . Additional Information Patient informed of condition: Yes Advance Directives: No (UNKNOWN) DNR: Yes Level of Care: Skilled Communicable Disease: No Prognosis: Improving Instructions / Follow-Up Instructions / Follow-Up PATIENT NEEDS 2 MORE DAYS OF CEFTRIAXONE 2 GRAMS IV DAILY ON JANUARY 242016. PLEASE REFER TO ACCOMPANYING HOSPITAL DISCHARGE SUMMARY FOR FURTHER DETAILS. Current Hospital Diet Patient's current hospital diet: Diabetes Type 2 Diet, Renal Diet Discharge Diet Recommended Diet: Diabetes Type 2 Diet, Renal Diet Procedures Procedures Performed: CT ABDOMEN/PELVIS, GALLBLADDER US Pending Studies Studies pending at discharge: no Physician Orders On Transfer Special Precautions: PATIENT NEEDS 2 MORE DAYS OF CEFTRIAXONE 2 GRAMS IV DAILY ON JANUARY 242016. PLEASE REFER TO ACCOMPANYING HOSPITAL DISCHARGE SUMMARY FOR FURTHER DETAILS. Medical Emergencies . Who to Call and When: Medical Emergencies: If at any time you feel your situation is an emergency, please call 911 immediately. . Non-Emergent Contact Non-Emergency issues call your: Primary Care Provider Call Non-Emergent contact if: you have a fever, your pain is not controlled, your pain is worsening, you have any medication questions . Past History Medical & Surgical History: (1) Diabetes mellitus with stage 5 chronic kidney disease GFR <15 (2) Hypertension (3) Lewy body dementia (4) Chronic pain (5) Altered mental status (6) Fracture of neck of right humerus (7) CKD (chronic kidney disease) stage 5, GFR less than 15 ml/min (8) History of osteomyelitis (9) History of MRSA infection (10) Anemia in CKD (chronic kidney disease) (11) Dyslipidemia (12) Diabetic retinopathy associated with type 2 diabetes mellitus (13) Diabetic neuropathy (14) Chronic kidney disease requiring chronic dialysis (15) Status post hysterectomy (16) Status post amputation of toe of left foot . "Provider Documentation" section prepared by Jose L Bocanegra. . Core Measure Problem Core Measures: None
--- NOTE | 2017-01-23 10:53 | Discharge Summary ---
Discharge Summary Date of Service Jan 23, 2017. Discharge Summary Admission Date: Jan 16, 2017 at 01:17 Discharge Date: Jan 23, 2017 Discharge Disposition: care home facility Principal Diagnosis: SEPSIS, SECONDARY TO E COLI BACTEREMIA, ACUTE CHOLECYSTITIS WITH POSSIBLE PANCREATITIS Secondary Diagnoses/Problems: PLEASE REFER TO HOSPITAL COURSE BELOW. Procedures: ABD/PELVIS NO IV OR ORAL CONT CLINICAL HISTORY: 76 years-old Female presenting with fever, diffuse pain. TECHNIQUE: Multidetector CT of the abdomen and pelvis was performed without the use of intravenous contrast. IV contrast: None. A dose lowering technique was used consistent with the principles of ALARA (as low as reasonably achievable). COMPARISON: 08/31/2015. CT DOSE (mGy.cm): The estimated cumulative dose is 1033.63 inclusive of the head CT. FINDINGS: Window [employer]ing [employer] topogram: Unremarkable. Lung bases: Bandlike and groundglass opacities at the lung bases, possibly atelectasis. Multichamber enlargement of the heart. Coronary artery, mitral annular, and aortic valve calcification. No pericardial or pleural effusion. Liver: Normal morphology. Normal density. 11 mm hypodense lesion again noted in the right hepatic lobe with additional smaller hypodense lesions also unchanged from prior. Biliary: No gross evidence of biliary ductal dilatation allowing for noncontrast technique. Gallbladder contains gallstones. Pancreas: Mild parenchymal atrophy. Spleen: Normal. Adrenal glands: Nodular thickening of the left adrenal gland, nonspecific. Kidneys and ureters: No nephrolithiasis. No hydronephrosis. Gastrointestinal tract: Large stool burden in the rectum. Minimal rectal wall thickening without significant perirectal inflammatory change. Diverticulosis with chronic diverticular disease of the proximal sigmoid colon. No bowel obstruction. Peritoneal cavity: No free fluid or intraperitoneal gas. Bladder: Normal. Pelvic organs: Uterus likely surgically absent. No adnexal masses. Vasculature: Atherosclerosis of the normal caliber abdominal aorta. Lymph nodes: Multiple prominent upper abdominal lymph nodes, poorly characterize due to noncontrast technique. Abdominal wall: Diastases of the abdominis rectus with small wide neck midline ventral hernia containing sigmoid colon. Musculoskeletal: Compression deformity of L1 with a vertebral plana appearance. Mild retropulsion of osseous fragments into the spinal canal. This is new from prior exam. Less severe anterior vertebral body height loss of L3, essentially unchanged from prior. IMPRESSION: 1. Interval development of severe L5 compression deformity with mild retropulsion of osseous fragments into the spinal canal. The acuity of this is not known. Correlate with point tenderness. 2. Evidence of chronic diverticular disease. No diverticulitis. 3. Large stool burden in the rectum without convincing evidence of stercoral colitis. 4. Bibasilar atelectasis. 5. Prominent upper abdominal lymph nodes, poorly characterized on noncontrast technique and possibly reactive. CHEST ONE VIEW PORTABLE CLINICAL HISTORY: 76 years-old Female presenting with Sepsis. TECHNIQUE: Portable upright AP view of the chest was obtained. COMPARISON: 08/26/2015. FINDINGS: Atherosclerosis of aortic arch. Cardiac silhouette stable. Persistent mild elevation of the left hemidiaphragm. Left basilar opacity. No large effusion or pneumothorax. Chronic right humeral deformity with medial displacement of the distal fracture fragment and foreshortening. Upper abdomen normal. IMPRESSION: 1. Left basilar opacity, possibly atelectasis although aspiration or infection cannot be excluded. 2. Chronic right humeral deformity from prior fracture. BILIARY ABDOMEN LIMITED HISTORY: 76 years-old Female elevated LFT's + lipase COMPARISON: CT abdomen and pelvis 01/15/2017 and 08/26/2015, chest CT 11/09/2014 TECHNIQUE: Multiple real-time sonographic images of the abdominal right upper quadrant were obtained assessing grayscale appearance and color flow. FINDINGS: Exam and limited secondary to reported patient combativeness and lack of cooperation. The patient is medicated for pain and therefore sonographic Doe sign was unable to be obtained. There is severe atrophy of the pancreatic parenchyma without focal mass identified. Distal body and tail are obscured by bowel gas. There is a trace amount of perihepatic ascites noted. Liver measures up to 21 cm. There is nonspecific 0.8 cm lesion of the subserosal posterior right hepatic lobe, 0.8 x 1.2 x 1.2 cm which appears unchanged from 11/09/2014. This is nonspecific, however suggests hepatic cyst. No internal vascularity. There is a prominent amount of layering sludge and shadowing gallstones within the gallbladder lumen with gallstones also seen within the gallbladder neck. There is mild gallbladder distention measuring up to 10.8 cm in length. The gallbladder wall is mildly thickened measuring up to 4 mm. Trace pericholecystic fluid is noted. Common bile duct measures up to 8.8 mm without obstructing stone or mass identified. The right kidney appears echogenic without hydronephrosis or focal mass. IMPRESSION: 1. Cholelithiasis and gallbladder sludge noted in association with mild gallbladder wall thickening. Sonographic Doe sign was unable to be assessed secondary to patient's medicated status. Findings may reflect acute cholecystitis within the appropriate clinical setting. Follow-up exam with hepatobiliary study may be beneficial. 2. Prominence of the common bile duct measuring up to 8.8 mm may be normal considering patient's age. No obstructing stone or mass identified. 3. 1.2 cm hypoechoic lesion of the subserosal posterior right hepatic lobe is nonspecific, however is unchanged dating back to 11/09/2014 suggesting cyst. 4. Mild perihepatic ascites. Consultations: ID DR. CARDOSO Pending Studies/Follow-Up: PLEASE REFER TO HOSPITAL COURSE BELOW. Medication Reconciliation New Medications: Ceftriaxone Sod (Rocephin) 1 Gm Inj 2 GM IV DAILY for 2 Days, VIAL to be given January 24-2016 Changed Medications: Hydrocodone/Acetaminophen 5MG/325MG ([place] 5MG/325MG) Tab 1 TABLET PO BID PRN for Pain for 7 Days, TAB (Medication details modified) Continued Medications: Acetaminophen (Tylenol) 325 Mg Tab 650 MG PO Q6 PRN for Pain or Fever, TAB MILD PAIN OR FEVER > 101 F. NOT TO EXCEED 3 GRAMS PER 24 HOURS. Aspirin (Aspirin Ec) 81 Mg Tab 81 MG PO QAM Atorvastatin (Lipitor) 10 Mg Tab 10 MG PO HS, TAB B-Complex W/ C & Folic Acid ([place] Caps) 1 Cap Cap 1 CAP PO QPM Calcium Acetate (Phosphate Bin (Phoslo 667 Mg) 667 Mg Cap 2 CAPSULES PO TIDM, CAP Cholecalciferol (Vitamin D3) 1,000 Unit Cap 1000 UNITS PO QAM Enteral Nutrition Formula (Nepro Carb Steady) 1 Can Liqd 8 OZ PO TID Hydralazine HCl (Hydralazine HCl) 25 Mg Tab 25 MG PO DAILY @ 1600 Ketoconazole (Topical) (Ketoconazole) 2 % Sha 1 APPLN TOP 2XWK for 30 Days, #120 ML 3 Refills USES ON MON & THURS. Labetalol Hcl (Normodyne) 100 Mg Tab 100 MG PO BID HOLD IF SYSTOLIC B/P < 120, OR APICAL HEART RATE < 50. Nystatin (Topical) (Nystatin) 1 Pow Pow 1 APPLN TOP BID APPLY TO ABD FOLDS, BUTTOCKS AND UNDER BREASTS. Quetiapine Fumarate (Seroquel) 25 Mg Tab 12.5 MG PO BID, TAB Admission Information HPI (per Admitting provider): 76-year-old female who resides at [facility]. History of Lewy body dementia, chronic kidney disease stage V on hemodialysis, hypertension, and other problems as noted below. She is essentially wheelchair bound. Her dementia is advanced and is associated with hallucinations. Tonight at the longterm she was noted to be lethargic, febrile, and hypotensive. EMS summoned and she was brought to the ED. Patient unable to provide any information because of her dementia and lethargy. Daughter was present in the ED and provided background information, but not aware of any new symptoms or problems prior to noted changes this evening. Blood pressure in the ED as low as 75/35. Received fluid resuscitation with improvement. Blood cultures obtained in ED and patient was started on broad-spectrum antibiotic therapy. . Physical Exam (per Admitting): General Appearance: + moderate distress, + cachetic Head: normocephalic, atraumatic Eyes: PERRL, EOMI, sclerae normal, + pertinent finding (exam limited due to patient's inability to cooperate) ENT: + pertinent finding (exam limited due to patient's inability to cooperate) Neck: supple, no adenopathy, thyroid normal, trachea midline Respiratory/Chest: no respiratory distress, no accessory muscle use, + pertinent finding (few bibasilar rales) Cardiovascular: regular rate, rhythm, no edema, + systolic murmur (III/ systolic murmur at base), + abnormal peripheral pulses (diminished pedal pulses) , + pertinent finding (+ JVD) Abdomen/GI: + pertinent finding (quiet bowel sounds, diffusely tender (more so in RUQ), slighty distended, soft, no palpable masses or organomegaly) Extremities/Musculoskelatal: no calf tenderness, normal capillary refill, no pedal edema, + pertinent finding (decreased ROM right shoulder, s/p amputation left second toe; AV fistula LUE) Neurologic/Psych: + pertinent finding (lethargic; exam very limited; does not follow commands; plantar reflexes equivocal bilat) Skin: normal color, no rash Lymphatic: no adenopathy (cervical) Hospital Course SEPSIS, SECONDARY TO E COLI BACTEREMIA, ACUTE CHOLECYSTITIS WITH POSSIBLE PANCREATITIS - Liver US: (+) gallstones and sludge, possible cholecystitis Blood cultures: E coli x 2 repeat Blood culture: negative - labs: LFTs elevated on admission, improved Lipase also elevated at 2000s, normalized - as per admitting physician Dr. Scott' discussion with daughter Maxine, no invasive measures at this time thus, no ERCP/Surgical Intervention - given IV Vanco, Zosyn then transitioned to Ceftriaxone also given gentle IV fluids - BP remained stable since admission afebrile since admission -- markedly improved -- ID consulted- Dr. Cardoso, will need 10 days total antibiotics discussed with Case management, patient can finish IV Ceftriaxone 2 g daily on January 24 and January 25, 2017 ACUTE PANCREATITIS LIKELY GALLSTONE RELATED - discussed fluid management with Nephro- Dr. Flores - lipase down to 300 - given NSS at 80cc/hr, IV fluids discontinued ALTERED MENTAL STATUS Head CT negative for acute findings. Most likely has encephalopathy / delirium secondary to sepsis. -- improved HYPERTENSION Hypotensive at time of presentation. 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 - Insulin Sliding Scale ordered CKD V - Nephrology consulted - HD performed while admitted - continue HD as outpatient per Shipping Clerk P[employer] Dr. Davis LEWY BODY DEMENTIA -- continue Quetiapine COMPRESSION FRACTURE L1 -- Severe compression fracture at L1 of uncertain chronicity noted on CT of abdomen and pelvis. -- denies back pain, leg weakness/numbness -- monitor CHRONIC PAIN Patient takes hydrocodone for chronic pain, apparently primarily due to right shoulder pain. -- PO analgesics PRN HISTORY MRSA Contact precautions ordered VTE PROPHYLAXIS Moderately high risk for VTE. SQ heparin given RESUSCITATION STATUS "Level 5" (DNR). DISPOSITION d/c to [facility] ff up with PCP at the [facility] within 1 week HD per nephrology Total time spent on discharge = 30 minutes This includes examination of the patient, discharge planning, medication reconciliation, and communication with other providers. Discharge Instructions Discharge Instructions Date of Service Jan 23, 2017. Admission Reason for Admission: Sepsis Discharge Discharge Diagnosis / Problem: SEPSIS, SECONDARY TO E COLI BACTEREMIA, ACUTE CHOLECYSTITIS WITH POSSIBLE PANCREATITIS Discharge Goals Goal(s): Diagnostic testing, Therapeutic intervention Activity Recommendations Activity Level: Assistance Required . Additional Information Patient informed of condition: Yes Advance Directives: No (UNKNOWN) DNR: Yes Level of Care: Skilled Communicable Disease: No Prognosis: Improving Instructions / Follow-Up Instructions / Follow-Up PATIENT NEEDS 2 MORE DAYS OF CEFTRIAXONE 2 GRAMS IV DAILY ON JANUARY 242016. PLEASE REFER TO ACCOMPANYING HOSPITAL DISCHARGE SUMMARY FOR FURTHER DETAILS. Current Hospital Diet Patient's current hospital diet: Diabetes Type 2 Diet, Renal Diet Discharge Diet Recommended Diet: Diabetes Type 2 Diet, Renal Diet Procedures Procedures Performed: CT ABDOMEN/PELVIS, GALLBLADDER US Pending Studies Studies pending at discharge: no Physician Orders On Transfer Special Precautions: PATIENT NEEDS 2 MORE DAYS OF CEFTRIAXONE 2 GRAMS IV DAILY ON JANUARY 242016. PLEASE REFER TO ACCOMPANYING HOSPITAL DISCHARGE SUMMARY FOR FURTHER DETAILS. Medical Emergencies . Who to Call and When: Medical Emergencies: If at any time you feel your situation is an emergency, please call 911 immediately. . Non-Emergent Contact Non-Emergency issues call your: Primary Care Provider Call Non-Emergent contact if: you have a fever, your pain is not controlled, your pain is worsening, you have any medication questions . Past History Medical & Surgical History: (1) Diabetes mellitus with stage 5 chronic kidney disease GFR <15 (2) Hypertension (3) Lewy body dementia (4) Chronic pain (5) Altered mental status (6) Fracture of neck of right humerus (7) CKD (chronic kidney disease) stage 5, GFR less than 15 ml/min (8) History of osteomyelitis (9) History of MRSA infection (10) Anemia in CKD (chronic kidney disease) (11) Dyslipidemia (12) Diabetic retinopathy associated with type 2 diabetes mellitus (13) Diabetic neuropathy (14) Chronic kidney disease requiring chronic dialysis (15) Status post hysterectomy (16) Status post amputation of toe of left foot . "Provider Documentation" section prepared by Jose L Bocanegra. . Core Measure Problem Core Measures: None
--- NOTE | 2017-01-23 10:55 | Progress Note ---
Progress Note Date of Service Jan 23, 2017. Progress Note called patient's daughter Maxine, no answer at this time, left voicemail requesting call back re: discharge Jose L Bocanegra Md
[2017-01-23] MEDS: CEFTRIAXONE SOD INJ 2000 MG in DEXTROSE 5% 50ML IV SCH (13:18)
--- NOTE | 2017-01-23 14:43 | Infectious Disease Progress Nt ---
Progress Note Date of Service Jan 23, 2017. Subjective Pt evaluation today including: conversation w/ patient, physical exam, chart review, lab review, review of studies, conversation w/ mental health consultant, review of inpatient medication list Offers no new complaints today. Remains afebrile. Continues to tolerate ceftriaxone. Anticipating discharge. All Other Systems: Reviewed and Negative Medications Current Inpatient Medications Medications (Trade) Dose Ordered Sig/Neyda Route Start Time Stop Time Status Last Admin Dose Admin Hydromorphone HCl (Dilaudid Inj) 0.25 mg Q1H PRN IV 01/16/17 02:00 01/30/17 01:59 Heparin Sodium (Porcine) (Heparin Sq 5000 Unit/0.5ml) 5,000 unit Q12 SQ 01/16/17 09:00 02/15/17 08:59 01/23/17 08:37 5,000 UNIT Vitamin B Complex/ Vit C/Folic Acid (Nephrocaps) 1 cap QPM PO 01/17/17 21:00 02/16/17 20:59 01/22/17 20:47 1 CAP Calcium Acetate (Phoslo Cap) 1,334 mg TIDM PO 01/17/17 12:00 02/16/17 11:59 01/23/17 13:18 1,334 MG Acetaminophen/ Hydrocodone Bitart ([place] 5/325 Tab) 1 tab BID PRN PO 01/17/17 09:30 01/31/17 09:29 Quetiapine Fumarate (seroQUEL TAB) 12.5 mg BID PO 01/17/17 21:00 02/16/17 20:59 01/22/17 20:47 12.5 MG Nystatin (Mycostatin Powder) 1 appln BID EXT 01/17/17 21:00 02/16/17 20:59 01/23/17 08:31 1 APPLN Enteral Nutritional Formula (Boost Breeze Nutritional Drink) 1 box BID PO 01/17/17 21:00 02/16/17 20:59 01/23/17 08:31 1 BOX Labetalol HCl (Normodyne Tab) 100 mg BID PO 01/17/17 21:00 02/16/17 20:59 01/22/17 20:46 100 MG Clonidine HCl (Catapres Tab) 0.1 mg Q6H PRN PO 01/17/17 19:30 02/16/17 19:29 Miscellaneous Information (Pharmacy Consult) 1 ea UD PRN N/A 01/18/17 09:42 02/17/17 09:41 Ceftriaxone Sodium 2000 mg/ Dextrose 70 ml @ 140 mls/hr Q24H IV 01/18/17 10:00 02/01/17 09:59 01/23/17 13:18 140 MLS/HR Aspirin (Ecotrin Tab) 81 mg QAM PO 01/20/17 09:00 02/19/17 08:59 01/21/17 09:57 81 MG Atorvastatin Calcium (Lipitor Tab) 10 mg HS PO 01/19/17 21:00 02/18/17 20:59 01/22/17 20:45 10 MG Hydralazine HCl (Apresoline Tab) 25 mg DAILY PO 01/20/17 09:00 02/19/17 08:59 01/22/17 08:05 25 MG Epoetin Odin (Procrit Inj) 10,000 units TODAY@0830 IV. 01/23/17 08:30 01/23/17 18:00 Objective Vital Signs Date Time Temp Pulse Resp B/P (MAP) Pulse Ox O2 Delivery O2 Flow Rate FiO2 01/23/17 12:45 36.9 73 121/51 (74) 01/23/17 12:30 70 101/52 01/23/17 12:15 70 109/74 01/23/17 12:00 69 110/52 01/23/17 11:45 69 109/50 01/23/17 11:30 68 128/51 01/23/17 11:15 70 102/63 01/23/17 11:00 69 113/42 01/23/17 10:58 36.8 70 18 98 Room Air 01/23/17 10:45 70 104/38 01/23/17 10:30 70 102/48 01/23/17 10:25 70 87/47 01/23/17 10:15 71 79/44 01/23/17 10:00 71 97/44 01/23/17 09:45 70 104/45 01/23/17 09:38 64 115/48 01/23/17 09:30 36.8 66 115/47 (69) 01/23/17 07:49 Room Air 01/23/17 07:36 36.9 65 18 148/61 (90) 98 Room Air 01/23/17 00:30 Room Air 01/22/17 23:39 37.1 75 20 91/49 (63) 98 Room Air 01/22/17 16:00 Room Air 01/22/17 14:51 36.4 73 18 139/68 (91) 99 Room Air Physical Exam General Appearance: WD/WN, no apparent distress Eyes: normal inspection, sclerae normal ENT: normal ENT inspection, pharynx normal Neck: supple, no adenopathy, trachea midline Respiratory/Chest: lungs clear, normal breath sounds, no respiratory distress Cardiovascular: regular rate, rhythm, no gallop, no murmur Abdomen: normal bowel sounds, non tender, soft, no organomegaly Extremities: non-tender, no calf tenderness Neurologic/Psychiatric: alert, oriented x 3 Skin: normal color, warm/dry, no rash Lymphatic: no adenopathy Laboratory Results Last 24 Hours Test 01/22/17 16:24 Bedside Glucose 85 mg/dl Assessment and Plan Patient with E. Coli bacteremia likely of biliary source. Currently the patient is not planned to have any surgical interventions, and will be treated medically. She is on IV Ceftriaxone and her labs overall are improving. Recommend completing 10 days of current IV therapy.
[2017-02-01] MEDS ORDERED: INSULIN ASPART 100 UNITS/ML 3 ML PEN SC SCH (06:30)
[2017-02-01] MEDS ORDERED: VANCOMYCIN HCL 125 MG/2.5ML SOLN PO SCH (09:00)
[2017-02-07] MEDS ORDERED: VNCS125 PO (14:12)
[2017-02-07] MEDS ORDERED: NUTR-7 PO (14:12)
[2017-02-07] MEDS ORDERED: HYDR-5688 PO (14:12)
[2017-02-07] MEDS ORDERED: LCTX PO (14:12)
== END 2017-01-23 16:52 | DRG 871 ==
LOC: EDBD 22:13 → C.EDB 22:14 → UNDOADMIN 01-16 01:17 → C.2T 01-16 01:17 → ENRESERV 01-16 01:27 → C.MS2W 01-20 11:34
PROVIDERS: ADMIT Hospitalist; ATTEND Internal Medicine
DX: A41.51 Sepsis due to Escherichia coli [E. coli] (principal); K85.10 Biliary acute pancreatitis without necrosis or infection; N18.6 End stage renal disease; G93.40 Encephalopathy, unspecified; K80.00 Calculus of gallbladder with acute cholecystitis without obstruction; M48.56XA Collapsed vertebra, not elsewhere classified, lumbar region, initial encounter for fracture; I12.0 Hypertensive chronic kidney disease with stage 5 chronic kidney disease or end stage renal disease; I10 Essential (primary) hypertension; E11.22 Type 2 diabetes mellitus with diabetic chronic kidney disease; E11.40 Type 2 diabetes mellitus with diabetic neuropathy, unspecified; E11.319 Type 2 diabetes mellitus with unspecified diabetic retinopathy without macular edema; G89.29 Other chronic pain; M25.511 Pain in right shoulder; G31.83 Neurocognitive disorder with Lewy bodies; F02.80 Dementia in other diseases classified elsewhere, unspecified severity, without behavioral disturbance, psychotic disturbance, mood disturbance, and anxiety; E78.5 Hyperlipidemia, unspecified; D63.1 Anemia in chronic kidney disease; Z51.81 Encounter for therapeutic drug level monitoring; Z79.899 Other long term (current) drug therapy; Z79.82 Long term (current) use of aspirin; Z79.891 Long term (current) use of opiate analgesic; Z99.2 Dependence on renal dialysis; Z66 Do not resuscitate; Z86.14 Personal history of Methicillin resistant Staphylococcus aureus infection; Z89.422 Acquired absence of other left toe(s); Z87.891 Personal history of nicotine dependence; Z83.3 Family history of diabetes mellitus; Z82.49 Family history of ischemic heart disease and other diseases of the circulatory system

== ENCOUNTER 2017-01-31 21:32 | Inpatient (IN) | payer OTHER, BC ==
[~2017-01-31] VITALS: Ht 154.9 cm; Wt 55.8 kg
[~2017-01-31 21:32] MED LIST changes: -FLUO20CA37 PO; +HYDR-5688 PO; +KETO2SHA TOP; -LABE100T16 PO; -LACTCAP3 PO; +LBT/100 PO; +NYST1POW7 TOP
[2017-01-31] MEDS ORDERED: SODIUM CHLORIDE 0.9% 1000ML 1,000 ML IV STA ×3 (22:08→23:24)
[2017-01-31 22:37] LABS: HEMATOCRIT 31.8 % (37-47); MEAN CELL VOLUME 99.4 fL (80-100); MEAN CORPUSCULAR HEMOGLOBIN 31.9 pg (25-34); MEAN CORPUSCULAR HGB CONC 32.1 g/dl (32-36); PLATELET COUNT 232 K/uL (130-400); WHITE BLOOD COUNT 19.31 K/uL (4.8-10.8)
[2017-01-31 22:47] LABS: INR 1.1 (0.9-1.1); PARTIAL THROMBOPLASTIN RATIO 1.1; PROTHROMBIN TIME (PATIENT) 11.4 SECONDS (9.0-12.0)
[2017-01-31] MEDS ORDERED: ACETAMINOPHEN 500 MG TAB PO STA (22:49)
[2017-01-31 23:07] LABS: BASO % 0.4 %; BASO ABS # 0.07 K/uL (0-0.2); COMPLETE YES; EOS % 0.4 %; IG% 0.4 %; LYMPH % 10.4 %; MONO % 5.3 %; NEUT % 83.1 %
[2017-01-31 23:19] LABS: ALKALINE PHOSPHATASE 113 U/L (45-117); ALT/SGPT 31 U/L (12-78); AST/SGOT 13 U/L (15-37); BLOOD UREA NITROGEN 40 mg/dl (7-18); BUN/CREATININE RATIO 7.6 (10-20); CALCIUM 9.1 mg/dl (8.5-10.1); CARBON DIOXIDE 26 mmol/L (21-32); CHLORIDE 102 mmol/L (98-107); GLUCOSE 86 mg/dl (70-99); MAGNESIUM 2.4 mg/dl (1.8-2.4); POTASSIUM 3.3 mmol/L (3.5-5.1); SODIUM 139 mmol/L (136-145)
[2017-01-31 23:23] LABS: URINE APPEARANCE CLEAR (CLEAR); URINE BILIRUBIN NEG (NEG); URINE COLOR YELLOW; URINE EPITHELIAL CELL AUTO >30 /lpf (0-5); URINE NITRITE NEG (NEG); URINE SPECIFIC GRAVITY 1.015 (1.000-1.030); UROBILINOGEN NEG (NEG)
[2017-01-31] MEDS ORDERED: METRONIDAZOLE 500MG / 100ML NSS IV STA (23:24)
[2017-01-31] MEDS ORDERED: DAPTOmycin IV 500 MG in SODIUM CHLORIDE 0.9% 50ML 50 ML IV STA (23:24)
[2017-01-31] MEDS ORDERED: ACETAMINOPHEN IV 100 ML IV STA (23:24)
[2017-01-31] MEDS ORDERED: PIPERACILLIN/TAZOBACTAM 4.5 GM/100ML D5W IV STA (23:24)
[2017-01-31 23:35] LABS: MANUAL MICROSCOPIC REQUIRED? NO; REVIEW REQ? YES
[2017-02-01] VITALS (19 sets, daily range): BP systolic 109–148; BP diastolic 48–91; PULSE 70–95; TEMP 36.9–37.8; O2SAT 95–99; Ht 154.9 cm; Wt 55.8 kg
[2017-02-01] MEDS ORDERED: ONDANSETRON INJ 2 MG/ML 2 ML VIAL IV PRN (01:15)
[2017-02-01] MEDS ORDERED: ACETAMINOPHEN 325 MG TAB PO PRN (01:15)
[2017-02-01] MEDS ORDERED: HYDROCODONE/ACETAMOPHEN 5/325MG TAB PO PRN (01:15)
--- NOTE | 2017-02-01 02:11 | EMERGENCY ROOM VISIT NOTE ---
History Report prepared by Adrianna: Ester Silva Under the Supervision of: Dr. Vikas Becerra M.D. First contact with patient: 22:08 Chief Complaint: FEVER Stated Complaint: ALTERED MENTAL STATUS History of Present Illness The patient is a 77 year old female who presents to the Emergency Room with complaints of an episode of a fever starting this evening. The patient's family reported that she was in the hospital for sepsis and finished her IV antibiotics at [facility]. The patient developed diarrhea, confusion and abdominal pain. The HPI is limited secondary to mental status. Source of History: patient History Limited By: AMS Onset: this evening Position: other (global) Quality: other (global) Timing: other (episode) Associated Symptoms: + abdominal pain, + diarrhea Note: The patient complains of confusion. Review of Systems ROS limited secondary to mental status. Past Medical & Surgical Medical Problems: (1) Anemia in CKD (chronic kidney disease) (2) C. difficile colitis (3) Chronic kidney disease requiring chronic dialysis (4) Chronic pain (5) CKD (chronic kidney disease) stage 5, GFR less than 15 ml/min (6) Diabetes mellitus with stage 5 chronic kidney disease GFR <15 (7) Diabetic neuropathy (8) Diabetic retinopathy associated with type 2 diabetes mellitus (9) Dyslipidemia (10) Fracture of neck of right humerus (11) History of MRSA infection (12) History of osteomyelitis (13) Hypertension (14) Lewy body dementia Surgical Problems: (1) Status post amputation of toe of left foot (2) Status post hysterectomy Family History Cancer Diabetes mellitus Heart disease Hypertension Social History Smoking Status: Unknown if Ever Smoked Alcohol Use: none Drug Use: none Marital Status: Housing Status: long-term Occupation Status: retired Current/Historical Medications Scheduled Aspirin (Aspirin Ec), 81 MG PO QAM Atorvastatin (Lipitor), 10 MG PO HS B-Complex W/ C & Folic Acid ([place] Caps), 1 CAP PO QPM Calcium Acetate (Phosphate Bin (Phoslo 667 Mg), 2 CAPSULES PO TIDM Cholecalciferol (Vitamin D3), 1,000 UNITS PO QAM Enteral Nutrition Formula (Nepro Carb Steady), 8 OZ PO TID Hydralazine HCl (Hydralazine HCl), 25 MG PO DAILY @ 1600 Ketoconazole (Topical) (Ketoconazole), 1 APPLN TOP 2XWK Labetalol Hcl (Normodyne), 100 MG PO BID Quetiapine Fumarate (Seroquel), 12.5 MG PO BID Scheduled PRN Acetaminophen (Tylenol), 650 MG PO Q6 PRN for Pain or Fever Hydrocodone/Acetaminophen 5MG/325MG ([place] 5MG/325MG), 1 TABLET PO BID PRN for Pain Allergies Coded Allergies: Dust (Verified Allergy, Unknown, SNEEZING,WHEEZING, 01/31/17) Physical Exam Vital Signs Date Time Temp Pulse Resp B/P (MAP) Pulse Ox O2 Delivery O2 Flow Rate FiO2 02/01/17 01:36 37.6 69 17 119/49 95 Room Air 02/01/17 00:41 70 15 101/45 97 Room Air 02/01/17 00:07 74 18 94 02/01/17 00:01 95/40 01/31/17 23:37 80 20 133/52 94 01/31/17 23:07 83 14 94 01/31/17 23:02 83 14 94 01/31/17 23:01 122/44 01/31/17 22:32 81 12 97 01/31/17 22:31 134/74 01/31/17 22:14 Room Air 01/31/17 22:02 75 16 96 01/31/17 22:01 129/50 01/31/17 21:40 80 01/31/17 21:37 101/45 01/31/17 21:32 38.1 75 18 129/50 96 Room Air Physical Exam GENERAL: Lethargic but able to rise. No acute distress. HENT: Normocephalic, atraumatic. Oropharynx unremarkable. EYES: Normal conjunctiva. Sclera non-icteric. NECK: Supple. No nuchal rigidity. FROM. No JVD. RESPIRATORY: Clear to auscultation. CARDIAC: Borderline tachycardic rate, normal rhythm. Extremities warm and well perfused. Pulses equal. ABDOMEN: Soft, non-distended. Diffuse abdominal tenderness to palpation. No rebound or guarding. No masses. RECTAL: Deferred. MUSCULOSKELETAL: Chest examination reveals no tenderness. The back is symmetrical on inspection without obvious abnormality. There is no CVA tenderness to palpation. No joint edema. LOWER EXTREMITIES: Calves are equal size bilaterally and non-tender. No edema. No discoloration. NEURO: Demented sensorium. No sensory or motor deficits noted. SKIN: No rash or jaundice noted.v Medical Decision & Procedures ER Provider Diagnostic Interpretation: Chest x-ray. Findings: A chest x-ray was performed and revealed no pneumothorax , effusion, infiltrate, pulmonary edema, free air under the diaphragm, or wide mediastinum. CT HEAD: Comparison CR head 01/15/17 No acute intracranial abnormality. No ICH, mass effect or edema. Cortical atrophy and white matter changes most consistent with chronic small vessel disease. Paranasal sinus disease. CT ABDOMEN & PELVIS: Comparison: CT abdomen pelvis 01/15/17. Colonic wall thickening of the distal transverse through sigmoid colon with adjacent fat stranding. Findings are compatible with colitis. Colonic diverticulosis without evidence of diverticulitis. Moderate amount of retained stool in the colon. No evidence of bowel obstruction. No free air. Small amount of free fluid in the left paracolic gutter. Gallbladder is distended with multiple small stones. Hazy pericholecystic fat stranding, although there is also hazy stranding throughout the mesentery. Correlate with symptoms for acute cholecystitis and consider ultrasound if indicated. Radiologist: Horace Hester MD Study ready at 23:27 and initial results transmitted at 00:04. Laboratory Results 01/31/17 22:27 Red Blood Count 3.20, Mean Corpuscular Volume 99.4, Mean Corpuscular Hemoglobin 31.9, Mean Corpuscular Hemoglobin Concent 32.1, Mean Platelet Volume 9.0, Neutrophils (%) (Auto) 83.1, Lymphocytes (%) (Auto) 10.4, Monocytes (%) (Auto) 5.3, Eosinophils (%) (Auto) 0.4, Basophils (%) (Auto) 0.4, Neutrophils # (Auto) 16.07, Lymphocytes # (Auto) 2.00, Monocytes # (Auto) 1.03, Eosinophils # (Auto) 0.07, Basophils # (Auto) 0.07 01/31/17 22:27 Test 01/31/17 22:27 01/31/17 22:30 01/31/17 22:45 White Blood Count 19.31 K/uL (4.8-10.8) Red Blood Count 3.20 M/uL (4.2-5.4) Hemoglobin 10.2 g/dL (12.0-16.0) Hematocrit 31.8 % (37-47) Mean Corpuscular Volume 99.4 fL (80-100) Mean Corpuscular Hemoglobin 31.9 pg (25-34) Mean Corpuscular Hemoglobin Concent 32.1 g/dl (32-36) Platelet Count 232 K/uL (130-400) Mean Platelet Volume 9.0 fL (7.4-10.4) Neutrophils (%) (Auto) 83.1 % Lymphocytes (%) (Auto) 10.4 % Monocytes (%) (Auto) 5.3 % Eosinophils (%) (Auto) 0.4 % Basophils (%) (Auto) 0.4 % Neutrophils # (Auto) 16.07 K/uL (1.4-6.5) Lymphocytes # (Auto) 2.00 K/uL (1.2-3.4) Monocytes # (Auto) 1.03 K/uL (0.11-0.59) Eosinophils # (Auto) 0.07 K/uL (0-0.5) Basophils # (Auto) 0.07 K/uL (0-0.2) RDW Standard Deviation 49.3 fL (36.4-46.3) RDW Coefficient of Variation 13.9 % (11.5-14.5) Immature Granulocyte % (Auto) 0.4 % Immature Granulocyte # (Auto) 0.07 K/uL (0.00-0.02) Prothrombin Time 11.4 SECONDS (9.0-12.0) Prothromb Time International Ratio 1.1 (0.9-1.1) Activated Partial Thromboplast Time 29.5 SECONDS (21.0-31.0) Partial Thromboplastin Ratio 1.1 Anion Gap 11.0 mmol/L (3-11) Est Creatinine Clear Calc Drug Dose 7.7 ml/min Estimated GFR () 8.3 Estimated GFR (Non- 7.1 BUN/Creatinine Ratio 7.6 (10-20) Calcium Level 9.1 mg/dl (8.5-10.1) Magnesium Level 2.4 mg/dl (1.8-2.4) Total Bilirubin 0.8 mg/dl (0.2-1) Direct Bilirubin 0.2 mg/dl (0-0.2) Aspartate Amino Transf (AST/SGOT) 13 U/L (15-37) Alanine Aminotransferase (ALT/SGPT) 31 U/L (12-78) Alkaline Phosphatase 113 U/L (45-117) Total Creatine Kinase 66 U/L (26-192) Creatine Kinase MB < 0.5 ng/ml (0.5-3.6) Creatine Kinase MB Ratio (0-3.0) Troponin I < 0.015 ng/ml (0-0.045) Total Protein 7.3 gm/dl (6.4-8.2) Albumin 2.6 gm/dl (3.4-5.0) Lipase 205 U/L (73-393) Thyroid Stimulating Hormone (TSH) 1.460 uIu/ml (0.300-4.500) Bedside Lactic Acid Venous 0.72 mmol/L (0.90-1.70) Urine Color YELLOW Urine Appearance CLEAR (CLEAR) Urine pH 7.0 (4.5-7.5) Urine Specific [place] 1.015 (1.000-1.030) Urine Protein 3+ (NEG) Urine Glucose (UA) NEG (NEG) Urine Ketones NEG (NEG) Urine Occult Blood TRACE (NEG) Urine Nitrite NEG (NEG) Urine Bilirubin NEG (NEG) Urine Urobilinogen NEG (NEG) Urine Leukocyte Esterase TRACE (NEG) Urine WBC (Auto) 5-10 /hpf (0-5) Urine RBC (Auto) 5-10 /hpf (0-4) Urine Hyaline Casts (Auto) 1-5 /lpf (0-5) Urine Epithelial Cells (Auto) >30 /lpf (0-5) Urine Bacteria (Auto) NEG (NEG) Urine Renal Epithelial Cells /lpf (0-5) Date/Time Source Procedure Growth Status 01/31/17 21:50 Stool C.difficile Toxin B Gene (PCR) - Final Positive for C. difficile toxin B gene Complete Laboratory results reviewed by me Medications Administered Medications (Trade) Dose Ordered Sig/Neyda Route Start Time Stop Time Status Last Admin Dose Admin Sodium Chloride 1,000 ml @ 999 mls/hr Q1H1M STAT IV 01/31/17 22:08 01/31/17 23:08 DC 01/31/17 23:02 999 MLS/HR Sodium Chloride 1,000 ml @ 125 mls/hr Q8H STAT IV 01/31/17 22:08 02/01/17 06:07 01/31/17 23:46 125 MLS/HR Piperacillin Sod/ Tazobactam Sod (Zosyn Iv) 4.5 gm NOW STAT IV 01/31/17 23:24 01/31/17 23:27 DC 01/31/17 23:46 4.5 GM Daptomycin 500 mg/ Sodium Chloride 60 ml @ 100 mls/hr NOW STAT IV 01/31/17 23:24 01/31/17 23:59 DC 02/01/17 00:08 100 MLS/HR Metronidazole (Flagyl / Nss) 500 mg NOW STAT IV 01/31/17 23:24 01/31/17 23:27 DC 02/01/17 00:25 500 MG Acetaminophen 100 ml @ 400 mls/hr NOW STAT IV 01/31/17 23:24 01/31/17 23:38 DC 01/31/17 23:42 400 MLS/HR ECG Indication: altered mental status Rate (beats per minute): 93 Rhythm: sinus rhythm Findings: no acute ischemic change, no ectopy ED Course 2208: Ordered NSS 1000 ml @ 125 mls/hr IV, NSS 1000 ml @ 999 mls/hr IV. 2232: The patient was evaluated in room B3B. A complete history and physical exam was performed. 2249: Ordered Tylenol Tab 1000 mg PO. 2324: Ordered Acetaminophen 100 ml @ 400 mls/hr Protocol IV, Metronidazole 500 mg IV, Daptomycin 500 mg/ NSS 60 ml @ 100 mls/hr IV, Zosyn Iv 4.5 gm IV, NSS 1000 ml @ 999 mls/hr IV. 2334: I updated the family on the patient's test results and treatment plan. 2358: Discussed the patient's case wit Dr. Nielsen. The patient will be evaluated for further treatment and disposition. 0015: I reevaluated the patient and updated the family. Medical Decision Prior records/ancillary studies reviewed and summarized above. Nursing notes reviewed and agree them. Additional history obtained from family. The patient's history was concerning for altered mental status. Differential diagnosis: Etiologies such as infection, hypoglycemia, electrolyte abnormalities, cardiac sources, intracerebral event, toxicologic, neurologic, as well as others were entertained. Physical examination: As above. ER treatment provided: IV Lock Normal saline hydration IV metronidazole IV Zosyn IV daptomycin On reassessment the patient felt better. Diagnostics interpretation by me: ECG: No ischemia The labs revealed significant leukocytosis of 19,000. Renal insufficiency noted on chemistry panel. Potassium slightly below normal. Stool studies obtained. C. difficile testing revealed acute infection with C. difficile. Imaging studies: CT scans and x-ray as above. The patient has a colitis. She also has a distended gallbladder. Daughter notes that she is not a surgical candidate. The patient was covered with antibiotics. She was hydrated but not overly so. Her lactate is normal. Consultation: A consultation was placed with the [facility] hospitalist. The case was discussed and diagnostics were reviewed. The patient was evaluated in the ER for further treatment. Medication Reconcilliation Current Medication List: was personally reviewed by me Blood Pressure Screening Patient's blood pressure: Low blood pressure Her blood pressure will be further monitored by the hospitalist. Consults Time Called: [id number] Consulting Physician: Dr. Nielsen Returned Call: [phone] Discussed the patient's case wit Dr. Nielsen. The patient will be evaluated for further treatment and disposition. Impression Primary Impression: Sepsis Additional Impressions: C. difficile colitis Fever Scribe Attestation The scribe's documentation has been prepared under my direction and personally reviewed by me in its entirety. I confirm that the note above accurately reflects all work, treatment, procedures, and medical decision making performed by me. Departure Information Dispostion Being Evaluated By Hospitalist Referrals [facility] (PCP) Patient Instructions My [facility] Problem Qualifiers
[2017-02-01] MEDS ORDERED: DEXTROSE 50% 50 ML SYR IV PRN (03:00)
[2017-02-01] MEDS ORDERED: GLUCAGON FOR INJ 1 MG VIAL SQ PRN (03:00)
[2017-02-01] MEDS ORDERED: GLUCOSE 10 TABS/TUBE PO PRN (03:00)
[2017-02-01] MEDS ORDERED: GLUCOSE 40% GEL 15 GM TUBE PO PRN (03:00)
--- NOTE | 2017-02-01 04:08 | HISTORY & PHYSICAL EXAMINATION ---
DATE OF ADMISSION: 02/01/2017 PRIMARY CARE PHYSICIAN: Pricila Camacho MD CHIEF COMPLAINT: Fever with abdominal pain and diarrhea since this morning. HISTORY OF PRESENT COMPLAINT: She is a 77-year-old female with significant past medical history including advanced dementia, diabetes with neuropathy, CKD on dialysis, chronic anemia, hypertension; apparently was discharged from the hospital on 01/23/2017 following an attack of sepsis secondary to E. coli bacteremia due to biliary tract source. She finished antibiotic and since this morning, she has been complaining of pain in the lower abdomen associated with fever and diarrhea. From that point, she was taken to the Emergency Room. There is no history of any shortness of breath, any cough or phlegm. No history of chest pain, palpitation. No increasing weakness or increasing numbness or tingling in the extremities. In the ER, she was noted to have a white count of 19,000, and CAT scan of the abdomen and pelvis did show colonic wall thickening of the distal transverse through sigmoid colon, finding compatible with colitis and she was noted to have CD toxin positive. From that point, she was admitted to medical floor. PAST MEDICAL HISTORY: Significant for type 2 diabetes, diabetic neuropathy, chronic kidney disease on hemodialysis, Lewy body dementia, major depression, chronic anemia, hypertension, history of MRSA, and also history of osteomyelitis. PAST SURGICAL HISTORY: Removal of ovarian cyst, vaginal hysterectomy, surgery on the lower leg tendons. FAMILY HISTORY: Mother had unknown cancer. Father had CAD. SOCIAL HISTORY: She is . She quit smoking 5 years ago. She does not use any alcohol. She has severe dementia and she needs help with activities of daily living. REVIEW OF SYSTEMS: Not obtainable from patient. ALLERGIES: DUST. MEDICATIONS: As an outpatient she has been on Tylenol 650 mg q. 6 hourly p.r.n., [place] 5/325 one tablet b.i.d. p.r.n., cholecalciferol 1000 units daily, topical ketoconazole 2% shampoo as directed, aspirin 81 mg daily, atorvastatin 10 mg daily, B complex 1 capsule daily, calcium acetate 667 two capsules 3 times daily, Enteral nutritional formal as directed, hydralazine 25 mg at 4:00, labetalol 100 mg twice daily, and Seroquel 25 mg tablet 12.5 b.i.d. PHYSICAL EXAMINATION: GENERAL: On examination in the Emergency Room, she was not having any acute distress. VITAL SIGNS: Temperature 36.8, pulse of 70, blood pressure 102/63, saturation 98% on room air. HEENT: Unremarkable. NECK: Supple. No JVD, no bruit. CHEST: Decreased breath sound at bases with some crackles. HEART: S1, S2 regular with 2/6 systolic murmur over precordium and also aortic area. ABDOMEN: Soft, benign, tender in the lower quadrant, mostly on the left side. Bowel sounds present. EXTREMITIES: Negative for any edema. MUSCULOSKELETAL: No acute arthritis. CENTRAL NERVOUS SYSTEM: She was alert, awake, but she is very demented. Generally weak, but no focal neuro deficit. LABORATORY DATA: Noted today white count was 19.31, H&H 10.2/31.8, platelet was 232. Sodium 139, potassium 3.3, chloride 102, carbon dioxide 26, BUN 40, creatinine 5.30, lactic acidosis 0.72. LFTs unremarkable. TSH 1.46, lipase 205. PT/INR unremarkable. Blood gas pH of 7.47, CO2 49, pCO2 34. Random vancomycin 11.2. UA examination unremarkable, hepatitis B surface antigen but surface antibody is positive. CT scan of abdomen and pelvis did show colonic wall thickening, the distal transverse through sigmoid colon with adjacent fat stranding; findings compatible with colitis. Gallbladder was noted to be distended with multiple small stones and hazy pericholecystic fat stranding, although there is also hazy stranding throughout the mesentery, correlate with symptoms of acute cholecystitis. Chest x-ray, no acute infiltration. CT of the head, no acute intracranial findings. EKG was in sinus rhythm, rate of 80 per minute, normal axis and minor nonspecific ST-T wave changes. IMPRESSION AND PLAN: 1. Acute Clostridium difficile colitis. The patient will be admitted to medical floor. She finished a recent course of IV ceftriaxone for Escherichia coli bacteremia. She will be started on the oral vancomycin. 2. No evidence of sepsis at this time. 3. Diabetes type 2 with retinopathy. We will continue with her current medications and put her on sliding scale coverage while in the hospital. 4. Chronic kidney disease stage V, on hemodialysis. Consult nephrology for continued care. 5. Lewy body dementia. She needs help in activities of daily living. [facility] in [facility] [place]. She does not have any problem with swallowing. 6. Hypertension. Continue with her current medications to control blood pressure. 7. Gastrointestinal prophylaxis with Protonix. 8. Deep venous thrombosis prophylaxis with subcutaneous heparin. 9. Code status discussed with the daughter. She will be a do not resuscitate. In my clinical judgment, the beneficiary meets criteria as per CMS for 2 midnight stay in the hospital. MAYITO
[2017-02-01] MEDS ORDERED: HEPARIN SOD 5000 UNIT/0.5 ML CARP SQ SCH (06:00)
--- NOTE | 2017-02-01 06:29 | DIAGNOSTIC IMAGING REPORT ---
CT HEAD WITHOUT CONTRAST (CT) CLINICAL HISTORY: No onset weakness COMPARISON STUDY: 01/15/2017 TECHNIQUE: Axial CT of the brain is performed from the vertex to the skull base. IV contrast was not administered for this examination. A dose lowering technique was utilized adhering to the principles of ALARA. CT DOSE: 907.46 mGy.cm FINDINGS: No intra or extra-axial mass lesions are visualized. There is no CT evidence of acute cortical infarction. There is no evidence of midline shift. There is no acute hemorrhage. No calvarial fractures are visualized. There are minor white matter hypodensities likely on a small vessel basis. There is no evidence of pathologic ventricular dilatation. There is polypoid mucosal thickening within the right maxillary sinus. IMPRESSION: No acute intracranial findings Electronically signed by: Adan Han M.D. 02/01/2017 6:27 AM Dictated Date/Time: 02/01/2017 6:26 AM
--- NOTE | 2017-02-01 06:52 | DIAGNOSTIC IMAGING REPORT ---
ABD/PELVIS NO IV OR ORAL CONT CT DOSE: HISTORY: Pain sepsis, abd pain TECHNIQUE: Multiaxial CT images of the abdomen and pelvis were performed without contrast. A dose lowering technique was utilized adhering to the principles of ALARA. COMPARISON STUDY: 01/15/2017 FINDINGS: Mild bibasilar interstitial change. Gallstones within the gallbladder lumen. Gallbladder lumen is somewhat distended. Liver spleen and pancreas are unremarkable. Kidneys negative for hydronephrosis. 4 mm calcification posterior to the gallbladder lumen transaxial image 32. This appears to be adjacent to the right ureter although was not identified on the prior study. Mild colonic wall thickening consistent with a mild nonspecific colitis. Mild rectal distention. No evidence for abscess collection or obstructive change. Trace free fluid within the paracolic gutter regions. IMPRESSION: 1. Mild nonspecific colitis. 2. Mild nonspecific rectal distention. 3. Gallstones within the gallbladder lumen. Small calcification medially posterior to the gallbladder of uncertain etiology although it is adjacent to the proximal right ureter. 4. Interstitial change at both lung bases. 5. Compression deformity L1 and L3 unchanged from the prior study. The above report was generated using voice recognition software. It may contain grammatical, syntax or spelling errors. Electronically signed by: Alex Mooney M.D. 02/01/2017 6:51 AM Dictated Date/Time: 02/01/2017 6:45 AM
--- NOTE | 2017-02-01 06:53 | DIAGNOSTIC IMAGING REPORT ---
CHEST ONE VIEW PORTABLE CLINICAL HISTORY: Weakness COMPARISON STUDY: 01/15/2017 FINDINGS: The heart is at the upper limits of normal in size. There is subtle interstitial thickening within the periphery of both upper lung zones. This finding is likely chronic. There is no lobar consolidation. There are no pleural effusions. There is an old proximal right humeral deformity.[ IMPRESSION: Mild upper lung zone interstitial thickening with a peripheral distribution. No evidence of acute lobar consolidation. Electronically signed by: Adan Han M.D. 02/01/2017 6:52 AM Dictated Date/Time: 02/01/2017 6:50 AM
--- NOTE | 2017-02-01 07:54 | NEPHROLOGY CONSULTATION ---
DATE OF CONSULTATION: 02/01/2017 DATE OF CONSULTATION: 02/01/2017 ATTENDING OF RECORD: Dr. Nielsen. REASON FOR CONSULTATION: End-stage renal disease. HISTORY OF PRESENT ILLNESS: This is a 77-year-old female with underlying Lewy body dementia, so difficult to obtain a history from her. The patient resting comfortably in bed. The patient was recently in the hospital and discharged 01/23/2017 with E. coli bacteremia secondary to biliary tract source. The patient finished up her antibiotics; however, was complaining of pain in the lower abdomen with fever and diarrhea. The patient had an elevated white count. CT scan showed colonic wall thickening suggestive of colitis. The patient was noted to be C. diff toxin positive. The patient currently being treated for acute C. diff colitis and is on oral vancomycin at this time. REVIEW OF SYSTEMS: Difficult to obtain from the patient secondary to the Lewy body dementia. Unreliable at this time. PAST MEDICAL HISTORY: Type 2 diabetes, end-stage renal disease, Lewy body dementia, major depression, anemia of chronic kidney disease, hypertension. PAST SURGICAL HISTORY: Dialysis access, hysterectomy, removal of ovarian cyst. FAMILY HISTORY: Heart disease. SOCIAL HISTORY: Quit smoking over 5 years ago. No alcohol, no drugs. Significant Lewy body dementia. CURRENT MEDICATIONS: Lipitor 10 mg at night, Nephrocaps daily, aspirin 81 mg daily, hydralazine 25 mg daily, labetalol 100 mg p.o. b.i.d., Seroquel 12.5 mg p.o. b.i.d., vitamin D 1000 units daily, oral vancomycin 125 p.o. q.i.d., raspberry 5 mL p.o. q.i.d., PhosLo 1334 p.o. t.i.d., heparin 5000 units subQ q. 8. PHYSICAL EXAMINATION: VITAL SIGNS: Temperature 37.1, pulse 70, respiratory rate 16, blood pressure 114/48, satting 95% on room air. GENERAL: Awake, alert, oriented x1. EYES: No scleral icterus. EARS, NOSE, THROAT: Moist mucous membranes. NECK: Supple. PULMONARY: Clear to auscultation. CARDIAC: Regular rate and rhythm. ABDOMEN: Bowel sounds positive, soft. Mild tenderness in the lower quadrants. EXTREMITIES: No clubbing, cyanosis or edema. NEUROLOGICAL: At baseline neurologic status with underlying significant dementia. LABORATORIES: Sodium was 139, potassium 3.3, chloride is 102, bicarb is 26, BUN is 40, creatinine is 5.3, lactic acid was 0.72, calcium is 9.1, mag is 2.4. TSH 1.4, albumin is 2.6. White count 19, H&H 10 and 31, platelet count is 232. INR is 1.1. UA is showing a pH of 7, 3+ protein, trace blood, trace leukocyte esterase, 5-10 WBCs. Blood cultures, urine cultures pending. C. diff toxin was positive. IMPRESSION AND PLAN: End-stage renal disease. The patient normally dialyzes Mondays, Wednesdays, Fridays. Today is her regular scheduled dialysis treatment; however, the patient's blood pressures are good . Volume status appears appropriate. Given the diarrhea and the fever with the low potassium of 3.3 and feel more judicious to wait until tomorrow for dialysis. Will follow the labs and electrolytes while she is here. Agree with the current treatment for her C. diff colitis. Appreciate consultation. MAYITO
[2017-02-01] MEDS: CALCIUM ACETATE 667MG GELCAP PO SCH ×3 (08:00→20:36)
[2017-02-01] MEDS: INSULIN ASPART 100 UNITS/ML 3 ML PEN SC SCH ×4 (08:27→20:19)
[2017-02-01] MEDS: RASPBERRY SYRUP 5 ML UDP PO SCH ×4 (08:54→20:19)
[2017-02-01] MEDS: ASPIRIN 81 MG ECTAB PO SCH (08:54)
[2017-02-01] MEDS: LABETALOL HCL 100 MG TAB PO SCH ×2 (08:54→20:26)
[2017-02-01] MEDS: VANCOMYCIN HCL 125 MG/2.5ML SOLN PO SCH ×4 (08:54→20:27)
[2017-02-01] MEDS: CHOLECALCIFEROL 1000 INTER.UNIT TAB PO SCH (08:55)
[2017-02-01] MEDS: QUETIAPINE FUMARATE 25 MG TAB PO SCH ×2 (08:55→20:19)
--- NOTE | 2017-02-01 09:11 | Progress Note ---
Medicine Progress Note Date & Time of Visit: Feb 01, 2017 at 09:04. Subjective patient seen resting in bed, drowsy not able to answer questions i have taken care of her last week and daughter confirmed that patient can be this way in the morning not in distress per RN, still having loose BMs no other symptoms Objective Last 8 Hrs Date Time Temp Pulse Resp B/P (MAP) Pulse Ox O2 Delivery O2 Flow Rate FiO2 02/01/17 07:23 37.7 76 18 123/56 (78) 97 Room Air 02/01/17 02:44 37.1 70 16 114/48 95 Room Air 112/54 109/55 02/01/17 01:36 37.6 69 17 119/49 95 Room Air Physical Exam: General- drowsy, not in distress Head- atraumatic Eyes- anicteric Neck- supple, no JVD Lungs- clear breath sounds bilaterally Heart- regular rhythm; no murmur, normal rate Abdomen- normal bowel sounds, soft, nontender, non distended Extremities- no pretibial edema, no calf tenderness; peripheral pulses intact Neuro- alert, oriented x 3; no gross focal deficits Skin- warm & dry Laboratory Results: Last 24 Hours Test 01/31/17 22:27 01/31/17 22:30 01/31/17 22:45 02/01/17 07:18 White Blood Count 19.31 K/uL Red Blood Count 3.20 M/uL Hemoglobin 10.2 g/dL Hematocrit 31.8 % Mean Corpuscular Volume 99.4 fL Mean Corpuscular Hemoglobin 31.9 pg Mean Corpuscular Hemoglobin Concent 32.1 g/dl Platelet Count 232 K/uL Mean Platelet Volume 9.0 fL Neutrophils (%) (Auto) 83.1 % Lymphocytes (%) (Auto) 10.4 % Monocytes (%) (Auto) 5.3 % Eosinophils (%) (Auto) 0.4 % Basophils (%) (Auto) 0.4 % Neutrophils # (Auto) 16.07 K/uL Lymphocytes # (Auto) 2.00 K/uL Monocytes # (Auto) 1.03 K/uL Eosinophils # (Auto) 0.07 K/uL Basophils # (Auto) 0.07 K/uL RDW Standard Deviation 49.3 fL RDW Coefficient of Variation 13.9 % Immature Granulocyte % (Auto) 0.4 % Immature Granulocyte # (Auto) 0.07 K/uL Prothrombin Time 11.4 SECONDS Prothromb Time International Ratio 1.1 Activated Partial Thromboplast Time 29.5 SECONDS Partial Thromboplastin Ratio 1.1 Sodium Level 139 mmol/L Potassium Level 3.3 mmol/L Chloride Level 102 mmol/L Carbon Dioxide Level 26 mmol/L Anion Gap 11.0 mmol/L Blood Urea Nitrogen 40 mg/dl Creatinine 5.30 mg/dl Est Creatinine Clear Calc Drug Dose 7.7 ml/min Estimated GFR () 8.3 Estimated GFR (Non- 7.1 BUN/Creatinine Ratio 7.6 Random Glucose 86 mg/dl Calcium Level 9.1 mg/dl Magnesium Level 2.4 mg/dl Total Bilirubin 0.8 mg/dl Direct Bilirubin 0.2 mg/dl Aspartate Amino Transf (AST/SGOT) 13 U/L Alanine Aminotransferase (ALT/SGPT) 31 U/L Alkaline Phosphatase 113 U/L Total Creatine Kinase 66 U/L Creatine Kinase MB < 0.5 ng/ml Creatine Kinase MB Ratio Troponin I < 0.015 ng/ml Total Protein 7.3 gm/dl Albumin 2.6 gm/dl Lipase 205 U/L Thyroid Stimulating Hormone (TSH) 1.460 uIu/ml Bedside Lactic Acid Venous 0.72 mmol/L Urine Color YELLOW Urine Appearance CLEAR Urine pH 7.0 Urine Specific [place] 1.015 Urine Protein 3+ Urine Glucose (UA) NEG Urine Ketones NEG Urine Occult Blood TRACE Urine Nitrite NEG Urine Bilirubin NEG Urine Urobilinogen NEG Urine Leukocyte Esterase TRACE Urine WBC (Auto) 5-10 /hpf Urine RBC (Auto) 5-10 /hpf Urine Hyaline Casts (Auto) 1-5 /lpf Urine Epithelial Cells (Auto) >30 /lpf Urine Bacteria (Auto) NEG Urine Renal Epithelial Cells /lpf Test 02/01/17 07:34 Bedside Glucose 94 mg/dl Date/Time Source Procedure Growth Status 01/31/17 22:19 Blood Blood Culture Pending Received 01/31/17 21:55 Blood Blood Culture Pending Received 01/31/17 21:50 Stool C.difficile Toxin B Gene (PCR) - Final Positive for C. difficile toxin B gene Complete 01/31/17 21:50 Stool Shiga Toxin Test Pending Received 01/31/17 21:50 Stool Stool Culture Pending Received 01/31/17 22:55 Urine,Catheterized Urine Culture Pending Received Assessment & Plan 77 /F with history of Lewybody Dementia, ESRD on HD, DM, HTN presenting with abdominal pain and diarrhea. 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 - Insulin Sliding Scale ordered CKD V - Nephrology consulted LEWY BODY DEMENTIA -- continue Quetiapine COMPRESSION FRACTURE L1 -- Severe compression fracture at L1 of uncertain chronicity noted on CT of abdomen and pelvis. CHRONIC PAIN Patient takes hydrocodone for chronic pain, apparently primarily due to right shoulder pain. -- PO analgesics PRN HISTORY MRSA Contact precautions ordered VTE PROPHYLAXIS Moderately high risk for VTE. SQ heparin given RESUSCITATION STATUS "Level 5" (DNR). DISPOSITION d/c to [facility] when medically stable ff up with PCP at the [facility] within 1 week HD per nephrology Current Inpatient Medications: Current Inpatient Medications Medications (Trade) Dose Ordered Sig/Neyda Route Start Time Stop Time Status Last Admin Dose Admin Acetaminophen (Tylenol Tab) 650 mg Q4H PRN PO 02/01/17 01:15 03/03/17 01:14 Ondansetron HCl (Zofran Inj) 4 mg Q6H PRN IV 02/01/17 01:15 03/03/17 01:14 Aspirin (Ecotrin Tab) 81 mg QAM PO 02/01/17 09:00 03/03/17 08:59 Atorvastatin Calcium (Lipitor Tab) 10 mg HS PO 02/01/17 21:00 03/03/17 20:59 Vitamin B Complex/ Vit C/Folic Acid (Nephrocaps) 1 cap QPM PO 02/01/17 21:00 03/03/17 20:59 Calcium Acetate (Phoslo Cap) 1,334 mg TIDM PO 02/01/17 08:00 03/03/17 07:59 Miscellaneous Information (Order Awaiting Action) 1 ea QS N/A 02/01/17 08:00 03/03/17 07:59 Hydralazine HCl (Apresoline Tab) 25 mg DAILY PO 02/01/17 09:00 03/03/17 08:59 Acetaminophen/ Hydrocodone Bitart ([place] 5/325 Tab) 1 tab BID PRN PO 02/01/17 01:15 02/15/17 01:14 Labetalol HCl (Normodyne Tab) 100 mg BID PO 02/01/17 09:00 03/03/17 08:59 Quetiapine Fumarate (seroQUEL TAB) 12.5 mg BID PO 02/01/17 09:00 03/03/17 08:59 Cholecalciferol (Vitamin D Tab) 1,000 inter.unit QAM PO 02/01/17 09:00 03/03/17 08:59 Miscellaneous Information (Order Awaiting Action) 1 ea QS N/A 02/01/17 08:00 03/03/17 07:59 Insulin Aspart (novoLOG ASPART) SLIDING SCALE G... ACHS SC 02/01/17 06:30 03/03/17 06:29 Vancomycin HCl (Vancomycin Oral Soln) 125 mg QID PO 02/01/17 09:00 02/11/17 08:59 Glucose (Glucose 40% Gel) 15-30 GRAMS 15 GRAMS... UD PRN PO 02/01/17 03:00 03/03/17 02:59 Glucose (Glucose Chew Tab) 4-8 Tablets 4 Tabl... UD PRN PO 02/01/17 03:00 03/03/17 02:59 Dextrose (Dextrose 50% 50ML Syringe) 25-50ML OF 50% DW IV FOR... UD PRN IV 02/01/17 03:00 03/03/17 02:59 Glucagon (Glucagon Inj) 1 mg UD PRN SQ 02/01/17 03:00 03/03/17 02:59 Raspberry (Raspberry Syrup 5ml Cup) 5 ml QID PO 02/01/17 09:00 02/15/17 08:59 Heparin Sodium (Porcine) (Heparin Sq 5000 Unit/0.5ml) 5,000 unit Q12H SQ 02/01/17 18:00 03/03/17 05:59 UNV
[2017-02-01 10:00] LABS: HEMATOCRIT 29.6 % (37-47); MEAN CORPUSCULAR HEMOGLOBIN 31.8 pg (25-34); MEAN CORPUSCULAR HGB CONC 32.4 g/dl (32-36); MEAN PLATELET VOLUME 8.7 fL (7.4-10.4); PLATELET COUNT 197 K/uL (130-400); RED BLOOD COUNT 3.02 M/uL (4.2-5.4); WHITE BLOOD COUNT 18.06 K/uL (4.8-10.8)
[2017-02-01 10:27] LABS: BASO % 0.2 %; BASO ABS # 0.04 K/uL (0-0.2); COMPLETE YES; EOS % 0.5 %; IG% 0.3 %; LYMPH % 5.9 %; LYMPH ABS # 1.07 K/uL (1.2-3.4); MONO % 6.3 %; NEUT % 86.8 %
[2017-02-01 11:13] LABS: BUN/CREATININE RATIO 7.4 (10-20); CALCIUM 8.5 mg/dl (8.5-10.1); POTASSIUM 3.3 mmol/L (3.5-5.1)
[2017-02-01] MEDS: BOOST GLUCOSE CONTROL PO SCH ×2 (12:40→20:25)
[2017-02-01] MEDS ORDERED: EPOETIN ALFA 10,000 UNITS/ML VIAL IV. ONE (14:45)
[2017-02-01] MEDS ORDERED: EPOETIN ALFA INJ 6,000 UNITS in SYRINGE 0 ML IV. SCH (15:00)
[2017-02-01] MEDS ORDERED: POTASSIUM CHLORIDE PWD 20 MEQ PACK PO ONE (17:45)
[2017-02-01] MEDS: ACETAMINOPHEN 325 MG TAB PO PRN (18:21)
[2017-02-01] MEDS: HEPARIN SOD 5000 UNIT/0.5 ML CARP SQ SCH (20:28)
[2017-02-01] MEDS: NEPHROCAPS PO SCH (20:37)
[2017-02-01] MEDS ORDERED: ATORVASTATIN 10 MG TAB PO SCH (21:00)
[2017-02-02] VITALS: O2SAT 99
[2017-02-02 00:08] VITALS: BP 111/65; PULSE 86; TEMP 38; O2SAT 95
[2017-02-02] MEDS: HEPARIN SOD 5000 UNIT/0.5 ML CARP SQ SCH ×2 (06:15→17:44)
[2017-02-02 07:44] LABS: HEMATOCRIT 29.8 % (37-47); MEAN CELL VOLUME 98.7 fL (80-100); MEAN CORPUSCULAR HEMOGLOBIN 30.8 pg (25-34); MEAN CORPUSCULAR HGB CONC 31.2 g/dl (32-36); MEAN PLATELET VOLUME 9.1 fL (7.4-10.4); PLATELET COUNT 202 K/uL (130-400); RED BLOOD COUNT 3.02 M/uL (4.2-5.4); WHITE BLOOD COUNT 15.02 K/uL (4.8-10.8)
[2017-02-02 08:10] VITALS: BP 114/57; PULSE 79; TEMP 37.3; O2SAT 98
[2017-02-02 08:11] LABS: BASO % 0.3 %; BASO ABS # 0.05 K/uL (0-0.2); COMPLETE YES; EOS % 1.6 %; IG% 0.2 %; LYMPH % 8.9 %; LYMPH ABS # 1.34 K/uL (1.2-3.4); MONO % 7.6 %; NEUT % 81.4 %
[2017-02-02] MEDS: CHOLECALCIFEROL 1000 INTER.UNIT TAB PO SCH (08:22)
[2017-02-02] MEDS: RASPBERRY SYRUP 5 ML UDP PO SCH ×4 (08:22→20:39)
[2017-02-02] MEDS: LABETALOL HCL 100 MG TAB PO SCH ×2 (08:22→20:41)
[2017-02-02] MEDS: ASPIRIN 81 MG ECTAB PO SCH (08:22)
[2017-02-02] MEDS: CALCIUM ACETATE 667MG GELCAP PO SCH ×3 (08:22→17:30)
[2017-02-02] MEDS: BOOST GLUCOSE CONTROL PO SCH ×3 (08:22→17:38)
[2017-02-02] MEDS: VANCOMYCIN HCL 125 MG/2.5ML SOLN PO SCH ×4 (08:23→20:39)
[2017-02-02] MEDS: INSULIN ASPART 100 UNITS/ML 3 ML PEN SC SCH ×4 (08:23→20:43)
[2017-02-02 08:24] LABS: BUN/CREATININE RATIO 6.2 (10-20); CALCIUM 8.5 mg/dl (8.5-10.1); CREATININE 3.7 mg/dl (0.60-1.20); POTASSIUM 3.2 mmol/L (3.5-5.1)
[2017-02-02] MEDS: QUETIAPINE FUMARATE 25 MG TAB PO SCH ×2 (08:34→20:41)
[2017-02-02] MEDS: ACETAMINOPHEN 325 MG TAB PO PRN (15:17)
[2017-02-02 15:57] VITALS: BP 167/69; PULSE 79; TEMP 36.9; O2SAT 98
[2017-02-02 16:00] VITALS: O2SAT 98
[2017-02-02] MEDS ORDERED: POTASSIUM CHLORIDE 10 MEQ TABCR PO ONE (17:30)
--- NOTE | 2017-02-02 17:30 | Progress Note ---
Medicine Progress Note Date & Time of Visit: Feb 02, 2017 at 17:27. Subjective patient seen sitting up in bed, alert pleasantly confused when asked if her stomach hurts, she said everything hurts does not answer simple questions appropriately no signs of pain though still has yellow loose stools Objective Last 8 Hrs Date Time Temp Pulse Resp B/P (MAP) Pulse Ox O2 Delivery O2 Flow Rate FiO2 02/02/17 15:57 36.9 79 16 167/69 (101) 98 Room Air Physical Exam: General- alert, not in distress, speaks in sentences Head- atraumatic Eyes- anicteric Neck- no JVD Lungs- clear breath sounds bilaterally, no rales/wheezes Heart- regular rhythm; no murmur, normal rate Abdomen- hyperactive bowel sounds, soft, nontender, non distended Extremities- no pretibial edema, no calf tenderness; peripheral pulses intact Neuro- alert, oriented x 3; no gross focal deficits Skin- warm & dry Laboratory Results: Last 24 Hours Test 02/01/17 20:03 02/02/17 07:16 02/02/17 07:29 02/02/17 11:37 Bedside Glucose 85 mg/dl 92 mg/dl 135 mg/dl White Blood Count 15.02 K/uL Red Blood Count 3.02 M/uL Hemoglobin 9.3 g/dL Hematocrit 29.8 % Mean Corpuscular Volume 98.7 fL Mean Corpuscular Hemoglobin 30.8 pg Mean Corpuscular Hemoglobin Concent 31.2 g/dl Platelet Count 202 K/uL Mean Platelet Volume 9.1 fL Neutrophils (%) (Auto) 81.4 % Lymphocytes (%) (Auto) 8.9 % Monocytes (%) (Auto) 7.6 % Eosinophils (%) (Auto) 1.6 % Basophils (%) (Auto) 0.3 % Neutrophils # (Auto) 12.22 K/uL Lymphocytes # (Auto) 1.34 K/uL Monocytes # (Auto) 1.14 K/uL Eosinophils # (Auto) 0.24 K/uL Basophils # (Auto) 0.05 K/uL RDW Standard Deviation 48.7 fL RDW Coefficient of Variation 13.9 % Immature Granulocyte % (Auto) 0.2 % Immature Granulocyte # (Auto) 0.03 K/uL Sodium Level 139 mmol/L Potassium Level 3.2 mmol/L Chloride Level 104 mmol/L Carbon Dioxide Level 28 mmol/L Anion Gap 7.0 mmol/L Blood Urea Nitrogen 23 mg/dl Creatinine 3.70 mg/dl Est Creatinine Clear Calc Drug Dose 9.3 ml/min Estimated GFR () 12.8 Estimated GFR (Non- 11.0 BUN/Creatinine Ratio 6.2 Random Glucose 86 mg/dl Calcium Level 8.5 mg/dl Test 02/02/17 16:27 Bedside Glucose 147 mg/dl Assessment & Plan 77 /F with history of Lewybody Dementia, ESRD on HD, DM, HTN presenting with abdominal pain and diarrhea. 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 - Insulin Sliding Scale ordered CKD V - Nephrology consulted LEWY BODY DEMENTIA -- continue Quetiapine COMPRESSION FRACTURE L1 -- Severe compression fracture at L1 of uncertain chronicity noted on CT of abdomen and pelvis. CHRONIC PAIN Patient takes hydrocodone for chronic pain, apparently primarily due to right shoulder pain. -- PO analgesics PRN HISTORY MRSA Contact precautions ordered VTE PROPHYLAXIS Moderately high risk for VTE. SQ heparin given RESUSCITATION STATUS "Level 5" (DNR). DISPOSITION d/c to [facility] when medically stable ff up with PCP at the [facility] within 1 week HD per nephrology Current Inpatient Medications: Current Inpatient Medications Medications (Trade) Dose Ordered Sig/Neyda Route Start Time Stop Time Status Last Admin Dose Admin Acetaminophen (Tylenol Tab) 650 mg Q4H PRN PO 02/01/17 01:15 03/03/17 01:14 02/02/17 15:17 650 MG Ondansetron HCl (Zofran Inj) 4 mg Q6H PRN IV 02/01/17 01:15 03/03/17 01:14 Aspirin (Ecotrin Tab) 81 mg QAM PO 02/01/17 09:00 03/03/17 08:59 02/02/17 08:22 81 MG Vitamin B Complex/ Vit C/Folic Acid (Nephrocaps) 1 cap QPM PO 02/01/17 21:00 03/03/17 20:59 Calcium Acetate (Phoslo Cap) 1,334 mg TIDM PO 02/01/17 08:00 03/03/17 07:59 02/02/17 13:08 1,334 MG Miscellaneous Information (Order Awaiting Action) 1 ea QS N/A 02/01/17 08:00 03/03/17 07:59 Hydralazine HCl (Apresoline Tab) 25 mg DAILY PO 02/01/17 09:00 03/03/17 08:59 02/02/17 08:22 25 MG Acetaminophen/ Hydrocodone Bitart ([place] 5/325 Tab) 1 tab BID PRN PO 02/01/17 01:15 02/15/17 01:14 Labetalol HCl (Normodyne Tab) 100 mg BID PO 02/01/17 09:00 03/03/17 08:59 02/02/17 08:22 100 MG Quetiapine Fumarate (seroQUEL TAB) 12.5 mg BID PO 02/01/17 09:00 03/03/17 08:59 02/02/17 08:34 12.5 MG Cholecalciferol (Vitamin D Tab) 1,000 inter.unit QAM PO 02/01/17 09:00 03/03/17 08:59 02/02/17 08:22 1,000 INTER.UNIT Miscellaneous Information (Order Awaiting Action) 1 ea QS N/A 02/01/17 08:00 03/03/17 07:59 Insulin Aspart (novoLOG ASPART) SLIDING SCALE G... ACHS SC 02/01/17 06:30 03/03/17 06:29 Vancomycin HCl (Vancomycin Oral Soln) 125 mg QID PO 02/01/17 09:00 02/11/17 08:59 02/02/17 12:33 125 MG Glucose (Glucose 40% Gel) 15-30 GRAMS 15 GRAMS... UD PRN PO 02/01/17 03:00 03/03/17 02:59 Glucose (Glucose Chew Tab) 4-8 Tablets 4 Tabl... UD PRN PO 02/01/17 03:00 03/03/17 02:59 Dextrose (Dextrose 50% 50ML Syringe) 25-50ML OF 50% DW IV FOR... UD PRN IV 02/01/17 03:00 03/03/17 02:59 Glucagon (Glucagon Inj) 1 mg UD PRN SQ 02/01/17 03:00 03/03/17 02:59 Raspberry (Raspberry Syrup 5ml Cup) 5 ml QID PO 02/01/17 09:00 02/15/17 08:59 02/02/17 12:33 5 ML Heparin Sodium (Porcine) (Heparin Sq 5000 Unit/0.5ml) 5,000 unit Q12H SQ 02/01/17 18:00 03/03/17 05:59 02/02/17 06:15 5,000 UNIT Enteral Nutritional Formula (Boost Glucose Control) 1 can TIDM PO 02/01/17 12:00 03/03/17 11:59 02/02/17 12:31 1 CAN Potassium Chloride (Klor-Con M10) 40 meq 1730 ONCE PO 02/02/17 17:30 02/02/17 17:31
[2017-02-02] MEDS ORDERED: SODIUM CHLORIDE 0.9% 500ML 500 ML IV SCH (18:00)
[2017-02-02] MEDS: NEPHROCAPS PO SCH (20:41)
[2017-02-02 23:58] VITALS: BP 151/68; PULSE 86; TEMP 38; O2SAT 97
[2017-02-03] MEDS: ACETAMINOPHEN 325 MG TAB PO PRN (00:35)
[2017-02-03 02:00] VITALS: TEMP 37.6
[2017-02-03] MEDS: HEPARIN SOD 5000 UNIT/0.5 ML CARP SQ SCH ×2 (05:39→17:24)
[2017-02-03 07:16] LABS: BASO % 0.5 %; BASO ABS # 0.06 K/uL (0-0.2); EOS % 4.5 %; HEMATOCRIT 28.5 % (37-47); IG% 0.4 %; LYMPH % 15.8 %; LYMPH ABS # 1.97 K/uL (1.2-3.4); MEAN CELL VOLUME 100.4 fL (80-100); MEAN CORPUSCULAR HEMOGLOBIN 31.3 pg (25-34); MEAN CORPUSCULAR HGB CONC 31.2 g/dl (32-36); MEAN PLATELET VOLUME 9.3 fL (7.4-10.4); MONO % 8.1 %; NEUT % 70.7 %; PLATELET COUNT 206 K/uL (130-400); RED BLOOD COUNT 2.84 M/uL (4.2-5.4); WHITE BLOOD COUNT 12.46 K/uL (4.8-10.8)
[2017-02-03 07:48] VITALS: BP 134/65; PULSE 70; TEMP 36.6; O2SAT 98
[2017-02-03 07:59] LABS: BUN/CREATININE RATIO 6.2 (10-20); CALCIUM 8.5 mg/dl (8.5-10.1); COMPLETE YES; CREATININE 5.2 mg/dl (0.60-1.20); POTASSIUM 3.8 mmol/L (3.5-5.1)
[2017-02-03] MEDS: INSULIN ASPART 100 UNITS/ML 3 ML PEN SC SCH ×4 (08:27→20:21)
[2017-02-03] MEDS: CHOLECALCIFEROL 1000 INTER.UNIT TAB PO SCH (08:30)
[2017-02-03] MEDS: CALCIUM ACETATE 667MG GELCAP PO SCH ×3 (08:30→17:15)
[2017-02-03] MEDS: LABETALOL HCL 100 MG TAB PO SCH ×2 (08:30→20:30)
[2017-02-03] MEDS: BOOST GLUCOSE CONTROL PO SCH ×3 (08:30→17:15)
[2017-02-03] MEDS: RASPBERRY SYRUP 5 ML UDP PO SCH ×4 (08:30→20:29)
[2017-02-03] MEDS: ASPIRIN 81 MG ECTAB PO SCH (08:30)
[2017-02-03] MEDS: QUETIAPINE FUMARATE 25 MG TAB PO SCH ×2 (08:30→20:32)
[2017-02-03] MEDS: VANCOMYCIN HCL 125 MG/2.5ML SOLN PO SCH ×4 (08:31→20:29)
[2017-02-03 15:01] VITALS: BP 98/55; PULSE 68; TEMP 36.6; O2SAT 94
[2017-02-03 15:37] VITALS: BP 142/66; PULSE 66; O2SAT 97
[2017-02-03 16:00] VITALS: O2SAT 97
--- NOTE | 2017-02-03 18:44 | Progress Note ---
Medicine Progress Note Date & Time of Visit: Feb 03, 2017 at 18:41. Subjective seen resting in bed, comfortable pleasantly confused denies pain less diarrhea per staffing program manager stools noted to be more formed no other signs/symptoms Objective Last 8 Hrs Date Time Temp Pulse Resp B/P (MAP) Pulse Ox O2 Delivery O2 Flow Rate FiO2 02/03/17 16:00 97 Room Air 02/03/17 15:37 66 142/66 (91) 97 Room Air 02/03/17 15:01 36.6 68 16 98/55 (69) 94 Room Air Physical Exam: General- alert, not in distress, speaks in sentences Eyes- anicteric Neck- no JVD Lungs- clear BS BL Heart- regular rhythm; no murmur, normal rate Abdomen- normoactive bowel sounds, soft, nontender, non distended Extremities- no pretibial edema, no calf tenderness; peripheral pulses intact Neuro- alert, oriented x 3; no gross focal deficits Skin- warm & dry Laboratory Results: Last 24 Hours Test 02/02/17 19:56 02/03/17 07:00 02/03/17 07:16 02/03/17 11:39 Bedside Glucose 157 mg/dl 102 mg/dl 112 mg/dl White Blood Count 12.46 K/uL Red Blood Count 2.84 M/uL Hemoglobin 8.9 g/dL Hematocrit 28.5 % Mean Corpuscular Volume 100.4 fL Mean Corpuscular Hemoglobin 31.3 pg Mean Corpuscular Hemoglobin Concent 31.2 g/dl Platelet Count 206 K/uL Mean Platelet Volume 9.3 fL Neutrophils (%) (Auto) 70.7 % Lymphocytes (%) (Auto) 15.8 % Monocytes (%) (Auto) 8.1 % Eosinophils (%) (Auto) 4.5 % Basophils (%) (Auto) 0.5 % Neutrophils # (Auto) 8.81 K/uL Lymphocytes # (Auto) 1.97 K/uL Monocytes # (Auto) 1.01 K/uL Eosinophils # (Auto) 0.56 K/uL Basophils # (Auto) 0.06 K/uL RDW Standard Deviation 49.9 fL RDW Coefficient of Variation 14.0 % Immature Granulocyte % (Auto) 0.4 % Immature Granulocyte # (Auto) 0.05 K/uL Red Blood Cell Morphology Unremarkable Sodium Level 142 mmol/L Potassium Level 3.8 mmol/L Chloride Level 109 mmol/L Carbon Dioxide Level 28 mmol/L Anion Gap 5.0 mmol/L Blood Urea Nitrogen 32 mg/dl Creatinine 5.20 mg/dl Est Creatinine Clear Calc Drug Dose 6.6 ml/min Estimated GFR () 8.5 Estimated GFR (Non- 7.3 BUN/Creatinine Ratio 6.2 Random Glucose 88 mg/dl Calcium Level 8.5 mg/dl Test 02/03/17 16:12 Bedside Glucose 96 mg/dl Assessment & Plan 77 /F with history of Lewybody Dementia, ESRD on HD, DM, HTN presenting with abdominal pain and diarrhea. 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 - Insulin Sliding Scale ordered CKD V - Nephrology consulted LEWY BODY DEMENTIA -- continue Quetiapine COMPRESSION FRACTURE L1 -- Severe compression fracture at L1 of uncertain chronicity noted on CT of abdomen and pelvis. CHRONIC PAIN Patient takes hydrocodone for chronic pain, apparently primarily due to right shoulder pain. -- PO analgesics PRN HISTORY MRSA Contact precautions ordered VTE PROPHYLAXIS Moderately high risk for VTE. SQ heparin given RESUSCITATION STATUS "Level 5" (DNR). DISPOSITION d/c to [facility] when medically stable ff up with PCP at the [facility] within 1 week HD per nephrology Current Inpatient Medications: Current Inpatient Medications Medications (Trade) Dose Ordered Sig/Neyda Route Start Time Stop Time Status Last Admin Dose Admin Acetaminophen (Tylenol Tab) 650 mg Q4H PRN PO 02/01/17 01:15 03/03/17 01:14 02/03/17 00:35 650 MG Ondansetron HCl (Zofran Inj) 4 mg Q6H PRN IV 02/01/17 01:15 03/03/17 01:14 Aspirin (Ecotrin Tab) 81 mg QAM PO 02/01/17 09:00 03/03/17 08:59 02/03/17 08:30 81 MG Vitamin B Complex/ Vit C/Folic Acid (Nephrocaps) 1 cap QPM PO 02/01/17 21:00 03/03/17 20:59 02/02/17 20:41 1 CAP Calcium Acetate (Phoslo Cap) 1,334 mg TIDM PO 02/01/17 08:00 03/03/17 07:59 02/03/17 17:15 1,334 MG Miscellaneous Information (Order Awaiting Action) 1 ea QS N/A 02/01/17 08:00 03/03/17 07:59 Hydralazine HCl (Apresoline Tab) 25 mg DAILY PO 02/01/17 09:00 03/03/17 08:59 02/03/17 08:30 25 MG Acetaminophen/ Hydrocodone Bitart ([place] 5/325 Tab) 1 tab BID PRN PO 02/01/17 01:15 02/15/17 01:14 Labetalol HCl (Normodyne Tab) 100 mg BID PO 02/01/17 09:00 03/03/17 08:59 02/03/17 08:30 100 MG Quetiapine Fumarate (seroQUEL TAB) 12.5 mg BID PO 02/01/17 09:00 03/03/17 08:59 02/03/17 08:30 12.5 MG Cholecalciferol (Vitamin D Tab) 1,000 inter.unit QAM PO 02/01/17 09:00 03/03/17 08:59 02/03/17 08:30 1,000 INTER.UNIT Miscellaneous Information (Order Awaiting Action) 1 ea QS N/A 02/01/17 08:00 03/03/17 07:59 Insulin Aspart (novoLOG ASPART) SLIDING SCALE G... ACHS SC 02/01/17 06:30 03/03/17 06:29 02/02/17 17:44 3 UNITS Vancomycin HCl (Vancomycin Oral Soln) 125 mg QID PO 02/01/17 09:00 02/11/17 08:59 02/03/17 17:14 125 MG Glucose (Glucose 40% Gel) 15-30 GRAMS 15 GRAMS... UD PRN PO 02/01/17 03:00 03/03/17 02:59 Glucose (Glucose Chew Tab) 4-8 Tablets 4 Tabl... UD PRN PO 02/01/17 03:00 03/03/17 02:59 Dextrose (Dextrose 50% 50ML Syringe) 25-50ML OF 50% DW IV FOR... UD PRN IV 02/01/17 03:00 03/03/17 02:59 Glucagon (Glucagon Inj) 1 mg UD PRN SQ 02/01/17 03:00 03/03/17 02:59 Raspberry (Raspberry Syrup 5ml Cup) 5 ml QID PO 02/01/17 09:00 02/15/17 08:59 02/03/17 17:14 5 ML Heparin Sodium (Porcine) (Heparin Sq 5000 Unit/0.5ml) 5,000 unit Q12H SQ 02/01/17 18:00 03/03/17 05:59 02/03/17 17:24 5,000 UNIT Enteral Nutritional Formula (Boost Glucose Control) 1 can TIDM PO 02/01/17 12:00 03/03/17 11:59 02/03/17 17:15 1 CAN
[2017-02-03] MEDS: NEPHROCAPS PO SCH (20:30)
[2017-02-03 23:06] VITALS: BP 150/65; PULSE 78; TEMP 37.5; O2SAT 97
[2017-02-04] VITALS (19 sets, daily range): BP systolic 110–157; BP diastolic 49–79; PULSE 66–88; TEMP 36.5–37.4; O2SAT 94–100
[2017-02-04] MEDS: HEPARIN SOD 5000 UNIT/0.5 ML CARP SQ SCH ×2 (05:59→17:30)
[2017-02-04 06:14] LABS: HEMATOCRIT 29.2 % (37-47); MEAN CELL VOLUME 100.7 fL (80-100); MEAN CORPUSCULAR HGB CONC 30.8 g/dl (32-36); MEAN PLATELET VOLUME 9.1 fL (7.4-10.4); PLATELET COUNT 239 K/uL (130-400); WHITE BLOOD COUNT 9.92 K/uL (4.8-10.8)
[2017-02-04] MEDS: INSULIN ASPART 100 UNITS/ML 3 ML PEN SC SCH ×4 (06:30→21:45)
[2017-02-04 06:47] LABS: BASO % 0.4 %; BASO ABS # 0.04 K/uL (0-0.2); COMPLETE YES; EOS % 8.4 %; IG% 0.2 %; LYMPH ABS # 1.59 K/uL (1.2-3.4)
[2017-02-04 07:01] LABS: BUN/CREATININE RATIO 6.6 (10-20); CALCIUM 9.2 mg/dl (8.5-10.1); CREATININE 6.3 mg/dl (0.60-1.20)
[2017-02-04] MEDS: BOOST GLUCOSE CONTROL PO SCH ×3 (08:00→17:30)
[2017-02-04] MEDS ORDERED: EPOETIN ALFA 10,000 UNITS/ML VIAL IV. SCH (08:00)
[2017-02-04] MEDS: CALCIUM ACETATE 667MG GELCAP PO SCH ×3 (08:00→17:00)
[2017-02-04] MEDS: VANCOMYCIN HCL 125 MG/2.5ML SOLN PO SCH ×4 (08:20→21:44)
[2017-02-04] MEDS: CHOLECALCIFEROL 1000 INTER.UNIT TAB PO SCH (08:20)
[2017-02-04] MEDS: QUETIAPINE FUMARATE 25 MG TAB PO SCH ×2 (08:20→21:49)
[2017-02-04] MEDS: RASPBERRY SYRUP 5 ML UDP PO SCH ×4 (08:20→21:44)
[2017-02-04] MEDS: LABETALOL HCL 100 MG TAB PO SCH ×2 (08:20→21:50)
[2017-02-04] MEDS: ASPIRIN 81 MG ECTAB PO SCH (08:20)
--- NOTE | 2017-02-04 15:31 | Nephrology Progress Note ---
Nephrology Progress Note Date of Service: Feb 04, 2017. Subjective 77 yo female with lewy body dementia with cdiff colitis requiring a rectal morel. still with loose stools. was drowsy this morning but after dialysis, was more awake. ate her lunch. dialysis went well. no cramping and bp tolerated the liter fluid removal. Objective Date Time Temp Pulse Resp B/P (MAP) Pulse Ox O2 Delivery O2 Flow Rate FiO2 02/04/17 14:58 36.5 74 18 147/75 (99) 100 Room Air 02/04/17 11:30 36.7 88 128/63 (84) 02/04/17 11:15 71 118/67 02/04/17 11:00 67 116/62 02/04/17 10:45 68 110/57 02/04/17 10:30 68 124/65 02/04/17 10:15 71 127/62 02/04/17 10:00 68 129/54 02/04/17 09:45 69 125/55 02/04/17 09:30 66 121/49 02/04/17 09:15 76 128/55 02/04/17 09:00 68 123/59 02/04/17 08:45 71 141/63 02/04/17 08:30 70 153/59 02/04/17 08:15 75 149/68 02/04/17 08:00 37.4 79 154/60 (91) 02/04/17 08:00 Room Air 02/04/17 07:09 36.8 73 18 150/67 (94) 96 Room Air 02/04/17 00:00 Room Air 02/03/17 23:06 37.5 78 20 150/65 (93) 97 Room Air 02/03/17 16:00 97 Room Air 02/03/17 15:37 66 142/66 (91) 97 Room Air Physical Exam: General-confused Eyes-no scleral icterus ENT-mmm Neck-supple Lungs-cta Heart-rrr Abdomen-bs+/mild tenderness to palpation Extremities-no edema Neuro-confused Current Inpatient Medications Medications (Trade) Dose Ordered Sig/Neyda Route Start Time Stop Time Status Last Admin Dose Admin Acetaminophen (Tylenol Tab) 650 mg Q4H PRN PO 02/01/17 01:15 03/03/17 01:14 02/03/17 00:35 650 MG Ondansetron HCl (Zofran Inj) 4 mg Q6H PRN IV 02/01/17 01:15 03/03/17 01:14 Aspirin (Ecotrin Tab) 81 mg QAM PO 02/01/17 09:00 03/03/17 08:59 02/03/17 08:30 81 MG Vitamin B Complex/ Vit C/Folic Acid (Nephrocaps) 1 cap QPM PO 02/01/17 21:00 03/03/17 20:59 02/03/17 20:30 1 CAP Calcium Acetate (Phoslo Cap) 1,334 mg TIDM PO 02/01/17 08:00 03/03/17 07:59 02/04/17 11:52 1,334 MG Miscellaneous Information (Order Awaiting Action) 1 ea QS N/A 02/01/17 08:00 03/03/17 07:59 Hydralazine HCl (Apresoline Tab) 25 mg DAILY PO 02/01/17 09:00 03/03/17 08:59 02/03/17 08:30 25 MG Acetaminophen/ Hydrocodone Bitart ([place] 5/325 Tab) 1 tab BID PRN PO 02/01/17 01:15 02/15/17 01:14 Labetalol HCl (Normodyne Tab) 100 mg BID PO 02/01/17 09:00 03/03/17 08:59 02/03/17 20:30 100 MG Quetiapine Fumarate (seroQUEL TAB) 12.5 mg BID PO 02/01/17 09:00 03/03/17 08:59 02/03/17 20:32 12.5 MG Cholecalciferol (Vitamin D Tab) 1,000 inter.unit QAM PO 02/01/17 09:00 03/03/17 08:59 02/03/17 08:30 1,000 INTER.UNIT Miscellaneous Information (Order Awaiting Action) 1 ea QS N/A 02/01/17 08:00 03/03/17 07:59 Insulin Aspart (novoLOG ASPART) SLIDING SCALE G... ACHS SC 02/01/17 06:30 03/03/17 06:29 02/02/17 17:44 3 UNITS Vancomycin HCl (Vancomycin Oral Soln) 125 mg QID PO 02/01/17 09:00 02/11/17 08:59 02/04/17 11:52 125 MG Glucose (Glucose 40% Gel) 15-30 GRAMS 15 GRAMS... UD PRN PO 02/01/17 03:00 03/03/17 02:59 Glucose (Glucose Chew Tab) 4-8 Tablets 4 Tabl... UD PRN PO 02/01/17 03:00 03/03/17 02:59 Dextrose (Dextrose 50% 50ML Syringe) 25-50ML OF 50% DW IV FOR... UD PRN IV 02/01/17 03:00 03/03/17 02:59 Glucagon (Glucagon Inj) 1 mg UD PRN SQ 02/01/17 03:00 03/03/17 02:59 Raspberry (Raspberry Syrup 5ml Cup) 5 ml QID PO 02/01/17 09:00 02/15/17 08:59 02/04/17 11:52 5 ML Heparin Sodium (Porcine) (Heparin Sq 5000 Unit/0.5ml) 5,000 unit Q12H SQ 02/01/17 18:00 03/03/17 05:59 02/04/17 05:59 5,000 UNIT Enteral Nutritional Formula (Boost Glucose Control) 1 can TIDM PO 02/01/17 12:00 03/03/17 11:59 02/04/17 11:52 1 CAN Last 24 Hours Test 02/03/17 16:12 02/03/17 20:15 02/04/17 05:47 02/04/17 07:15 Bedside Glucose 96 mg/dl 85 mg/dl 95 mg/dl White Blood Count 9.92 K/uL Red Blood Count 2.90 M/uL Hemoglobin 9.0 g/dL Hematocrit 29.2 % Mean Corpuscular Volume 100.7 fL Mean Corpuscular Hemoglobin 31.0 pg Mean Corpuscular Hemoglobin Concent 30.8 g/dl Platelet Count 239 K/uL Mean Platelet Volume 9.1 fL Neutrophils (%) (Auto) 67.0 % Lymphocytes (%) (Auto) 16.0 % Monocytes (%) (Auto) 8.0 % Eosinophils (%) (Auto) 8.4 % Basophils (%) (Auto) 0.4 % Neutrophils # (Auto) 6.65 K/uL Lymphocytes # (Auto) 1.59 K/uL Monocytes # (Auto) 0.79 K/uL Eosinophils # (Auto) 0.83 K/uL Basophils # (Auto) 0.04 K/uL RDW Standard Deviation 49.9 fL RDW Coefficient of Variation 14.0 % Immature Granulocyte % (Auto) 0.2 % Immature Granulocyte # (Auto) 0.02 K/uL Macrocytosis PRESENT Sodium Level 143 mmol/L Potassium Level 4.0 mmol/L Chloride Level 108 mmol/L Carbon Dioxide Level 28 mmol/L Anion Gap 7.0 mmol/L Blood Urea Nitrogen 42 mg/dl Creatinine 6.30 mg/dl Est Creatinine Clear Calc Drug Dose 5.5 ml/min Estimated GFR () 6.7 Estimated GFR (Non- 5.8 BUN/Creatinine Ratio 6.6 Random Glucose 89 mg/dl Calcium Level 9.2 mg/dl Test 02/04/17 11:52 Bedside Glucose 85 mg/dl Assessment & Plan ESRD-volume status was good. k is good. tolerated one liter fluid removal today. bp is good. pt appears comfortable although difficult to magisterial district judge based on dementia. has liquid stools in rectal morel and on oral vanco. continue dialysis --. anemia-hg of 9, goal 10 to 11, continue procrit on dialysis.
--- NOTE | 2017-02-04 15:59 | Palliative Care Consultation ---
Consultation Date of Consultation: Feb 04, 2017. Requesting Physician: Dr. Bocanegra Attending Physician: Dr. Bocanegra Reason for Consultation: POLST form History of Present Illness This 77 year old female patient with PMH of ESRD on dialysis, advanced dementia , DM with neuropathy, Crhonic anemia and htn, presented to the ED three days ago with c/o fever, abdominal pain and diarrhea from the [facility]. Patient was discharged from [facility] 01/23/17 after she was treated inpatient for sepsis 2/2 E. coli bacteremia due to a biliary source. She finished her abx the day of arrival and developed lower abdominal pain, diarrhea and fever. She was sent to ED. Found to be positive for C. diff, CT abd/pelvis consistent with colitis. Upon admission, daughter/POA, Maxine Marie, made patient DNR/level 5 resuscitation. Patient's POLST form which was done several years ago indicates that patient is a full code. Palliative care consulted to do new POLST, establish goals. I met with the patient in room 257. She is awake and alert, but completely and pleasantly disoriented/confused. She could not answer any orientation questions. Did say she was not having pain at the time. Not able to obtain any history or ROS. Spoke with Maxine, daughter/POA, on phone. She confirmed that patient is DNR and is okay with redoing POLST form. Maxine is coming to hospital this evening. The goal for her mother is to continue dialysis for now and to go back to [facility] with new POLST form. Patient has a living will which states she wants all life-prolonging measures. However, she names her daughter, Maxine, as POA who is her surrogate decision maker in the case patient is unable to make her own decisions. Past Medical/Surgical History Medical History: Diabetes Diabetic neuropathy Chronic kidney disease on hemodialysis Lewy body dementia Major depression Chronic anemia Hypertension History of MRSA Osteomyelitis Surgical History: Removal of ovarian cyst Vaginal hysterectomy Surgery on the lower leg tendons Social History Smoking Status: Unknown if Ever Smoked History of Alcohol Use: No Drug Use: none Marital Status: Housing Status: [facility] Occupation Status: retired Review of Systems unable to obtain ROS Allergies Coded Allergies: Dust (Verified Allergy, Unknown, SNEEZING,WHEEZING, 01/31/17) Medications Current Inpatient Medications Medications (Trade) Dose Ordered Sig/Neyda Route Start Time Stop Time Status Last Admin Dose Admin Acetaminophen (Tylenol Tab) 650 mg Q4H PRN PO 02/01/17 01:15 03/03/17 01:14 02/03/17 00:35 650 MG Ondansetron HCl (Zofran Inj) 4 mg Q6H PRN IV 02/01/17 01:15 03/03/17 01:14 Aspirin (Ecotrin Tab) 81 mg QAM PO 02/01/17 09:00 03/03/17 08:59 02/03/17 08:30 81 MG Vitamin B Complex/ Vit C/Folic Acid (Nephrocaps) 1 cap QPM PO 02/01/17 21:00 03/03/17 20:59 02/03/17 20:30 1 CAP Calcium Acetate (Phoslo Cap) 1,334 mg TIDM PO 02/01/17 08:00 03/03/17 07:59 02/04/17 11:52 1,334 MG Miscellaneous Information (Order Awaiting Action) 1 ea QS N/A 02/01/17 08:00 03/03/17 07:59 Hydralazine HCl (Apresoline Tab) 25 mg DAILY PO 02/01/17 09:00 03/03/17 08:59 02/03/17 08:30 25 MG Acetaminophen/ Hydrocodone Bitart ([place] 5/325 Tab) 1 tab BID PRN PO 02/01/17 01:15 02/15/17 01:14 Labetalol HCl (Normodyne Tab) 100 mg BID PO 02/01/17 09:00 03/03/17 08:59 02/03/17 20:30 100 MG Quetiapine Fumarate (seroQUEL TAB) 12.5 mg BID PO 02/01/17 09:00 03/03/17 08:59 02/03/17 20:32 12.5 MG Cholecalciferol (Vitamin D Tab) 1,000 inter.unit QAM PO 02/01/17 09:00 03/03/17 08:59 02/03/17 08:30 1,000 INTER.UNIT Miscellaneous Information (Order Awaiting Action) 1 ea QS N/A 02/01/17 08:00 03/03/17 07:59 Insulin Aspart (novoLOG ASPART) SLIDING SCALE G... ACHS SC 02/01/17 06:30 03/03/17 06:29 02/02/17 17:44 3 UNITS Vancomycin HCl (Vancomycin Oral Soln) 125 mg QID PO 02/01/17 09:00 02/11/17 08:59 02/04/17 11:52 125 MG Glucose (Glucose 40% Gel) 15-30 GRAMS 15 GRAMS... UD PRN PO 02/01/17 03:00 03/03/17 02:59 Glucose (Glucose Chew Tab) 4-8 Tablets 4 Tabl... UD PRN PO 02/01/17 03:00 03/03/17 02:59 Dextrose (Dextrose 50% 50ML Syringe) 25-50ML OF 50% DW IV FOR... UD PRN IV 02/01/17 03:00 03/03/17 02:59 Glucagon (Glucagon Inj) 1 mg UD PRN SQ 02/01/17 03:00 03/03/17 02:59 Raspberry (Raspberry Syrup 5ml Cup) 5 ml QID PO 02/01/17 09:00 02/15/17 08:59 02/04/17 11:52 5 ML Heparin Sodium (Porcine) (Heparin Sq 5000 Unit/0.5ml) 5,000 unit Q12H SQ 02/01/17 18:00 03/03/17 05:59 02/04/17 05:59 5,000 UNIT Enteral Nutritional Formula (Boost Glucose Control) 1 can TIDM PO 02/01/17 12:00 03/03/17 11:59 02/04/17 11:52 1 CAN Physical Exam Date Time Temp Pulse Resp B/P (MAP) Pulse Ox O2 Delivery O2 Flow Rate FiO2 02/04/17 14:58 36.5 74 18 147/75 (99) 100 Room Air 02/04/17 11:30 36.7 88 128/63 (84) 02/04/17 11:15 71 118/67 02/04/17 11:00 67 116/62 02/04/17 10:45 68 110/57 02/04/17 10:30 68 124/65 02/04/17 10:15 71 127/62 02/04/17 10:00 68 129/54 02/04/17 09:45 69 125/55 02/04/17 09:30 66 121/49 02/04/17 09:15 76 128/55 02/04/17 09:00 68 123/59 02/04/17 08:45 71 141/63 02/04/17 08:30 70 153/59 02/04/17 08:15 75 149/68 02/04/17 08:00 37.4 79 154/60 (91) 02/04/17 08:00 Room Air 02/04/17 07:09 36.8 73 18 150/67 (94) 96 Room Air 02/04/17 00:00 Room Air 02/03/17 23:06 37.5 78 20 150/65 (93) 97 Room Air 02/03/17 16:00 97 Room Air General Appearance: no apparent distress ENT: hearing grossly normal Neck: supple, no JVD Respiratory: no respiratory distress, no accessory muscle use, + decreased breath sounds Cardiovascular: regular rate, rhythm, + systolic murmur, + normal peripheral pulses Abdomen: normal bowel sounds, non tender, soft Neurologic/Psychiatric: alert, + disoriented Laboratory Results Last 24 Hours Test 02/03/17 16:12 02/03/17 20:15 02/04/17 05:47 02/04/17 07:15 Bedside Glucose 96 mg/dl 85 mg/dl 95 mg/dl White Blood Count 9.92 K/uL Red Blood Count 2.90 M/uL Hemoglobin 9.0 g/dL Hematocrit 29.2 % Mean Corpuscular Volume 100.7 fL Mean Corpuscular Hemoglobin 31.0 pg Mean Corpuscular Hemoglobin Concent 30.8 g/dl Platelet Count 239 K/uL Mean Platelet Volume 9.1 fL Neutrophils (%) (Auto) 67.0 % Lymphocytes (%) (Auto) 16.0 % Monocytes (%) (Auto) 8.0 % Eosinophils (%) (Auto) 8.4 % Basophils (%) (Auto) 0.4 % Neutrophils # (Auto) 6.65 K/uL Lymphocytes # (Auto) 1.59 K/uL Monocytes # (Auto) 0.79 K/uL Eosinophils # (Auto) 0.83 K/uL Basophils # (Auto) 0.04 K/uL RDW Standard Deviation 49.9 fL RDW Coefficient of Variation 14.0 % Immature Granulocyte % (Auto) 0.2 % Immature Granulocyte # (Auto) 0.02 K/uL Macrocytosis PRESENT Sodium Level 143 mmol/L Potassium Level 4.0 mmol/L Chloride Level 108 mmol/L Carbon Dioxide Level 28 mmol/L Anion Gap 7.0 mmol/L Blood Urea Nitrogen 42 mg/dl Creatinine 6.30 mg/dl Est Creatinine Clear Calc Drug Dose 5.5 ml/min Estimated GFR () 6.7 Estimated GFR (Non- 5.8 BUN/Creatinine Ratio 6.6 Random Glucose 89 mg/dl Calcium Level 9.2 mg/dl Test 02/04/17 11:52 Bedside Glucose 85 mg/dl Assessment & Plan Palliative Performance Scale: 40 % Problem list: Dementia, severe C. difficile colitis Compression fracture of L1 Ambulatory dysfunction ESRD on HD Goals of care (Z51.5) Palliative care recs: -DNR, level 5 as discussed with daughter/POAMaxine -Goal is to continue dialysis for now and return to the [facility] when medically stable. -Will redo POLST form with daughter. Maxine will call me tomorrow. -Living will in our system indicates patient wants all life-prolonging measures. Will speak with Maxine too see if this should change. Maxine is listed in the living will as patient's appointed health care agent. Thank you for this consult. I will follow as needed.
--- NOTE | 2017-02-04 19:29 | Progress Note ---
Medicine Progress Note Date & Time of Visit: Feb 04, 2017 at 19:21. Subjective seen resting in bed, comfortable confused but pleasant denies abdominal pain, nausea still has liquid brown stools per [place] bag but eating well per senior staff consultant no other symptoms/signs Objective Last 8 Hrs Date Time Temp Pulse Resp B/P (MAP) Pulse Ox O2 Delivery O2 Flow Rate FiO2 02/04/17 14:58 36.5 74 18 147/75 (99) 100 Room Air 02/04/17 11:30 36.7 88 128/63 (84) Physical Exam: General- alert, not in distress, speaks in sentences Eyes- anicteric Neck- no JVD Lungs- clear, no rales/wheezes bilaterally Heart- regular rhythm; no murmur, normal rate Abdomen- normoactive bowel sounds, soft, nontender, not distended Extremities- no pretibial edema, no calf tenderness Neuro- alert, oriented x 3; no gross focal deficits Skin- warm & dry Laboratory Results: Last 24 Hours Test 02/03/17 20:15 02/04/17 05:47 02/04/17 07:15 02/04/17 11:52 Bedside Glucose 85 mg/dl 95 mg/dl 85 mg/dl White Blood Count 9.92 K/uL Red Blood Count 2.90 M/uL Hemoglobin 9.0 g/dL Hematocrit 29.2 % Mean Corpuscular Volume 100.7 fL Mean Corpuscular Hemoglobin 31.0 pg Mean Corpuscular Hemoglobin Concent 30.8 g/dl Platelet Count 239 K/uL Mean Platelet Volume 9.1 fL Neutrophils (%) (Auto) 67.0 % Lymphocytes (%) (Auto) 16.0 % Monocytes (%) (Auto) 8.0 % Eosinophils (%) (Auto) 8.4 % Basophils (%) (Auto) 0.4 % Neutrophils # (Auto) 6.65 K/uL Lymphocytes # (Auto) 1.59 K/uL Monocytes # (Auto) 0.79 K/uL Eosinophils # (Auto) 0.83 K/uL Basophils # (Auto) 0.04 K/uL RDW Standard Deviation 49.9 fL RDW Coefficient of Variation 14.0 % Immature Granulocyte % (Auto) 0.2 % Immature Granulocyte # (Auto) 0.02 K/uL Macrocytosis PRESENT Sodium Level 143 mmol/L Potassium Level 4.0 mmol/L Chloride Level 108 mmol/L Carbon Dioxide Level 28 mmol/L Anion Gap 7.0 mmol/L Blood Urea Nitrogen 42 mg/dl Creatinine 6.30 mg/dl Est Creatinine Clear Calc Drug Dose 5.5 ml/min Estimated GFR () 6.7 Estimated GFR (Non- 5.8 BUN/Creatinine Ratio 6.6 Random Glucose 89 mg/dl Calcium Level 9.2 mg/dl Assessment & Plan 77 /F with history of Lewybody Dementia, ESRD on HD, DM, HTN presenting with abdominal pain and diarrhea. 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 - Insulin Sliding Scale ordered CKD V - Nephrology consulted LEWY BODY DEMENTIA -- continue Quetiapine COMPRESSION FRACTURE L1 -- Severe compression fracture at L1 of uncertain chronicity noted on CT of abdomen and pelvis. CHRONIC PAIN Patient takes hydrocodone for chronic pain, apparently primarily due to right shoulder pain. -- PO analgesics PRN HISTORY MRSA Contact precautions ordered VTE PROPHYLAXIS Moderately high risk for VTE. SQ heparin given RESUSCITATION STATUS "Level 5" (DNR). DISPOSITION d/c to [facility] when medically stable ff up with PCP at the [facility] within 1 week HD per nephrology Current Inpatient Medications: Current Inpatient Medications Medications (Trade) Dose Ordered Sig/Neyda Route Start Time Stop Time Status Last Admin Dose Admin Acetaminophen (Tylenol Tab) 650 mg Q4H PRN PO 02/01/17 01:15 03/03/17 01:14 02/03/17 00:35 650 MG Ondansetron HCl (Zofran Inj) 4 mg Q6H PRN IV 02/01/17 01:15 03/03/17 01:14 Aspirin (Ecotrin Tab) 81 mg QAM PO 02/01/17 09:00 03/03/17 08:59 02/03/17 08:30 81 MG Vitamin B Complex/ Vit C/Folic Acid (Nephrocaps) 1 cap QPM PO 02/01/17 21:00 03/03/17 20:59 02/03/17 20:30 1 CAP Calcium Acetate (Phoslo Cap) 1,334 mg TIDM PO 02/01/17 08:00 03/03/17 07:59 02/04/17 11:52 1,334 MG Miscellaneous Information (Order Awaiting Action) 1 ea QS N/A 02/01/17 08:00 03/03/17 07:59 Hydralazine HCl (Apresoline Tab) 25 mg DAILY PO 02/01/17 09:00 03/03/17 08:59 02/03/17 08:30 25 MG Acetaminophen/ Hydrocodone Bitart ([place] 5/325 Tab) 1 tab BID PRN PO 02/01/17 01:15 02/15/17 01:14 Labetalol HCl (Normodyne Tab) 100 mg BID PO 02/01/17 09:00 03/03/17 08:59 02/03/17 20:30 100 MG Quetiapine Fumarate (seroQUEL TAB) 12.5 mg BID PO 02/01/17 09:00 03/03/17 08:59 02/03/17 20:32 12.5 MG Cholecalciferol (Vitamin D Tab) 1,000 inter.unit QAM PO 02/01/17 09:00 03/03/17 08:59 02/03/17 08:30 1,000 INTER.UNIT Miscellaneous Information (Order Awaiting Action) 1 ea QS N/A 02/01/17 08:00 03/03/17 07:59 Insulin Aspart (novoLOG ASPART) SLIDING SCALE G... ACHS SC 02/01/17 06:30 03/03/17 06:29 02/02/17 17:44 3 UNITS Vancomycin HCl (Vancomycin Oral Soln) 125 mg QID PO 02/01/17 09:00 02/11/17 08:59 02/04/17 17:23 125 MG Glucose (Glucose 40% Gel) 15-30 GRAMS 15 GRAMS... UD PRN PO 02/01/17 03:00 03/03/17 02:59 Glucose (Glucose Chew Tab) 4-8 Tablets 4 Tabl... UD PRN PO 02/01/17 03:00 03/03/17 02:59 Dextrose (Dextrose 50% 50ML Syringe) 25-50ML OF 50% DW IV FOR... UD PRN IV 02/01/17 03:00 03/03/17 02:59 Glucagon (Glucagon Inj) 1 mg UD PRN SQ 02/01/17 03:00 03/03/17 02:59 Raspberry (Raspberry Syrup 5ml Cup) 5 ml QID PO 02/01/17 09:00 02/15/17 08:59 02/04/17 17:23 5 ML Heparin Sodium (Porcine) (Heparin Sq 5000 Unit/0.5ml) 5,000 unit Q12H SQ 02/01/17 18:00 03/03/17 05:59 02/04/17 17:30 5,000 UNIT Enteral Nutritional Formula (Boost Glucose Control) 1 can TIDM PO 02/01/17 12:00 03/03/17 11:59 02/04/17 17:30 1 CAN
[2017-02-04] MEDS: NEPHROCAPS PO SCH (22:05)
[2017-02-05] MEDS: HEPARIN SOD 5000 UNIT/0.5 ML CARP SQ SCH ×2 (06:11→18:54)
[2017-02-05 06:16] LABS: BASO % 0.7 %; BASO ABS # 0.06 K/uL (0-0.2); COMPLETE YES; EOS % 7.8 %; HEMATOCRIT 31.7 % (37-47); IG% 0.6 %; LYMPH % 25.2 %; LYMPH ABS # 2.05 K/uL (1.2-3.4); MEAN CELL VOLUME 100.6 fL (80-100); MEAN CORPUSCULAR HEMOGLOBIN 30.8 pg (25-34); MEAN CORPUSCULAR HGB CONC 30.6 g/dl (32-36); MONO % 11.8 %; NEUT % 53.9 %; PLATELET COUNT 250 K/uL (130-400); RED BLOOD COUNT 3.15 M/uL (4.2-5.4); WHITE BLOOD COUNT 8.12 K/uL (4.8-10.8)
[2017-02-05] MEDS: INSULIN ASPART 100 UNITS/ML 3 ML PEN SC SCH ×4 (06:30→20:38)
[2017-02-05 06:55] LABS: BUN/CREATININE RATIO 5.8 (10-20); CALCIUM 8.7 mg/dl (8.5-10.1); CREATININE 4.8 mg/dl (0.60-1.20); POTASSIUM 3.4 mmol/L (3.5-5.1)
[2017-02-05] MEDS: BOOST GLUCOSE CONTROL PO SCH ×3 (07:45→17:11)
[2017-02-05] MEDS: CALCIUM ACETATE 667MG GELCAP PO SCH ×3 (07:46→17:11)
[2017-02-05] MEDS: RASPBERRY SYRUP 5 ML UDP PO SCH ×4 (07:46→21:07)
[2017-02-05] MEDS: VANCOMYCIN HCL 125 MG/2.5ML SOLN PO SCH ×4 (07:46→21:07)
[2017-02-05] MEDS: ASPIRIN 81 MG ECTAB PO SCH (07:47)
[2017-02-05] MEDS: QUETIAPINE FUMARATE 25 MG TAB PO SCH ×2 (07:47→21:09)
[2017-02-05] MEDS: LABETALOL HCL 100 MG TAB PO SCH ×2 (07:48→21:08)
[2017-02-05] MEDS: CHOLECALCIFEROL 1000 INTER.UNIT TAB PO SCH (07:48)
[2017-02-05 07:53] VITALS: BP 167/78; PULSE 71; TEMP 37.1; O2SAT 97
[2017-02-05 08:00] VITALS: O2SAT 97
[2017-02-05 15:43] VITALS: BP 134/70; PULSE 70; TEMP 37.3; O2SAT 97
--- NOTE | 2017-02-05 18:56 | Progress Note ---
Internal Med Progress Note Date of Service: Feb 05, 2017. Provider Documentation: SUBJECTIVE: drowsy has dementia says she is ok then got angry when examining afebrile OBJECTIVE: Vital Signs-as noted below Exam: General-Drowsy. Not in distress ENT-normal hearing Neck-no neck masses Lungs-cta b/l no wheezing or crackles Heart-s1 and s2 heard regular rhythm no murmurs Abdomen-soft bowel sounds present non tender no distension Extremities-no edema no erythema Neuro-drowsy moves extremities Lab data as noted below. ASSESSMENT & PLAN: 77 /F with history of Lewybody Dementia, ESRD on HD, DM, HTN presenting with abdominal pain and diarrhea. 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 On Insulin Sliding Scale will monitor. CKD V Nephrology consulted on HD LEWY BODY DEMENTIA On Quetiapine COMPRESSION FRACTURE L1 - Severe compression fracture at L1 of uncertain chronicity noted on CT of abdomen and pelvis. CHRONIC PAIN Patient takes hydrocodone for chronic pain, apparently primarily due to right shoulder pain. On PO analgesics PRN HISTORY MRSA Contact precautions ordered VTE PROPHYLAXIS hep sib q RESUSCITATION STATUS "Level 5" (DNR). DISPOSITION d/c to [facility] soon ff up with PCP at the [facility] within 1 week HD per nephrology Vital Signs: Date Time Temp Pulse Resp B/P (MAP) Pulse Ox O2 Delivery O2 Flow Rate FiO2 02/05/17 16:35 Room Air 02/05/17 15:43 37.3 70 16 134/70 (91) 97 Room Air 02/05/17 08:00 97 Room Air 02/05/17 07:53 37.1 71 18 167/78 (107) 97 02/05/17 00:00 Room Air 02/04/17 23:10 36.7 82 16 142/79 (100) 94 Room Air 02/04/17 21:45 74 157/63 (94) Lab Results: Results Past 24 Hours Test 02/04/17 20:40 02/05/17 05:43 02/05/17 07:47 02/05/17 11:36 Range/Units Bedside Glucose 84 90 97 70-90 mg/dl White Blood Count 8.12 4.8-10.8 K/uL Red Blood Count 3.15 4.2-5.4 M/uL Hemoglobin 9.7 12.0-16.0 g/dL Hematocrit 31.7 37-47 % Mean Corpuscular Volume 100.6 80-100 fL Mean Corpuscular Hemoglobin 30.8 25-34 pg Mean Corpuscular Hemoglobin Concent 30.6 32-36 g/dl Platelet Count 250 130-400 K/uL Mean Platelet Volume 9.0 7.4-10.4 fL Neutrophils (%) (Auto) 53.9 % Lymphocytes (%) (Auto) 25.2 % Monocytes (%) (Auto) 11.8 % Eosinophils (%) (Auto) 7.8 % Basophils (%) (Auto) 0.7 % Neutrophils # (Auto) 4.37 1.4-6.5 K/uL Lymphocytes # (Auto) 2.05 1.2-3.4 K/uL Monocytes # (Auto) 0.96 0.11-0.59 K/uL Eosinophils # (Auto) 0.63 0-0.5 K/uL Basophils # (Auto) 0.06 0-0.2 K/uL RDW Standard Deviation 50.0 36.4-46.3 fL RDW Coefficient of Variation 14.0 11.5-14.5 % Immature Granulocyte % (Auto) 0.6 % Immature Granulocyte # (Auto) 0.05 0.00-0.02 K/uL Sodium Level 140 136-145 mmol/L Potassium Level 3.4 3.5-5.1 mmol/L Chloride Level 104 98-107 mmol/L Carbon Dioxide Level 31 21-32 mmol/L Anion Gap 5.0 3-11 mmol/L Blood Urea Nitrogen 28 7-18 mg/dl Creatinine 4.80 0.60-1.20 mg/dl Est Creatinine Clear Calc Drug Dose 7.2 ml/min Estimated GFR () 9.3 Estimated GFR (Non- 8.0 BUN/Creatinine Ratio 5.8 10-20 Random Glucose 82 70-99 mg/dl Calcium Level 8.7 8.5-10.1 mg/dl Test 02/05/17 16:24 Range/Units Bedside Glucose 88 70-90 mg/dl
[2017-02-05] MEDS: NEPHROCAPS PO SCH (21:08)
[2017-02-06] VITALS (21 sets, daily range): BP systolic 103–181; BP diastolic 61–80; PULSE 66–108; TEMP 36.4–37.3; O2SAT 93–98
[2017-02-06] MEDS: HEPARIN SOD 5000 UNIT/0.5 ML CARP SQ SCH ×2 (06:00→18:33)
[2017-02-06] MEDS: INSULIN ASPART 100 UNITS/ML 3 ML PEN SC SCH ×4 (06:30→20:18)
[2017-02-06 07:30] LABS: BASO % 0.8 %; BASO ABS # 0.07 K/uL (0-0.2); COMPLETE YES; EOS % 7.6 %; HEMATOCRIT 32.3 % (37-47); IG% 0.7 %; LYMPH % 27.2 %; LYMPH ABS # 2.24 K/uL (1.2-3.4); MEAN CELL VOLUME 101.3 fL (80-100); MEAN CORPUSCULAR HEMOGLOBIN 30.4 pg (25-34); MONO % 8.4 %; NEUT % 55.3 %; PLATELET COUNT 280 K/uL (130-400); RED BLOOD COUNT 3.19 M/uL (4.2-5.4); WHITE BLOOD COUNT 8.24 K/uL (4.8-10.8)
[2017-02-06] MEDS: BOOST GLUCOSE CONTROL PO SCH ×3 (08:00→17:00)
[2017-02-06 08:08] LABS: BUN/CREATININE RATIO 6.1 (10-20); CALCIUM 9.3 mg/dl (8.5-10.1); CREATININE 6.3 mg/dl (0.60-1.20); POTASSIUM 3.7 mmol/L (3.5-5.1)
[2017-02-06] MEDS: EPOETIN ALFA 10,000 UNITS/ML VIAL IV. SCH ×2 (08:30→16:36)
[2017-02-06] MEDS: RASPBERRY SYRUP 5 ML UDP PO SCH ×4 (08:55→20:26)
[2017-02-06] MEDS: VANCOMYCIN HCL 250 MG/5 ML SOLN PO SCH ×4 (08:55→20:26)
[2017-02-06] MEDS: LABETALOL HCL 100 MG TAB PO SCH ×2 (08:55→20:26)
[2017-02-06] MEDS: ASPIRIN 81 MG ECTAB PO SCH (08:56)
[2017-02-06] MEDS: CHOLECALCIFEROL 1000 INTER.UNIT TAB PO SCH (08:56)
[2017-02-06] MEDS: QUETIAPINE FUMARATE 25 MG TAB PO SCH ×2 (08:57→20:26)
[2017-02-06] MEDS: CALCIUM ACETATE 667MG GELCAP PO SCH ×3 (08:57→18:31)
--- NOTE | 2017-02-06 08:58 | Nephrology Progress Note ---
Nephrology Progress Note Date of Service: Feb 06, 2017. Subjective 77 yo female with lewy body dementia with cdiff colitis requiring a rectal morel. stool output is slowing down. pt feels good. comfortable. resting quietly. Objective Date Time Temp Pulse Resp B/P (MAP) Pulse Ox O2 Delivery O2 Flow Rate FiO2 02/06/17 07:19 36.8 108 18 103/68 (80) 98 2.0 02/06/17 07:10 36.9 73 16 170/77 (108) 97 Room Air 02/06/17 00:13 37.3 70 18 181/71 (107) 93 Room Air 02/06/17 00:00 97 Room Air 02/05/17 16:35 Room Air 02/05/17 15:43 37.3 70 16 134/70 (91) 97 Room Air Physical Exam: General-confused Eyes-no scleral icterus ENT-mmm Neck-supple Lungs-clear Heart-regular Abdomen-bs+/nd/nt Extremities-no edema Neuro-confused Current Inpatient Medications Medications (Trade) Dose Ordered Sig/Neyda Route Start Time Stop Time Status Last Admin Dose Admin Acetaminophen (Tylenol Tab) 650 mg Q4H PRN PO 02/01/17 01:15 03/03/17 01:14 02/03/17 00:35 650 MG Ondansetron HCl (Zofran Inj) 4 mg Q6H PRN IV 02/01/17 01:15 03/03/17 01:14 Aspirin (Ecotrin Tab) 81 mg QAM PO 02/01/17 09:00 03/03/17 08:59 02/05/17 07:47 81 MG Vitamin B Complex/ Vit C/Folic Acid (Nephrocaps) 1 cap QPM PO 02/01/17 21:00 03/03/17 20:59 02/05/17 21:08 1 CAP Calcium Acetate (Phoslo Cap) 1,334 mg TIDM PO 02/01/17 08:00 03/03/17 07:59 02/05/17 17:11 1,334 MG Miscellaneous Information (Order Awaiting Action) 1 ea QS N/A 02/01/17 08:00 03/03/17 07:59 Hydralazine HCl (Apresoline Tab) 25 mg DAILY PO 02/01/17 09:00 9/10/17 08:59 02/05/17 07:47 25 MG Acetaminophen/ Hydrocodone Bitart ([place] 5/325 Tab) 1 tab BID PRN PO 02/01/17 01:15 02/15/17 01:14 Labetalol HCl (Normodyne Tab) 100 mg BID PO 02/01/17 09:00 03/03/17 08:59 02/05/17 21:08 100 MG Quetiapine Fumarate (seroQUEL TAB) 12.5 mg BID PO 02/01/17 09:00 03/03/17 08:59 02/05/17 21:09 12.5 MG Cholecalciferol (Vitamin D Tab) 1,000 inter.unit QAM PO 02/01/17 09:00 03/03/17 08:59 02/05/17 07:48 1,000 INTER.UNIT Miscellaneous Information (Order Awaiting Action) 1 ea QS N/A 02/01/17 08:00 03/03/17 07:59 Insulin Aspart (novoLOG ASPART) SLIDING SCALE G... ACHS SC 02/01/17 06:30 03/03/17 06:29 02/02/17 17:44 3 UNITS Glucose (Glucose 40% Gel) 15-30 GRAMS 15 GRAMS... UD PRN PO 02/01/17 03:00 03/03/17 02:59 Glucose (Glucose Chew Tab) 4-8 Tablets 4 Tabl... UD PRN PO 02/01/17 03:00 03/03/17 02:59 Dextrose (Dextrose 50% 50ML Syringe) 25-50ML OF 50% DW IV FOR... UD PRN IV 02/01/17 03:00 03/03/17 02:59 Glucagon (Glucagon Inj) 1 mg UD PRN SQ 02/01/17 03:00 03/03/17 02:59 Raspberry (Raspberry Syrup 5ml Cup) 5 ml QID PO 02/01/17 09:00 02/15/17 08:59 02/05/17 21:07 5 ML Heparin Sodium (Porcine) (Heparin Sq 5000 Unit/0.5ml) 5,000 unit Q12H SQ 02/01/17 18:00 03/03/17 05:59 02/05/17 18:54 5,000 UNIT Enteral Nutritional Formula (Boost Glucose Control) 1 can TIDM PO 02/01/17 12:00 03/03/17 11:59 02/05/17 17:11 1 CAN Vancomycin HCl (Vancomycin Oral Soln) 250 mg QID PO 02/06/17 09:00 02/11/17 08:59 Epoetin Odin (Procrit Inj) 10,000 units TODAY@0830 IV. 02/06/17 08:30 02/06/17 18:00 Last 24 Hours Test 02/05/17 11:36 02/05/17 16:24 02/05/17 20:13 02/06/17 06:54 Bedside Glucose 97 mg/dl 88 mg/dl 87 mg/dl White Blood Count 8.24 K/uL Red Blood Count 3.19 M/uL Hemoglobin 9.7 g/dL Hematocrit 32.3 % Mean Corpuscular Volume 101.3 fL Mean Corpuscular Hemoglobin 30.4 pg Mean Corpuscular Hemoglobin Concent 30.0 g/dl Platelet Count 280 K/uL Mean Platelet Volume 9.0 fL Neutrophils (%) (Auto) 55.3 % Lymphocytes (%) (Auto) 27.2 % Monocytes (%) (Auto) 8.4 % Eosinophils (%) (Auto) 7.6 % Basophils (%) (Auto) 0.8 % Neutrophils # (Auto) 4.55 K/uL Lymphocytes # (Auto) 2.24 K/uL Monocytes # (Auto) 0.69 K/uL Eosinophils # (Auto) 0.63 K/uL Basophils # (Auto) 0.07 K/uL RDW Standard Deviation 50.0 fL RDW Coefficient of Variation 13.9 % Immature Granulocyte % (Auto) 0.7 % Immature Granulocyte # (Auto) 0.06 K/uL Sodium Level 142 mmol/L Potassium Level 3.7 mmol/L Chloride Level 104 mmol/L Carbon Dioxide Level 31 mmol/L Anion Gap 7.0 mmol/L Blood Urea Nitrogen 39 mg/dl Creatinine 6.30 mg/dl Est Creatinine Clear Calc Drug Dose 5.5 ml/min Estimated GFR () 6.7 Estimated GFR (Non- 5.8 BUN/Creatinine Ratio 6.1 Random Glucose 82 mg/dl Calcium Level 9.3 mg/dl Test 02/06/17 07:41 Bedside Glucose 98 mg/dl Assessment & Plan ESRD-for dialysis today. stool output slowing down. goal of one liter uf today as bp tolerates. volume status is good. anemia-goal 10 to 11, continue procrit on dialysis.
--- NOTE | 2017-02-06 10:27 | Palliative Care Progress Note ---
Palliative Care Progress Note Date of Service Feb 06, 2017. Subjective Patient's daughter, Maxine, filled out POLST form as follows: DNR, limited additional interventions, determine the use or limitation of abx when infection occurs with comfort as the goal, and trial of artificial hydration/nutrition. New and most recent living will on chart and states that at end-stage, patient does not want any life-prolonging or heroic measures. Plan is to return to the [facility] with POLST and continue dialysis.
--- NOTE | 2017-02-06 18:08 | Progress Note ---
Internal Med Progress Note Date of Service: Feb 06, 2017. Provider Documentation: SUBJECTIVE: drowsy has dementia seems comfortable afebrile not much diarrhea as per nursing staff OBJECTIVE: Vital Signs-as noted below Exam: General-Drowsy. Not in distress ENT-normal hearing Neck-no neck masses Lungs-cta b/l no wheezing or crackles Heart-s1 and s2 heard regular rhythm no murmurs Abdomen-soft bowel sounds present non tender no distension Extremities-no edema no erythema Neuro-drowsy moves extremities Lab data as noted below. ASSESSMENT & PLAN: 77 /F with history of Lewybody Dementia, ESRD on HD, DM, HTN presenting with abdominal pain and diarrhea. 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 On Insulin Sliding Scale will monitor. CKD V Nephrology consulted on HD LEWY BODY DEMENTIA On Quetiapine COMPRESSION FRACTURE L1 - Severe compression fracture at L1 of uncertain chronicity noted on CT of abdomen and pelvis. CHRONIC PAIN Patient takes hydrocodone for chronic pain, apparently primarily due to right shoulder pain. On PO analgesics PRN HISTORY MRSA Contact precautions ordered VTE PROPHYLAXIS hep sib q RESUSCITATION STATUS "Level 5" (DNR). DISPOSITION d/c to [facility] in am ff up with PCP at the [facility] within 1 week HD per nephrology Vital Signs: Date Time Temp Pulse Resp B/P (MAP) Pulse Ox O2 Delivery O2 Flow Rate FiO2 02/06/17 17:30 69 140/68 02/06/17 17:15 69 136/68 02/06/17 17:00 70 152/68 02/06/17 16:45 68 143/61 02/06/17 16:30 69 142/80 02/06/17 16:15 66 135/67 02/06/17 16:00 98 Room Air 02/06/17 16:00 70 139/69 02/06/17 15:45 68 135/68 02/06/17 15:30 67 138/76 02/06/17 15:15 68 136/69 02/06/17 15:00 71 143/70 02/06/17 14:45 68 148/67 02/06/17 14:40 67 144/72 02/06/17 14:20 36.7 72 160/76 (104) 02/06/17 08:00 98 Room Air 02/06/17 07:19 36.8 108 18 103/68 (80) 98 2.0 02/06/17 07:10 36.9 73 16 170/77 (108) 97 Room Air 02/06/17 00:13 37.3 70 18 181/71 (107) 93 Room Air 02/06/17 00:00 97 Room Air Lab Results: Results Past 24 Hours Test 02/05/17 20:13 02/06/17 06:54 02/06/17 07:41 02/06/17 11:29 Range/Units Bedside Glucose 87 98 94 70-90 mg/dl White Blood Count 8.24 4.8-10.8 K/uL Red Blood Count 3.19 4.2-5.4 M/uL Hemoglobin 9.7 12.0-16.0 g/dL Hematocrit 32.3 37-47 % Mean Corpuscular Volume 101.3 80-100 fL Mean Corpuscular Hemoglobin 30.4 25-34 pg Mean Corpuscular Hemoglobin Concent 30.0 32-36 g/dl Platelet Count 280 130-400 K/uL Mean Platelet Volume 9.0 7.4-10.4 fL Neutrophils (%) (Auto) 55.3 % Lymphocytes (%) (Auto) 27.2 % Monocytes (%) (Auto) 8.4 % Eosinophils (%) (Auto) 7.6 % Basophils (%) (Auto) 0.8 % Neutrophils # (Auto) 4.55 1.4-6.5 K/uL Lymphocytes # (Auto) 2.24 1.2-3.4 K/uL Monocytes # (Auto) 0.69 0.11-0.59 K/uL Eosinophils # (Auto) 0.63 0-0.5 K/uL Basophils # (Auto) 0.07 0-0.2 K/uL RDW Standard Deviation 50.0 36.4-46.3 fL RDW Coefficient of Variation 13.9 11.5-14.5 % Immature Granulocyte % (Auto) 0.7 % Immature Granulocyte # (Auto) 0.06 0.00-0.02 K/uL Sodium Level 142 136-145 mmol/L Potassium Level 3.7 3.5-5.1 mmol/L Chloride Level 104 98-107 mmol/L Carbon Dioxide Level 31 21-32 mmol/L Anion Gap 7.0 3-11 mmol/L Blood Urea Nitrogen 39 7-18 mg/dl Creatinine 6.30 0.60-1.20 mg/dl Est Creatinine Clear Calc Drug Dose 5.5 ml/min Estimated GFR () 6.7 Estimated GFR (Non- 5.8 BUN/Creatinine Ratio 6.1 10-20 Random Glucose 82 70-99 mg/dl Calcium Level 9.3 8.5-10.1 mg/dl Test 02/06/17 16:58 Range/Units Bedside Glucose 81 70-90 mg/dl
[2017-02-06] MEDS: NEPHROCAPS PO SCH (20:26)
[2017-02-07] MEDS: HEPARIN SOD 5000 UNIT/0.5 ML CARP SQ SCH ×2 (05:39→18:00)
[2017-02-07] MEDS: INSULIN ASPART 100 UNITS/ML 3 ML PEN SC SCH ×4 (06:30→21:00)
[2017-02-07] MEDS: RASPBERRY SYRUP 5 ML UDP PO SCH ×4 (07:30→21:39)
[2017-02-07] MEDS: ASPIRIN 81 MG ECTAB PO SCH (07:31)
[2017-02-07] MEDS: QUETIAPINE FUMARATE 25 MG TAB PO SCH ×2 (07:31→21:40)
[2017-02-07] MEDS: CHOLECALCIFEROL 1000 INTER.UNIT TAB PO SCH (07:31)
[2017-02-07] MEDS: CALCIUM ACETATE 667MG GELCAP PO SCH ×4 (07:31→17:17)
[2017-02-07] MEDS: LABETALOL HCL 100 MG TAB PO SCH ×2 (07:32→21:41)
[2017-02-07] MEDS: VANCOMYCIN HCL 250 MG/5 ML SOLN PO SCH ×4 (07:38→21:39)
[2017-02-07] MEDS: BOOST GLUCOSE CONTROL PO SCH ×3 (07:38→16:29)
[2017-02-07 07:47] VITALS: BP 139/52; PULSE 68; TEMP 36.8; O2SAT 100
[2017-02-07 08:00] VITALS: O2SAT 100
[2017-02-07 11:13] VITALS: BP 139/52; PULSE 68; TEMP 36.8; O2SAT 100
--- NOTE | 2017-02-07 13:38 | DIAGNOSTIC IMAGING REPORT ---
CT LEFT HIP-LOWER EXTREMITY WITHOUT CT DOSE: 261.47 mGy.cm CLINICAL HISTORY: Left hip bony mass TECHNIQUE: Helical images were acquired in the transverse plane. Sagittal and coronal reformatted images were acquired A dose lowering technique was utilized adhering to the principles of ALARA. COMPARISON STUDY: None. FINDINGS: There is no pathologic adenopathy. No acute fractures are visualized. There are no cortical destructive lesions. Indistinctness of the proximal posterior femoral cortex, likely relates to an insertion site and associated stress reaction. There is a small amount of fluid adjacent to the greater trochanter, consistent with a trochanteric bursitis. There is induration/infiltration of the subcutaneous fat overlying the greater trochanter. This measures approximately 5 cm and is likely inflammatory. Clinical follow-up is advocated. IMPRESSION: 1. No evidence of acute fracture 2. Trochanteric bursitis 3. 5 cm area of induration/infiltration of the subcutaneous fat overlying the greater trochanter. This is likely inflammatory. Clinical follow-up is advocated. Electronically signed by: Adan Han M.D. 02/07/2017 1:37 PM Dictated Date/Time: 02/07/2017 1:32 PM
--- NOTE | 2017-02-07 14:06 | Progress Note ---
Internal Med Progress Note Date of Service: Feb 07, 2017. Provider Documentation: SUBJECTIVE: drowsy has dementia seems comfortable and at baseline afebrile stable OBJECTIVE: Vital Signs-as noted below Exam: General-Drowsy. Not in distress ENT-normal hearing Neck-no neck masses Lungs-cta b/l no wheezing or crackles Heart-s1 and s2 heard regular rhythm no murmurs Abdomen-soft bowel sounds present non tender no distension Extremities-no edema no erythema Musculoskeletal Bony prominence of left hip region lateral side with mild erythema Neuro-drowsy moves extremities Lab data as noted below. ASSESSMENT & PLAN: 77 /F with history of Lewybody Dementia, ESRD on HD, DM, HTN presenting with abdominal pain and diarrhea. 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 Not on meds was placed on Insulin Sliding Scale but did not required it f/u hba1c levels with pcp CKD V Nephrology consulted on HD LEWY BODY DEMENTIA On Quetiapine COMPRESSION FRACTURE L1 - Severe compression fracture at L1 of uncertain chronicity noted on CT of abdomen and pelvis. Left hip bony prominence on lateral side ct scan :1. No evidence of acute fracture 2. Trochanteric bursitis 3. 5 cm area of induration/infiltration of the subcutaneous fat overlying the greater trochanter. This is likely inflammatory. Clinical follow-up is advocated. CHRONIC PAIN Patient takes hydrocodone for chronic pain, apparently primarily due to right shoulder pain. On PO analgesics PRN HISTORY MRSA Contact precautions ordered. Discharged to [facility] side Vital Signs: Date Time Temp Pulse Resp B/P (MAP) Pulse Ox O2 Delivery O2 Flow Rate FiO2 02/07/17 11:13 36.8 68 18 100 Room Air 02/07/17 08:00 100 Room Air 02/07/17 07:47 36.8 68 18 139/52 (81) 100 02/07/17 00:00 Room Air 02/06/17 23:27 36.4 74 18 165/69 (101) 97 Room Air 02/06/17 20:00 Room Air 02/06/17 18:25 36.4 71 136/70 (92) 02/06/17 17:30 69 140/68 02/06/17 17:15 69 136/68 02/06/17 17:00 70 152/68 02/06/17 16:45 68 143/61 02/06/17 16:30 69 142/80 02/06/17 16:15 66 135/67 02/06/17 16:00 98 Room Air 02/06/17 16:00 70 139/69 02/06/17 15:45 68 135/68 02/06/17 15:30 67 138/76 02/06/17 15:15 68 136/69 02/06/17 15:00 71 143/70 02/06/17 14:45 68 148/67 02/06/17 14:40 67 144/72 02/06/17 14:20 36.7 72 160/76 (104) Lab Results: Results Past 24 Hours Test 02/06/17 16:58 02/06/17 20:08 02/07/17 07:31 02/07/17 11:35 Range/Units Bedside Glucose 81 96 86 82 70-90 mg/dl
[2017-02-07] MEDS ORDERED: NUTR-7 PO (14:12)
[2017-02-07] MEDS ORDERED: HYDR-5688 PO (14:12)
[2017-02-07] MEDS ORDERED: LCTX PO (14:12)
[2017-02-07] MEDS ORDERED: VNCS125 PO (14:12)
--- NOTE | 2017-02-07 14:16 | Discharge Instructions ---
Discharge Instructions Date of Service Feb 07, 2017. Admission Reason for Admission: C. Difficile Colitis Discharge Discharge Diagnosis / Problem: C DIFF COLITIS Discharge Goals Goal(s): Decrease discomfort, Improve function Activity Recommendations Activity Level: Up Ad Catrina Therapies: Physical Therapy, Occupational Therapy . Additional Information Patient informed of condition: Yes Advance Directives: Yes DNR: Yes Level of Care: Skilled Communicable Disease: No Prognosis: Stable Thomas Catheter: No Instructions / Follow-Up Instructions / Follow-Up FOLLOWUP WITH FAMILY DOCTOR IN ONE WEEK LAB: HBA1C LEVELS AND FOLLOW RESULTS WITH FAMILY DOCTOR Current Hospital Diet Patient's current hospital diet: Diabetes Type 2 Diet Discharge Diet Recommended Diet: Diabetes Type 2 Diet Diet Texture: Dental Soft (bite-sized) Pending Studies Studies pending at discharge: no Physician Orders On Transfer Special Precautions: FALL AND ASPIRATION PRECAUTIONS Vital Signs: EVERY 8HRS Medical Emergencies . Who to Call and When: Medical Emergencies: If at any time you feel your situation is an emergency, please call 911 immediately. . Non-Emergent Contact Non-Emergency issues call your: Primary Care Provider . . "Provider Documentation" section prepared by Darrell Gloria. . Core Measure Problem Core Measures: None
--- NOTE | 2017-02-07 14:20 | Discharge Summary ---
Discharge Summary Date of Service Feb 07, 2017. Discharge Summary Admission Date: Feb 01, 2017 at 01:14 Discharge Date: Feb 07, 2017 Discharge Disposition: care home facility Principal Diagnosis: C DIFF COLITIS Secondary Diagnoses/Problems: type 2 diabetes, diabetic neuropathy, chronic kidney disease on hemodialysis, Lewy body dementia, major depression, chronic anemia, hypertension, history of MRSA, and also history of osteomyelitis. Procedures: CT HEAD: No acute intracranial findings CXR: Mild upper lung zone interstitial thickening with a peripheral distribution. No evidence of acute lobar consolidation. CT ABD/PELVIS: 1. Mild nonspecific colitis. 2. Mild nonspecific rectal distention. 3. Gallstones within the gallbladder lumen. Small calcification medially posterior to the gallbladder of uncertain etiology although it is adjacent to the proximal right ureter. 4. Interstitial change at both lung bases. 5. Compression deformity L1 and L3 unchanged from the prior study. LEFT HIP CT: 1. No evidence of acute fracture 2. Trochanteric bursitis 3. 5 cm area of induration/infiltration of the subcutaneous fat overlying the greater trochanter. This is likely inflammatory. Clinical follow-up is advocated. Consultations: NEPHROLOGY Medication Reconciliation New Medications: Lactobacillus Acidophilus (Lactinex) Tab 2 TAB PO BID, #30 TAB Vancomycin HCl (Vancomycin HCl) 125 Mg/2.5 Ml Susp 125 MG PO QID for 5 Days Continued Medications: Acetaminophen (Tylenol) 325 Mg Tab 650 MG PO Q6 PRN for Pain or Fever, TAB MILD PAIN OR FEVER > 101 F. NOT TO EXCEED 3 GRAMS PER 24 HOURS. Aspirin (Aspirin Ec) 81 Mg Tab 81 MG PO QAM Atorvastatin (Lipitor) 10 Mg Tab 10 MG PO HS, TAB B-Complex W/ C & Folic Acid ([place] Caps) 1 Cap Cap 1 CAP PO QPM Calcium Acetate (Phosphate Bin (Phoslo 667 Mg) 667 Mg Cap 2 CAPSULES PO TIDM, CAP Cholecalciferol (Vitamin D3) 1,000 Unit Cap 1000 UNITS PO QAM Enteral Nutrition Formula (Nepro Carb Steady) 1 Can Liqd 8 OZ PO TID Hydralazine HCl (Hydralazine HCl) 25 Mg Tab 25 MG PO DAILY @ 1600 Hydrocodone/Acetaminophen 5MG/325MG ([place] 5MG/325MG) Tab 1 TABLET PO BID PRN for Pain for 3 Days, TAB (This prescription has been renewed ) Ketoconazole (Topical) (Ketoconazole) 2 % Sha 1 APPLN TOP 2XWK for 30 Days, #120 ML 3 Refills USES ON SAT & TH. Labetalol Hcl (Normodyne) 100 Mg Tab 100 MG PO BID HOLD IF SYSTOLIC B/P < 120, OR APICAL HEART RATE < 50. Quetiapine Fumarate (Seroquel) 25 Mg Tab 12.5 MG PO BID, TAB Admission Information HPI (per Admitting provider): : She is a 77-year-old female with significant past medical history including advanced dementia, diabetes with neuropathy, CKD on dialysis, chronic anemia, hypertension; apparently was discharged from the hospital on 01/23/2017 following an attack of sepsis secondary to E. coli bacteremia due to biliary tract source. She finished antibiotic and since this morning, she has been complaining of pain in the lower abdomen associated with fever and diarrhea. From that point, she was taken to the Emergency Room. There is no history of any shortness of breath, any cough or phlegm. No history of chest pain, palpitation. No increasing weakness or increasing numbness or tingling in the extremities. In the ER, she was noted to have a white count of 19,000, and CAT scan of the abdomen and pelvis did show colonic wall thickening of the distal transverse through sigmoid colon, finding compatible with colitis and she was noted to have CD toxin positive. From that point, she was admitted to medical floor. Physical Exam (per Admitting): GENERAL: On examination in the Emergency Room, she was not having any acute distress. VITAL SIGNS: Temperature 36.8, pulse of 70, blood pressure 102/63, saturation 98% on room air. HEENT: Unremarkable. NECK: Supple. No JVD, no bruit. CHEST: Decreased breath sound at bases with some crackles. HEART: S1, S2 regular with 2/6 systolic murmur over precordium and also aortic area. ABDOMEN: Soft, benign, tender in the lower quadrant, mostly on the left side. Bowel sounds present. EXTREMITIES: Negative for any edema. MUSCULOSKELETAL: No acute arthritis. CENTRAL NERVOUS SYSTEM: She was alert, awake, but she is very demented. Generally weak, but no focal neuro deficit. Hospital Course 77 /F with history of Lewybody Dementia, ESRD on HD, DM, HTN presenting with abdominal pain and diarrhea. 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 Not on meds was placed on Insulin Sliding Scale but did not required it f/u hba1c levels with pcp CKD V Nephrology consulted on HD LEWY BODY DEMENTIA On Quetiapine COMPRESSION FRACTURE L1 - Severe compression fracture at L1 of uncertain chronicity noted on CT of abdomen and pelvis. Left hip bony prominence on lateral side ct scan :1. No evidence of acute fracture 2. Trochanteric bursitis 3. 5 cm area of induration/infiltration of the subcutaneous fat overlying the greater trochanter. This is likely inflammatory. Clinical follow-up is advocated. CHRONIC PAIN Patient takes hydrocodone for chronic pain, apparently primarily due to right shoulder pain. On PO analgesics PRN HISTORY MRSA Contact precautions ordered. Discharged to [facility] side Total time spent on discharge = 40MINUTES This includes examination of the patient, discharge planning, medication reconciliation, and communication with other providers. Discharge Instructions Discharge Instructions Date of Service Feb 07, 2017. Admission Reason for Admission: C. Difficile Colitis Discharge Discharge Diagnosis / Problem: C DIFF COLITIS Discharge Goals Goal(s): Decrease discomfort, Improve function Activity Recommendations Activity Level: Up Ad Catrina Therapies: Physical Therapy, Occupational Therapy . Additional Information Patient informed of condition: Yes Advance Directives: Yes DNR: Yes Level of Care: Skilled Communicable Disease: No Prognosis: Stable Thomas Catheter: No Instructions / Follow-Up Instructions / Follow-Up FOLLOWUP WITH FAMILY DOCTOR IN ONE WEEK LAB: HBA1C LEVELS AND FOLLOW RESULTS WITH FAMILY DOCTOR Current Hospital Diet Patient's current hospital diet: Diabetes Type 2 Diet Discharge Diet Recommended Diet: Diabetes Type 2 Diet Diet Texture: Dental Soft (bite-sized) Pending Studies Studies pending at discharge: no Physician Orders On Transfer Special Precautions: FALL AND ASPIRATION PRECAUTIONS Vital Signs: EVERY 8HRS Medical Emergencies . Who to Call and When: Medical Emergencies: If at any time you feel your situation is an emergency, please call 911 immediately. . Non-Emergent Contact Non-Emergency issues call your: Primary Care Provider . . "Provider Documentation" section prepared by Darrell Gloria. . Core Measure Problem Core Measures: None
[2017-02-07 15:00] VITALS: BP 121/65; PULSE 72; TEMP 37; O2SAT 98
[2017-02-07] MEDS: NEPHROCAPS PO SCH (21:39)
[2017-02-07 21:49] VITALS: BP 166/70; PULSE 75
[2017-02-08 00:59] VITALS: BP 154/72; PULSE 72; TEMP 37.2; O2SAT 97
[2017-02-08] MEDS: HEPARIN SOD 5000 UNIT/0.5 ML CARP SQ SCH (06:05)
--- NOTE | 2017-02-08 07:10 | Nephrology Progress Note ---
Nephrology Progress Note Date of Service: Feb 08, 2017. Subjective 77 yo female with lewy body dementia with cdiff colitis. pt comfortable. no abdominal pain elicited. rectal tube removed. pt resting quietly. Objective Date Time Temp Pulse Resp B/P (MAP) Pulse Ox O2 Delivery O2 Flow Rate FiO2 02/08/17 00:59 37.2 72 17 154/72 (99) 97 Room Air 02/08/17 00:00 Room Air 02/07/17 21:49 75 166/70 (102) 02/07/17 15:56 Room Air 02/07/17 15:00 37.0 72 18 121/65 (83) 98 Room Air 02/07/17 11:13 36.8 68 18 100 Room Air 02/07/17 08:00 100 Room Air 02/07/17 07:47 36.8 68 18 139/52 (81) 100 Physical Exam: General-confused Eyes-no scleral icterus ENT-mmm Neck-supple Lungs-cta Heart-rrr Abdomen-bs+/nd/nt Extremities-no edema Neuro-confused Current Inpatient Medications Medications (Trade) Dose Ordered Sig/Neyda Route Start Time Stop Time Status Last Admin Dose Admin Acetaminophen (Tylenol Tab) 650 mg Q4H PRN PO 02/01/17 01:15 03/03/17 01:14 02/03/17 00:35 650 MG Ondansetron HCl (Zofran Inj) 4 mg Q6H PRN IV 02/01/17 01:15 03/03/17 01:14 Aspirin (Ecotrin Tab) 81 mg QAM PO 02/01/17 09:00 03/03/17 08:59 02/07/17 07:31 81 MG Vitamin B Complex/ Vit C/Folic Acid (Nephrocaps) 1 cap QPM PO 02/01/17 21:00 03/03/17 20:59 02/07/17 21:39 1 CAP Calcium Acetate (Phoslo Cap) 1,334 mg TIDM PO 02/01/17 08:00 03/03/17 07:59 02/07/17 17:17 1,334 MG Miscellaneous Information (Order Awaiting Action) 1 ea QS N/A 02/01/17 08:00 03/03/17 07:59 Hydralazine HCl (Apresoline Tab) 25 mg DAILY PO 02/01/17 09:00 03/03/17 08:59 02/07/17 07:32 25 MG Acetaminophen/ Hydrocodone Bitart ([place] 5/325 Tab) 1 tab BID PRN PO 02/01/17 01:15 02/15/17 01:14 Labetalol HCl (Normodyne Tab) 100 mg BID PO 02/01/17 09:00 03/03/17 08:59 02/07/17 21:41 100 MG Quetiapine Fumarate (seroQUEL TAB) 12.5 mg BID PO 02/01/17 09:00 03/03/17 08:59 02/07/17 21:40 12.5 MG Cholecalciferol (Vitamin D Tab) 1,000 inter.unit QAM PO 02/01/17 09:00 03/03/17 08:59 02/07/17 07:31 1,000 INTER.UNIT Miscellaneous Information (Order Awaiting Action) 1 ea QS N/A 02/01/17 08:00 03/03/17 07:59 Insulin Aspart (novoLOG ASPART) SLIDING SCALE G... ACHS SC 02/01/17 06:30 03/03/17 06:29 02/02/17 17:44 3 UNITS Glucose (Glucose 40% Gel) 15-30 GRAMS 15 GRAMS... UD PRN PO 02/01/17 03:00 03/03/17 02:59 Glucose (Glucose Chew Tab) 4-8 Tablets 4 Tabl... UD PRN PO 02/01/17 03:00 03/03/17 02:59 Dextrose (Dextrose 50% 50ML Syringe) 25-50ML OF 50% DW IV FOR... UD PRN IV 02/01/17 03:00 03/03/17 02:59 Glucagon (Glucagon Inj) 1 mg UD PRN SQ 02/01/17 03:00 03/03/17 02:59 Raspberry (Raspberry Syrup 5ml Cup) 5 ml QID PO 02/01/17 09:00 02/15/17 08:59 02/07/17 21:39 5 ML Heparin Sodium (Porcine) (Heparin Sq 5000 Unit/0.5ml) 5,000 unit Q12H SQ 02/01/17 18:00 03/03/17 05:59 02/08/17 06:05 5,000 UNIT Enteral Nutritional Formula (Boost Glucose Control) 1 can TIDM PO 02/01/17 12:00 03/03/17 11:59 02/07/17 07:38 1 CAN Vancomycin HCl (Vancomycin Oral Soln) 250 mg QID PO 02/06/17 09:00 02/11/17 08:59 02/07/17 21:39 250 MG Last 24 Hours Test 02/07/17 07:31 02/07/17 11:35 02/07/17 16:31 02/07/17 20:27 Bedside Glucose 86 mg/dl 82 mg/dl 78 mg/dl 101 mg/dl Assessment & Plan ESRD-for dialysis today. plan on removing about one liter as bp tolerates. volume status and electrolytes are stable. anemia-goal 10 to 11, continue procrit on dialysis.
[2017-02-08] MEDS ORDERED: EPOETIN ALFA 10,000 UNITS/ML VIAL IV. SCH (07:15)
[2017-02-08 07:17] VITALS: BP 154/71; PULSE 64; TEMP 36.6; O2SAT 98
== END 2017-02-08 09:10 | DRG 371 ==
LOC: EDBD 21:32 → C.EDB 21:33 → C.MS2W 02-01 01:14 → UNDOADMIN 02-01 01:14 → ENRESERV 02-01 01:43 → C.MS2W 02-01 13:25
PROVIDERS: ADMIT Internal Medicine; ATTEND Internal Medicine
DX: A04.7 Enterocolitis due to Clostridium difficile (principal); N18.6 End stage renal disease; I12.0 Hypertensive chronic kidney disease with stage 5 chronic kidney disease or end stage renal disease; D63.1 Anemia in chronic kidney disease; Z99.2 Dependence on renal dialysis; E11.21 Type 2 diabetes mellitus with diabetic nephropathy; E11.40 Type 2 diabetes mellitus with diabetic neuropathy, unspecified; E11.319 Type 2 diabetes mellitus with unspecified diabetic retinopathy without macular edema; G31.83 Neurocognitive disorder with Lewy bodies; Z86.14 Personal history of Methicillin resistant Staphylococcus aureus infection; Z87.891 Personal history of nicotine dependence; Z66 Do not resuscitate

== ENCOUNTER → 2017-04-09 | Outpatient (CLI) | payer OTHER, BC ==
[~2017-04-09] MED LIST changes: +LCTX PO; -NYST1POW7 TOP; +VNCS125 PO
== END ==
LOC: C.LABUPUNI 10:23
PROVIDERS: ATTEND Nurse Practitioner Family
DX: R19.5 Other fecal abnormalities (principal)

== ENCOUNTER 2017-04-12 10:45 | Inpatient (IN) | payer OTHER, BC ==
[~2017-04-12] VITALS: Ht 152.4 cm; Wt 53.1 kg
[2017-04-12] MEDS ORDERED: SODIUM CHLORIDE 0.9% 1000ML 1,000 ML IV STA (11:01)
--- NOTE | 2017-04-12 11:21 | DIAGNOSTIC IMAGING REPORT ---
CHEST ONE VIEW PORTABLE HISTORY: 77 years-old Female EVALUATE WEAKNESS acute weakness. COMPARISON: Chest radiograph 01/31/2017 TECHNIQUE: Portable upright AP view of the chest FINDINGS: Cardiac silhouette is upper limits of normal, unchanged. Atherosclerosis of the aorta. Chronic interstitial coarsening. Subsegmental left basilar atelectasis. No pneumothorax, pleural effusion, focal airspace consolidation or overt pulmonary edema. Remote right proximal humeral fracture with background moderate bone demineralization. IMPRESSION: 1. No acute cardiopulmonary process. 2. Chronic bilateral interstitial coarsening. The above report was generated using voice recognition software. It may contain grammatical, syntax or spelling errors. Electronically signed by: Cash Moeller M.D. 04/12/2017 11:20 AM Dictated Date/Time: 04/12/2017 11:19 AM
[2017-04-12 11:48] LABS: HEMATOCRIT 32.9 % (37-47); MEAN CELL VOLUME 96.5 fL (80-100); MEAN CORPUSCULAR HEMOGLOBIN 31.4 pg (25-34); MEAN CORPUSCULAR HGB CONC 32.5 g/dl (32-36); MEAN PLATELET VOLUME 9.8 fL (7.4-10.4); PLATELET COUNT 281 K/uL (130-400); RED BLOOD COUNT 3.41 M/uL (4.2-5.4); WHITE BLOOD COUNT 19.82 K/uL (4.8-10.8)
[2017-04-12 11:59] LABS: PARTIAL THROMBOPLASTIN RATIO 0.8
--- NOTE | 2017-04-12 12:06 | DIAGNOSTIC IMAGING REPORT ---
HEAD WITHOUT CONTRAST (CT) CLINICAL HISTORY: 77 years-old Female with EVALUATE WEAKNESS. Acute weakness TECHNIQUE: Multiple axial CT images of the head were obtained without contrast. A dose lowering technique was utilized adhering to the principles of ALARA. CT DOSE: 930.90 mGy.cm COMPARISON: CT head 01/31/2017. FINDINGS: No acute intracranial hemorrhage, midline shift, mass, large territorial ischemia or abnormal extra-axial collection. Moderate atrophy with ex vacuo ventriculomegaly. Vascular calcifications of the level of the skull base. Background chronic microvascular ischemic changes. The calvarium is intact. The mastoid air cells, and middle ear cavities are clear. Moderate mucosal thickening of the inferior right maxillary and anterior ethmoid air cells. Mild right maxillary sinus disease. Soft tissues and orbits are unremarkable. IMPRESSION: 1. No acute intracranial abnormality. 2. Moderate atrophy with ex vacuo ventriculomegaly and chronic microvascular ischemic changes. 3. Mild paranasal sinus disease. The above report was generated using voice recognition software. It may contain grammatical, syntax or spelling errors. Electronically signed by: Cash Moeller M.D. 04/12/2017 12:05 PM Dictated Date/Time: 04/12/2017 12:03 PM
[2017-04-12] MEDS ORDERED: CHOLPOW PO (12:16)
[2017-04-12] MEDS ORDERED: MISCCAP80 PO (12:16)
--- NOTE | 2017-04-12 12:19 | DIAGNOSTIC IMAGING REPORT ---
CT SCAN OF THE ABDOMEN AND PELVIS WITHOUT IV CONTRAST CLINICAL HISTORY: Change in mental status. Lethargy and weakness. Generalized abdominal pain. COMPARISON STUDY: Abdominal CT dated, 01/31/2017 and 01/15/2017. TECHNIQUE: CT scan of the abdomen and pelvis is performed from the lung bases to the proximal femora. Images are reviewed in the axial, sagittal, and coronal planes. IV contrast was not administered for this examination as per the referring clinician. Note that the examination was performed in suboptimal fashion without oral and IV contrast. The examination is also significantly degraded by motion artifact and streak artifact from the left arm which could not be elevated above the abdomen. A dose lowering technique was utilized adhering to the principles of ALARA. FINDINGS: Lung bases: The heart is normal in size there is a small pericardial effusion. The coronary arteries are densely calcified. Chronic interstitial change is present at both lung bases. A calcified granuloma seen at the right lung base. There is no airspace consolidation typical for pneumonia or pleural effusion. Liver: Evaluation of the liver is degraded by streak artifact. The unenhanced liver is enlarged, measuring 20.7 cm in length. The liver is otherwise grossly normal in contour and attenuation. There is no intrahepatic biliary ductal dilatation. A 1.6 cm cyst is suggested in the right lobe on image #57. Gallbladder: The gallbladder is filled with calcified gallstones. There is no convincing CT evidence of cholecystitis. Choledocholithiasis is identified at the head of the pancreas on image #124. Spleen: Normal in size and attenuation. Pancreas: Atrophic and grossly unremarkable. This is not well evaluated due to streak artifact. Adrenal glands: There is thickening of the left adrenal gland. Not visualized. Kidneys: The unenhanced kidneys are atrophic and without hydronephrosis. There are no renal calculi identified. There is no evidence of contour deforming renal mass lesion. Abdominal vasculature: The abdominal aorta is normal in course and caliber noting advanced atherosclerotic calcification. Bowel: There is colonic wall thickening and edema with mild pericolonic inflammation. The appearance is consistent with a nonspecific pancolitis, greatest involving the transverse and descending colon. No bowel obstruction is seen. The appendix is not visualized. Peritoneum: There is trace fluid within the left paracolic gutter. No intraperitoneal free air is seen. Lymphadenopathy: None. Pelvic viscera: The bladder is decompressed and grossly unremarkable. The uterus is surgically absent. No adnexal lesion is seen. Skeletal structures: The skeletal structures are heterogeneously osteopenic. There is moderate lumbosacral spondylosis. There is a severe compression deformity of L1 with retropulsed fragments. A moderate compression deformity is seen involving L3. No lytic or blastic lesions are seen. There are healed left pubic ring fractures. Soft tissues: There is a 6 x 4 cm focus of induration/collection overlying the left hip seen on axial image #348. IMPRESSION: 1. Suboptimal examination without oral and IV contrast. The examination is also significantly compromised by streak and motion artifact 2. Findings suggest a nonspecific colitis, greatest involving the left colon. This could be on an infectious, inflammatory, or ischemic basis. 3. Cholelithiasis and choledocholithiasis with calcified gallstones identified within the common bile duct. There is no convincing CT evidence of acute cholecystitis. If there is clinical concern for cholecystitis then abdominal ultrasound should be considered. 4. Soft tissue induration overlies the left hip and has been present dating back to 01/15/2017. This likely represents resolving contusion/hematoma. Clinical correlation will be essential. 5. Trace fluid is seen in the left paracolic gutter. 6. Additional findings as above. Findings were discussed with Dr. Becerra in the emergency department at the time of interpretation. Electronically signed by: Ko Ervin M.D. 04/12/2017 12:18 PM Dictated Date/Time: 04/12/2017 11:57 AM
[2017-04-12 12:22] LABS: BASO % 0.4 %; BASO ABS # 0.08 K/uL (0-0.2); COMPLETE YES; EOS % 3.9 %; IG% 0.4 %; LYMPH ABS # 2.38 K/uL (1.2-3.4); MONO % 4.4 %; NEUT % 78.9 %
[2017-04-12 12:29] LABS: ALKALINE PHOSPHATASE 110 U/L (45-117); ALT/SGPT 12 U/L (12-78); AST/SGOT 15 U/L (15-37); BLOOD UREA NITROGEN 49 mg/dl (7-18); BUN/CREATININE RATIO 8.1 (10-20); CALCIUM 9.1 mg/dl (8.5-10.1); CARBON DIOXIDE 28 mmol/L (21-32); CHLORIDE 105 mmol/L (98-107); CKMB/CK RATIO 3.2 (0-3.0); CREATININE 6.13 mg/dl (0.60-1.20); GLUCOSE 160 mg/dl (70-99); MAGNESIUM 2.5 mg/dl (1.8-2.4); POTASSIUM 2.7 mmol/L (3.5-5.1); SODIUM 142 mmol/L (136-145); THYROID STIMULATING HORMONE 0.897 uIu/ml (0.300-4.500)
[2017-04-12 12:33] LABS: URINE APPEARANCE CLOUDY (CLEAR); URINE EPITHELIAL CELL AUTO >30 /lpf (0-5); URINE NITRITE POS (NEG); UROBILINOGEN NEG (NEG)
[2017-04-12] MEDS ORDERED: METRONIDAZOLE 500MG / 100ML NSS IV STA (12:37)
[2017-04-12] MEDS ORDERED: CEFEPIME IV 1,000 MG in DEXTROSE 5% 100ML 100 ML IV STA (12:37)
[2017-04-12] MEDS ORDERED: POTASSIUM CHLORIDE 10 MEQ / 100ML WTR IV STA (12:39)
[2017-04-12 12:40] LABS: MANUAL MICROSCOPIC REQUIRED? NO; REVIEW REQ? YES; URINE BILIRUBIN NEG (NEG); URINE COLOR AMBER
[2017-04-12] MEDS ORDERED: SODIUM CHLORIDE 0.9% 500ML 500 ML IV STA (12:52)
[2017-04-12] MEDS ORDERED: ONDANSETRON INJ 2 MG/ML 2 ML VIAL IV PRN (14:00)
[2017-04-12 14:22] VITALS: Ht 152.4 cm; Wt 53.1 kg
[2017-04-12] MEDS ORDERED: APR25 PO (14:22)
[2017-04-12] MEDS ORDERED: HydrALAZINE HCL 20 MG/ML VIAL IV. PRN (14:30)
--- NOTE | 2017-04-12 14:34 | Gastrointestinal Consultation ---
Gastrointestinal Consultation Date of Consultation: Apr 12, 2017 Attending Physician: Mohan Consulting Physician: Flex Reason for Consultation: c.diff, cholodocolithiasis History of Present Illness Patient is a 77 year old female with history of dementia, CKD on dialysis and others listed below who presented to the ED for evaluation of mental status change. Pt was seen and evaluated, chart reviewed. Pt is asleep, not response to verbal stimuli, does respond to tactile stimuli. ROS was not obtained. No family at bedside - per note GI was consulted for c.diff and choledocholithiasis. VSS, leukocytosis with white count 20, LFTS WNL, lipase WNL, BUN/JUDICIAL CLERK 49/6, potassium 2.7 ROS not obtained due to pt mental status CT ABD/Pelvis 04/12/17: . Suboptimal examination without oral and IV contrast. The examination is also significantly compromised by streak and motion artifact Findings suggest a nonspecific colitis, greatest involving the left colon. This could be on an infectious, inflammatory, or ischemic basis. Cholelithiasis and choledocholithiasis with calcified gallstones identified within the common bile duct. There is no convincing CT evidence of acute cholecystitis. If there is clinical concern for cholecystitis then abdominal ultrasound should be considered. Soft tissue induration overlies the left hip and has been present dating back to 01/15/2017. This likely represents resolving contusion/hematoma. Clinical correlation will be essential. Trace fluid is seen in the left paracolic gutter. Additional findings as above. Past Medical/Surgical History Medical Problems: (1) Altered mental status Status: Acute (2) Altered mental status Status: Acute (3) C. difficile diarrhea Status: Acute (4) C. difficile diarrhea Status: Acute (5) Dehydration Status: Acute (6) Diabetic foot ulcers Status: Acute (7) Diabetic foot ulcers Status: Acute (8) Fever Status: Acute (9) Gallstone pancreatitis Status: Acute (10) Hypotension Status: Acute (11) Hypotension Status: Acute (12) Sepsis Status: Acute (13) Sepsis Status: Acute Past Medical History: Gathered from chart due to mental status, CKD, anemia, c.diff, T2DM, MRSA, HTN, dementia Past Surgical History: gathered from chart due to mental status amputation of toe of left foot, hysterectomy Family History Cancer Diabetes mellitus Heart disease Hypertension Social History Smoking Status: Unknown if Ever Smoked Alcohol Use: none Drug Use: none Marital Status: Housing Status: penitentiary Occupation Status: retired Allergies Coded Allergies: Dust (Verified Allergy, Unknown, SNEEZING,WHEEZING, 04/12/17) Current Medications Home Meds and Scripts Medications Dose Route/Sig Max Daily Dose Days Date Category Dose Instructions Apresoline (Hydralazine Hcl) 25 Mg Tab 25 Mg PO UD 04/12/17 Reported Cholestyramine (Cholestyramine (Bulk)) 1 Pow Pow 1 Dose PO BID 04/12/17 Reported Probiotic (Probiotic Product) 1 Cap Cap 1 Cap PO BID 04/12/17 Reported Normodyne (Labetalol Hcl) 100 Mg Tab 100 Mg PO BID 01/15/17 Reported HOLD IF SYSTOLIC B/P < 120, OR APICAL HEART RATE < 50. Nepro Carb Steady (Enteral Nutritional Formula) 1 Can Liqd 8 Oz PO TID 03/10/16 Reported Seroquel (Quetiapine Fumarate) 25 Mg Tab 12.5 Mg PO BID 08/02/15 Reported Phoslo 667 Mg (Calcium Acetate (Phosphate Bin) 667 Mg Cap 2 Capsules PO TIDM 03/03/15 Reported [place] Caps (B-Complex W/ C & Folic Acid) 1 Cap Cap 1 Cap PO QPM 03/03/15 Reported Vitamin D3 (Cholecalciferol) 1,000 Unit Cap 1,000 Units PO QAM 11/03/14 Reported Lipitor (Atorvastatin Calcium) 10 Mg Tab 10 Mg PO HS 11/03/14 Reported Aspirin Ec (Aspirin) 81 Mg Tab 81 Mg PO QAM 11/03/14 Reported Tylenol (Acetaminophen) 325 Mg Tab 650 Mg PO Q6 PRN 11/03/14 Reported MILD PAIN OR FEVER > 101 F. NOT TO EXCEED 3 GRAMS PER 24 HOURS. Review of Systems Constitutional: No fever, No chills Physical Exam Date Time Temp Pulse Resp B/P (MAP) Pulse Ox O2 Delivery O2 Flow Rate FiO2 04/12/17 14:27 61 04/12/17 12:02 107/51 04/12/17 11:30 86/41 04/12/17 11:15 64 17 97 04/12/17 11:06 97 Room Air 04/12/17 11:00 37.4 76 16 88/40 97 Room Air 04/12/17 11:00 88/40 04/12/17 11:00 64 04/12/17 10:49 100/45 General Appearance: no apparent distress Respiratory/Chest: lungs clear Cardiovascular: regular rate, rhythm Abdomen: soft, no organomegaly, no pulsatile mass Neurologic/Psych: + pertinent finding (pt is not alert, unable to assess orientation) Skin: normal color Laboratory Results Last 24 Hours Test 04/12/17 11:25 04/12/17 12:07 04/12/17 12:15 04/12/17 13:58 White Blood Count 19.82 K/uL Red Blood Count 3.41 M/uL Hemoglobin 10.7 g/dL Hematocrit 32.9 % Mean Corpuscular Volume 96.5 fL Mean Corpuscular Hemoglobin 31.4 pg Mean Corpuscular Hemoglobin Concent 32.5 g/dl Platelet Count 281 K/uL Mean Platelet Volume 9.8 fL Neutrophils (%) (Auto) 78.9 % Lymphocytes (%) (Auto) 12.0 % Monocytes (%) (Auto) 4.4 % Eosinophils (%) (Auto) 3.9 % Basophils (%) (Auto) 0.4 % Neutrophils # (Auto) 15.62 K/uL Lymphocytes # (Auto) 2.38 K/uL Monocytes # (Auto) 0.88 K/uL Eosinophils # (Auto) 0.78 K/uL Basophils # (Auto) 0.08 K/uL RDW Standard Deviation 53.0 fL RDW Coefficient of Variation 15.1 % Immature Granulocyte % (Auto) 0.4 % Immature Granulocyte # (Auto) 0.08 K/uL Prothrombin Time 11.0 SECONDS Prothromb Time International Ratio 1.0 Activated Partial Thromboplast Time 21.4 SECONDS Partial Thromboplastin Ratio 0.8 Sodium Level 142 mmol/L Potassium Level 2.7 mmol/L Chloride Level 105 mmol/L Carbon Dioxide Level 28 mmol/L Anion Gap 9.0 mmol/L Blood Urea Nitrogen 49 mg/dl Creatinine 6.13 mg/dl Estimated GFR () 6.9 Estimated GFR (Non- 6.0 BUN/Creatinine Ratio 8.1 Random Glucose 160 mg/dl Calcium Level 9.1 mg/dl Magnesium Level 2.5 mg/dl Total Bilirubin 0.5 mg/dl Direct Bilirubin 0.1 mg/dl Aspartate Amino Transf (AST/SGOT) 15 U/L Alanine Aminotransferase (ALT/SGPT) 12 U/L Alkaline Phosphatase 110 U/L Ammonia 15.0 umol/L Total Creatine Kinase 174 U/L Creatine Kinase MB 5.5 ng/ml Creatine Kinase MB Ratio 3.2 Troponin I < 0.015 ng/ml Total Protein 7.9 gm/dl Albumin 2.8 gm/dl Lipase 193 U/L Thyroid Stimulating Hormone (TSH) 0.897 uIu/ml Bedside Lactic Acid Venous 1.59 mmol/L Urine Color MADELINE Urine Appearance CLOUDY Urine pH 5.0 Urine Specific [place] 1.020 Urine Protein 3+ Urine Glucose (UA) NEG Urine Ketones NEG Urine Occult Blood TRACE Urine Nitrite POS Urine Bilirubin NEG Urine Urobilinogen NEG Urine Leukocyte Esterase MODERATE Urine WBC (Auto) 10-30 /hpf Urine RBC (Auto) 0-4 /hpf Urine Hyaline Casts (Auto) 1-5 /lpf Urine Epithelial Cells (Auto) >30 /lpf Urine Bacteria (Auto) NEG Urine Renal Epithelial Cells 0-5 /lpf Urine Crystals AMORPHOUS SEDIMENT Urine Pathogenic Casts /lpf Urine Yeast (Auto) Test 04/12/17 13:59 Impression Patient is a 77 year old female with report of c.diff infection on Flagyl who presented to the ED for evaluation of mental status change - no family or staff present in pt room at time of assessment to aid in history. Will screen stools for c.diff and culture, advise to add PO vancomycin to treat c.diff infection in addition to IV Flagyl. If pt is slow to respond to treatment, would suggest a tapering course of vancomycin. As for report of choledocholithiasis, there is not any evidence of biliary dilatation, LFTs and lipase are WNL. Unsure if pt is symptomatic of gallstones. Pt was admitted w/ sepsis in December with elevated LFTs and lipase with suspected choledocholithiasis and pancreatitis, at that time, pt daughter, who is POA, would not consent to any invasive procedures. Suggest primary team discuss wishes with pt POA. Plan - Discuss pt wishes with POA (invasive procedures etc) - Electrolyte correction per primary team - Stool for c.diff, if positive - PO Vanco 125 QID x 14 days - if no improvement would suggest a tapering course - OK to continue IV Flagyl for addition coverage - if abd distention or abnormal bowel sounds KUB for dilation - Altered mental status - Head CT - Chest XR - Blood cultures - Urine cultures Dr. Case to cover over the weekend, please contact him with any questions/ concerns. I have seen , examined and agree with the plan as outlined by Ms. Maria De Jesus Francisco ANDERSON as above. -exam reveals soft abd -Mild pain -CBD stones may be chronic -Agree with ABX including Cefepime and coverage for c-diff -Daily LFT's, WBC -If has increasing LFT's, WBC, then call Dr. Lal/Ruth for discussion of ERCP and if family desires -Stones were likely present back in December while LFT"s were elevated, lipase was elevated, and CBD was dilated.
[2017-04-12 15:01] LABS: ARTERIAL BLD GAS O2 SATURATION 95.4 % (90-95); ARTERIAL BLOOD GAS BASE EXCESS 1.2 mEq/L (-9-1.8); ARTERIAL BLOOD GAS HCO3 26 mmol/L (19-24); ARTERIAL BLOOD GAS PO2 89 mm/Hg (80-95); ARTERIAL BLOOD GAS pH 7.42 (7.35-7.45)
[2017-04-12 15:04] LABS: ALLEN TEST POS (POS); O2 ADMINISTRATION RA
--- NOTE | 2017-04-12 15:24 | History and Physical ---
History & Physical Date & Time of Service: Apr 12, 2017 at 15:08 Chief Complaint: Lethargic Primary Care Physician: Kaleigh Bravo History of Present Illness Source: hospital records, [facility] Patient is a 77yo F [facility] resident with a PMH of advanced Lewy body dementia, 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, chronic anemia, HTN and DM II who presents with lethargy that started today. Per discussion with [facility] staff as well as review of records, patient is normally oriented to self but not person or place. At baseline, she is verbal but suffers from severe dementia and is a total assist with ADLs. Per report, patient was at baseline this morning prior to leaving for dialysis but was found to be lethargic at clinic and was sent to the ER for further evaluation prior to completing treatment. Currently being treated for C diff with PO Flagyl after her c diff toxin came back positive a few days ago. Per [facility], patient has seemed fatigued over the past few days, with poor PO intake, generalized weakness and diarrhea. Has been admitted twice since the beginning of January for sepsis 2/2 e. coli as well as C. diff infection. Per ER doc, patient was last reported to be at baseline at 9am. Is responsive to painful stimuli on exam. HPI limited 2/2 patient's AMS. Patient hypotensive at 88/40 on admission but BP responsive to fluids. Past Medical/Surgical History Medical Problems: (1) Anemia in CKD (chronic kidney disease) Status: Chronic (2) Chronic kidney disease requiring chronic dialysis Status: Chronic (3) Chronic pain Status: Chronic (4) CKD (chronic kidney disease) stage 5, GFR less than 15 ml/min Status: Chronic (5) Diabetes mellitus with stage 5 chronic kidney disease GFR <15 Status: Chronic (6) Diabetic neuropathy Status: Chronic (7) Diabetic retinopathy associated with type 2 diabetes mellitus Status: Chronic (8) Dyslipidemia Status: Chronic (9) Fracture of neck of right humerus Status: Chronic (10) History of MRSA infection Permanent Comment: osteomyelitis left second toe Status: Chronic (11) History of osteomyelitis Permanent Comment: left second toe, MRSA Status: Chronic (12) Hypertension Status: Chronic (13) Lewy body dementia Status: Chronic Surgical Problems: (1) Status post amputation of toe of left foot Permanent Comment: left second toe Status: Chronic (2) Status post hysterectomy Status: Chronic Family History Cancer Diabetes mellitus Heart disease Hypertension Social History Smoking Status: Former Smoker (Quit 5 years ago) Alcohol Use: none Drug Use: none Marital Status: Housing status: [facility] Occupational Status: retired Immunizations History of Influenza Vaccine: Yes History of Pneumococcal: Yes Multi-Drug Resistant Organisms History of MDRO: Yes Type of MDRO: MRSA Allergies Coded Allergies: Dust (Verified Allergy, Unknown, SNEEZING,WHEEZING, 04/12/17) Home Medications Scheduled Aspirin (Aspirin Ec), 81 MG PO QAM Atorvastatin (Lipitor), 10 MG PO HS B-Complex W/ C & Folic Acid ([place] Caps), 1 CAP PO QPM Calcium Acetate (Phosphate Bin (Phoslo 667 Mg), 2 CAPSULES PO TIDM Cholecalciferol (Vitamin D3), 1,000 UNITS PO QAM Cholestyramine (Bulk) (Cholestyramine), 1 DOSE PO BID Enteral Nutrition Formula (Nepro Carb Steady), 8 OZ PO TID Hydralazine Hcl (Apresoline), 25 MG PO UD Labetalol Hcl (Normodyne), 100 MG PO BID Probiotic Product (Probiotic), 1 CAP PO BID Quetiapine Fumarate (Seroquel), 12.5 MG PO BID Scheduled PRN Acetaminophen (Tylenol), 650 MG PO Q6 PRN for Pain or Fever Review of Systems Unable to obtain complete ROS due to patient's AMS and lethargy. Known ROS provided by [facility] is per HPI. Physical Exam Vital Signs Date Time Temp Pulse Resp B/P (MAP) Pulse Ox O2 Delivery O2 Flow Rate FiO2 04/12/17 14:37 61 19 98 04/12/17 14:31 126/76 04/12/17 14:27 61 04/12/17 14:07 60 21 98 04/12/17 14:00 128/56 04/12/17 13:37 60 17 99 04/12/17 13:31 120/46 04/12/17 13:07 60 17 98 04/12/17 13:01 94/41 04/12/17 12:37 60 21 99 04/12/17 12:30 104/41 04/12/17 12:02 107/51 04/12/17 11:30 86/41 04/12/17 11:15 64 17 97 04/12/17 11:06 97 Room Air 04/12/17 11:00 37.4 76 16 88/40 97 Room Air 04/12/17 11:00 88/40 04/12/17 11:00 64 04/12/17 10:49 100/45 General Appearance: + pertinent finding (Lethargic and sleeping on exam. Arousable only to painful stimuli.) Head: normocephalic, atraumatic Eyes: + pertinent finding (Unwilling to open eyes during exam) ENT: hearing grossly normal, pharynx normal (Dry mucous membranes with perioral crusting) Neck: supple, thyroid normal, trachea midline Respiratory/Chest: chest non-tender, lungs clear, normal breath sounds, no respiratory distress, no accessory muscle use Cardiovascular: regular rate, rhythm, no murmur, normal peripheral pulses Abdomen/GI: normal bowel sounds, non tender, soft, no organomegaly Extremities/Musculoskelatal: normal inspection, no calf tenderness, no pedal edema Neurologic/Psych: + pertinent finding (Altered, lethargic. Responsive to painful stimuli.) Skin: normal color, warm/dry, no rash, + pertinent finding (Decubitus ulcer on L lateral hip. Bandaged. Unable to fully visualize but no evidence of purulent drainage.) Diagnostics Laboratory Results Results Past 24 Hours Test 04/12/17 11:25 04/12/17 12:07 04/12/17 12:15 04/12/17 14:39 Range/Units White Blood Count 19.82 4.8-10.8 K/uL Red Blood Count 3.41 4.2-5.4 M/uL Hemoglobin 10.7 12.0-16.0 g/dL Hematocrit 32.9 37-47 % Mean Corpuscular Volume 96.5 80-100 fL Mean Corpuscular Hemoglobin 31.4 25-34 pg Mean Corpuscular Hemoglobin Concent 32.5 32-36 g/dl Platelet Count 281 130-400 K/uL Mean Platelet Volume 9.8 7.4-10.4 fL Neutrophils (%) (Auto) 78.9 % Lymphocytes (%) (Auto) 12.0 % Monocytes (%) (Auto) 4.4 % Eosinophils (%) (Auto) 3.9 % Basophils (%) (Auto) 0.4 % Neutrophils # (Auto) 15.62 1.4-6.5 K/uL Lymphocytes # (Auto) 2.38 1.2-3.4 K/uL Monocytes # (Auto) 0.88 0.11-0.59 K/uL Eosinophils # (Auto) 0.78 0-0.5 K/uL Basophils # (Auto) 0.08 0-0.2 K/uL RDW Standard Deviation 53.0 36.4-46.3 fL RDW Coefficient of Variation 15.1 11.5-14.5 % Immature Granulocyte % (Auto) 0.4 % Immature Granulocyte # (Auto) 0.08 0.00-0.02 K/uL Prothrombin Time 11.0 9.0-12.0 SECONDS Prothromb Time International Ratio 1.0 0.9-1.1 Activated Partial Thromboplast Time 21.4 21.0-31.0 SECONDS Partial Thromboplastin Ratio 0.8 Sodium Level 142 136-145 mmol/L Potassium Level 2.7 3.5-5.1 mmol/L Chloride Level 105 98-107 mmol/L Carbon Dioxide Level 28 21-32 mmol/L Anion Gap 9.0 3-11 mmol/L Blood Urea Nitrogen 49 7-18 mg/dl Creatinine 6.13 0.60-1.20 mg/dl Estimated GFR () 6.9 Estimated GFR (Non- 6.0 BUN/Creatinine Ratio 8.1 10-20 Random Glucose 160 70-99 mg/dl Calcium Level 9.1 8.5-10.1 mg/dl Magnesium Level 2.5 1.8-2.4 mg/dl Total Bilirubin 0.5 0.2-1 mg/dl Direct Bilirubin 0.1 0-0.2 mg/dl Aspartate Amino Transf (AST/SGOT) 15 15-37 U/L Alanine Aminotransferase (ALT/SGPT) 12 12-78 U/L Alkaline Phosphatase 110 45-117 U/L Ammonia 15.0 11-32 umol/L Total Creatine Kinase 174 26-192 U/L Creatine Kinase MB 5.5 0.5-3.6 ng/ml Creatine Kinase MB Ratio 3.2 0-3.0 Troponin I < 0.015 0-0.045 ng/ml Total Protein 7.9 6.4-8.2 gm/dl Albumin 2.8 3.4-5.0 gm/dl Lipase 193 73-393 U/L Thyroid Stimulating Hormone (TSH) 0.897 0.300-4.500 uIu/ml Bedside Lactic Acid Venous 1.59 0.90-1.70 mmol/L Urine Color AMDELINE Urine Appearance CLOUDY CLEAR Urine pH 5.0 4.5-7.5 Urine Specific [place] 1.020 1.000-1.030 Urine Protein 3+ NEG Urine Glucose (UA) NEG NEG Urine Ketones NEG NEG Urine Occult Blood TRACE NEG Urine Nitrite POS NEG Urine Bilirubin NEG NEG Urine Urobilinogen NEG NEG Urine Leukocyte Esterase MODERATE NEG Urine WBC (Auto) 10-30 0-5 /hpf Urine RBC (Auto) 0-4 0-4 /hpf Urine Hyaline Casts (Auto) 1-5 0-5 /lpf Urine Epithelial Cells (Auto) >30 0-5 /lpf Urine Bacteria (Auto) NEG NEG Urine Renal Epithelial Cells 0-5 0-5 /lpf Urine Crystals AMORPHOUS SEDIMENT NONE PRSENT Urine Pathogenic Casts 0 /lpf Urine Yeast (Auto) NONE PRSENT Arterial Blood pH 7.42 7.35-7.45 Arterial Blood Partial Pressure CO2 41 35-46 mmHg Arterial Blood Partial Pressure O2 89 80-95 mm/Hg Arterial Blood HCO3 26 19-24 mmol/L Arterial Blood Oxygen Saturation 95.4 90-95 % Arterial Blood Base Excess 1.2 -9-1.8 mEq/L Arterial Blood Gas Delivery RA Romeo Test POS POS Microbiology Results 04/12/17 Blood Culture, Received Pending 04/12/17 Blood Culture, Received Pending 04/12/17 Urine Culture, Received Pending Diagnostic Radiology CT abd/pelvis: IMPRESSION: 1. Suboptimal examination without oral and IV contrast. The examination is also significantly compromised by streak and motion artifact 2. Findings suggest a nonspecific colitis, greatest involving the left colon. This could be on an infectious, inflammatory, or ischemic basis. 3. Cholelithiasis and choledocholithiasis with calcified gallstones identified within the common bile duct. There is no convincing CT evidence of acute cholecystitis. If there is clinical concern for cholecystitis then abdominal ultrasound should be considered. 4. Soft tissue induration overlies the left hip and has been present dating back to 01/15/2017. This likely represents resolving contusion/hematoma. Clinical correlation will be essential. 5. Trace fluid is seen in the left paracolic gutter. 6. Additional findings as above. CXR: IMPRESSION: 1. No acute cardiopulmonary process. 2. Chronic bilateral interstitial coarsening. CT head: IMPRESSION: 1. No acute intracranial abnormality. 2. Moderate atrophy with ex vacuo ventriculomegaly and chronic microvascular ischemic changes. 3. Mild paranasal sinus disease. EKG Normal sinus rhythm Nonspecific T wave abnormality Abnormal ECG When compared with ECG of 31-JAN-2017 22:22, T wave inversion now evident in Inferior leads Nonspecific T wave abnormality now evident in Lateral leads Confirmed by proj engineer and also reviewed by me. 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 AMS: -Most likely encephalopathy/delirium 2/2 infection -CT head negative for acute processes -If patient remains altered will consider an MRI -NPO for now -Hold Seroquel Possible SIRs/Sepsis: -Presented with AMS, hypotension of 88/40, leukocytosis of 19.8 -BP improved with fluid resuscitation -C diff infection, per [facility]. Ordered repeat c diff toxin -CXR without evidence of pulmonary source of infection, UA with possible UTI -Blood and urine cultures pending -Serum lactate: 1.6 -Started on cefepime and flagyl for broad spectrum coverage C Diff Infection: -H/o C. diff infection - + c diff gene at [facility]. Started on PO Flagyl -IV Flagyl started in ER -Due to AMS, is unable to take PO vanc at this time -Discussed with GI, who recommend starting PO Vanco 125 QID x 14 days once patient is able to tolerate 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: -Cr of 6,1, GFR of 6 -MWF dialysis -Unable to complete treatment today 2/2 lethargy -Consulted nephrology Possible UTI: -UA with + nitrites and leuk esterase but >30 epithelial cells -Urine culture pending -Already covered for gram negative bacteria with cefepime Advanced Lewy Body Dementia: -Poor functional status at baseline -Hold Seroquel due to AMS DM II with neuropathy: -Currently diet-controlled. -Random BG of 160 in ER -Tight glycemic control not indicated due to age and comorbidities -Hgb a1c pending HTN: -Hypotensive at presentation -Hold PO labetalol and hydralazine -IV hydralazine PRN for SBP >160 Hypokalemia: -2.7 on admission -Replaced with IV KCl -Continue close monitoring ?Choledocholithiasis: - Reported on CT abd/pelvis - Discussed with GI - If abd distention or abnormal bowel sounds KUB for dilation -Currently no evidence of biliary dilatation, no lab abnormalities of LFTs, lipase -During recent admissions, the daughter (TATI) was not interested in any invasive procedures -Will call daughter to reassess Current C. diff infection, history of MRSA: -Contact precautions DVT Ppx: SCDs for now Code status: DNR as per living will provided by [facility]. Family member called for further discussion. PCP: [facility] Dispo: SW consulted to help with discharge placement back to [facility] once medically stable Patient seen in collaboration with Dr. Preston. Addendum Attending Physician: I have seen and examined the patient with ARPAN prabhakar in the emergency and agree with above assessment and plan and would like to add the following comments: This is a 77 year old F who, as per my conversation with the patient's daughter on the phone, has been having progressive decline in her health due to dementia including diarrhea x 5 days with recent history of antibiotics. Patient found to have C.diff as likely cause for diarrhea and was on PO Flagyl in [facility]. Was as per history less alert during dialysis session with incomplete dialysis session (at baseline patient is verbal but minimal movements on the bed and ambulates by being pushed by on a wheelchair). In the emergency room patient hemodynamically stable. In the emergency room, besides continuing Flagyl for C.diff, patient also started on broad spectrum antibiotic for other possible underlying cause of infection as WBC> 18,000. No evidence of toxic megacolon due to C.diff on abdominal imaging but there is left sided colitis. I have assessed the patient again when she is on the telemetry floor and patient is opening her eyes and speaks softly. Patient denies pain but reports that she has anxiety. She cannot explain at length what had happened earlier. Patient will need follow up with Gastroenterology for the C.diff. May need Infectious disease consult based on cultures when they return. Will also need to Nephrology to follow up for dialysis. Patient's code status is DNR/DNI as documented in outpatient records and confirmed by patient's daughter on the telephone. Level of Care Telemetry Advanced Directives Existing Advance Directive: Yes Resuscitation Status DO NOT RESUSCITATE VTE Prophylaxis VTE Risk Assessment Done? Y/N: Yes Risk Level: Moderate Given or contraindicated: SCD's Social Service Consult Lives in Longterm
[2017-04-12] MEDS ORDERED: CEFEPIME CONSULT ACTIVE PRN ×2 (15:45)
[2017-04-12] MEDS ORDERED: PATIENT'S HEIGHT AND/OR WEIGHT NEEDED SCH (15:45)
[2017-04-12] MEDS ORDERED: METRONIDAZOLE CONSULT ACTIVE PRN (15:45)
[2017-04-12 15:51] VITALS: BP 112/52; PULSE 65; TEMP 36.6; O2SAT 100
[2017-04-12] MEDS ORDERED: POTASSIUM CHLR 10 MEQ / WTR 10 MEQ in PREMIXED WATER 100 ML IV SCH (16:30)
[2017-04-12] MEDS: D5W AND 1/2NSS 1,000 ML IV SCH (17:18)
[2017-04-12] MEDS: POTASSIUM CHLR 10 MEQ / WTR 10 MEQ in PREMIXED WATER 100 ML IV SCH ×2 (17:19→18:25)
--- NOTE | 2017-04-12 18:25 | EMERGENCY ROOM VISIT NOTE ---
History Report prepared by Adrianna: Chema Mcrae Under the Supervision of: Dr. Vikas Becerra M.D. First contact with patient: 11:00 Chief Complaint: LETHARGIC Stated Complaint: LETHARGIC History of Present Illness The patient is a 77 year old female who presents to the Emergency Room with complaints of a persistent altered mental status beginning today. Per nursing staff, the patient has a history of dementia, but is reported to be less responsive than normal. She is a dialysis patient and was unable to complete dialysis today due to her mental state. The patient is currently being treated for C Diff with Flagyl. She is reported to occasionally respond with words, and is able to feed herself with assistance. Her last confirmed well time was 2 hours ago (0900). HPI limited secondary to altered mental status. Source of History: nursing staff History Limited By: AMS Onset: Today Quality: other (altered mental status) Timing: other (persistent) Review of Systems ROS limited secondary to altered mental status. Past Medical & Surgical Medical Problems: (1) Altered mental status (2) Anemia in CKD (chronic kidney disease) (3) C. difficile colitis (4) Chronic kidney disease requiring chronic dialysis (5) Chronic pain (6) CKD (chronic kidney disease) stage 5, GFR less than 15 ml/min (7) Diabetes mellitus with stage 5 chronic kidney disease GFR <15 (8) Diabetic neuropathy (9) Diabetic retinopathy associated with type 2 diabetes mellitus (10) Dyslipidemia (11) Fracture of neck of right humerus (12) History of MRSA infection (13) History of osteomyelitis (14) Hypertension (15) Lewy body dementia (16) Systemic inflammatory response syndrome (SIRS) due to infection Surgical Problems: (1) Status post amputation of toe of left foot (2) Status post hysterectomy Family History Cancer Diabetes mellitus Heart disease Hypertension Social History Smoking Status: Unknown if Ever Smoked Alcohol Use: none Drug Use: none Marital Status: Housing Status: residential Occupation Status: retired Current/Historical Medications Scheduled Aspirin (Aspirin Ec), 81 MG PO QAM Atorvastatin (Lipitor), 10 MG PO HS B-Complex W/ C & Folic Acid ([place] Caps), 1 CAP PO QPM Calcium Acetate (Phosphate Bin (Phoslo 667 Mg), 2 CAPSULES PO TIDM Cholecalciferol (Vitamin D3), 1,000 UNITS PO QAM Cholestyramine (Bulk) (Cholestyramine), 1 DOSE PO BID Enteral Nutrition Formula (Nepro Carb Steady), 8 OZ PO TID Hydralazine Hcl (Apresoline), 25 MG PO UD Labetalol Hcl (Normodyne), 100 MG PO BID Probiotic Product (Probiotic), 1 CAP PO BID Quetiapine Fumarate (Seroquel), 12.5 MG PO BID Scheduled PRN Acetaminophen (Tylenol), 650 MG PO Q6 PRN for Pain or Fever Allergies Coded Allergies: Dust (Verified Allergy, Unknown, SNEEZING,WHEEZING, 04/12/17) Physical Exam Vital Signs Date Time Temp Pulse Resp B/P (MAP) Pulse Ox O2 Delivery O2 Flow Rate FiO2 04/12/17 13:37 60 17 99 04/12/17 13:31 120/46 04/12/17 13:07 60 17 98 04/12/17 13:01 94/41 04/12/17 12:37 60 21 99 04/12/17 12:30 104/41 04/12/17 12:02 107/51 04/12/17 11:30 86/41 04/12/17 11:15 64 17 97 04/12/17 11:06 97 Room Air 04/12/17 11:00 37.4 76 16 88/40 97 Room Air 04/12/17 11:00 88/40 04/12/17 11:00 64 04/12/17 10:49 100/45 Physical Exam GENERAL: Awake, alert, well-appearing, in no distress HENT: Normocephalic, atraumatic. Oropharynx unremarkable. EYES: Normal conjunctiva. Sclera non-icteric. NECK: Supple. No nuchal rigidity. FROM. No JVD. RESPIRATORY: Clear to auscultation. CARDIAC: Regular rate, normal rhythm. Extremities warm and well perfused. Pulses equal. ABDOMEN: Soft, non-distended. No rebound or guarding. No masses. Minimal grimacing with abdominal palpation. RECTAL: Deferred. MUSCULOSKELETAL: Chest examination reveals no tenderness. The back is symmetrical on inspection without obvious abnormality. There is no CVA tenderness to palpation. No joint edema. LOWER EXTREMITIES: Calves are equal size bilaterally and non-tender. No edema. No discoloration. NEURO: Altered sensorium. Responds to tactile stimuli. PERRL. SKIN: No rash or jaundice noted. Large decubitus ulcer on the left hip. No signs of cellulitis or drainage. Medical Decision & Procedures ER Provider Diagnostic Interpretation: Radiology results as stated below per my review and radiologist interpretation: HEAD WITHOUT CONTRAST (CT) FINDINGS: No acute intracranial hemorrhage, midline shift, mass, large territorial ischemia or abnormal extra-axial collection. Moderate atrophy with ex vacuo ventriculomegaly. Vascular calcifications of the level of the skull base. Background chronic microvascular ischemic changes. The calvarium is intact. The mastoid air cells, and middle ear cavities are clear. Moderate mucosal thickening of the inferior right maxillary and anterior ethmoid air cells. Mild right maxillary sinus disease. Soft tissues and orbits are unremarkable. IMPRESSION: 1. No acute intracranial abnormality. 2. Moderate atrophy with ex vacuo ventriculomegaly and chronic microvascular ischemic changes. 3. Mild paranasal sinus disease. The above report was generated using voice recognition software. It may contain grammatical, syntax or spelling errors. Electronically signed by: Cash Moeller M.D. 04/12/2017 12:[address] SCAN OF THE ABDOMEN AND PELVIS WITHOUT IV CONTRAST FINDINGS: Lung bases: The heart is normal in size there is a small pericardial effusion. The coronary arteries are densely calcified. Chronic interstitial change is present at both lung bases. A calcified granuloma seen at the right lung base. There is no airspace consolidation typical for pneumonia or pleural effusion. Liver: Evaluation of the liver is degraded by streak artifact. The unenhanced liver is enlarged, measuring 20.7 cm in length. The liver is otherwise grossly normal in contour and attenuation. There is no intrahepatic biliary ductal dilatation. A 1.6 cm cyst is suggested in the right lobe on image #57. Gallbladder: The gallbladder is filled with calcified gallstones. There is no convincing CT evidence of cholecystitis. Choledocholithiasis is identified at the head of the pancreas on image #124. Spleen: Normal in size and attenuation. Pancreas: Atrophic and grossly unremarkable. This is not well evaluated due to streak artifact. Adrenal glands: There is thickening of the left adrenal gland. Not visualized. Kidneys: The unenhanced kidneys are atrophic and without hydronephrosis. There are no renal calculi identified. There is no evidence of contour deforming renal mass lesion. Abdominal vasculature: The abdominal aorta is normal in course and caliber noting advanced atherosclerotic calcification. Bowel: There is colonic wall thickening and edema with mild pericolonic inflammation. The appearance is consistent with a nonspecific pancolitis, greatest involving the transverse and descending colon. No bowel obstruction is seen. The appendix is not visualized. Peritoneum: There is trace fluid within the left paracolic gutter. No intraperitoneal free air is seen. Lymphadenopathy: None. Pelvic viscera: The bladder is decompressed and grossly unremarkable. The uterus is surgically absent. No adnexal lesion is seen. Skeletal structures: The skeletal structures are heterogeneously osteopenic. There is moderate lumbosacral spondylosis. There is a severe compression deformity of L1 with retropulsed fragments. A moderate compression deformity is seen involving L3. No lytic or blastic lesions are seen. There are healed left pubic ring fractures. Soft tissues: There is a 6 x 4 cm focus of induration/collection overlying the left hip seen on axial image #348. IMPRESSION: 1. Suboptimal examination without oral and IV contrast. The examination is also significantly compromised by streak and motion artifact 2. Findings suggest a nonspecific colitis, greatest involving the left colon. This could be on an infectious, inflammatory, or ischemic basis. 3. Cholelithiasis and choledocholithiasis with calcified gallstones identified within the common bile duct. There is no convincing CT evidence of acute cholecystitis. If there is clinical concern for cholecystitis then abdominal ultrasound should be considered. 4. Soft tissue induration overlies the left hip and has been present dating back to 01/15/2017. This likely represents resolving contusion/hematoma. Clinical correlation will be essential. 5. Trace fluid is seen in the left paracolic gutter. 6. Additional findings as above. Findings were discussed with Dr. Becerra in the emergency department at the time of interpretation. Electronically signed by: Ko Ervin M.D. 04/12/2017 12:18 PM CHEST ONE VIEW PORTABLE FINDINGS: Cardiac silhouette is upper limits of normal, unchanged. Atherosclerosis of the aorta. Chronic interstitial coarsening. Subsegmental left basilar atelectasis. No pneumothorax, pleural effusion, focal airspace consolidation or overt pulmonary edema. Remote right proximal humeral fracture with background moderate bone demineralization. IMPRESSION: 1. No acute cardiopulmonary process. 2. Chronic bilateral interstitial coarsening. The above report was generated using voice recognition software. It may contain grammatical, syntax or spelling errors. Electronically signed by: Cash Moeller M.D. 04/12/2017 11:20 AM Laboratory Results 04/12/17 11:25 Red Blood Count 3.41, Mean Corpuscular Volume 96.5, Mean Corpuscular Hemoglobin 31.4, Mean Corpuscular Hemoglobin Concent 32.5, Mean Platelet Volume 9.8, Neutrophils (%) (Auto) 78.9, Lymphocytes (%) (Auto) 12.0, Monocytes (%) (Auto) 4.4, Eosinophils (%) (Auto) 3.9, Basophils (%) (Auto) 0.4, Neutrophils # (Auto) 15.62, Lymphocytes # (Auto) 2.38, Monocytes # (Auto) 0.88, Eosinophils # (Auto) 0.78, Basophils # (Auto) 0.08 04/12/17 11:25 Test 04/12/17 11:25 04/12/17 12:07 04/12/17 12:15 White Blood Count 19.82 K/uL (4.8-10.8) Red Blood Count 3.41 M/uL (4.2-5.4) Hemoglobin 10.7 g/dL (12.0-16.0) Hematocrit 32.9 % (37-47) Mean Corpuscular Volume 96.5 fL (80-100) Mean Corpuscular Hemoglobin 31.4 pg (25-34) Mean Corpuscular Hemoglobin Concent 32.5 g/dl (32-36) Platelet Count 281 K/uL (130-400) Mean Platelet Volume 9.8 fL (7.4-10.4) Neutrophils (%) (Auto) 78.9 % Lymphocytes (%) (Auto) 12.0 % Monocytes (%) (Auto) 4.4 % Eosinophils (%) (Auto) 3.9 % Basophils (%) (Auto) 0.4 % Neutrophils # (Auto) 15.62 K/uL (1.4-6.5) Lymphocytes # (Auto) 2.38 K/uL (1.2-3.4) Monocytes # (Auto) 0.88 K/uL (0.11-0.59) Eosinophils # (Auto) 0.78 K/uL (0-0.5) Basophils # (Auto) 0.08 K/uL (0-0.2) RDW Standard Deviation 53.0 fL (36.4-46.3) RDW Coefficient of Variation 15.1 % (11.5-14.5) Immature Granulocyte % (Auto) 0.4 % Immature Granulocyte # (Auto) 0.08 K/uL (0.00-0.02) Prothrombin Time 11.0 SECONDS (9.0-12.0) Prothromb Time International Ratio 1.0 (0.9-1.1) Activated Partial Thromboplast Time 21.4 SECONDS (21.0-31.0) Partial Thromboplastin Ratio 0.8 Anion Gap 9.0 mmol/L (3-11) Estimated GFR () 6.9 Estimated GFR (Non- 6.0 BUN/Creatinine Ratio 8.1 (10-20) Calcium Level 9.1 mg/dl (8.5-10.1) Magnesium Level 2.5 mg/dl (1.8-2.4) Total Bilirubin 0.5 mg/dl (0.2-1) Direct Bilirubin 0.1 mg/dl (0-0.2) Aspartate Amino Transf (AST/SGOT) 15 U/L (15-37) Alanine Aminotransferase (ALT/SGPT) 12 U/L (12-78) Alkaline Phosphatase 110 U/L (45-117) Ammonia 15.0 umol/L (11-32) Total Creatine Kinase 174 U/L (26-192) Creatine Kinase MB 5.5 ng/ml (0.5-3.6) Creatine Kinase MB Ratio 3.2 (0-3.0) Troponin I < 0.015 ng/ml (0-0.045) Total Protein 7.9 gm/dl (6.4-8.2) Albumin 2.8 gm/dl (3.4-5.0) Lipase 193 U/L (73-393) Thyroid Stimulating Hormone (TSH) 0.897 uIu/ml (0.300-4.500) Bedside Lactic Acid Venous 1.59 mmol/L (0.90-1.70) Urine Color MADELINE Urine Appearance CLOUDY (CLEAR) Urine pH 5.0 (4.5-7.5) Urine Specific [place] 1.020 (1.000-1.030) Urine Protein 3+ (NEG) Urine Glucose (UA) NEG (NEG) Urine Ketones NEG (NEG) Urine Occult Blood TRACE (NEG) Urine Nitrite POS (NEG) Urine Bilirubin NEG (NEG) Urine Urobilinogen NEG (NEG) Urine Leukocyte Esterase MODERATE (NEG) Urine WBC (Auto) 10-30 /hpf (0-5) Urine RBC (Auto) 0-4 /hpf (0-4) Urine Hyaline Casts (Auto) 1-5 /lpf (0-5) Urine Epithelial Cells (Auto) >30 /lpf (0-5) Urine Bacteria (Auto) NEG (NEG) Urine Renal Epithelial Cells 0-5 /lpf (0-5) Urine Crystals AMORPHOUS SEDIMENT (NONE Urine Pathogenic Casts /lpf (0) Urine Yeast (Auto) (NONE PRSENT) Laboratory results reviewed by me Medications Administered Medications (Trade) Dose Ordered Sig/Neyda Route Start Time Stop Time Status Last Admin Dose Admin Sodium Chloride 1,000 ml @ 125 mls/hr Q8H STAT IV 04/12/17 11:01 04/12/17 16:01 DC 04/12/17 11:01 125 MLS/HR Cefepime HCl 1000 mg/Dextrose 111.3 ml @ 200 mls/hr NOW STAT IV 04/12/17 12:37 04/12/17 13:10 DC 04/12/17 13:24 200 MLS/HR Metronidazole (Flagyl / Nss) 500 mg NOW STAT IV 04/12/17 12:37 04/12/17 12:39 DC 04/12/17 14:15 500 MG Potassium Chloride (Kcl 10 Meq / Wtr) 10 meq NOW STAT IV 04/12/17 12:39 04/12/17 12:40 DC 04/12/17 13:24 10 MEQ Sodium Chloride 500 ml @ 999 mls/hr Q31M STAT IV 04/12/17 12:52 04/12/17 13:22 DC 04/12/17 13:25 999 MLS/HR ECG Indication: altered mental status Rate (beats per minute): 64 Rhythm: normal sinus Findings: no acute ischemic change, no ectopy, other (Non-specific ST changes) ED Course 1117: The patient was evaluated in room C10. A complete history and physical exam was performed. Ordered Sodium Chloride 1000 ml @ 125 mls/hr IV. 1215: Patient became more responsive during attempted urine catheterization. 1237: Ordered Flagyl / Sodium Chloride 500 mg IV, Cefepime HCl 1000 mg/Dextrose 111.3 mL @ 200 mL/hr IV. 1239: Ordered KCl Meq / Wtr 10 meq IV. 1252: Ordered Sodium Chloride 500 ml @ 999 mls/hr IV. 1255: Upon reexamination, the patient was resting comfortably. I discussed the test results and treatment plan with her. The patient will be evaluated for further management. Medical Decision Prior records/ancillary studies reviewed and summarized above. Nursing notes reviewed and agree them. The patient's history was concerning for altered mental status. Differential diagnosis: Etiologies such as infection, hypoglycemia, electrolyte abnormalities, cardiac sources, intracerebral event, toxicologic, neurologic, as well as others were entertained. Physical examination: As above. ER treatment provided: IV Lock Normal saline hydration IV Flagyl IV Cipro Diagnostics interpretation by me: ECG: No acute ischemia. The labs revealed significant leukocytosis of 19,000. She has hypokalemia. The patient has a creatinine elevated consistent with her end-stage renal disease. Urinalysis concerning for infection. Lactate elevated. Troponin and ammonia level normal. Imaging studies: CT scan and x-ray as above. Consultation: A consultation was placed with the hospitalist. The case was discussed and diagnostics were reviewed. The patient was evaluated in the ER for further treatment. Medication Reconcilliation Current Medication List: was personally reviewed by me Blood Pressure Screening Patient's blood pressure: Low blood pressure Blood pressure disposition: Elevated BP felt to be situational Consults Time Called: 1251 Consulting Physician: Bouchra Flores Returned Call: [phone] Discussed the patient's case. The patient will be evaluated for further treatment and disposition. Impression Primary Impression: Sepsis Additional Impressions: Colitis Hypokalemia Critical Care I have personally spent greater than 30 minutes of critical care time in the direct management of this patient. This includes bedside care, interpretation of diagnostic studies, and testing, discussion with consultants, patient, and family members, and other required patient management activities. This 30 minutes is in excess of all separately billable procedures. Scribe Attestation The scribe's documentation has been prepared under my direction and personally reviewed by me in its entirety. I confirm that the note above accurately reflects all work, treatment, procedures, and medical decision making performed by me. Departure Information Dispostion Being Evaluated By Hospitalist Referrals [facility] (PCP) Patient Instructions [facility] Problem Qualifiers
--- NOTE | 2017-04-12 20:28 | NEPHROLOGY CONSULTATION ---
DATE OF CONSULTATION: 04/12/2017 ATTENDING OF RECORD: Dr. Preston. REASON FOR CONSULTATION: End-stage renal disease. HISTORY OF PRESENT ILLNESS: This 77-year-old female was evaluated at the outpatient dialysis unit by myself at the [facility] Dialysis Unit. The patient was minimally responsive when brought from [facility], and had a good blood pressure, good pulse and normal blood sugars, but weight was down 5 pounds over the past week with treatment of C. diff as an outpatient and was minimally responsive. The patient has underlying advanced Lewy body dementia at baseline, but is normally arousable and answers questions, although inappropriately given her dementia. With her profound mental status changes, the patient was sent over to the Emergency Room and subsequently admitted. The patient was started on IV fluids and given Flagyl IV, as well as cefepime IV and is on a D5 normal saline at 75 mL an hour, potassium level was found to be low and was given 10 mEq of IV potassium. The patient this afternoon when seeing her and was still demented but arousable and answering some questions. The patient has been dealing with a C. diff with oral Flagyl and has been tired over the past several days with decreased p.o. intake, generalized weakness, and diarrhea. She was admitted twice in January for sepsis secondary to E. coli as well as C. diff. The patient's blood pressure was low in the 80s/40s, and subsequently improved to 112s ____ 120s with IV fluids. REVIEW OF SYSTEMS: Unobtainable given her significant dementia with altered mental status. PAST MEDICAL HISTORY: 1. Anemia of end-stage renal disease. 2. End-stage renal disease on dialysis Mondays, Wednesdays, Fridays at the [facility] Dialysis Unit. 3. Diabetes with neuropathy, retinopathy. 4. Hyperlipidemia. 5. History of a right humerus fracture. 6. Osteomyelitis. 7. Hypertension. 8. Lewy body dementia. PAST SURGICAL HISTORY: Dialysis access, amputation of toe of the left foot, hysterectomy. FAMILY HISTORY: Significant for cancer. SOCIAL HISTORY: Quit smoking 5 years ago. No alcohol, no drugs. Lives in longterm. CURRENT MEDICATIONS: Cefepime 500 mg IV q. 24, Flagyl 500 IV q. 8, D5 half normal saline at 75 mL an hour. PHYSICAL EXAMINATION: VITAL SIGNS: Temperature 36.6, pulse 65, respiratory rate is 14, blood pressure 112/52, satting 100% on room air. GENERAL: More awake compared to this morning with underlying dementia at baseline. EYES: No scleral icterus. ENT: Moist mucous membranes. NECK: Supple. PULMONARY: Clear to auscultation. CARDIAC: Regular rate and rhythm. ABDOMEN: Bowel sounds positive, soft, unable to elicit tenderness. EXTREMITIES: Mild edema. NEUROLOGICALLY: Lethargic with underlying dementia. DERM: Does have a decubitus ulcer around the hip. No other rash or ulcers noted. LABORATORY DATA: White count is 19,000, H&H 10 and 32, platelet count is 281. Sodium level is 142, potassium is 2.7, chloride is 105, bicarbonate is 28, BUN is 49, creatinine is 6.13, glucose 160, calcium is 9.1, mag is 2.5. CK 5.5, albumin is 2.8. Blood gas showed a pH of 7.42, pCO2 of 41, pO2 of 89, bicarbonate of 26. UA shows moderate leukocyte esterase, 10-30 wbc's. Urine cultures, blood cultures are pending. IMAGING DATA: Abdominal pelvis CT shows findings suggestive of a nonspecific colitis, cholelithiasis and choledocholithiasis, chronic soft tissue induration around the left hip. ASSESSMENT AND PLAN: 1. End-stage renal disease. Last dialysis was Saturday. The patient is below her dry weight, poor p.o. intake and lethargic. Given her low blood pressures, would recommend continued IV fluids. No indication for emergent dialysis today and likely will plan on dialysis again on Saturday, after she is more stable for dialysis. 2. Anemia of renal failure. We will follow her hemoglobin levels with goal hemoglobin of 10-11 and dose Procrit accordingly. 3. Renal osteodystrophy. The patient is lethargic ____ no need for ____ at this time. 4. ____ The patient with C. diff colitis, GI has been consulted and appropriate medications have been subsequently started. I appreciate their help as well as primary hospitalist's help. 5. ____ 10 mEq of IV potassium and give an additional 20 mEq of potassium as well and follow the potassium level trends and agree with the half normal saline and would continue to redose potassium p.r.n. Appreciate consultation.
[2017-04-12 20:29] VITALS: BP 125/69; PULSE 71; TEMP 36.6; O2SAT 98
[2017-04-13] VITALS (9 sets, daily range): BP systolic 119–138; BP diastolic 61–74; PULSE 67–78; TEMP 36.4–37.2; O2SAT 92–99
[2017-04-13] MEDS: METRONIDAZOLE / NSS 500 MG in PREMIXED NSS 100 ML IV SCH ×3 (00:04→16:33)
[2017-04-13] MEDS: POTASSIUM CHLR 10 MEQ / WTR 10 MEQ in PREMIXED WATER 100 ML IV SCH ×3 (00:39→03:02)
[2017-04-13 07:18] LABS: HEMATOCRIT 34.1 % (37-47); MEAN CELL VOLUME 96.1 fL (80-100); MEAN CORPUSCULAR HEMOGLOBIN 29.9 pg (25-34); MEAN CORPUSCULAR HGB CONC 31.1 g/dl (32-36); MEAN PLATELET VOLUME 9.4 fL (7.4-10.4); PLATELET COUNT 259 K/uL (130-400); RED BLOOD COUNT 3.55 M/uL (4.2-5.4); WHITE BLOOD COUNT 15.05 K/uL (4.8-10.8)
[2017-04-13 07:29] LABS: INR 1.1 (0.9-1.1); PROTHROMBIN TIME (PATIENT) 11.8 SECONDS (9.0-12.0)
[2017-04-13 07:56] LABS: ESTIMATED AVERAGE GLUCOSE 105 mg/dl; HA1C FLAG Normal (Normal)
[2017-04-13 08:01] LABS: ALB/GLOB RATIO 0.5 (0.9-2); BUN/CREATININE RATIO 8.9 (10-20); CALCIUM 8.5 mg/dl (8.5-10.1); CREATININE 6.61 mg/dl (0.60-1.20); POTASSIUM 3.7 mmol/L (3.5-5.1)
[2017-04-13] MEDS: D5W AND 1/2NSS 1,000 ML IV SCH ×2 (09:06→17:42)
--- NOTE | 2017-04-13 10:31 | GASTROENTEROLOGY PROGRESS NOTE ---
DATE: 04/13/2017 DATE: 04/13/2017 Cross coverage for Vocent. SUBJECTIVE: I had the pleasure of seeing Ita Govea at her bedside today. She continued to complain of some mild midepigastric abdominal pain, 2/10 in intensity, nonradiating without alleviating or exacerbating factors. She denied any fevers, chills, nausea, vomiting, hematemesis, melena, hematochezia, jaundice, acholic stools, dark urine, or pruritus. She denied any further complaints. PHYSICAL EXAMINATION: VITAL SIGNS: Include temperature 36.4, pulse 78, respirations 16, blood pressure 136/74, pulse ox 92% on room air. GENERAL EXAMINATION: Chronic ill appearing in no acute distress. CHEST: Clear to auscultation bilaterally. CARDIOVASCULAR SYSTEM: Regular rate and rhythm. ABDOMEN: Soft, tender in the mid epigastric area and nondistended, positive bowel sounds. EXTREMITIES: No clubbing or cyanosis. LABORATORY STUDIES: From today include a white blood cell count of 15.05, hemoglobin 10.6, hematocrit 34.1, platelet count of 259. Her creatinine was 6.61 today which is increased from 6.13 yesterday. Her liver panel was unremarkable. Her UA from yesterday did show moderate leukocyte esterase, 10-30 white blood cells. IMAGING STUDIES: A CT scan of the abdomen and pelvis which showed a nonspecific colitis involving the left colon thought to be infectious, inflammatory or ischemic. She also has cholelithiasis and choledocholithiasis with calcified gallstones identified within the common bile duct with no convincing CT evidence of acute cholecystitis. IMPRESSION: This is a 77-year-old female with mental status change, questionable C. diff colitis on Flagyl when she arrived with choledocholithiasis and cholelithiasis noted on CT imaging, though normal LFTs and lipase. PLAN: The patient will be treated with vancomycin 125 mg p.o. q.i.d. x14 days. She is on cefepime therapy at this time, though the patient has gallstones and choledocholithiasis. She has no evidence of CBD dilation or evidence of obstructive symptoms from this and therefore I would not recommend that she undergo an ERCP at this time. She will continue to receive supportive care. I will follow her clinical course and make further recommendations as needed. Once again, thanks for allowing me to participate in the care of this patient. If you have any further questions, please do not hesitate in contacting me. Thanks.
[2017-04-13] MEDS: CEFEPIME IV 500 MG in DEXTROSE 5% 100ML 100 ML IV SCH (14:25)
--- NOTE | 2017-04-13 14:40 | Progress Note ---
Internal Med Progress Note Date of Service: Apr 13, 2017. Provider Documentation: SUBJECTIVE: patient seen today and more interactive than yesterday. today she is able to speak longer and appears more alert. patient otherwise still bed bound. 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 Patient denies pain. OBJECTIVE: Exam: General- comfortable and breathing on room air Eyes- EOMI ENT- dry mucosa Neck-trachea midline, no JVD Lungs- clear to anterior auscultation, no wheezing Heart- heart rate regular, generally sinus on telemetry monitoring Abdomen- soft, nontender, + bowel sounds Extremities- seen to be able to make small hand movements Neuro- still lethargic, more awake and alert compared to yesterday. 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 vs delirium secondary to infection -history of Lewy Body Dementia, possible also Parkinsonism from history of patient's daughter -CT head negative on admission 04/12/17: 1. No acute intracranial abnormality. 2. Moderate atrophy with ex vacuo ventriculomegaly and chronic microvascular ischemic changes. 3. Mild paranasal sinus disease. -Hold Seroquel for now due to altered mental status -Mental Status improving on 04/13/17, continue to monitor Possible SIRs/Sepsis: -has been treated for C.diff as outpatient in senior care -Started on cefepime IV and Flagyl IV for broad spectrum coverage -Discussed with GI, who recommend starting PO Vancomycin 125 QID x 14 days but patient did not seem capable of taking oral medication on 04/13/17, will re- assess with speech and swallow -WBC 19.8 to 15 Choledocholithiasis:without evidence of CBD dilation or evidence of obstructive symptoms -GI following the patient, no plans for ERCP at this time Nutrition, history of Diabetes -speech and swallow evaluation -IV fluids with D5 and 1/2 normal saline at 75 cc/hr for nutrition and hydration for now until patient can demonstrate adequate PO intake or stop if concern for fluid overload in a dialysis patient -insulin sliding scale and finger stick glucose 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: -patient received potassium repletion because of hypokalemia of 2.7 on admission on 04/12/17, serum potassium repleted -Nephrology service following patient for dialysis Possible UTI: -UA with + nitrites and leuk esterase but >30 epithelial cells -Urine culture "PIN-POINT GROWTH PRESENT, REINCUBATING" -Already covered for gram negative bacteria with cefepime HTN: -relative Hypotension -Hold PO labetalol and hydralazine -IV hydralazine PRN for SBP >160 DVT ppx: SCDs Code Status: DNR/DNI Vital Signs: Date Time Temp Pulse Resp B/P (MAP) Pulse Ox O2 Delivery O2 Flow Rate FiO2 04/13/17 12:25 37.1 67 18 96 04/13/17 12:00 Room Air 04/13/17 12:00 96 Room Air 04/13/17 11:45 37.1 67 18 119/64 (82) 96 04/13/17 08:00 Room Air 04/13/17 07:33 36.4 78 16 136/74 (94) 92 04/13/17 04:36 36.6 74 18 138/72 (94) 97 Room Air 04/13/17 04:03 Room Air 04/13/17 00:36 37.2 68 18 121/69 (86) 98 Room Air 04/13/17 00:00 Room Air 04/12/17 20:29 36.6 71 18 125/69 (87) 98 Room Air 04/12/17 20:00 Room Air 04/12/17 16:00 Room Air 04/12/17 15:51 36.6 65 14 112/52 (72) 100 Room Air 04/12/17 15:08 37.4 61 19 126/76 98 Lab Results: Results Past 24 Hours Test 04/12/17 21:02 04/13/17 06:40 Range/Units Potassium Level 3.2 3.7 3.5-5.1 mmol/L White Blood Count 15.05 4.8-10.8 K/uL Red Blood Count 3.55 4.2-5.4 M/uL Hemoglobin 10.6 12.0-16.0 g/dL Hematocrit 34.1 37-47 % Mean Corpuscular Volume 96.1 80-100 fL Mean Corpuscular Hemoglobin 29.9 25-34 pg Mean Corpuscular Hemoglobin Concent 31.1 32-36 g/dl RDW Standard Deviation 52.2 36.4-46.3 fL RDW Coefficient of Variation 14.8 11.5-14.5 % Platelet Count 259 130-400 K/uL Mean Platelet Volume 9.4 7.4-10.4 fL Prothrombin Time 11.8 9.0-12.0 SECONDS Prothromb Time International Ratio 1.1 0.9-1.1 Sodium Level 142 136-145 mmol/L Chloride Level 109 98-107 mmol/L Carbon Dioxide Level 23 21-32 mmol/L Anion Gap 10.0 3-11 mmol/L Blood Urea Nitrogen 59 7-18 mg/dl Creatinine 6.61 0.60-1.20 mg/dl Est Creatinine Clear Calc Drug Dose 5.0 ml/min Estimated GFR () 6.3 Estimated GFR (Non- 5.5 BUN/Creatinine Ratio 8.9 10-20 Random Glucose 113 70-99 mg/dl Estimated Average Glucose 105 mg/dl Hemoglobin A1c 5.3 4.5-5.6 % Calcium Level 8.5 8.5-10.1 mg/dl Total Bilirubin 0.6 0.2-1 mg/dl Aspartate Amino Transf (AST/SGOT) 13 15-37 U/L Alanine Aminotransferase (ALT/SGPT) 11 12-78 U/L Alkaline Phosphatase 92 45-117 U/L Total Protein 6.8 6.4-8.2 gm/dl Albumin 2.4 3.4-5.0 gm/dl Globulin 4.4 2.5-4.0 gm/dl Albumin/Globulin Ratio 0.5 0.9-2 Microbiology Results 04/12/17 MRSA DNA Surveillance Screen - Final, Complete Specimen Negative for MRSA by DNA Probe
[2017-04-13] MEDS ORDERED: DEXTROSE 50% 50 ML SYR IV PRN (15:00)
[2017-04-13] MEDS ORDERED: GLUCOSE 10 TABS/TUBE PO PRN (15:00)
[2017-04-13] MEDS ORDERED: GLUCAGON FOR INJ 1 MG VIAL SQ PRN (15:00)
[2017-04-13] MEDS ORDERED: GLUCOSE 40% GEL 15 GM TUBE PO PRN (15:00)
[2017-04-13] MEDS: INSULIN ASPART 100 UNITS/ML 3 ML PEN SC SCH ×2 (16:30→20:40)
[2017-04-14] MEDS: METRONIDAZOLE / NSS 500 MG in PREMIXED NSS 100 ML IV SCH ×3 (00:23→16:52)
[2017-04-14] MEDS: INSULIN ASPART 100 UNITS/ML 3 ML PEN SC SCH ×4 (06:30→20:22)
[2017-04-14] MEDS: D5W AND 1/2NSS 1,000 ML IV SCH (07:15)
[2017-04-14 07:44] VITALS: BP 122/64; PULSE 68; TEMP 36.9; O2SAT 99
[2017-04-14 08:00] VITALS: O2SAT 99
[2017-04-14 08:15] LABS: HEMATOCRIT 32.4 % (37-47); MEAN CELL VOLUME 95.3 fL (80-100); MEAN CORPUSCULAR HEMOGLOBIN 30.3 pg (25-34); MEAN CORPUSCULAR HGB CONC 31.8 g/dl (32-36); MEAN PLATELET VOLUME 9.3 fL (7.4-10.4); PLATELET COUNT 221 K/uL (130-400); WHITE BLOOD COUNT 11.67 K/uL (4.8-10.8)
[2017-04-14 09:05] LABS: ALB/GLOB RATIO 0.5 (0.9-2); BUN/CREATININE RATIO 9.1 (10-20); CALCIUM 8.3 mg/dl (8.5-10.1); CREATININE 7.41 mg/dl (0.60-1.20); POTASSIUM 3.9 mmol/L (3.5-5.1)
[2017-04-14 09:22] LABS: BASO % 0.3 %; BASO ABS # 0.04 K/uL (0-0.2); COMPLETE YES; EOS % 8.1 %; IG% 0.3 %; LYMPH % 14.7 %; LYMPH ABS # 1.71 K/uL (1.2-3.4); MONO % 6.1 %; NEUT % 70.5 %
[2017-04-14 14:17] VITALS: BP 119/71; PULSE 76; TEMP 36.3; O2SAT 95
[2017-04-14] MEDS: CEFEPIME IV 500 MG in DEXTROSE 5% 100ML 100 ML IV SCH (14:25)
[2017-04-14 15:40] VITALS: O2SAT 99
--- NOTE | 2017-04-14 19:10 | Progress Note ---
Internal Med Progress Note Date of Service: Apr 14, 2017. Provider Documentation: SUBJECTIVE: patient seen today awake and able to talk with prompting. does not appear to cooperate on physical exam but this may be volitional OBJECTIVE: Exam: General- comfortable and breathing on room air Eyes- EOMI ENT- dry mucosa Neck-trachea midline, no JVD Lungs- clear to anterior auscultation, no wheezing Heart- heart rate regular, generally sinus on telemetry monitoring Abdomen- soft, nontender, + bowel sounds Extremities- seen to be able to make small hand movements Neuro- more awake and alert compared to yesterday. 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 vs delirium secondary to infection -history of Lewy Body Dementia, possible also Parkinsonism from history of patient's daughter -CT head negative on admission 04/12/17: 1. No acute intracranial abnormality. 2. Moderate atrophy with ex vacuo ventriculomegaly and chronic microvascular ischemic changes. 3. Mild paranasal sinus disease. -Hold Seroquel for now due to altered mental status -Mental Status improving since 04/13/17, continue to monitor Possible SIRs/Sepsis due to C.diff vs UTI vs other underlying source of infection -has been treated for C.diff as outpatient in snf -Started on cefepime IV and Flagyl IV for broad spectrum coverage -Discussed with GI, who recommend starting PO Vancomycin 125 QID x 14 days but patient did not seem capable of taking oral medication on 04/13/17, will start medication today on 04/14/17 -WBC 19.8 to 15 to 11; Blood culture negative to date and urine culture skin altaf bacteria, may need to de-escalate broad spectrum antibiotics by 04/16/17 Choledocholithiasis:without evidence of CBD dilation or evidence of obstructive symptoms -GI following the patient, no plans for ERCP at this time Nutrition, history of Diabetes -speech and swallow evaluation on 04/14/17 Dental soft diet with finger foods given as available. Straws okay. 2. Aspiration precautions: fully upright with meals, small bites and sips, alternate solids and liquids. Patient should be awake, alert, and able to participate in meals. Supervision required, and assistance given with meals as necessary. 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: -patient received potassium repletion because of hypokalemia of 2.7 on admission on 04/12/17, serum potassium repleted -Nephrology service following patient for dialysis, dialysis for Saturday, Saturday, Saturday HTN: -relative Hypotension with PO labetalol and hydralazine held, still stable blood pressure without hypertension when off these medications -IV hydralazine PRN for SBP >160 DVT ppx: SCDs Code Status: DNR/DNI Vital Signs: Date Time Temp Pulse Resp B/P (MAP) Pulse Ox O2 Delivery O2 Flow Rate FiO2 04/14/17 15:40 99 Room Air 04/14/17 14:17 36.3 76 16 119/71 (87) 95 04/14/17 08:00 99 Room Air 04/14/17 07:44 36.9 68 18 122/64 (83) 99 Room Air 04/14/17 03:24 Room Air 04/13/17 23:42 37.0 68 17 127/61 (83) 96 Room Air 04/13/17 21:00 Room Air Lab Results: Results Past 24 Hours Test 04/13/17 20:19 04/14/17 07:14 04/14/17 07:58 04/14/17 11:26 Range/Units Bedside Glucose 152 106 109 70-90 mg/dl White Blood Count 11.67 4.8-10.8 K/uL Red Blood Count 3.40 4.2-5.4 M/uL Hemoglobin 10.3 12.0-16.0 g/dL Hematocrit 32.4 37-47 % Mean Corpuscular Volume 95.3 80-100 fL Mean Corpuscular Hemoglobin 30.3 25-34 pg Mean Corpuscular Hemoglobin Concent 31.8 32-36 g/dl Platelet Count 221 130-400 K/uL Mean Platelet Volume 9.3 7.4-10.4 fL Neutrophils (%) (Auto) 70.5 % Lymphocytes (%) (Auto) 14.7 % Monocytes (%) (Auto) 6.1 % Eosinophils (%) (Auto) 8.1 % Basophils (%) (Auto) 0.3 % Neutrophils # (Auto) 8.23 1.4-6.5 K/uL Lymphocytes # (Auto) 1.71 1.2-3.4 K/uL Monocytes # (Auto) 0.71 0.11-0.59 K/uL Eosinophils # (Auto) 0.94 0-0.5 K/uL Basophils # (Auto) 0.04 0-0.2 K/uL RDW Standard Deviation 51.1 36.4-46.3 fL RDW Coefficient of Variation 14.9 11.5-14.5 % Immature Granulocyte % (Auto) 0.3 % Immature Granulocyte # (Auto) 0.04 0.00-0.02 K/uL Red Blood Cell Morphology Unremarkable Sodium Level 138 136-145 mmol/L Potassium Level 3.9 3.5-5.1 mmol/L Chloride Level 104 98-107 mmol/L Carbon Dioxide Level 22 21-32 mmol/L Anion Gap 12.0 3-11 mmol/L Blood Urea Nitrogen 67 7-18 mg/dl Creatinine 7.41 0.60-1.20 mg/dl Est Creatinine Clear Calc Drug Dose 4.4 ml/min Estimated GFR () 5.5 Estimated GFR (Non- 4.8 BUN/Creatinine Ratio 9.1 10-20 Random Glucose 146 70-99 mg/dl Calcium Level 8.3 8.5-10.1 mg/dl Total Bilirubin 0.6 0.2-1 mg/dl Aspartate Amino Transf (AST/SGOT) 16 15-37 U/L Alanine Aminotransferase (ALT/SGPT) 10 12-78 U/L Alkaline Phosphatase 77 45-117 U/L Total Protein 6.6 6.4-8.2 gm/dl Albumin 2.3 3.4-5.0 gm/dl Globulin 4.3 2.5-4.0 gm/dl Albumin/Globulin Ratio 0.5 0.9-2 Test 04/14/17 16:32 Range/Units Bedside Glucose 107 70-90 mg/dl
[2017-04-14] MEDS: RASPBERRY SYRUP 5 ML UDP PO SCH (20:22)
[2017-04-14] MEDS: VANCOMYCIN HCL 125 MG/2.5ML SOLN PO SCH (20:22)
[2017-04-15] VITALS (19 sets, daily range): BP systolic 91–151; BP diastolic 51–86; PULSE 67–78; TEMP 36.4–37.4; O2SAT 98–99
[2017-04-15] MEDS: METRONIDAZOLE / NSS 500 MG in PREMIXED NSS 100 ML IV SCH ×2 (00:13→08:00)
[2017-04-15] MEDS: INSULIN ASPART 100 UNITS/ML 3 ML PEN SC SCH ×4 (06:30→20:53)
[2017-04-15 06:35] LABS: HEMATOCRIT 31.2 % (37-47); MEAN CELL VOLUME 93.1 fL (80-100); MEAN CORPUSCULAR HEMOGLOBIN 29.9 pg (25-34); MEAN CORPUSCULAR HGB CONC 32.1 g/dl (32-36); MEAN PLATELET VOLUME 9.5 fL (7.4-10.4); PLATELET COUNT 208 K/uL (130-400); RED BLOOD COUNT 3.35 M/uL (4.2-5.4); WHITE BLOOD COUNT 10.91 K/uL (4.8-10.8)
[2017-04-15 07:00] LABS: BASO % 0.5 %; BASO ABS # 0.06 K/uL (0-0.2); COMPLETE YES; HYPERSEGMENTED POLYS 1+; IG% 0.5 %; LYMPH % 21.6 %; LYMPH ABS # 2.36 K/uL (1.2-3.4); MONO % 7.4 %; TOXIC GRANULATION 1+; VACUOLIZATION 1+
[2017-04-15 07:19] LABS: ALB/GLOB RATIO 0.5 (0.9-2); BUN/CREATININE RATIO 9.3 (10-20); C-REACTIVE PROTEIN 3.82 mg/dl (0-0.29); CREATININE 8.26 mg/dl (0.60-1.20); POTASSIUM 3.7 mmol/L (3.5-5.1)
[2017-04-15] MEDS: VANCOMYCIN HCL 125 MG/2.5ML SOLN PO SCH ×4 (07:57→20:26)
[2017-04-15] MEDS: RASPBERRY SYRUP 5 ML UDP PO SCH ×4 (07:57→20:26)
[2017-04-15] MEDS ORDERED: EPOETIN ALFA 10,000 UNITS/ML VIAL IV. ONE (08:00)
[2017-04-15] MEDS ORDERED: HEPARIN SOD (PORCINE) 1000 UNIT/ML 10 ML VIAL IV SCH (08:00)
[2017-04-15] MEDS ORDERED: EPOETIN ALFA INJ 6,000 UNITS in SYRINGE 0 ML IV. SCH (08:00)
--- NOTE | 2017-04-15 09:58 | Gastroenterology Progress Note ---
Progress Note Date of Service: Apr 15, 2017 Subjective Pt evaluation today including: conversation w/ patient, physical exam, chart review, lab review Pt seen and evaluated, chart reviewed. No family at bedside. Discussed case with nurse. Per review of record pt is alert to self. This AM, pt was sleeping. Did not awake to name, does respond to tactile stimuli. ROS not obtained. Medications Current Inpatient Medications Medications (Trade) Dose Ordered Sig/Neyda Route Start Time Stop Time Status Last Admin Dose Admin Ondansetron HCl (Zofran Inj) 4 mg Q6H PRN IV 04/12/17 14:00 05/12/17 13:59 Hydralazine HCl (HydrALAZINE INJ) 10 mg Q8 PRN IV. 04/12/17 14:30 05/12/17 14:29 Cefepime HCl (Consult) 1 ea UD PRN N/A 04/12/17 15:45 05/12/17 15:44 Dextrose/Sodium Chloride 1,000 ml @ 75 mls/hr [id number] IV 04/12/17 15:15 05/12/17 15:14 Future Hold 04/14/17 07:15 75 MLS/HR Metronidazole (Consult) 1 ea UD PRN N/A 04/12/17 15:45 05/12/17 15:44 Cefepime HCl 500 mg/Dextrose 105.65 ml @ 200 mls/ hr Q24H IV 04/13/17 14:00 04/22/17 13:59 04/14/17 14:25 200 MLS/HR Metronidazole 500 mg/Prmx 100 ml @ 100 mls/hr Q8H IV 04/13/17 00:00 04/27/17 00:00 04/15/17 00:13 100 MLS/HR Glucose (Glucose 40% Gel) 15-30 GRAMS 15 GRAMS... UD PRN PO 04/13/17 15:00 05/13/17 14:59 Glucose (Glucose Chew Tab) 4-8 Tablets 4 Tabl... UD PRN PO 04/13/17 15:00 05/13/17 14:59 Dextrose (Dextrose 50% 50ML Syringe) 25-50ML OF 50% DW IV FOR... UD PRN IV 04/13/17 15:00 05/13/17 14:59 Glucagon (Glucagon Inj) 1 mg UD PRN SQ 04/13/17 15:00 05/13/17 14:59 Insulin Aspart (novoLOG ASPART) SLIDING SCALE G... ACHS SC 04/13/17 16:30 05/13/17 16:29 Heparin Sodium (Porcine) (Heparin Iv Bolus) 1,000 unit TODAY@0800 IV 04/15/17 08:00 04/15/17 23:59 Heparin Sodium (Porcine) (Heparin Iv Bolus) 400 unit Q1H IV 04/15/17 08:00 04/15/17 10:01 Epoetin Odin 6000 units/Syringe 0.3 ml @ 1 mls/min TODAY@0800 IV. 04/15/17 08:00 04/15/17 23:59 Vancomycin HCl (Vancomycin Oral Soln) 125 mg QID PO 04/14/17 21:00 04/28/17 20:59 04/15/17 07:57 125 MG Raspberry (Raspberry Syrup 5ml Cup) 5 ml QID PO 04/14/17 21:00 04/28/17 20:59 04/15/17 07:57 5 ML Objective Vital Signs Date Time Temp Pulse Resp B/P (MAP) Pulse Ox O2 Delivery O2 Flow Rate FiO2 04/15/17 08:00 Room Air 04/15/17 07:42 36.6 72 16 126/66 (86) 99 04/15/17 00:22 Room Air 04/15/17 00:01 36.9 69 16 112/63 (79) 98 Room Air 04/14/17 21:46 Room Air 04/14/17 15:40 99 Room Air 04/14/17 14:17 36.3 76 16 119/71 (87) 95 Physical Exam General Appearance: no apparent distress (pt sleeping) Neck: supple Respiratory/Chest: lungs clear, normal breath sounds Cardiovascular: regular rate, rhythm Abdomen: normal bowel sounds, soft, no organomegaly Neurologic/Psych: alert, normal mood/affect, oriented x 3 Skin: normal color Laboratory Results Last 24 Hours Test 04/14/17 11:26 04/14/17 16:32 04/14/17 20:20 04/15/17 05:56 Bedside Glucose 109 mg/dl 107 mg/dl 88 mg/dl White Blood Count 10.91 K/uL Red Blood Count 3.35 M/uL Hemoglobin 10.0 g/dL Hematocrit 31.2 % Mean Corpuscular Volume 93.1 fL Mean Corpuscular Hemoglobin 29.9 pg Mean Corpuscular Hemoglobin Concent 32.1 g/dl Platelet Count 208 K/uL Mean Platelet Volume 9.5 fL Neutrophils (%) (Auto) 63.0 % Lymphocytes (%) (Auto) 21.6 % Monocytes (%) (Auto) 7.4 % Eosinophils (%) (Auto) 7.0 % Basophils (%) (Auto) 0.5 % Neutrophils # (Auto) 6.86 K/uL Lymphocytes # (Auto) 2.36 K/uL Monocytes # (Auto) 0.81 K/uL Eosinophils # (Auto) 0.76 K/uL Basophils # (Auto) 0.06 K/uL RDW Standard Deviation 50.9 fL RDW Coefficient of Variation 14.9 % Immature Granulocyte % (Auto) 0.5 % Immature Granulocyte # (Auto) 0.06 K/uL Hypersegmented Polys 1+ Toxic Granulation 1+ Toxic Vacuolation 1+ Erythrocyte Sedimentation Rate 52 mm/hr Sodium Level 137 mmol/L Potassium Level 3.7 mmol/L Chloride Level 105 mmol/L Carbon Dioxide Level 20 mmol/L Anion Gap 13.0 mmol/L Blood Urea Nitrogen 77 mg/dl Creatinine 8.26 mg/dl Est Creatinine Clear Calc Drug Dose 4.0 ml/min Estimated GFR () 4.8 Estimated GFR (Non- 4.2 BUN/Creatinine Ratio 9.3 Random Glucose 93 mg/dl Calcium Level 8.0 mg/dl Iron Level 41 mcg/dl Total Iron Binding Capacity 103 mcg/dl Transferrin 83 mg/dl Transferrin % Saturation 35 % Total Bilirubin 0.5 mg/dl Aspartate Amino Transf (AST/SGOT) 15 U/L Alanine Aminotransferase (ALT/SGPT) 8 U/L Alkaline Phosphatase 73 U/L C-Reactive Protein 3.82 mg/dl Total Protein 6.4 gm/dl Albumin 2.2 gm/dl Globulin 4.2 gm/dl Albumin/Globulin Ratio 0.5 Test 04/15/17 07:11 Bedside Glucose 87 mg/dl Assessment and Plan Patient is a 77 year old female with report of c.diff infection on Flagyl who presented to the ED for evaluation of mental status change - no family or staff present in pt room at time of assessment to aid in history. Will screen stools for c.diff and culture, advise to add PO vancomycin to treat c.diff infection in addition to IV Flagyl. If pt is slow to respond to treatment, would suggest a tapering course of vancomycin. As for report of choledocholithiasis, there is not any evidence of biliary dilatation, LFTs and lipase are WNL. Unsure if pt is symptomatic of gallstones. Pt was admitted w/ sepsis in December with elevated LFTs and lipase with suspected choledocholithiasis and pancreatitis, at that time, pt daughter, who is POA, would not consent to any invasive procedures. Suggest primary team discuss wishes with pt POA. - Discuss pt wishes with POA (invasive procedures etc) - currently not agreeable to ERCP - perhaps stones are chronic - daily CMP while admitted - continue broad spectrum ABX - Electrolyte correction per primary team - Stool for c.diff, if positive - no BM since admission - KUB for obstruction - PO Vanco 125 QID x 14 days - if no improvement would suggest a tapering course - OK to continue IV Flagyl for addition coverage - if abd distention or abnormal bowel sounds KUB for dilation GI to sign off, please call with any questions/concerns or if pt/POA wishes change. I saw and evaluated the patient. I did review her medical history as the patient is not able to describe much in the way of her medical problems. She does have a history of gallstones and we would general this ERCP for stone extraction. It appears that the procedure has been declined in the past by the patient and her family. For the C. difficile I would suggest a completion of 14 days of Vancomycin (may stop Flagyl). At this time please call our service as needed.
--- NOTE | 2017-04-15 11:01 | DIAGNOSTIC IMAGING REPORT ---
KUB HISTORY: c diff, constipation COMPARISON: Abdomen and pelvis CT 04/12/2017. FINDINGS: The bowel gas pattern is unremarkable. There are no dilated loops of small bowel to suggest an obstruction. No renal calculi. No ureteral calculi. No pneumoperitoneum or pneumatosis. Old right lower rib fractures. IMPRESSION: Unremarkable bowel gas pattern. No dilated loops of large or small bowel. Electronically signed by: London Qiu M.D. 04/15/2017 11:00 AM Dictated Date/Time: 04/15/2017 10:58 AM
--- NOTE | 2017-04-15 13:19 | Nephrology Progress Note ---
Nephrology Progress Note Date of Service: Apr 15, 2017. Subjective unable to obtain ros from this lethargic, demented pt Objective Date Time Temp Pulse Resp B/P (MAP) Pulse Ox O2 Delivery O2 Flow Rate FiO2 04/15/17 08:00 Room Air 04/15/17 07:42 36.6 72 16 126/66 (86) 99 04/15/17 00:22 Room Air 04/15/17 00:01 36.9 69 16 112/63 (79) 98 Room Air 04/14/17 21:46 Room Air 04/14/17 15:40 99 Room Air 04/14/17 14:17 36.3 76 16 119/71 (87) 95 Physical Exam: GENERAL: lying flat, nad, interactive w/ large stimulation only with underlying dementia at baseline. EYES: No scleral icterus. ENT: Moist mucous membranes. NECK: Supple. PULMONARY: Clear to auscultation w/ limited air entr CARDIAC: Regular rate and rhythm. ABDOMEN: Bowel sounds positive, soft, nontender EXTREMITIES: no dependent or peripheral edema. NEUROLOGICALLY: Lethargic with underlying dementia. DERM: decubitus ulcer at hip not evaluated. No other rash or ulcers noted. Current Inpatient Medications Medications (Trade) Dose Ordered Sig/Neyda Route Start Time Stop Time Status Last Admin Dose Admin Ondansetron HCl (Zofran Inj) 4 mg Q6H PRN IV 04/12/17 14:00 05/12/17 13:59 Hydralazine HCl (HydrALAZINE INJ) 10 mg Q8 PRN IV. 04/12/17 14:30 05/12/17 14:29 Cefepime HCl (Consult) 1 ea UD PRN N/A 04/12/17 15:45 05/12/17 15:44 Dextrose/Sodium Chloride 1,000 ml @ 75 mls/hr [id number] IV 04/12/17 15:15 05/12/17 15:14 Future Hold 04/14/17 07:15 75 MLS/HR Metronidazole (Consult) 1 ea UD PRN N/A 04/12/17 15:45 05/12/17 15:44 Cefepime HCl 500 mg/Dextrose 105.65 ml @ 200 mls/ hr Q24H IV 04/13/17 14:00 04/22/17 13:59 04/14/17 14:25 200 MLS/HR Metronidazole 500 mg/Prmx 100 ml @ 100 mls/hr Q8H IV 04/13/17 00:00 04/27/17 00:00 04/15/17 08:00 100 MLS/HR Glucose (Glucose 40% Gel) 15-30 GRAMS 15 GRAMS... UD PRN PO 04/13/17 15:00 05/13/17 14:59 Glucose (Glucose Chew Tab) 4-8 Tablets 4 Tabl... UD PRN PO 04/13/17 15:00 05/13/17 14:59 Dextrose (Dextrose 50% 50ML Syringe) 25-50ML OF 50% DW IV FOR... UD PRN IV 04/13/17 15:00 05/13/17 14:59 Glucagon (Glucagon Inj) 1 mg UD PRN SQ 04/13/17 15:00 05/13/17 14:59 Insulin Aspart (novoLOG ASPART) SLIDING SCALE G... ACHS SC 04/13/17 16:30 05/13/17 16:29 Heparin Sodium (Porcine) (Heparin Iv Bolus) 1,000 unit TODAY@0800 IV 04/15/17 08:00 04/15/17 23:59 Epoetin Odin 6000 units/Syringe 0.3 ml @ 1 mls/min TODAY@0800 IV. 04/15/17 08:00 04/15/17 23:59 Vancomycin HCl (Vancomycin Oral Soln) 125 mg QID PO 04/14/17 21:00 04/28/17 20:59 04/15/17 07:57 125 MG Raspberry (Raspberry Syrup 5ml Cup) 5 ml QID PO 04/14/17 21:00 04/28/17 20:59 04/15/17 07:57 5 ML Last 24 Hours Test 04/14/17 16:32 04/14/17 20:20 04/15/17 05:56 04/15/17 07:11 Bedside Glucose 107 mg/dl 88 mg/dl 87 mg/dl White Blood Count 10.91 K/uL Red Blood Count 3.35 M/uL Hemoglobin 10.0 g/dL Hematocrit 31.2 % Mean Corpuscular Volume 93.1 fL Mean Corpuscular Hemoglobin 29.9 pg Mean Corpuscular Hemoglobin Concent 32.1 g/dl Platelet Count 208 K/uL Mean Platelet Volume 9.5 fL Neutrophils (%) (Auto) 63.0 % Lymphocytes (%) (Auto) 21.6 % Monocytes (%) (Auto) 7.4 % Eosinophils (%) (Auto) 7.0 % Basophils (%) (Auto) 0.5 % Neutrophils # (Auto) 6.86 K/uL Lymphocytes # (Auto) 2.36 K/uL Monocytes # (Auto) 0.81 K/uL Eosinophils # (Auto) 0.76 K/uL Basophils # (Auto) 0.06 K/uL RDW Standard Deviation 50.9 fL RDW Coefficient of Variation 14.9 % Immature Granulocyte % (Auto) 0.5 % Immature Granulocyte # (Auto) 0.06 K/uL Hypersegmented Polys 1+ Toxic Granulation 1+ Toxic Vacuolation 1+ Erythrocyte Sedimentation Rate 52 mm/hr Sodium Level 137 mmol/L Potassium Level 3.7 mmol/L Chloride Level 105 mmol/L Carbon Dioxide Level 20 mmol/L Anion Gap 13.0 mmol/L Blood Urea Nitrogen 77 mg/dl Creatinine 8.26 mg/dl Est Creatinine Clear Calc Drug Dose 4.0 ml/min Estimated GFR () 4.8 Estimated GFR (Non- 4.2 BUN/Creatinine Ratio 9.3 Random Glucose 93 mg/dl Calcium Level 8.0 mg/dl Iron Level 41 mcg/dl Total Iron Binding Capacity 103 mcg/dl Transferrin 83 mg/dl Transferrin % Saturation 35 % Total Bilirubin 0.5 mg/dl Aspartate Amino Transf (AST/SGOT) 15 U/L Alanine Aminotransferase (ALT/SGPT) 8 U/L Alkaline Phosphatase 73 U/L C-Reactive Protein 3.82 mg/dl Total Protein 6.4 gm/dl Albumin 2.2 gm/dl Globulin 4.2 gm/dl Albumin/Globulin Ratio 0.5 Test 04/15/17 11:40 Bedside Glucose 109 mg/dl Assessment & Plan 77 y/o F w/ advanced dementia and esrd on MWF HD a/w altered MS and found to have c diff. 1. End-stage renal disease. Last dialysis was 04/10; for HD today 2. Anemia of renal failure. iron stores replete; will give 6K units epo today w/ HD 3. Renal osteodystrophy. reasonable to hold binders until taking po reliably 4. C diff + w/ few bm/no diarrhea currently and nonspecific colitis on CT >> per primary service 5. Hypokalemia > was severe on presentation; had some supplements on presentation. Running on 3 k bath today Appreciate consult; will follow with you. Care coordinated w/ Dr. Preston.
--- NOTE | 2017-04-15 16:29 | Progress Note ---
Internal Med Progress Note Date of Service: Apr 15, 2017. Provider Documentation: SUBJECTIVE: Patient seen and examined on her bed when getting dialysis in her room. Patient speaks softly. OBJECTIVE: Exam: General- comfortable and breathing on room air, laying on bed Eyes- EOMI ENT- dry mucosa Neck-trachea midline, no JVD Lungs- clear to anterior auscultation, no wheezing Heart- heart rate regular Abdomen- soft, nontender, + bowel sounds Extremities- no edema Neuro- speaking in full sentences, able to move both upper extremities ASSESSMENT & PLAN: Patient is a 77yo F [facility] resident with a PMH of advanced Lewy body dementia who as per patient's daughter may be having more rigidity progressively so possible Parkinsonian symptoms with Lewy Body dementia, 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, chronic anemia, HTN and DM II who presents with lethargy during her dialysis session on 04/12/17 Altered Mental Status: -encephalopathy? vs delirium secondary to infection -history of Lewy Body Dementia, possible also Parkinsonism from history of patient's daughter -CT head negative on admission 04/12/17: 1. No acute intracranial abnormality. 2. Moderate atrophy with ex vacuo ventriculomegaly and chronic microvascular ischemic changes. 3. Mild paranasal sinus disease. -Hold Seroquel for now due to altered mental status -Mental Status improving since 04/13/17, continue to monitor Possible SIRs/Sepsis due to C.diff -has been [facility] as [facility] in [facility] -Started on cefepime IV and Flagyl IV for broad spectrum coverage -Discussed with GI, who recommend starting PO Vancomycin 125mg QID x 14 days but patient did not seem capable of taking oral medication on 04/13/17, started medication on 04/14/17 -WBC 19.8 to 15 to 11.6 to 10.9; Blood culture negative to date and urine culture skin altaf bacteria -stopped IV cefepime and IV Flagyl on 04/15/17, continue PO Vancomycin 125mg QID until 04/27/2017 to complete the 14 day course of PO Vancomycin Choledocholithiasis:without evidence of CBD dilation or evidence of obstructive symptoms -GI following the patient, no plans for ERCP at this time Nutrition, history of Diabetes -speech and swallow evaluation on 04/14/17 Dental soft diet with finger foods given as available. Straws okay. Aspiration precautions: fully upright with meals, small bites and sips, alternate solids and liquids. Patient should be awake, alert, and able to participate in meals. Supervision required, and assistance given with meals as necessary. -insulin sliding scale and finger stick glucose 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: -patient received potassium repletion because of hypokalemia of 2.7 on admission on 04/12/17, serum potassium repleted -Nephrology service following patient for dialysis, dialysis for Saturday, Saturday, Saturday HTN: -relative Hypotension with PO labetalol and hydralazine held, still stable blood pressure without hypertension when off these medications -IV hydralazine PRN for SBP >160 DVT ppx: SCDs Code Status: DNR/DNI Disposition: patient likely to be discharged [facility] to [facility] on 04/16/17 and continue PO Vancomycin 125mg QID until 04/27/2017 to complete the 14 day course of PO Vancomycin for C. diff. Patient should be on Dialysis Schedule 3 days out of a week on Saturday, Saturday, Saturday Vital Signs: Date Time Temp Pulse Resp B/P (MAP) Pulse Ox O2 Delivery O2 Flow Rate FiO2 04/15/17 16:00 74 138/67 04/15/17 15:45 74 127/60 04/15/17 15:30 73 141/67 04/15/17 15:15 71 128/66 04/15/17 15:00 71 131/64 04/15/17 14:45 72 126/65 04/15/17 14:30 72 109/64 04/15/17 14:15 73 116/65 04/15/17 14:00 75 97/51 04/15/17 13:45 73 91/59 04/15/17 13:31 71 123/62 04/15/17 13:20 36.7 67 133/61 (85) 04/15/17 08:00 Room Air 04/15/17 07:42 36.6 72 16 126/66 (86) 99 04/15/17 00:22 Room Air 04/15/17 00:01 36.9 69 16 112/63 (79) 98 Room Air 04/14/17 21:46 Room Air Lab Results: Results Past 24 Hours Test 04/14/17 16:32 04/14/17 20:20 04/15/17 05:56 04/15/17 07:11 Range/Units Bedside Glucose 107 88 87 70-90 mg/dl White Blood Count 10.91 4.8-10.8 K/uL Red Blood Count 3.35 4.2-5.4 M/uL Hemoglobin 10.0 12.0-16.0 g/dL Hematocrit 31.2 37-47 % Mean Corpuscular Volume 93.1 80-100 fL Mean Corpuscular Hemoglobin 29.9 25-34 pg Mean Corpuscular Hemoglobin Concent 32.1 32-36 g/dl Platelet Count 208 130-400 K/uL Mean Platelet Volume 9.5 7.4-10.4 fL Neutrophils (%) (Auto) 63.0 % Lymphocytes (%) (Auto) 21.6 % Monocytes (%) (Auto) 7.4 % Eosinophils (%) (Auto) 7.0 % Basophils (%) (Auto) 0.5 % Neutrophils # (Auto) 6.86 1.4-6.5 K/uL Lymphocytes # (Auto) 2.36 1.2-3.4 K/uL Monocytes # (Auto) 0.81 0.11-0.59 K/uL Eosinophils # (Auto) 0.76 0-0.5 K/uL Basophils # (Auto) 0.06 0-0.2 K/uL RDW Standard Deviation 50.9 36.4-46.3 fL RDW Coefficient of Variation 14.9 11.5-14.5 % Immature Granulocyte % (Auto) 0.5 % Immature Granulocyte # (Auto) 0.06 0.00-0.02 K/uL Hypersegmented Polys 1+ Toxic Granulation 1+ Toxic Vacuolation 1+ Erythrocyte Sedimentation Rate 52 0-21 mm/hr Sodium Level 137 136-145 mmol/L Potassium Level 3.7 3.5-5.1 mmol/L Chloride Level 105 98-107 mmol/L Carbon Dioxide Level 20 21-32 mmol/L Anion Gap 13.0 3-11 mmol/L Blood Urea Nitrogen 77 7-18 mg/dl Creatinine 8.26 0.60-1.20 mg/dl Est Creatinine Clear Calc Drug Dose 4.0 ml/min Estimated GFR () 4.8 Estimated GFR (Non- 4.2 BUN/Creatinine Ratio 9.3 10-20 Random Glucose 93 70-99 mg/dl Calcium Level 8.0 8.5-10.1 mg/dl Iron Level 41 35-150 mcg/dl Total Iron Binding Capacity 103 250-450 mcg/dl Transferrin 83 200-360 mg/dl Transferrin % Saturation 35 15-50 % Total Bilirubin 0.5 0.2-1 mg/dl Aspartate Amino Transf (AST/SGOT) 15 15-37 U/L Alanine Aminotransferase (ALT/SGPT) 8 12-78 U/L Alkaline Phosphatase 73 45-117 U/L C-Reactive Protein 3.82 0-0.29 mg/dl Total Protein 6.4 6.4-8.2 gm/dl Albumin 2.2 3.4-5.0 gm/dl Globulin 4.2 2.5-4.0 gm/dl Albumin/Globulin Ratio 0.5 0.9-2 Test 04/15/17 11:40 Range/Units Bedside Glucose 109 70-90 mg/dl
[2017-04-15] MEDS: HEPARIN SOD (PORCINE) 1000 UNIT/ML 10 ML VIAL IV SCH ×2 (20:25→20:27)
[2017-04-16 06:37] LABS: HEMATOCRIT 30.7 % (37-47); MEAN CELL VOLUME 93.9 fL (80-100); MEAN CORPUSCULAR HGB CONC 31.9 g/dl (32-36); MEAN PLATELET VOLUME 9.3 fL (7.4-10.4); PLATELET COUNT 188 K/uL (130-400); RED BLOOD COUNT 3.27 M/uL (4.2-5.4); WHITE BLOOD COUNT 7.71 K/uL (4.8-10.8)
[2017-04-16 07:19] LABS: ALB/GLOB RATIO 0.5 (0.9-2); BUN/CREATININE RATIO 6.3 (10-20); CREATININE 4.69 mg/dl (0.60-1.20); POTASSIUM 3.5 mmol/L (3.5-5.1)
[2017-04-16 07:27] VITALS: BP 117/71; PULSE 71; TEMP 36.4; O2SAT 100
[2017-04-16 08:00] VITALS: O2SAT 100
[2017-04-16 08:03] LABS: BASO % 1.3 %; COMPLETE YES; EOS % 5.2 %; IG% 0.4 %; LYMPH % 25.8 %; LYMPH ABS # 1.99 K/uL (1.2-3.4); NEUT % 57.3 %
[2017-04-16] MEDS: RASPBERRY SYRUP 5 ML UDP PO SCH ×4 (09:00→20:46)
[2017-04-16] MEDS: VANCOMYCIN HCL 125 MG/2.5ML SOLN PO SCH ×4 (09:00→20:46)
[2017-04-16] MEDS: INSULIN ASPART 100 UNITS/ML 3 ML PEN SC SCH ×4 (09:39→20:31)
[2017-04-16 15:21] VITALS: BP 101/63; PULSE 79; TEMP 36.9; O2SAT 99
--- NOTE | 2017-04-16 16:49 | Progress Note ---
Medicine Progress Note Date & Time of Visit: Apr 16, 2017 at 16:29. Subjective Pt was seen and examined Lying in bed with no distress Pt was alert and awake she said that she didn't eat much today she denies any chest pain, palpitation, dizziness and SOB Objective Last 8 Hrs Date Time Temp Pulse Resp B/P (MAP) Pulse Ox O2 Delivery O2 Flow Rate FiO2 04/16/17 16:22 Room Air 04/16/17 15:21 36.9 79 20 101/63 (76) 99 Physical Exam: General- No distress Head- atraumatic Eyes- PERRL, EOMI ENT- oropharynx clear Neck- supple, no JVD Lungs- clear to auscultation Heart- regular rhythm Abdomen- normal bowel sounds, soft Extremities- no calf tenderness Neuro- alert, awake,PERRL, EOMI; no facial palsy; no dysarthria Skin- warm & dry Laboratory Results: Last 24 Hours Test 04/15/17 16:34 04/15/17 20:50 04/16/17 00:08 04/16/17 01:51 Bedside Glucose 82 mg/dl 79 mg/dl 77 mg/dl 81 mg/dl Test 04/16/17 06:12 04/16/17 07:16 04/16/17 11:17 04/16/17 16:18 White Blood Count 7.71 K/uL Red Blood Count 3.27 M/uL Hemoglobin 9.8 g/dL Hematocrit 30.7 % Mean Corpuscular Volume 93.9 fL Mean Corpuscular Hemoglobin 30.0 pg Mean Corpuscular Hemoglobin Concent 31.9 g/dl Platelet Count 188 K/uL Mean Platelet Volume 9.3 fL Neutrophils (%) (Auto) 57.3 % Lymphocytes (%) (Auto) 25.8 % Monocytes (%) (Auto) 10.0 % Eosinophils (%) (Auto) 5.2 % Basophils (%) (Auto) 1.3 % Neutrophils # (Auto) 4.42 K/uL Lymphocytes # (Auto) 1.99 K/uL Monocytes # (Auto) 0.77 K/uL Eosinophils # (Auto) 0.40 K/uL Basophils # (Auto) 0.10 K/uL RDW Standard Deviation 51.9 fL RDW Coefficient of Variation 15.1 % Immature Granulocyte % (Auto) 0.4 % Immature Granulocyte # (Auto) 0.03 K/uL Sodium Level 138 mmol/L Potassium Level 3.5 mmol/L Chloride Level 102 mmol/L Carbon Dioxide Level 28 mmol/L Anion Gap 8.0 mmol/L Blood Urea Nitrogen 30 mg/dl Creatinine 4.69 mg/dl Est Creatinine Clear Calc Drug Dose 7.6 ml/min Estimated GFR () 9.6 Estimated GFR (Non- 8.3 BUN/Creatinine Ratio 6.3 Random Glucose 86 mg/dl Calcium Level 8.0 mg/dl Total Bilirubin 0.6 mg/dl Aspartate Amino Transf (AST/SGOT) 16 U/L Alanine Aminotransferase (ALT/SGPT) 11 U/L Alkaline Phosphatase 69 U/L Total Protein 6.5 gm/dl Albumin 2.2 gm/dl Globulin 4.3 gm/dl Albumin/Globulin Ratio 0.5 Bedside Glucose 96 mg/dl 83 mg/dl 102 mg/dl Assessment & Plan Patient is a 77yo F [facility] resident with a PMH of advanced Lewy body dementia who as per patient's daughter may be having more rigidity progressively so possible Parkinsonian symptoms with Lewy Body dementia, 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, chronic anemia, HTN and DM II who presents with lethargy during her dialysis session on 04/12/17 Altered Mental Status Hx of Lewy Body Dementia encephalopathy? vs delirium secondary to infection CT head negative on admission for acute intracranial abnormality Seroquel has been on due to altered mental status Seems like she is back to baseline Stable Possible SIRs/Sepsis due to C.diff has been treated for C.diff as outpatient in [facility] Was started on cefepime IV and Flagyl IV for broad spectrum coverage that was d/ blank on 04/15/17 GI recommended to continue PO Vancomycin 125mg QID to complete 14 days course Blood cx and urine no growth Afebrile and no leukocytosis Choledocholithiasis Gallbladder u/s showed noevidence of CBD dilation or evidence of obstructive symptoms GI on board, no invasive intervention as per POA no plans for ERCP at this time Nutrition, history of Diabetes Speech and swallow evaluation on 04/14/17 Dental soft diet with finger foods given as available. Straws okay. Continue Aspiration precautions: fully upright with meals, small bites and sips , alternate solids and liquids. Patient should be awake, alert, and able to participate in meals. Supervision required, and assistance given with meals as necessary. ESRD On HD Nephrology on board, HD on Saturday, Saturday, Saturday Stable HTN: BP stable BP meds have been on hold DVT ppx SCDs Code Status DNR/DNI Disposition Discharge to [facility] tomorrow after HD Consultants: Nephro Gastro Current Inpatient Medications: Current Inpatient Medications Medications (Trade) Dose Ordered Sig/Neyda Route Start Time Stop Time Status Last Admin Dose Admin Ondansetron HCl (Zofran Inj) 4 mg Q6H PRN IV 04/12/17 14:00 05/12/17 13:59 Hydralazine HCl (HydrALAZINE INJ) 10 mg Q8 PRN IV. 04/12/17 14:30 05/12/17 14:29 Dextrose/Sodium Chloride 1,000 ml @ 75 mls/hr [id number] IV 04/12/17 15:15 05/12/17 15:14 Future Hold 04/14/17 07:15 75 MLS/HR Glucose (Glucose 40% Gel) 15-30 GRAMS 15 GRAMS... UD PRN PO 04/13/17 15:00 05/13/17 14:59 Glucose (Glucose Chew Tab) 4-8 Tablets 4 Tabl... UD PRN PO 04/13/17 15:00 05/13/17 14:59 Dextrose (Dextrose 50% 50ML Syringe) 25-50ML OF 50% DW IV FOR... UD PRN IV 04/13/17 15:00 05/13/17 14:59 Glucagon (Glucagon Inj) 1 mg UD PRN SQ 04/13/17 15:00 05/13/17 14:59 Insulin Aspart (novoLOG ASPART) SLIDING SCALE G... ACHS SC 04/13/17 16:30 05/13/17 16:29 Vancomycin HCl (Vancomycin Oral Soln) 125 mg QID PO 04/14/17 21:00 04/28/17 20:59 04/16/17 14:41 125 MG Raspberry (Raspberry Syrup 5ml Cup) 5 ml QID PO 04/14/17 21:00 04/28/17 20:59 04/16/17 14:41 5 ML
[2017-04-17] VITALS (22 sets, daily range): BP systolic 86–136; BP diastolic 37–70; PULSE 66–75; TEMP 36.4–36.9; O2SAT 97–100
[2017-04-17 07:11] LABS: BUN/CREATININE RATIO 6.9 (10-20); CALCIUM 8.1 mg/dl (8.5-10.1); CREATININE 5.81 mg/dl (0.60-1.20); POTASSIUM 3.6 mmol/L (3.5-5.1)
[2017-04-17] MEDS ORDERED: EPOETIN ALFA 10,000 UNITS/ML VIAL IV. ONE (07:45)
[2017-04-17] MEDS: INSULIN ASPART 100 UNITS/ML 3 ML PEN SC SCH ×4 (08:43→21:00)
--- NOTE | 2017-04-17 09:19 | Nephrology Progress Note ---
Nephrology Progress Note Date of Service: Apr 17, 2017. Subjective again unable to obtain ros from this lethargic, demented pt; no acute interval events Objective Date Time Temp Pulse Resp B/P (MAP) Pulse Ox O2 Delivery O2 Flow Rate FiO2 04/17/17 07:17 36.9 66 18 136/67 (90) 99 Room Air 04/17/17 00:57 36.4 68 16 132/70 (90) 97 Room Air 04/17/17 00:00 Room Air 04/16/17 16:22 Room Air 04/16/17 15:21 36.9 79 20 101/63 (76) 99 Physical Exam: GENERAL: sitting in bed at 45 degrees on RA, nad, interactive w/ large stimulation only with underlying dementia at baseline. EYES: No scleral icterus. ENT: Moist mucous membranes. NECK: Supple. PULMONARY: Clear to auscultation w/ limited air entry CARDIAC: Regular rate and rhythm. ABDOMEN: Bowel sounds positive, soft, nontender EXTREMITIES: no dependent or peripheral edema. NEUROLOGICALLY: Lethargic with underlying dementia. DERM: decubitus ulcer at hip not evaluated. No other rash or ulcers noted. Current Inpatient Medications Medications (Trade) Dose Ordered Sig/Neyda Route Start Time Stop Time Status Last Admin Dose Admin Ondansetron HCl (Zofran Inj) 4 mg Q6H PRN IV 04/12/17 14:00 05/12/17 13:59 Hydralazine HCl (HydrALAZINE INJ) 10 mg Q8 PRN IV. 04/12/17 14:30 05/12/17 14:29 Dextrose/Sodium Chloride 1,000 ml @ 75 mls/hr [id number] IV 04/12/17 15:15 05/12/17 15:14 Future Hold 04/14/17 07:15 75 MLS/HR Glucose (Glucose 40% Gel) 15-30 GRAMS 15 GRAMS... UD PRN PO 04/13/17 15:00 05/13/17 14:59 Glucose (Glucose Chew Tab) 4-8 Tablets 4 Tabl... UD PRN PO 04/13/17 15:00 05/13/17 14:59 Dextrose (Dextrose 50% 50ML Syringe) 25-50ML OF 50% DW IV FOR... UD PRN IV 04/13/17 15:00 05/13/17 14:59 Glucagon (Glucagon Inj) 1 mg UD PRN SQ 04/13/17 15:00 05/13/17 14:59 Insulin Aspart (novoLOG ASPART) SLIDING SCALE G... ACHS SC 04/13/17 16:30 05/13/17 16:29 Vancomycin HCl (Vancomycin Oral Soln) 125 mg QID PO 04/14/17 21:00 04/28/17 20:59 04/16/17 20:46 125 MG Raspberry (Raspberry Syrup 5ml Cup) 5 ml QID PO 04/14/17 21:00 04/28/17 20:59 04/16/17 20:46 5 ML Heparin Sodium (Porcine) (Heparin Iv Bolus) 1,000 unit ONE ONCE IV 04/17/17 10:00 04/17/17 10:01 Heparin Sodium (Porcine) (Heparin Iv Bolus) 400 unit Q1H IV 04/17/17 11:00 04/17/17 13:01 Epoetin Odin 85316 units/ Syringe 0.6 ml @ 1 mls/min TODAY@1000 IV. 04/17/17 10:00 04/17/17 10:01 Last 24 Hours Test 04/16/17 11:17 04/16/17 16:18 04/16/17 20:15 04/17/17 06:02 Bedside Glucose 83 mg/dl 102 mg/dl 135 mg/dl Sodium Level 139 mmol/L Potassium Level 3.6 mmol/L Chloride Level 102 mmol/L Carbon Dioxide Level 27 mmol/L Anion Gap 10.0 mmol/L Blood Urea Nitrogen 40 mg/dl Creatinine 5.81 mg/dl Est Creatinine Clear Calc Drug Dose 5.6 ml/min Estimated GFR () 7.4 Estimated GFR (Non- 6.4 BUN/Creatinine Ratio 6.9 Random Glucose 91 mg/dl Calcium Level 8.1 mg/dl Test 04/17/17 07:33 Bedside Glucose 89 mg/dl Assessment & Plan 77 y/o F w/ advanced dementia and esrd on MWF HD a/w altered MS and found to have c diff. 1. End-stage renal disease. Last dialysis was 04/10; for HD today on MWF schedule 2. Anemia of renal failure. iron stores replete; hgb trending down despite epo ; will give higher 12K units epo today w/ HD 3. Renal osteodystrophy. reasonable to hold binders until taking po reliably 4. C diff + w/ few bm/no diarrhea currently (did have 2 bm yesterday) and nonspecific colitis on CT >> per primary service 5. Hypokalemia > was severe on presentation; had some supplements on presentation. Running on 4 k bath today Appreciate consult; will follow with you.
[2017-04-17] MEDS: VANCOMYCIN HCL 125 MG/2.5ML SOLN PO SCH ×4 (09:36→21:27)
[2017-04-17] MEDS: RASPBERRY SYRUP 5 ML UDP PO SCH ×4 (09:36→21:27)
[2017-04-17] MEDS ORDERED: EPOETIN ALFA INJ 12,000 UNITS in SYRINGE 0 ML IV. SCH (10:00)
[2017-04-17] MEDS ORDERED: HEPARIN SOD (PORCINE) 1000 UNIT/ML 10 ML VIAL IV ONE (10:00)
--- NOTE | 2017-04-17 18:44 | Progress Note ---
Medicine Progress Note Date & Time of Visit: Apr 17, 2017 at 11:42. Subjective Pt was seen and examined Lying in bed with no distress Objective Last 8 Hrs Date Time Temp Pulse Resp B/P (MAP) Pulse Ox O2 Delivery O2 Flow Rate FiO2 04/17/17 16:15 Room Air 04/17/17 15:00 36.6 73 18 98/46 (63) 98 Room Air Physical Exam: General- No distress Head- atraumatic Eyes- PERRL, EOMI ENT- oropharynx clear Neck- supple, no JVD Lungs- clear to auscultation Heart- regular rhythm Abdomen- normal bowel sounds, soft Extremities- no calf tenderness Neuro- alert, awake,PERRL, EOMI; no facial palsy; no dysarthria Skin- warm & dry Laboratory Results: Last 24 Hours Test 04/16/17 20:15 04/17/17 06:02 04/17/17 07:33 04/17/17 11:23 Bedside Glucose 135 mg/dl 89 mg/dl 144 mg/dl Sodium Level 139 mmol/L Potassium Level 3.6 mmol/L Chloride Level 102 mmol/L Carbon Dioxide Level 27 mmol/L Anion Gap 10.0 mmol/L Blood Urea Nitrogen 40 mg/dl Creatinine 5.81 mg/dl Est Creatinine Clear Calc Drug Dose 5.6 ml/min Estimated GFR () 7.4 Estimated GFR (Non- 6.4 BUN/Creatinine Ratio 6.9 Random Glucose 91 mg/dl Calcium Level 8.1 mg/dl Test 04/17/17 12:05 04/17/17 16:33 Hepatitis B Surface Antigen NEG Bedside Glucose 135 mg/dl Assessment & Plan Patient is a 77yo F [facility] resident with a PMH of advanced Lewy body dementia who as per patient's daughter may be having more rigidity progressively so possible Parkinsonian symptoms with Lewy Body dementia, 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, chronic anemia, HTN and DM II who presents with lethargy during her dialysis session on 04/12/17 Altered Mental Status Hx of Lewy Body Dementia encephalopathy? vs delirium secondary to infection CT head negative on admission for acute intracranial abnormality Seroquel has been on due to altered mental status Seems like she is back to baseline Stable Possible SIRs/Sepsis due to C.diff has been treated for C.diff as outpatient in intermediate Was started on cefepime IV and Flagyl IV for broad spectrum coverage that was d/ blank on 04/15/17 GI recommended to continue PO Vancomycin 125mg QID to complete 14 days course Blood cx and urine no growth Afebrile and no leukocytosis Choledocholithiasis Gallbladder u/s showed noevidence of CBD dilation or evidence of obstructive symptoms GI on board, no invasive intervention as per POA no plans for ERCP at this time Nutrition, history of Diabetes Speech and swallow evaluation on 04/14/17 Dental soft diet with finger foods given as available. Straws okay. Continue Aspiration precautions: fully upright with meals, small bites and sips , alternate solids and liquids. Patient should be awake, alert, and able to participate in meals. Supervision required, and assistance given with meals as necessary. ESRD On HD Nephrology on board will get HD today HTN: BP stable BP meds have been on hold DVT ppx SCDs Code Status DNR/DNI Disposition Plan to discharge to [facility] after HD Consultants: Nephro Gastro Current Inpatient Medications: Current Inpatient Medications Medications (Trade) Dose Ordered Sig/Neyda Route Start Time Stop Time Status Last Admin Dose Admin Ondansetron HCl (Zofran Inj) 4 mg Q6H PRN IV 04/12/17 14:00 05/12/17 13:59 Hydralazine HCl (HydrALAZINE INJ) 10 mg Q8 PRN IV. 04/12/17 14:30 05/12/17 14:29 Dextrose/Sodium Chloride 1,000 ml @ 75 mls/hr [id number] IV 04/12/17 15:15 05/12/17 15:14 Future Hold 04/14/17 07:15 75 MLS/HR Glucose (Glucose 40% Gel) 15-30 GRAMS 15 GRAMS... UD PRN PO 04/13/17 15:00 05/13/17 14:59 Glucose (Glucose Chew Tab) 4-8 Tablets 4 Tabl... UD PRN PO 04/13/17 15:00 05/13/17 14:59 Dextrose (Dextrose 50% 50ML Syringe) 25-50ML OF 50% DW IV FOR... UD PRN IV 04/13/17 15:00 05/13/17 14:59 Glucagon (Glucagon Inj) 1 mg UD PRN SQ 04/13/17 15:00 05/13/17 14:59 Insulin Aspart (novoLOG ASPART) SLIDING SCALE G... ACHS SC 04/13/17 16:30 05/13/17 16:29 04/17/17 17:27 3 UNITS Vancomycin HCl (Vancomycin Oral Soln) 125 mg QID PO 04/14/17 21:00 04/28/17 20:59 04/17/17 17:01 125 MG Raspberry (Raspberry Syrup 5ml Cup) 5 ml QID PO 04/14/17 21:00 04/28/17 20:59 04/17/17 17:00 5 ML
[2017-04-17] MEDS: HEPARIN SOD (PORCINE) 1000 UNIT/ML 10 ML VIAL IV SCH ×2 (20:12→20:13)
[2017-04-18 06:55] LABS: BUN/CREATININE RATIO 5.3 (10-20); CREATININE 3.06 mg/dl (0.60-1.20); POTASSIUM 4.4 mmol/L (3.5-5.1)
[2017-04-18 06:58] VITALS: BP 108/58; PULSE 73; TEMP 37; O2SAT 100
[2017-04-18] MEDS: VANCOMYCIN HCL 125 MG/2.5ML SOLN PO SCH ×2 (08:28→12:57)
[2017-04-18] MEDS: RASPBERRY SYRUP 5 ML UDP PO SCH ×2 (08:28→12:57)
[2017-04-18] MEDS: INSULIN ASPART 100 UNITS/ML 3 ML PEN SC SCH ×2 (08:30→12:57)
--- NOTE | 2017-04-18 13:06 | Progress Note ---
Medicine Progress Note Date & Time of Visit: Apr 18, 2017 at 13:04. Subjective Pt was seen and examined Lying in bed with no distress Objective Last 8 Hrs Date Time Temp Pulse Resp B/P (MAP) Pulse Ox O2 Delivery O2 Flow Rate FiO2 04/18/17 08:00 Room Air 04/18/17 06:58 37.0 73 18 108/58 (75) 100 Room Air Physical Exam: General- No distress Head- atraumatic Eyes- PERRL, EOMI ENT- oropharynx clear Neck- supple, no JVD Lungs- clear to auscultation Heart- regular rhythm Abdomen- normal bowel sounds, soft Extremities- no calf tenderness Neuro- alert, awake,PERRL, EOMI; no facial palsy; no dysarthria Skin- warm & dry Laboratory Results: Last 24 Hours Test 04/17/17 16:33 04/17/17 20:11 04/18/17 05:54 04/18/17 07:28 Bedside Glucose 135 mg/dl 108 mg/dl 93 mg/dl Sodium Level 139 mmol/L Potassium Level 4.4 mmol/L Chloride Level 108 mmol/L Carbon Dioxide Level 24 mmol/L Anion Gap 7.0 mmol/L Blood Urea Nitrogen 16 mg/dl Creatinine 3.06 mg/dl Est Creatinine Clear Calc Drug Dose 10.7 ml/min Estimated GFR () 16.1 Estimated GFR (Non- 13.8 BUN/Creatinine Ratio 5.3 Random Glucose 98 mg/dl Calcium Level 8.0 mg/dl Test 04/18/17 11:26 Bedside Glucose 143 mg/dl Assessment & Plan Patient is a 77yo F [facility] resident with a PMH of advanced Lewy body dementia who as per patient's daughter may be having more rigidity progressively so possible Parkinsonian symptoms with Lewy Body dementia, 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, chronic anemia, HTN and DM II who presents with lethargy during her dialysis session on 04/12/17 Altered Mental Status Hx of Lewy Body Dementia encephalopathy? vs delirium secondary to infection CT head negative on admission for acute intracranial abnormality Seroquel has been on due to altered mental status Seems like she is back to baseline Stable Possible SIRs/Sepsis due to C.diff has been treated for C.diff as outpatient in longterm Was started on cefepime IV and Flagyl IV for broad spectrum coverage that was d/ blank on 04/15/17 GI recommended to continue PO Vancomycin 125mg QID to complete 14 days course Blood cx and urine no growth Afebrile and no leukocytosis Choledocholithiasis Gallbladder u/s showed no evidence of CBD dilation or evidence of obstructive symptoms GI on board, no invasive intervention as per POA no plans for ERCP at this time Nutrition, history of Diabetes Speech and swallow evaluation on 04/14/17 Dental soft diet with finger foods given as available. Straws okay. Continue Aspiration precautions: fully upright with meals, small bites and sips , alternate solids and liquids. Patient should be awake, alert, and able to participate in meals. Supervision required, and assistance given with meals as necessary. ESRD On HD Nephrology on board Had HD yesterday HTN: BP stable BP meds have been on hold DVT ppx SCDs Code Status DNR/DNI Disposition Plan to discharge to [facility] today Consultants: Nephro Gastro Current Inpatient Medications: Current Inpatient Medications Medications (Trade) Dose Ordered Sig/Neyda Route Start Time Stop Time Status Last Admin Dose Admin Ondansetron HCl (Zofran Inj) 4 mg Q6H PRN IV 04/12/17 14:00 05/12/17 13:59 Hydralazine HCl (HydrALAZINE INJ) 10 mg Q8 PRN IV. 04/12/17 14:30 05/12/17 14:29 Dextrose/Sodium Chloride 1,000 ml @ 75 mls/hr [id number] IV 04/12/17 15:15 05/12/17 15:14 Future Hold 04/14/17 07:15 75 MLS/HR Glucose (Glucose 40% Gel) 15-30 GRAMS 15 GRAMS... UD PRN PO 04/13/17 15:00 05/13/17 14:59 Glucose (Glucose Chew Tab) 4-8 Tablets 4 Tabl... UD PRN PO 04/13/17 15:00 05/13/17 14:59 Dextrose (Dextrose 50% 50ML Syringe) 25-50ML OF 50% DW IV FOR... UD PRN IV 04/13/17 15:00 05/13/17 14:59 Glucagon (Glucagon Inj) 1 mg UD PRN SQ 04/13/17 15:00 05/13/17 14:59 Insulin Aspart (novoLOG ASPART) SLIDING SCALE G... ACHS SC 04/13/17 16:30 05/13/17 16:29 04/18/17 12:57 1 UNITS Vancomycin HCl (Vancomycin Oral Soln) 125 mg QID PO 04/14/17 21:00 04/28/17 20:59 04/18/17 12:57 125 MG Raspberry (Raspberry Syrup 5ml Cup) 5 ml QID PO 04/14/17 21:00 04/28/17 20:59 04/18/17 12:57 5 ML
[2017-04-18] MEDS ORDERED: VNCS125 PO (13:13)
[2017-04-18 13:18] VITALS: BP 108/58; PULSE 73; TEMP 37; O2SAT 100
--- NOTE | 2017-04-18 13:25 | Discharge Instructions ---
Discharge Instructions Date of Service Apr 18, 2017. Admission Reason for Admission: Altered Mental Status Discharge Discharge Diagnosis / Problem: Altered Mental Status, C-diff, ESRD on HD Discharge Goals Goal(s): Decrease discomfort, Improve function, Improve disease control Activity Recommendations Activity Limitations: resume your previous activity (as tolerated) . Instructions / Follow-Up Instructions / Follow-Up Will discharge to [facility] Follow up with your primary care provider at [facility] Complete the course of vanco po Monitor blood pressure If blood pressure starts to elevate, low dose labetalo or Hydralazine can restart Fall precaution Current Hospital Diet Patient's current hospital diet: Renal Diet Discharge Diet Recommended Diet: Renal Diet Pending Studies Studies pending at discharge: no Laboratory Results Hemoglobin A1c Test 04/13/17 06:40 Range/Units Estimated Average Glucose 105 mg/dl Hemoglobin A1c 5.3 4.5-5.6 % Medical Emergencies . Who to Call and When: Medical Emergencies: If at any time you feel your situation is an emergency, please call 911 immediately. . Non-Emergent Contact Non-Emergency issues call your: Primary Care Provider Call Non-Emergent contact if: you have any medication questions . . "Provider Documentation" section prepared by Andriy Estes. . VTE Core Measure Inpt VTE Proph given/why not?: SCD's
--- NOTE | 2017-04-19 07:49 | Discharge Summary ---
Discharge Summary Date of Service Apr 19, 2017. Discharge Summary Admission Date: Apr 12, 2017 at 13:53 Discharge Date: Apr 18, 2017 Discharge Disposition: [facility] facility Principal Diagnosis: Altered Mental Status Secondary Diagnoses/Problems: Choledocholithiasis ESRD on HD Possible SIRs/Sepsis C. diff Procedures: HEAD WITHOUT CONTRAST (CT) CLINICAL HISTORY: 77 years-old Female with EVALUATE WEAKNESS. Acute weakness TECHNIQUE: Multiple axial CT images of the head were obtained without contrast. A dose lowering technique was utilized adhering to the principles of ALARA. CT DOSE: 930.90 mGy.cm COMPARISON: CT head 01/31/2017. FINDINGS: No acute intracranial hemorrhage, midline shift, mass, large territorial ischemia or abnormal extra-axial collection. Moderate atrophy with ex vacuo ventriculomegaly. Vascular calcifications of the level of the skull base. Background chronic microvascular ischemic changes. The calvarium is intact. The mastoid air cells, and middle ear cavities are clear. Moderate mucosal thickening of the inferior right maxillary and anterior ethmoid air cells. Mild right maxillary sinus disease. Soft tissues and orbits are unremarkable. IMPRESSION: 1. No acute intracranial abnormality. 2. Moderate atrophy with ex vacuo ventriculomegaly and chronic microvascular ischemic changes. 3. Mild paranasal sinus disease. The above report was generated using voice recognition software. It may contain grammatical, syntax or spelling errors. Electronically signed by: Cash Moeller M.D. 04/12/2017 12:05 PM Dictated Date/Time: 04/12/2017 12:[address] SCAN OF THE ABDOMEN AND PELVIS WITHOUT IV CONTRAST CLINICAL HISTORY: Change in mental status. Lethargy and weakness. Generalized abdominal pain. COMPARISON STUDY: Abdominal CT dated, 01/31/2017 and 01/15/2017. TECHNIQUE: CT scan of the abdomen and pelvis is performed from the lung bases to the proximal femora. Images are reviewed in the axial, sagittal, and coronal planes. IV contrast was not administered for this examination as per the referring clinician. Note that the examination was performed in suboptimal fashion without oral and IV contrast. The examination is also significantly degraded by motion artifact and streak artifact from the left arm which could not be elevated above the abdomen. A dose lowering technique was utilized adhering to the principles of ALARA. FINDINGS: Lung bases: The heart is normal in size there is a small pericardial effusion. The coronary arteries are densely calcified. Chronic interstitial change is present at both lung bases. A calcified granuloma seen at the right lung base. There is no airspace consolidation typical for pneumonia or pleural effusion. Liver: Evaluation of the liver is degraded by streak artifact. The unenhanced liver is enlarged, measuring 20.7 cm in length. The liver is otherwise grossly normal in contour and attenuation. There is no intrahepatic biliary ductal dilatation. A 1.6 cm cyst is suggested in the right lobe on image #57. Gallbladder: The gallbladder is filled with calcified gallstones. There is no convincing CT evidence of cholecystitis. Choledocholithiasis is identified at the head of the pancreas on image #124. Spleen: Normal in size and attenuation. Pancreas: Atrophic and grossly unremarkable. This is not well evaluated due to streak artifact. Adrenal glands: There is thickening of the left adrenal gland. Not visualized. Kidneys: The unenhanced kidneys are atrophic and without hydronephrosis. There are no renal calculi identified. There is no evidence of contour deforming renal mass lesion. Abdominal vasculature: The abdominal aorta is normal in course and caliber noting advanced atherosclerotic calcification. Bowel: There is colonic wall thickening and edema with mild pericolonic inflammation. The appearance is consistent with a nonspecific pancolitis, greatest involving the transverse and descending colon. No bowel obstruction is seen. The appendix is not visualized. Peritoneum: There is trace fluid within the left paracolic gutter. No intraperitoneal free air is seen. Lymphadenopathy: None. Pelvic viscera: The bladder is decompressed and grossly unremarkable. The uterus is surgically absent. No adnexal lesion is seen. Skeletal structures: The skeletal structures are heterogeneously osteopenic. There is moderate lumbosacral spondylosis. There is a severe compression deformity of L1 with retropulsed fragments. A moderate compression deformity is seen involving L3. No lytic or blastic lesions are seen. There are healed left pubic ring fractures. Soft tissues: There is a 6 x 4 cm focus of induration/collection overlying the left hip seen on axial image #348. IMPRESSION: 1. Suboptimal examination without oral and IV contrast. The examination is also significantly compromised by streak and motion artifact 2. Findings suggest a nonspecific colitis, greatest involving the left colon. This could be on an infectious, inflammatory, or ischemic basis. 3. Cholelithiasis and choledocholithiasis with calcified gallstones identified within the common bile duct. There is no convincing CT evidence of acute cholecystitis. If there is clinical concern for cholecystitis then abdominal ultrasound should be considered. 4. Soft tissue induration overlies the left hip and has been present dating back to 01/15/2017. This likely represents resolving contusion/hematoma. Clinical correlation will be essential. 5. Trace fluid is seen in the left paracolic gutter. 6. Additional findings as above. Findings were discussed with Dr. Becerra in the emergency department at the time of interpretation. Electronically signed by: Ko Ervin M.D. 04/12/2017 12:18 PM Dictated Date/Time: 04/12/2017 11:57 AM KUB HISTORY: c diff, constipation COMPARISON: Abdomen and pelvis CT 04/12/2017. FINDINGS: The bowel gas pattern is unremarkable. There are no dilated loops of small bowel to suggest an obstruction. No renal calculi. No ureteral calculi. No pneumoperitoneum or pneumatosis. Old right lower rib fractures. IMPRESSION: Unremarkable bowel gas pattern. No dilated loops of large or small bowel. Electronically signed by: London Qiu M.D. 04/15/2017 11:00 AM Dictated Date/Time: 04/15/2017 10:58 AM Consultations: Nephro Gastro Medication Reconciliation New Medications: Vancomycin HCl (Vancomycin HCl) 125 Mg/2.5 Ml Susp 125 MG PO QID for 9 Days Continued Medications: Acetaminophen (Tylenol) 325 Mg Tab 650 MG PO Q6 PRN for Pain or Fever, TAB MILD PAIN OR FEVER > 101 F. NOT TO EXCEED 3 GRAMS PER 24 HOURS. Aspirin (Aspirin Ec) 81 Mg Tab 81 MG PO QAM Atorvastatin (Lipitor) 10 Mg Tab 10 MG PO HS, TAB B-Complex W/ C & Folic Acid ([place] Caps) 1 Cap Cap 1 CAP PO QPM Calcium Acetate (Phosphate Bin (Phoslo 667 Mg) 667 Mg Cap 2 CAPSULES PO TIDM, CAP Cholecalciferol (Vitamin D3) 1,000 Unit Cap 1000 UNITS PO QAM Cholestyramine (Bulk) (Cholestyramine) 1 Pow Pow 1 DOSE PO BID Enteral Nutrition Formula (Nepro Carb Steady) 1 Can Liqd 8 OZ PO TID Probiotic Product (Probiotic) 1 Cap Cap 1 CAP PO BID Quetiapine Fumarate (Seroquel) 25 Mg Tab 12.5 MG PO BID, TAB Discontinued Medications: Hydralazine Hcl (Apresoline) 25 Mg Tab 25 MG PO UD, TAB Labetalol Hcl (Normodyne) 100 Mg Tab 100 MG PO BID HOLD IF SYSTOLIC B/P < 120, OR APICAL HEART RATE < 50. Admission Information HPI (per Admitting provider): Patient is a 77yo F [facility] resident with a PMH of advanced Lewy body dementia, 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, chronic anemia, HTN and DM II who presents with lethargy that started today. Per discussion with custodial staff as well as review of records, patient is normally oriented to self but not person or place. At baseline, she is verbal but suffers from severe dementia and is a total assist with ADLs. Per report, patient was at baseline this morning prior to leaving for dialysis but was found to be lethargic at clinic and was sent to the ER for further evaluation prior to completing treatment. Currently being treated for C diff with PO Flagyl after her c diff toxin came back positive a few days ago. Per custodial, patient has seemed fatigued over the past few days, with poor PO intake, generalized weakness and diarrhea. Has been admitted twice since the beginning of January for sepsis 2/2 e. coli as well as C. diff infection. Per ER doc, patient was last reported to be at baseline at 9am. Is responsive to painful stimuli on exam. HPI limited 2/2 patient's AMS. Patient hypotensive at 88/40 on admission but BP responsive to fluids. Physical Exam (per Admitting): General Appearance: + pertinent finding (Lethargic and sleeping on exam. Arousable only to painful stimuli.) Head: normocephalic, atraumatic Eyes: + pertinent finding (Unwilling to open eyes during exam) ENT: hearing grossly normal, pharynx normal (Dry mucous membranes with perioral crusting) Neck: supple, thyroid normal, trachea midline Respiratory/Chest: chest non-tender, lungs clear, normal breath sounds, no respiratory distress, no accessory muscle use Cardiovascular: regular rate, rhythm, no murmur, normal peripheral pulses Abdomen/GI: normal bowel sounds, non tender, soft, no organomegaly Extremities/Musculoskelatal: normal inspection, no calf tenderness, no pedal edema Neurologic/Psych: + pertinent finding (Altered, lethargic. Responsive to painful stimuli.) Skin: normal color, warm/dry, no rash, + pertinent finding (Decubitus ulcer on L lateral hip. Bandaged. Unable to fully visualize but no evidence of purulent drainage.) Hospital Course Patient is a 77yo F [facility] resident with a PMH of advanced Lewy body dementia who as per patient's daughter may be having more rigidity progressively so possible Parkinsonian symptoms with Lewy Body dementia, 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, chronic anemia, HTN and DM II who presents with lethargy during her dialysis session on 04/12/17 Altered Mental Status Hx of Lewy Body Dementia encephalopathy? vs delirium secondary to infection CT head negative on admission for acute intracranial abnormality Seroquel has been on due to altered mental status Seems like she is back to baseline Stable Possible SIRs/Sepsis C.diff has been treated for C.diff as outpatient in custodial Was started on cefepime IV and Flagyl IV for broad spectrum coverage that was d/ blank on 04/15/17 GI recommended to continue PO Vancomycin 125mg QID to complete 14 days course Blood cx and urine no growth Afebrile and no leukocytosis Choledocholithiasis Gallbladder u/s showed no evidence of CBD dilation or evidence of obstructive symptoms GI on board, no invasive intervention as per POA no plans for ERCP at this time Nutrition, history of Diabetes Speech and swallow evaluation on 04/14/17 Dental soft diet with finger foods given as available. Straws okay. Continue Aspiration precautions: fully upright with meals, small bites and sips , alternate solids and liquids. Patient should be awake, alert, and able to participate in meals. Supervision required, and assistance given with meals as necessary. ESRD On HD Nephrology on board Had HD yesterday HTN: BP stable BP meds have been on hold DVT ppx SCDs Code Status DNR/DNI Disposition Plan to discharge to [facility] today Total time spent on discharge = 35 minutes This includes examination of the patient, discharge planning, medication reconciliation, and communication with other providers. Discharge Instructions Discharge Instructions Date of Service Apr 18, 2017. Admission Reason for Admission: Altered Mental Status Discharge Discharge Diagnosis / Problem: Altered Mental Status, C-diff, ESRD on HD Discharge Goals Goal(s): Decrease discomfort, Improve function, Improve disease control Activity Recommendations Activity Limitations: resume your previous activity (as tolerated) . Instructions / Follow-Up Instructions / Follow-Up Will discharge to [facility] Follow up with your primary care provider at [facility] Complete the course of vanco po Monitor blood pressure If blood pressure starts to elevate, low dose labetalo or Hydralazine can restart Fall precaution Current Hospital Diet Patient's current hospital diet: Renal Diet Discharge Diet Recommended Diet: Renal Diet Pending Studies Studies pending at discharge: no Laboratory Results Hemoglobin A1c Test 04/13/17 06:40 Range/Units Estimated Average Glucose 105 mg/dl Hemoglobin A1c 5.3 4.5-5.6 % Medical Emergencies . Who to Call and When: Medical Emergencies: If at any time you feel your situation is an emergency, please call 911 immediately. . Non-Emergent Contact Non-Emergency issues call your: Primary Care Provider Call Non-Emergent contact if: you have any medication questions . . "Provider Documentation" section prepared by Andriy Estes. . VTE Core Measure Inpt VTE Proph given/why not?: SCD's Additional Copies To [facility]
== END 2017-04-18 15:46 | DRG 871 ==
LOC: EDBD 10:45 → C.EDC 10:47 → C.2T 13:53 → ENRESERV 14:11 → EDBEDREQSVC 04-13 11:18 → ENRESERV 04-13 11:22 → C.MS2W 04-13 12:25
PROVIDERS: ADMIT Hospitalist; ATTEND Internal Medicine
DX: A41.9 Sepsis, unspecified organism (principal); A04.72 Enterocolitis due to Clostridium difficile, not specified as recurrent; N18.6 End stage renal disease; G93.40 Encephalopathy, unspecified; I12.0 Hypertensive chronic kidney disease with stage 5 chronic kidney disease or end stage renal disease; K80.50 Calculus of bile duct without cholangitis or cholecystitis without obstruction; E87.6 Hypokalemia; G31.83 Neurocognitive disorder with Lewy bodies; F02.80 Dementia in other diseases classified elsewhere, unspecified severity, without behavioral disturbance, psychotic disturbance, mood disturbance, and anxiety; E78.5 Hyperlipidemia, unspecified; E11.22 Type 2 diabetes mellitus with diabetic chronic kidney disease; E11.40 Type 2 diabetes mellitus with diabetic neuropathy, unspecified; D63.1 Anemia in chronic kidney disease; E11.319 Type 2 diabetes mellitus with unspecified diabetic retinopathy without macular edema; Z79.899 Other long term (current) drug therapy; Z79.82 Long term (current) use of aspirin; Z66 Do not resuscitate; Z86.19 Personal history of other infectious and parasitic diseases; Z86.14 Personal history of Methicillin resistant Staphylococcus aureus infection; Z99.2 Dependence on renal dialysis; Z87.891 Personal history of nicotine dependence; Z83.3 Family history of diabetes mellitus; Z82.49 Family history of ischemic heart disease and other diseases of the circulatory system

== ENCOUNTER → 2017-04-22 | Outpatient (CLI) | payer OTHER, BC ==
[~2017-04-22] MED LIST changes: -APR/25 PO; +ATOR10TA82 PO; -ATOR10TA88 PO; +CHOLPOW PO; -HYDR-5688 PO; -KETO2SHA TOP; -LBT/100 PO; -LCTX PO; +MISCCAP80 PO
[2017-04-22 09:34] LABS: HEMATOCRIT 31.6 % (37-47); MEAN CELL VOLUME 98.8 fL (80-100); MEAN CORPUSCULAR HEMOGLOBIN 30.9 pg (25-34); MEAN CORPUSCULAR HGB CONC 31.3 g/dl (32-36); MEAN PLATELET VOLUME 9.3 fL (7.4-10.4); PLATELET COUNT 287 K/uL (130-400); WHITE BLOOD COUNT 13.95 K/uL (4.8-10.8)
[2017-04-22 09:55] LABS: ALB/GLOB RATIO 0.6 (0.9-2); ALKALINE PHOSPHATASE 82 U/L (45-117); ALT/SGPT 12 U/L (12-78); AST/SGOT 15 U/L (15-37); BLOOD UREA NITROGEN 47 mg/dl (7-18); BUN/CREATININE RATIO 7.8 (10-20); CALCIUM 8.7 mg/dl (8.5-10.1); CARBON DIOXIDE 26 mmol/L (21-32); CHLORIDE 101 mmol/L (98-107); CREATININE 5.97 mg/dl (0.60-1.20); GLUCOSE 94 mg/dl (70-99); POTASSIUM 4.2 mmol/L (3.5-5.1); SODIUM 138 mmol/L (136-145)
== END ==
LOC: C.LABUPUNI 09:00
PROVIDERS: ATTEND Nurse Practitioner Family
DX: E11.40 Type 2 diabetes mellitus with diabetic neuropathy, unspecified (principal); I10 Essential (primary) hypertension

== ENCOUNTER → 2017-05-01 | Outpatient (CLI) | payer OTHER, BC ==
[2017-05-01 08:56] LABS: BASO % 0.3 %; BASO ABS # 0.03 K/uL (0-0.2); COMPLETE YES; EOS % 7.8 %; HEMATOCRIT 29.3 % (37-47); IG% 0.2 %; LYMPH % 24.1 %; LYMPH ABS # 2.55 K/uL (1.2-3.4); MEAN CELL VOLUME 96.7 fL (80-100); MEAN CORPUSCULAR HEMOGLOBIN 31.4 pg (25-34); MEAN CORPUSCULAR HGB CONC 32.4 g/dl (32-36); MEAN PLATELET VOLUME 9.7 fL (7.4-10.4); MONO % 8.3 %; NEUT % 59.3 %; PLATELET COUNT 226 K/uL (130-400); RED BLOOD COUNT 3.03 M/uL (4.2-5.4); WHITE BLOOD COUNT 10.58 K/uL (4.8-10.8)
--- NOTE | 2017-05-13 08:49 | CODING QUERY MEDICAL NECESSITY ---
SUPPORTING DIAGNOSIS NEEDED A supporting diagnosis is required for the test/procedure performed on this patient in order for us to be reimbursed by the patient's insurance. Please provide a supporting diagnosis for the following test/procedure listed below next to the test name along with your signature. *If there is no additional diagnosis for this patient that would support the following test/procedure please document that below next to the test/procedure. Test(s)/Procedure(s) that require a supporting diagnosis: * CBC W/ AUTO DIFF DIAGNOSIS: Provider Signature: Date: Thank you Teri Roseonly Information Management Once completed, please kindly fax back to [phone] For questions please call [phone]
== END ==
LOC: C.LABUPUNI 07:41
PROVIDERS: ATTEND Nurse Practitioner Family
DX: Z01.89 Encounter for other specified special examinations (principal)

== ENCOUNTER → 2017-05-18 | Outpatient (CLI) | payer OTHER, BC ==
[2017-05-18 04:30] LABS: ALB/GLOB RATIO 0.6 (0.9-2); ALKALINE PHOSPHATASE 79 U/L (45-117); ALT/SGPT 12 U/L (12-78); AST/SGOT 12 U/L (15-37); BLOOD UREA NITROGEN 44 mg/dl (7-18); BUN/CREATININE RATIO 7.4 (10-20); CARBON DIOXIDE 27 mmol/L (21-32); CHLORIDE 99 mmol/L (98-107); CREATININE 5.92 mg/dl (0.60-1.20); GLUCOSE 89 mg/dl (70-99); POTASSIUM 2.9 mmol/L (3.5-5.1); SODIUM 134 mmol/L (136-145)
[2017-05-18 06:31] LABS: HEMATOCRIT 33.5 % (37-47); MEAN CELL VOLUME 95.4 fL (80-100); MEAN CORPUSCULAR HEMOGLOBIN 29.6 pg (25-34); MEAN PLATELET VOLUME 9.6 fL (7.4-10.4); PLATELET COUNT 241 K/uL (130-400); RED BLOOD COUNT 3.51 M/uL (4.2-5.4); WHITE BLOOD COUNT 9.67 K/uL (4.8-10.8)
[2017-05-18 06:58] LABS: ALB/GLOB RATIO 0.6 (0.9-2); ALKALINE PHOSPHATASE 72 U/L (45-117); ALT/SGPT 11 U/L (12-78); AST/SGOT 12 U/L (15-37); BLOOD UREA NITROGEN 42 mg/dl (7-18); CALCIUM 8.8 mg/dl (8.5-10.1); CARBON DIOXIDE 25 mmol/L (21-32); CHLORIDE 100 mmol/L (98-107); CREATININE 6.02 mg/dl (0.60-1.20); GLUCOSE 91 mg/dl (70-99); POTASSIUM 3.2 mmol/L (3.5-5.1); SODIUM 136 mmol/L (136-145)
[2017-05-18 07:16] LABS: ESTIMATED AVERAGE GLUCOSE 97 mg/dl; HA1C FLAG Normal (Normal)
== END ==
LOC: C.LABUPUNI 14:55
PROVIDERS: ATTEND Nurse Practitioner Family
DX: E11.40 Type 2 diabetes mellitus with diabetic neuropathy, unspecified (principal); N18.6 End stage renal disease; M62.81 Muscle weakness (generalized); A41.9 Sepsis, unspecified organism

== ENCOUNTER → 2017-05-20 | Outpatient (CLI) | payer OTHER, BC ==
[2017-05-20 08:12] LABS: HEMATOCRIT 31.8 % (37-47); MEAN CELL VOLUME 95.5 fL (80-100); MEAN CORPUSCULAR HGB CONC 31.4 g/dl (32-36); MEAN PLATELET VOLUME 9.6 fL (7.4-10.4); PLATELET COUNT 263 K/uL (130-400); RED BLOOD COUNT 3.33 M/uL (4.2-5.4); WHITE BLOOD COUNT 9.74 K/uL (4.8-10.8)
[2017-05-20 08:36] LABS: MANUAL MICROSCOPIC REQUIRED? YES; URINE APPEARANCE TURBID (CLEAR); URINE COLOR BROWN; URINE NITRITE NEG (NEG); URINE PH 5.5 (4.5-7.5); URINE SPECIFIC GRAVITY 1.015 (1.000-1.030); UROBILINOGEN NEG (NEG)
[2017-05-20 08:37] LABS: ALB/GLOB RATIO 0.6 (0.9-2); ALKALINE PHOSPHATASE 81 U/L (45-117); ALT/SGPT 9 U/L (12-78); AST/SGOT 12 U/L (15-37); BLOOD UREA NITROGEN 38 mg/dl (7-18); BUN/CREATININE RATIO 7.8 (10-20); CALCIUM 8.8 mg/dl (8.5-10.1); CARBON DIOXIDE 25 mmol/L (21-32); CHLORIDE 98 mmol/L (98-107); CREATININE 4.81 mg/dl (0.60-1.20); GLUCOSE 96 mg/dl (70-99); POTASSIUM 2.9 mmol/L (3.5-5.1); SODIUM 134 mmol/L (136-145)
[2017-05-20 08:38] LABS: REVIEW REQ? NO; URINE BILIRUBIN NEG (NEG)
[2017-05-20 08:41] LABS: URINE BACTERIA 4+ (NEG); URINE WBC >30 /hpf (0-5)
[2017-05-20 09:28] LABS: ESTIMATED AVERAGE GLUCOSE 97 mg/dl; HA1C FLAG Normal (Normal)
[2017-05-21 17:35] LABS: MICROSOMAL AB <1 IU/ML (<9); TSI 120 % baseline (<140)
== END ==
LOC: C.LABUPUNI 07:33
PROVIDERS: ATTEND Nurse Practitioner Family
DX: E11.40 Type 2 diabetes mellitus with diabetic neuropathy, unspecified (principal); N18.6 End stage renal disease; M62.81 Muscle weakness (generalized); R82.5 Elevated urine levels of drugs, medicaments and biological substances; R31.9 Hematuria, unspecified